=== PATIENT | female | born 1950 | race Caucasian/White ===

== ENCOUNTER → 2018-06-28 12:22 | Outpatient (CLI) | payer MEDICARE, OTHER, SELFPAY ==
--- NOTE | 2018-06-28 12:28 | RAD_ITS ---
STUDY: X-RAY - ABDOMEN/PELVIS REASON FOR EXAM: Female, 68 years old. Check [place] TECHNIQUE: Two AP supine views of the abdomen and pelvis. COMPARISON: 05/02/2017. FINDINGS: There is an abundance of fecal material throughout the colon obscuring the kidneys. There is a faint hyperattenuation in the right upper renal kidney of approximately 0.6 cm. There is no demonstrated free abdominal air. There are stable calcified phleboliths in the pelvis. There are diffuse degenerative changes of the visualized lumbar spine. RAD/Abdomen Single View IMPRESSION: Abundant amount of retained fecal material. Possible left upper renal pole calculus. Electronically Signed: Shania Patel MD at 6:37 EDT , Service support ,
== END ==
PROVIDERS: Referring Provider Urology; Visit Provider Urology
DX: N20.0 Calculus of kidney (principal)
CPT/HCPCS: 74018

== ENCOUNTER → 2018-07-19 14:47 | Outpatient (CLI) | payer MEDICARE, OTHER, SELFPAY ==
--- NOTE | 2018-07-19 14:50 | CT_ITS ---
STUDY: CT ABDOMEN AND PELVIS WITHOUT CONTRAST REASON FOR EXAM: Female, 68 years old. Kidney stone RADIATION DOSAGE (If Supplied By Facility): CTDIvol = ( 9.23 ) mGy, DLP = ( 448.17 ) mGycm TECHNIQUE: Transaxial images were obtained from the dome of the diaphragm to the symphysis pubis without oral contrast, and without intravenous contrast. Sagittal and coronal images were reconstructed. # of Images: 447 Individualized dose optimization techniques were used for this CT. COMPARISON: None. FINDINGS: Within the right lower lobe there is a 6.4 mm subpleural nodule. The visualized portions of the heart are within normal limits. Please note the lack of intravenous contrast limits evaluation of solid visceral organs. There are multiple well-circumscribed low-attenuation rounded foci throughout the liver; a arborist representative focus measures up to 1.6 cm within the right hepatic lobe. The gallbladder is contracted. Normal spleen. Normal pancreas. Normal bilateral adrenal glands. Normal right kidney. There is a nonobstructing 7.5 mm left renal calculus. Normal visualized stomach. Normal small intestine. There are scattered diverticula throughout the sigmoid colon. The appendix is visualized and appears normal. There is diffuse atherosclerotic calcification of the abdominal aorta, without a demonstrated aneurysm. Normal inferior vena cava. Normal retroperitoneum. Normal urinary bladder. Normal abdominal wall. There are diffuse degenerative changes of the visualized lumbar spine. CT/Abdomen/Pelvis without Cont IMPRESSION: 7.5 mm nonobstructing left renal calculus. Multiple low-attenuation foci throughout the liver which may reflect underlying cysts and/or hemangiomas, recommend an MRI with contrast for further characterization. Atherosclerosis. Degenerative changes. Electronically Signed: Huyen Georges MD at 16:04 EDT Tel , Service support ,
== END ==
PROVIDERS: Referring Provider Urology; Visit Provider Urology
DX: N20.0 Calculus of kidney (principal)
CPT/HCPCS: 74176

== ENCOUNTER 2018-08-14 07:47 | Day surgery (SDC) | payer MEDICARE, OTHER, SELFPAY ==
[2018-08-14] VITALS (7 sets, daily range): BP systolic 129–167; BP diastolic 75–81; PULSE 60–72; RESP 14–18; TEMP 36.1–37.3; O2SAT 90–100; BMI 24.0
--- NOTE | 2018-08-14 | CALC_PTH ---
PATIENT: RAMÓN MCGRATH LOC: [facility] U#:[id number] AGE/SX: 68/F ROOM: RE08/14/[address]: Dr. Michelle Crenshaw MD : 1950 BED: DIS: 08/14/2018 SPEC #: [id number] RECD: 08/14/18 13:12 STATUS: SAL MARISSA #: [id number] MINI: 08/14/18 00:[address]: Michelle Crenshaw DEPT: SURGICAL PATHOLOGY RECD BY: Oli Ferguson ENTERED: 08/14/18 13:12 SP TYPE: Calculi OTHR DR: [facility] Tissues: CALCULI Procedures: Surgery Specimen Level I HEADER OPERATION: Ureteroscopy, retro, laser, stent PRE-OP DIAGNOSIS: Calculus of kidney TISSUE SUBMITTED: Calculi GROSS DIAGNOSIS Fragments of stone, clinically left kidney calculus. SJ:joce 08/14/18 COMMENT The calculus is submitted in its entirety for chemical stone analysis. The results from this study will be reported separately. GROSS DESCRIPTION Received without fixative labeled with the patient name and designated left kidney calculus is a specimen that consists of two fragments of gonzalez-brown stone measuring in aggregate 0.4 x 0.3 x 0.1 cm. The specimen is submitted entirely for chemical stone analysis. / MISSAEL:joce 08/14/18 CPT: 58503
--- NOTE | 2018-08-14 08:42 | EKG12_ITS ---
Test Reason : PREOP Blood Pressure : / mmHG Vent. Rate : 066 BPM Atrial Rate : 066 BPM P-R Int : 200 ms QRS Dur : 084 ms QT Int : 404 ms P-R-T Axes : 022 009 -05 degrees QTc Int : 423 ms Normal sinus rhythm Normal ECG Confirmed by JUDE GILL, WILLAM ([id number]), food editor MARY GONZALEZ ([id number]) on 08/20/2018 2:34:24 PM Referred By: Michelle Crenshaw Confirmed By:WILLAM ROQUE MD
--- NOTE | 2018-08-14 09:18 | DCINST_ITS ---
Discharge Diet: No Restrictions Discharge Activity: May not drive while taking narcotic pain medications., May Shower May resume sexual activity in: 1 week Call your doctor if you observe: Fever of 101 or Higher, Inability to urinate, Inability to have a bowel movement, Shortness of breath, Chest pain, Calf discomfort, Uncontrolled pain Allergies/Adverse Reactions: Allergies oxycodone HCl [From Percocet] Adverse Reaction (Verified 08/07/18 14:13) Nausea Medications to take at Discharge Ascorbic Acid [Vitamin C] 500 mg PO DAILY 09/28/15 Calcium Carbonate [Calcium] 500 mg PO DAILY 09/28/15 Cholecalciferol (VIT D3) [Vitamin D] 2,000 unit PO DAILY 09/28/15 [place]-3 Fatty Acids [Fish Oil] 1,200 mg PO BID 09/28/15 Simvastatin [Zocor] 20 mg PO QHS 09/28/15 Aspirin E.C. [Ecotrin] 81 mg PO DAILY@0800 11/13/15 Potassium Citrate 1 tab PO BID 11/13/15 Ubidecarenone [Coq10] 50 - 100 mg PO DAILY 11/13/15 Acai Craig Extract [Acai] 1 oz PO DAILY 08/07/18 Bifidobacterium Infantis [Align] 4 mg PO DAILY 08/07/18 Magnesium 250 mg PO BID 08/07/18 Primary Care Physician: [facility] ,Out of [Primary Care Provider] - Test Results: Test results from this visit will be discussed in further detail at your follow- up appointment, if applicable. Please Follow Up With: Michelle Crenshaw MD When: call for appt Proposed Discharge Date: 08/14/18
[2018-08-14] MEDS: Cefazolin 2 GM in 0.9% Normal Saline 100 ML IV (10:02)
--- NOTE | 2018-08-14 11:22 | OP.PCM_ITS ---
Problem List (1) Renal calculus, left Status: Acute Report of Operation Date of Procedure: 08/14/18 Pre-Operative Diagnosis: left renal calculus Post-Operative Diagnosis: same Surgery/Procedure Performed:: cystoscopy, left ureteroscopy, holmium laser lithotripsy, stone basket extraction and left ureteral stent insertion Description of Surgical Findings:: one large left stone about 1cm in the upper pole, broken into small fragments, the largest of which were removed. stent inserted without difficulty. of note, the ureteral caliber is small, and the re-access sheath was tight. Type of Anesthesia:: General Specimen's removed: stone fragments Description of Procedure: The patient is a 68-year-old female who presented to me with a long- standing history of left renal calculi. She has had several treatments including extracorporal shockwave lithotripsy several times. After discussing all the risks, benefits and alternatives and taking into consideration her previous procedures, we decided to remove the stone with ureteroscopy and laser lithotripsy. The patient was taken to the operating room and placed on the operating room table. Anesthesia monitored the head neck airway IV access and vital signs throughout the case. Once anesthesia was appropriately administered the patient was placed into dorsal lithotomy position was prepped and draped in usual sterile fashion. A cystourethroscopy revealed normal urothelial mucosa throughout the bladder and urethra. The areas of the ureteral orifices were identified in the correct anatomic position. At this time the left ureteral orifice was intubated with a 0.035 Glidewire which was used as a safety wire and a second wire was then passed without difficulty. Under fluoroscopic visualization a ureteral re-access sheath was then inserted to the area of the proximal left ureter. At this time using a flexible ureteroscope, ureteroscopy and pyeloscopy were performed and the stone was identified in the upper pole approximately 1 cm in size. The stone was then lasered and broken into small fragments several of which were stone basket extracted through the ureteral reaccessed sheath. When it was felt that no more stones could be removed and that the remainder were small dust like particles, the ureteral re-access sheath was carefully removed under direct visualization and fluoroscopic visualization. The reaccessed sheath was tight and the ureter and time was taken to slowly insert and slowly removed. There was no injury to the ureter identified. At this time using the safety wire a 6 Russian 24 cm double-J stent was inserted with good positioning in the renal pelvis as well as the urinary bladder. The patient's bladder was then emptied and the case was terminated. She was awakened and taken to the recovery room in good condition. There were no complications during this procedure. Stones were sent for analysis. Grafts/Implants Used: 6 Fr 24cm stent - Complications none - Admit VTE Documentation VTE Present on Admission: Yes VTE Mechan Device Prophylaxis: SCD's VTE Pharm Prophylaxis ordered?: No Reason prophylaxis not ordered:: Treatment Not Indicated
--- NOTE | 2018-08-14 11:23 | PCM.IMDPSTOP ---
Problem List (1) Renal calculus, left Status: Acute Immediate Post-Op Note Date of Procedure: 08/14/18 Primary Surgeon/Physician: Michelle Crenshaw MD pre kindergarten teacher: Michelle Crenshaw Pre-Operative Diagnosis: left renal calculus Post-Operative Diagnosis: same Surgery/Procedure Performed:: cystoscopy, left ureteroscopy, holmium laser lithotripsy, stone basket extraction and left ureteral stent insertion Description of Surgical Findings:: one large left stone about 1cm in the upper pole, broken into small fragments, the largest of which were removed. stent inserted without difficulty. of note, the ureteral caliber is small, and the re-access sheath was tight. Estimated Blood Loss: 2cc Specimen's removed: stone fragments Type of Anesthesia:: General - Admit VTE Documentation VTE Present on Admission: Yes VTE Mechan Device Prophylaxis: SCD's VTE Pharm Prophylaxis ordered?: No Reason prophylaxis not ordered:: Treatment Not Indicated
[2018-08-22 12:08] LABS: Ca Oxalate, Dihydrate 30 % (.); Ca Oxalate, Monohydrate 65 % (.)
== END 2018-08-14 14:13 | disposition home or self-care (01) ==
LOC: SDC 07:48 → AC 07:49
PROVIDERS: Referring Provider Urology; Visit Provider Urology
PROC: 0TJ98ZZ Inspection of Ureter, Via Natural or Artificial Opening Endoscopic (ICD-10-PCS; CPT 52352; principal; 2018-08-14 09:10)
DX: N20.0 Calculus of kidney (principal); K59.04 Chronic idiopathic constipation; E78.00 Pure hypercholesterolemia, unspecified; K21.9 Gastro-esophageal reflux disease without esophagitis; Z78.0 Asymptomatic menopausal state; Z79.899 Other long term (current) drug therapy; Z87.442 Personal history of urinary calculi
CPT/HCPCS: 00918; 52356; 76000; 82360; 88300; 93005; J7120; C1769; C1894; C2617; J2405

== ENCOUNTER → 2019-06-21 13:14 | Outpatient (CLI) | payer MEDICARE, OTHER, SELFPAY ==
[2018-08-14 08:01] VITALS: BMI 24.0
--- NOTE | 2019-06-21 13:19 | RAD_ITS ---
HISTORY: History of kidney calculus. No current pain. Most recent comparison study is a CT scan of the abdomen and pelvis from July 19, 2018. Findings: The left renal calculus in the CT scan is not identified. Left pelvic phleboliths are similar to the previous study. Degenerative disc disease and facet arthropathy within the lumbar spine is similar. There is a slight increased amount of stool throughout the colon. RAD/Abdomen Single View IMPRESSION: No urinary calculi perceived. Mild constipation. at 0556 Reported and signed by: Noel Crane MD Electronically Signed: Noel Crane MD at 5:55 EDT Tel , Service support ,
== END ==
PROVIDERS: Referring Provider Urology; Visit Provider Urology
DX: N20.0 Calculus of kidney (principal)
CPT/HCPCS: 74018

== ENCOUNTER → 2020-07-15 11:11 | Outpatient (CLI) | payer MEDICARE, OTHER, SELFPAY ==
[2018-08-14 08:01] VITALS: BMI 24.0
--- NOTE | 2020-07-15 11:14 | RAD_ITS ---
STUDY: X-RAY - ABDOMEN/PELVIS REASON FOR EXAM: Female, 70 years old. hx of urinary calculi TECHNIQUE: 2 COMPARISON: 19 July 2018, June 21 2019 FINDINGS: Normal visualized lung bases. There is an unremarkable bowel gas pattern. There is no demonstrated free abdominal air. There are no calcifications projecting over the urinary system. There are pelvic phleboliths on the left. Normal soft tissue structures. Osseous structures are intact with degenerative change in the lower lumbar segment. SI joints are normal. RAD/Abdomen Single View IMPRESSION: Normal x-ray examination of the abdomen and pelvis. No urinary calculi on plain films. Electronically Signed: Sivakumar Milian, at 15:57 EDT Tel , Service support ,
== END ==
PROVIDERS: Referring Provider Urology; Visit Provider Urology
CPT/HCPCS: 74018

== ENCOUNTER → 2021-07-23 09:45 | Outpatient (CLI) | payer MEDICARE, OTHER, SELFPAY ==
[2021-07-23 12:46] LABS: Anion Gap 4 (5-15); BUN 11 mg/dL (7-18); BUN/Creat Ratio 14.2 RATIO (10-20); Calcium,Total 9.2 mg/dL (8.5-10.1); Chloride 101 mmol/L (98-107); Creatinine, Serum 0.78 mg/dL (0.55-1.02); EST Glomerular Filtration Rate 78 mL/min (>60); Est Glom Filt Rate - Afr Amer 94 mL/min (>60); Glucose 90 mg/dL (74-106); Potassium 4.2 mmol/L (3.5-5.1); Sodium Level 138 mmol/L (136-145)
== END ==
PROVIDERS: Referring Provider Urology; Visit Provider Urology
DX: N20.0 Calculus of kidney (principal)
CPT/HCPCS: 36415; 80048

== ENCOUNTER → 2023-06-07 | Outpatient (CLI) | payer MEDICARE, OTHER, SELFPAY ==
--- NOTE | 2023-06-07 13:30 | CYSPIN_PTH ---
PATIENT: RAMÓN MCGRATH LOC: [facility] U#:[id number] AGE/SX: 73/F ROOM: RE06/07/[address]: Dr. Mihcelle Crenshaw MD : 1950 BED: DIS: 06/07/2023 SPEC #: [id number] RECD: 06/08/23 10:01 STATUS: SAL REDemetrius #: [id number] MINI: 06/07/23 13:[address]: Michelle Crenshaw DEPT: CYTOLOGY RECD BY: Radha Hicks ENTERED: 06/08/23 10:02 SP TYPE: CYSPIN FL OTHR DR: Dr. Hi Marcano MD Tissues: Urine Procedures: Pap Stain (control) Special Stain Group II Cytospin Fluid HEADER OPERATION: Not noted PRE-OP DIAGNOSIS: Gross hematuria TISSUE SUBMITTED: Urine for cytology DIAGNOSIS CYTOLOGY Urine for cytology (cytospin): Negative for high-grade urothelial carcinoma (NHGUC), Blaire System Category II. Marked acute inflammation. See comment. SJ:adam 06/09/2023 COMMENT Numerous red blood cells are also noted. Clinical correlation and appropriate follow up are necessary. Repeat cytology is suggested if clinically indicated. The Blaire System for urine cytology diagnostic categorization was used in the evaluation of this case. CYTOLOGY STUDY Slides are reviewed. CYTOLOGY GROSS Received is 15 ml of gold cloudy fluid labeled with the patient's name and and designated per the requisition as urine. Submitted for cytology preparation. / adam 06/08/2023 TC:2 CPT: 80633
[2023-06-07 18:00] LABS: Cytology, Body Fluid / CSF SEE PATHOLOGY REPORT
== END | disposition home or self-care (01) ==
PROVIDERS: Visit Provider Urology
DX: R31.0 Gross hematuria (principal)
CPT/HCPCS: 88108; 88313

== ENCOUNTER → 2023-06-20 | Outpatient (CLI) | payer MEDICARE, OTHER, SELFPAY ==
--- NOTE | 2023-06-20 14:47 | CT_ITS ---
STUDY: CT ABDOMEN AND PELVIS WITH AND WITHOUT CONTRAST REASON FOR EXAM: Female, 73 years old. UROGRAM HEMATURIA. HISTORY OF KIDNEY STONES RADIATION DOSAGE (If Supplied By Facility): CTDIvol = ( 14.07 ) mGy, DLP = ( 2309.80 ) mGycm TECHNIQUE: Transaxial images were obtained from the dome of the diaphragm to the symphysis pubis without oral contrast. IV 100mL Isovue-[id number] was administered. Sagittal and coronal images were reconstructed. Individualized dose optimization techniques were used for this CT. COMPARISON: Comparison is made with prior study July 19, 2018. FINDINGS: The visualized lung bases are unremarkable. The visualized portions of the heart are within normal limits. Stable multiple hepatic cysts scattered throughout the right and left lobes of the liver. Normal gallbladder and extrahepatic biliary system. Normal spleen. Normal pancreas. Normal bilateral adrenal glands. Normal right kidney. There is a 4.7 mm calculus in the left midpole calyx just proximal to the renal pelvis.. No significant hydronephrosis is seen at this time. Nonobstructive 3 mm calculi are seen in the lower pole calyx of the left kidney. Stable 1 cm cyst in the peripheral lateral aspect of the left kidney. Normal visualized stomach. Normal small intestine. Normal colon. The appendix is visualized and appears normal. There is scattered atherosclerotic calcification of the abdominal aorta, without a demonstrated aneurysm. Normal inferior vena cava. Normal retroperitoneum. Normal urinary bladder. Normal abdominal wall. There are degenerative changes of the visualized lumbar spine. CT/CT Abd/Pelvis W/WO Contrast IMPRESSION: 4.7 mm calculus is seen in the left midpole calyx just proximal to the left renal pelvis. No obstruction is seen. Tiny nonobstructive calculi in the lower pole calyx of the left kidney. Stable multiple small hepatic cysts. Electronically Signed: Daniel Kim MD at 15:42 EDT ,
[2023-06-20 15:11] LABS: CREATININE FINGERSTICK < 0.9 mg/dL (0.55-1.02); EGFR FINGERSTICK > 60.0000 mL/min (>60)
== END | disposition home or self-care (01) ==
LOC: CT 14:47
PROVIDERS: Referring Provider Urology; Visit Provider Urology
DX: R31.0 Gross hematuria (principal)
CPT/HCPCS: 74178; Q9967

== ENCOUNTER → 2023-07-05 | Outpatient (CLI) | payer MEDICARE, OTHER, SELFPAY ==
--- NOTE | 2023-07-05 12:50 | RAD_ITS ---
INDICATION: KIDNEY STONE EXAMINATION/TECHNIQUE: X-RAY - XR 1 View COMPARISON: Prior study dated: 06/20/2023. FINDINGS: BOWEL GAS PATTERN: Non-obstructive. Moderate fecal retention. FREE AIR: Not assessed on a single supine view. ORGANOMEGALY: Not seen. CALCIFICATIONS: No abnormal calcifications are definitely observed. LOWER CHEST: No acute pathology. BONES AND SOFT TISSUES: No acute pathology. RAD/Abdomen Single View IMPRESSION: 1. Non-obstructive bowel gas pattern. 2. Fecal retention. Electronically Signed: Negro Rodriguez MD at 9:59 EDT ,
== END | disposition home or self-care (01) ==
PROVIDERS: Referring Provider Urology; Visit Provider Urology
DX: N20.0 Calculus of kidney (principal)
CPT/HCPCS: 74018

== ENCOUNTER 2023-10-12 05:59 | Day surgery (SDC) | payer MEDICARE, OTHER, SELFPAY ==
[2023-10-12] VITALS (8 sets, daily range): BP systolic 119–172; BP diastolic 58–93; PULSE 59–81; RESP 16–17; TEMP 36.3–37; O2SAT 92–98; BMI 23.7
--- OUTSIDE RECORDS SUMMARY | 2023-10-12 06:21 | XMS RPT_ITS | CCD ---
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 Name Role Phone Nel Marcano Unavailable Haus, Nel P Unavailable HAUS, NEL Unavailable Unavailable HAUS, NEL Unavailable Unavailable Haus, Nel P Unavailable Haus, Nel Nayak Primary Care Provider Haus, Nel P Unavailable Rayray Lam Admitting Unavailable Rayray aLm Attending Unavailable Nel Marcano Primary Care Provider Haus, Nel P Unavailable Haus, Nel Nayak Primary Care Provider Haus, Nel P Unavailable JEET, NEL NAYAK Primary Care Unavailable SON VARGAS Attending Unavailabl e Nel Marcano DO Primary Care Provider Haus DO, Nel P Unavailable Haus DO, Nel Nayak Primary Care Provider Haus, Nel P Unavailable Haus DO, Nel Nayak Primary Care Provider Haus DO, Nel Nayak Primary Care Provider Haus DO, Nel P Primary Care Provider [phone] BREANNE PHILIPPE Attending Unavailable HAUS, NEL RYAN Primary Care Unavailable ALEJANDRA, NICOLE MCCANN Referring Unavailab le ALEJANDRA, NICOLE MCCANN Admitting Unavailab le PRINZ, VAN Attending Unavailable HAUS, [facility] Primary Care Unavailable ALEJANDRA, NICOLE MCCANN Referring Unavailab le ALEJANDRA, NICOLE MCCANN Admitting Unavailab le PRINZ, VAN Attending Unavailable HAUS, [facility] Primary Care Unavailable ALEJANDRA, NICOLE MCCANN Admitting Unavailab le ALEJANDRA, NICOLE MCCANN Referring Unavailab le PRINZ, VAN Attending Unavailable HAUS, [facility] Primary Care Unavailable ALEJANDRA, NICOLE MCCANN Admitting Unavailab le ALEJANDRA, NICOLE MCCANN Referring Unavailab le HAUS, [facility] Primary Care Unavailable PRINZ, VAN Attending Unavailable ALEJANDRA, NICOLE MCCANN Admitting Unavailab le ALEJANDRA, NICOLE MCCANN Referring Unavailab le HAUS, NEL RYAN Primary Care Unavailable PRINCheo, VAN Attending Unavailable ALEJANDRA, NICOLE MCCANN Admitting Unavailab le ALEJANDRA, NICOLE MCCANN Referring Unavailab le PRINZ, VAN Attending Unavailable ALEJANDRA, NICOLE MCCANN Referring Unavailab le ALEJANDRA, NICOLE MCCANN Admitting Unavailab le HAUS, NEL RYAN Primary Care Unavailable PRINZ, VAN Attending Unavailable ALEJANDRA, NICOLE MCCANN Referring Unavailab le ALEJANDRA, NICOLE MCCANN Admitting Unavailab le HAUS, NEL RYAN Primary Care Unavailable PRINCheo, VAN Attending Unavailable ALEJANDRA, NICOLE MCCANN Referring Unavailab le ALEJANDRA, NICOLE MCCANN Admitting Unavailab le HAUS, [facility] Primary Care Unavailable PRINCheo, VAN Attending Unavailable ALEJANDRA, NICOLE MCCANN Referring Unavailab le ALEJANDRA, NICOLE MCCANN Admitting Unavailab le HAUS, [facility] Primary Care Unavailable DIOMEDES STEVENS Attending Unavailable ALEJANDRA, NICOLE MCCANN Referring Unavailab le ALEJANDRA, NICOLE MCCANN Admitting Unavailab le HAUS, [facility] Primary Care Unavailable Haus DO, Nel Primary Care Provider [phone] CAROLA KAUFMAN Attending Unavailable HAUS, NEL RYAN Primary Care Unavailable HAUS, NEL RYAN Primary Care Unavailable BRIANDA HUNTER Attending Unavailable HAUS, NEL RYAN Primary Care Unavailable CLAIRE ROSARIO Attending Unavailable HAUS, NEL RYAN Primary Care Unavailable RUSTY, LEIDY POOLE Attending Unavailable HAUS, NEL RYAN Primary Care Unavailable STEVAN MCMANUS Attending Unavailable CLAIRE ROSARIO Referring Unavailable CLAIRE ROSARIO Admitting Unavailable HAUS, NEL RYAN Primary Care Unavailable HAUS, NEL RYAN Primary Care Unavailable RUSTY, LEIDY POOLE Attending Unavailable HAUS, NEL RYAN Primary Care Unavailable GRAVERMARJORIE Attending Unavailabl e CELESTE GUERRA Attending Unavailable HAUS, NEL RYAN Primary Care Unavailable HAUS, NEL RYAN Primary Care Unavailable RUSTY, LEIDY POOLE Attending Unavailable GRAVERMARJORIE Attending Unavailabl e HAUS, NEL RYAN Primary Care Unavailable ROSARIOCLAIRE Attending Unavailable HAUS, NEL RYAN Primary Care Unavailable GRAVER, MARJORIE FARRIS Attending Unavailabl e HAUS, NEL RYAN Primary Care Unavailable HAUS, NEL RYAN Primary Care Unavailable RUSTY, LEIDY POOLE Attending Unavailable HAUS, NEL RYAN Primary Care Unavailable RUSTY, LEIDY POOLE Attending Unavailable HAUS, NEL RYAN Primary Care Unavailable CELESTE GUERRA Attending Unavailable HAUS, NEL RYAN Primary Care Unavailable LUIS SMITH Attending Unavailable HAUS, NEL RYAN Primary Care Unavailable FLAVIO MALDONADO Attending Unavailable CAROLA AKUFMAN Attending Unavailable HAUS, NEL RYAN Primary Care Unavailable HAUS, NEL RYAN Primary Care Unavailable LANI HALL Attending Unavailable Unavailable Unavailable DO ADAM PAN Attending Unavailable DO ADAM PAN Referring Unavailable Haus, Dr. Nel Nayak Primary Care Unavailable CHAIMMATT Yu Admitting Unavailable CHAIMMATT Yu Attending Unavailable HAUS, NEL RYAN Primary Care Unavailable HAUS, NEL RYAN Primary Care Unavailable CHAIMMATT uY Admitting Unavailable CHAIMMATT Yu Attending Unavailable HAUS, NEL RYAN Primary Care Unavailable HAUS, NEL RYAN Primary Care Unavailable NICOLE ROBERTS Admitting Unavailab le ALEJANDRANICOLE Attending Unavailab le HAUS, NEL RYAN Primary Care Unavailable CHAIM, MATT TORRE Attending Unavailable ALEJANDRANICOLE Admitting Unavailab le HAUS, NEL P Primary Care Unavailable SELF, SELF Referring Unavailable JOSE DE JESUSCHIRAG Attending Unavailable HAUS, NEL P Primary Care Unavailable HAUS, NEL P Attending Unavailable SELF, SELF Referring Unavailable HAUS, NEL P Primary Care Unavailable HAUS, NEL P Referring Unavailable HAUS, NEL P Primary Care Unavailable HAUS, NEL P Attending Unavailable HAUS, NEL P Attending Unavailable HAUS, NEL P Referring Unavailable HAUS, NEL P Primary Care Unavailable HAUS, NEL P Attending Unavailable HAUS, NEL P Referring Unavailable HAUS, NEL P Primary Care Unavailable HAUS, NEL P Primary Care Unavailable JOSE DE JESUS, CHIRAG Attending Unavailable SELF, SELF Referring Unavailable Allergies Allergy Classification Reported Allergen(s) Allergy Type Date of Onset Reaction(s) Facility Acetaminophen / oxyCODONE (20 sources) Acetaminophen / oxyCODONE Drug Allergy 7 GI Intolerance [facility] (20 sources) acetaminophen / oxyCODONE; Translations: [Unknown] Propensity to adverse reactions to drug 7 GI Intolerance [facility] (20 sources) oxyCODONE; Translations: [OXYCODONE] Drug Allergy 8 GI Intolerance, Nausea and Vomiting [facility] Medications Current Medications Medication Drug Class(es) Dates Sig (Normalized) Sig (Original) ascorbic acid 100 mg oral tablet (20 sources) Vitamin C take 5 tablets by [facility] once daily ascorbic acid, vitamin C, (VITAMIN C) 100 MG tablet Take 5 (five) tablets (500 mg total) by mouth daily . 0 Active Completed/Discontinued Medications Medication Drug Class(es) Dates Sig (Normalized) Sig (Original) aspirin 81 mg oral tablet (3 sources) Platelet Aggregation Inhibitor, Nonsteroidal Anti-inflammatory Drug Aspirin 81 MG TAB S Quantity: 0 Refills: 0 Ordered: 22-Jun-2023 DO Active Problems Active Problems Problem Classification Problem Date Documented Da te Episodic/Chronic Anxiety disorders (20 sources) Anxiety; Translations: [Anxiety disorder, unspecified] Onset: 1 08-10-2021 Chronic Coronary atherosclerosis and other heart disease (2 sources) Coronary arteriosclerosis; Translations: [Atherosclerotic heart disease of [place] coronary artery without angina pectoris] Onset: 8 08-28-2019 Chronic Disorders of lipid metabolism (10 sources) Hypercholesterolemia; Translations: [Pure hypercholesterolemia, unspecified] Onset: 8 Resolved: 2 12-25-2017 Chronic Esophageal disorders (6 sources) Gastroesophageal reflux disease; Translations: [Gastro-esophageal reflux disease without esophagitis] Onset: 9 10-03-2018 Chronic Esophageal disorders (1 source) Gastroesophageal reflux disease with hiatal hernia; Translations: [Hiatal hernia with GERD without esophagitis] Episodic Nausea and vomiting (1 source) Nausea; Translations: [Nausea] Episodic Nutritional deficiencies (20 sources) Vitamin D deficiency; Translations: [Vitamin D deficiency, unspecified] Onset: 0 03-20-2020 Chronic Osteoarthritis (4 sources) Osteoarthritis of left knee joint; Translations: [Unilateral primary osteoarthritis, left knee] Onset: 2 Chronic Osteoporosis (20 sources) Senile osteoporosis; Translations: [Age-related osteoporosis without current pathological fracture] Onset: 0 03-20-2020 Chronic Other aftercare (2 sources) Other detention (current) drug therapy; Translations: [Other watermelon inspector (current) drug therapy] Onset: 3 Episodic Other bone disease and musculoskeletal deformities (20 sources) Idiopathic scoliosis AND/OR kyphoscoliosis; Translations: [Other idiopathic scoliosis, site unspecified] Onset: 1 12-11-2020 Chronic Other bone disease and musculoskeletal deformities (20 sources) Idiopathic kyphoscoliosis; Translations: [Other idiopathic scoliosis, site unspecified] Onset: 1 07-02-2021 Chronic Other ear and sense organ disorders (10 sources) Sensorineural hearing loss, bilateral; Translations: [Sensorineural hearing loss, bilateral] Onset: 3 Chronic Other ear and sense organ disorders (1 source) Sensorineural hearing loss, bilateral; Translations: [Sensorineural hearing loss, bilateral] Onset: 3 Chronic Other ear and sense organ disorders (1 source) Sudden hearing loss; Translations: [Sudden hearing loss, unspecified laterality] Episodic Other gastrointestinal disorders (1 source) Heartburn; Translations: [Heartburn] Episodic Other gastrointestinal disorders (1 source) Eructation; Translations: [Gaseous regurgitation] Episodic Other gastrointestinal disorders (1 source) Burping; Translations: [Belching] Episodic Other gastrointestinal disorders (1 source) Chronic constipation; Translations: [Constipation, unspecified] Episodic Other gastrointestinal disorders (2 sources) Other constipation; Translations: [Other constipation] Onset: 3 Episodic Other hereditary and degenerative nervous system conditions (2 sources) Resting tremor; Translations: [Other specified forms of tremor] Onset: 1 10-28-2020 Chronic Other lower respiratory disease (2 sources) Dyspnea; Translations: [Shortness of breath] Onset: 8 08-31-2018 Episodic Other lower respiratory disease (1 source) Chronic cough; Translations: [Chronic cough] Episodic Other nervous system disorders (3 sources) Tremor; Translations: [Tremor] Episodic Other non-traumatic joint disorders (20 sources) Thoracic arthritis; Translations: [Spondylosis without myelopathy or radiculopathy, thoracic region] Onset: 1 12-11-2020 Chronic Other non-traumatic joint disorders (1 source) Instability of joint of left knee; Translations: [Other instability, left knee] Episodic Other screening for suspected conditions (not mental disorders or infectious disease) (13 sources) Patient encounter status; Translations: [Encounter for screening for osteoporosis] Onset: 3 Episodic Parkinson`s disease (20 sources) Parkinson's disease; Translations: [Parkinson's disease] Onset: 1 Resolved: 3 Chronic Parkinson`s disease (4 sources) Parkinson`s disease; Translations: [Parkinson's disease without dyskinesia, without mention of fluctuations] Onset: 1 Residual codes; unclassified (4 sources) History of drug therapy; Translations: [Personal history of other drug therapy] Episodic Residual codes; unclassified (2 sources) Personal history of other drug therapy; Translations: [Personal history of other drug therapy] Onset: 3 Episodic Spondylosis; intervertebral disc disorders; other back problems (20 sources) Lumbar spondylosis; Translations: [Spondylosis without myelopathy or radiculopathy, lumbar region] Onset: 1 12-11-2020 Chronic Unclassified (1 source) Patient encounter status; Translations: [Screening for osteoporosis] Past or Other Problems Problem Classification Problem Date Documented Date Episodic/Chronic Allergic reactions (2 sources) Contact dermatitis due to [place]; Translations: [Allergic contact dermatitis due to plants, except food] Onset: 03-25-2021 03-25-2021 Episodic Calculus of urinary tract (6 sources) History of calculus of kidney; Translations: [Kidney stone] Onset: 12-25-2017 12-25-2017 Episodic Genitourinary symptoms and ill-defined conditions (6 sources) Urinary symptoms ; Translations: [Unspecified symptoms and signs involving the genitourinary system] Onset: 04-17-2023 04-17-2023 Episodic Heart valve disorders (2 sources) Heart murmur; Translations: [Cardiac murmur, unspecified] Onset: 10-09-2018 08-28-2019 Episodic Nonspecific chest pain (5 sources) Chest pain; Translations: [Non-cardiac chest pain] Onset: 08-31-2018 08-31-2018 Episodic Other circulatory disease (2 sources) Elevated blood pressure; Translations: [Elevated blood-pressure reading, without diagnosis of hypertension] Onset: 09-07-2020 09-07-2020 Episodic Other lower respiratory disease (2 sources) Dyspnea on exertion; Translations: [Other forms of dyspnea] Onset: 08-31-2018 09-05-2019 Episodic Other upper respiratory disease (20 sources) Difficulty speaking; Translations: [Dysphonia] Onset: 04-06-2021 Episodic Other upper respiratory disease (20 sources) Dysphonia; Translations: [Dysphonia] Onset: 04-06-2021 04-06-2021 Episodic Residual codes; unclassified (2 sources) Pain, unspecified; Translations: [Pain, unspecified] Onset: 05-19-2022 Episodic Residual codes; unclassified (2 sources) Pain Onset: 05-19-2022 Episodic Unclassified (2 sources) Onset: 09-19-2022 Resolved: 09-19-2022 09-19-2022 Results Test Name Value Interpretation Reference Range Facil ity Vital Signs Date Time Vital Sign Value Performing Clinician Facility 07-17-2023 12:27-0400 Diastolic blood pressure 84 mm[Hg] Matt Lopez MD Work Phone: [facility] 07-17-2023 12:27-0400 Heart rate 77 /min Matt Lopez MD Work Phone: [facility] 07-17-2023 12:27-0400 Respiratory rate 16 /min Matt Lopez MD Work Phone: [facility] 07-17-2023 12:27-0400 Systolic blood pressure 134 mm[Hg] Matt Lopez MD Work Phone: [facility] 06-22-2023 15:06-0400 Body height 165.1 cm Nel P Haus Work Phone: [facility] Work Phone: 06-22-2023 15:06-0400 Body mass index (BMI) [Ratio] 25.03 kg/m2 Nel P Haus Work Phone: [facility] Work Phone: 06-22-2023 15:06-0400 Body surface area Derived from formula 1.75 m2 Nel P Haus Work Phone: [facility] Work Phone: 06-22-2023 15:06-0400 Body weight 68.22 kg Nel P Haus Work Phone: [facility] Work Phone: 04-28-2023 09:11-0400 Body mass index (BMI) [Ratio] 25.01 kg/m2 Kelleen Graver TRANSFER AGENT Work Phone: [facility] 04-28-2023 09:11-0400 Body weight 68.18 kg Kelleen Graver TRANSFER AGENT Work Phone: [facility] 04-28-2023 09:11-0400 Diastolic blood pressure 80 mm[Hg] Kelleen Graver TRANSFER AGENT Work Phone: [facility] 04-28-2023 09:11-0400 Systolic blood pressure 135 mm[Hg] Kelleen Graver TRANSFER AGENT Work Phone: [facility] 04-17-2023 09:41-0400 Body height 165.1 cm Chirag Jose De Jesus PA Work Phone: [facility] 04-17-2023 09:41-0400 Body mass index (BMI) [Ratio] 22.96 kg/m2 Chirag Jose De Jesus PA Work Phone: [facility] 04-17-2023 09:41-0400 Body temperature 98.01 [degF] Chirag Jose De Jesus PA Work Phone: [facility] 04-17-2023 09:41-0400 Body weight 62.6 kg Chirag Jose De Jesus PA Work Phone: [facility] 04-17-2023 09:41-0400 Diastolic blood pressure 73 mm[Hg] Chirag Jose De Jesus PA Work Phone: [facility] 04-17-2023 09:41-0400 Heart rate 75 /min Chirag Jose De Jesus PA Work Phone: [facility] 04-17-2023 09:41-0400 Respiratory rate 17 /min Chirag Jose De Jesus PA Work Phone: [facility] 04-17-2023 09:41-0400 SaO2% (BldA) [Mass fraction] 99 % Chirag Jose De Jesus PA Work Phone: [facility] 04-17-2023 09:41-0400 Systolic blood pressure 150 mm[Hg] Chirag Jose De Jesus PA Work Phone: [facility] 01-10-2023 11:49-0400 Diastolic blood pressure 92 mm[Hg] Matt Lopez MD Work Phone: [facility] 01-10-2023 11:49-0400 Heart rate 66 /min Matt Lopez MD Work Phone: [facility] 01-10-2023 11:49-0400 Respiratory rate 16 /min Matt Lopez MD Work Phone: [facility] 01-10-2023 11:49-0400 Systolic blood pressure 163 mm[Hg] Matt Lopez MD Work Phone: [facility] 10-05-2022 12:34-0500 Diastolic blood pressure 85 mm[Hg] Nicole Alejandra TRANSFER AGENT Work Phone: [facility] 10-05-2022 12:34-0500 Heart rate 60 /min Nicole Alejandra TRANSFER AGENT Work Phone: [facility] 10-05-2022 12:34-0500 Respiratory rate 16 /min Nicole Alejandra TRANSFER AGENT Work Phone: [facility] 10-05-2022 12:34-0500 Systolic blood pressure 160 mm[Hg] Nicole Alejandra TRANSFER AGENT Work Phone: [facility] 09-28-2022 12:13-0500 Diastolic blood pressure 81 mm[Hg] Leidy Donald MD Work Phone: [facility] 09-28-2022 12:13-0500 Systolic blood pressure 138 mm[Hg] Leidy Donald MD Work Phone: [facility] 09-19-2022 09:43-0500 Body height 165.1 cm Nel Haus DO Work Phone: [facility] 09-19-2022 09:43-0500 Body mass index (BMI) [Ratio] 25.49 kg/m2 Nel Haus DO Work Phone: [facility] 09-19-2022 09:43-0500 Body weight 69.49 kg Nel Haus DO Work Phone: [facility] 09-19-2022 09:43-0500 Diastolic blood pressure 82 mm[Hg] Nel Haus DO Work Phone: [facility] 09-19-2022 09:43-0500 Heart rate 76 /min Nel Haus DO Work Phone: [facility] 09-19-2022 09:43-0500 SaO2% (BldA) [Mass fraction] 96 % Nel Marcano DO Work Phone: [facility] 09-19-2022 09:43-0500 Systolic blood pressure 138 mm[Hg] Nel Marcano DO Work Phone: [facility] 08-26-2022 11:02-0500 Diastolic blood pressure 72 mm[Hg] Marjorie Nava TRANSFER AGENT Work Phone: [facility] 08-26-2022 11:02-0500 Systolic blood pressure 128 mm[Hg] Marjorie Nava TRANSFER AGENT Work Phone: [facility] 08-11-2022 09:13-0500 Body height 167.6 cm Claire Rosario CNP Work Phone: [facility] 08-11-2022 09:13-0500 Body mass index (BMI) [Ratio] 23.57 kg/m2 Claire Rosario CNP Work Phone: [facility] 08-11-2022 09:13-0500 Body weight 66.22 kg Claire Rosario CNP Work Phone: [facility] 08-04-2022 09:59-0400 Diastolic blood pressure 85 mm[Hg] Matt Lopez MD Work Phone: [facility] 08-04-2022 09:59-0400 Heart rate 68 /min Matt Lopez MD Work Phone: [facility] 08-04-2022 09:59-0400 Respiratory rate 16 /min Matt Lopez MD Work Phone: [facility] 08-04-2022 09:59-0400 Systolic blood pressure 147 mm[Hg] Matt Lopez MD Work Phone: [facility] 06-29-2022 11:00-0400 Diastolic blood pressure 80 mm[Hg] Leidy Donald MD Work Phone: [facility] 06-29-2022 11:00-0400 Systolic blood pressure 130 mm[Hg] Leidy Donald MD Work Phone: [facility] 05-25-2022 10:34-0400 Diastolic blood pressure 79 mm[Hg] Leidy Donald MD Work Phone: [facility] 05-25-2022 10:34-0400 Systolic blood pressure 144 mm[Hg] Leidy Donald MD Work Phone: [facility] 05-19-2022 10:03-0400 Body height 167.6 cm Claire Rosario CNP Work Phone: [facility] 05-19-2022 10:03-0400 Body mass index (BMI) [Ratio] 23.57 kg/m2 Claire Rosario CNP Work Phone: [facility] 05-19-2022 10:03-0400 Body weight 66.22 kg Claire Rosario CNP Work Phone: [facility] 04-27-2022 11:36-0400 Diastolic blood pressure 79 mm[Hg] Marjorie Nava TRANSFER AGENT Work Phone: [facility] 04-27-2022 11:36-0400 Systolic blood pressure 139 mm[Hg] Marjorie Nava TRANSFER AGENT Work Phone: [facility] 03-30-2022 11:02-0400 Diastolic blood pressure 81 mm[Hg] Leidy Donald MD Work Phone: [facility] 03-30-2022 11:02-0400 Systolic blood pressure 150 mm[Hg] Leidy Donald MD Work Phone: [facility] 02-23-2022 11:47-0400 Diastolic blood pressure 83 mm[Hg] Leidy Donald MD Work Phone: [facility] 02-23-2022 11:47-0400 Systolic blood pressure 135 mm[Hg] Leidy Donald MD Work Phone: [facility] 02-23-2022 11:33-0400 Body height 164.5 cm Leidy Donald MD Work Phone: [facility] 02-23-2022 11:33-0400 Body mass index (BMI) [Ratio] 24.99 kg/m2 Leidy Donald MD Work Phone: [facility] 02-23-2022 11:33-0400 Body weight 67.59 kg Leidy Donald MD Work Phone: [facility] 02-10-2022 07:58-0400 Diastolic blood pressure 84 mm[Hg] Matt Lopez MD Work Phone: [facility] 02-10-2022 07:58-0400 Heart rate 65 /min Matt Lopez MD Work Phone: [facility] 02-10-2022 07:58-0400 Systolic blood pressure 135 mm[Hg] Matt Lopez MD Work Phone: [facility] 01-26-2022 11:39-0400 Diastolic blood pressure 81 mm[Hg] Leidy Donald MD Work Phone: [facility] 01-26-2022 11:39-0400 Systolic blood pressure 135 mm[Hg] Leidy Donald MD Work Phone: [facility] 12-22-2021 13:42-0400 Diastolic blood pressure 85 mm[Hg] Leidy Donald MD Work Phone: [facility] 12-22-2021 13:42-0400 Systolic blood pressure 137 mm[Hg] Leidy Donald MD Work Phone: [facility] 11-24-2021 13:44-0500 Diastolic blood pressure 82 mm[Hg] Leidy Donald MD Work Phone: [facility] 11-24-2021 13:44-0500 Systolic blood pressure 127 mm[Hg] Leidy Donald MD Work Phone: [facility] 09-30-2021 16:01-0500 Diastolic blood pressure 80 mm[Hg] Leidy Donald MD Work Phone: [facility] 09-30-2021 16:01-0500 Systolic blood pressure 140 mm[Hg] Leidy Donald MD Work Phone: [facility] 09-22-2021 14:47-0500 Body height 164.5 cm Leidy Donald MD Work Phone: [facility] 09-22-2021 14:47-0500 Body mass index (BMI) [Ratio] 24.55 kg/m2 Leidy Donald MD Work Phone: [facility] 09-22-2021 14:47-0500 Body weight 66.41 kg Leidy Donald MD Work Phone: [facility] 09-22-2021 14:47-0500 Diastolic blood pressure 85 mm[Hg] Leidy Donald MD Work Phone: [facility] 09-22-2021 14:47-0500 Systolic blood pressure 148 mm[Hg] Leidy Donald MD Work Phone: [facility] 04-08-2021 15:03-0400 Diastolic blood pressure 81 mm[Hg] Tom Ng MD Work Phone: [facility] 04-08-2021 15:03-0400 Heart rate 87 /min Tom Ng MD Work Phone: [facility] 04-08-2021 15:03-0400 Respiratory rate 16 /min Tom Ng MD Work Phone: [facility] 04-08-2021 15:03-0400 SaO2% (BldA) [Mass fraction] 96 % Tom Ng MD Work Phone: [facility] 04-08-2021 15:03-0400 Systolic blood pressure 128 mm[Hg] Tom Ng MD Work Phone: [facility] 01-05-2021 07:45-0400 BP Diastolic 93 mm[Hg] Gubert Gavin [facility] 01-05-2021 07:45-0400 BP Systolic 164 mm[Hg] Brettbert Gavin [facility] 01-05-2021 07:45-0400 Pulse (Heart Rate) 68 /min Felipe Gavin [facility] 01-05-2021 07:45-0400 Pulse Oximetry 98 % Gubert Gavin [facility] 01-05-2021 07:45-0400 Respiratory Rate 16 /min Felipe Gavin [facility] 12-11-2020 10:15-0500 BP Diastolic 86 mm[Hg] [facility] 12-11-2020 10:15-0500 BP Systolic 143 mm[Hg] [facility] 12-11-2020 09:50-0500 BMI (Body Mass Index) 25.15 kg/m2 [facility] 12-11-2020 09:50-0500 Body weight 68.04 kg [facility] 12-11-2020 09:50-0500 Height 164.5 cm [facility] 03-20-2020 08:34-0400 BP Diastolic 83 mm[Hg] [facility] 03-20-2020 08:34-0400 BP Systolic 146 mm[Hg] [facility] 03-20-2020 08:29-0400 BMI (Body Mass Index) 24.87 kg/m2 [facility] 03-20-2020 08:29-0400 Body weight 67.27 kg [facility] 03-20-2020 08:29-0400 Height 164.5 cm [facility] 11-14-2018 10:53-0500 BMI (Body Mass Index) 25.64 kg/m2 [facility] 11-14-2018 10:53-0500 Body Temperature 97.39 [degF] [facility] 11-14-2018 10:53-0500 BP Diastolic 87 mm[Hg] [facility] 11-14-2018 10:53-0500 BP Systolic 145 mm[Hg] [facility] 11-14-2018 10:53-0500 Height 165.1 cm [facility] 11-14-2018 10:53-0500 Pulse (Heart Rate) 72 /min [facility] 11-14-2018 10:53-0500 Pulse Oximetry 96 % [facility] 11-14-2018 10:53-0500 Weight 69.9 kg [facility] 10-05-2018 15:13-0500 BMI (Body Mass Index) 24.74 kg/m2 [facility] 10-05-2018 15:13-0500 Body Temperature 97.81 [degF] [facility] 10-05-2018 15:13-0500 BP Diastolic 91 mm[Hg] [facility] 10-05-2018 15:13-0500 BP Systolic 154 mm[Hg] [facility] 10-05-2018 15:13-0500 Height 165.1 cm [facility] 10-05-2018 15:13-0500 Pulse (Heart Rate) 76 /min [facility] 10-05-2018 15:13-0500 Pulse Oximetry 97 % [facility] 10-05-2018 15:13-0500 Weight 67.45 kg [facility] 08-31-2018 09:16-0500 BMI (Body Mass Index) 24.86 kg/m2 [facility] Work Phone: 08-31-2018 09:16-0500 Body Temperature 97.81 [degF] [facility] Work Phone: 08-31-2018 09:16-0500 BP Diastolic 83 mm[Hg] [facility] Work Phone: 08-31-2018 09:16-0500 BP Systolic 146 mm[Hg] [facility] Work Phone: 08-31-2018 09:16-0500 Height 165.1 cm [facility] Work Phone: 08-31-2018 09:16-0500 Pulse (Heart Rate) 76 /min [facility] Work Phone: 08-31-2018 09:16-0500 Pulse Oximetry 98 % [facility] Work Phone: 08-31-2018 09:16-0500 Weight 67.77 kg [facility] Work Phone: Encounters Encounter Date Encounter Type Care Provider Facility Start: 09-21-2023 ambulatory [facility] Start: 09-20-2023 [facility] Start: 07-17-2023 End: 07-21-2023 ambulatory MATT LOPEZ [facility] Start: 07-17-2023 End: 07-17-2023 Office outpatient visit 15 minutes Matt Lopez MD Work Phone: [facility] Procedures Date Procedure Procedure Detail Performing Clinician Start: 04-17-2023 Urnls dip stick/tabl et rgnt non-auto w/o micrscp Chirag TRUJILLO Work Phone: Start: 12-02-2022 Lipid 1996 panel - S dickson or Plasma Chirag TRUJILLO Work Phone: Start: 10-20-2022 Dxa bone density jordan dy 1/> sites axial mary alice Donald MD Work Phone: Start: 08-12-2022 Arthrocentesis aspir &/inj major jt/bursa w/o Claire Rosario [facility] Work Phone: Start: 08-04-2021 Dxa bone density jordan dy 1/> sites axial mary alice Donald MD Work Phone: Start: 06-09-2021 Lipid 1996 panel - S dickson or Plasma Nel Haus DO Work Phone: Start: 01-14-2021 CT of head without contrast Felipe Gavin Work Phone: Start: 12-09-2017 Lipid 1996 panel - S dickson or Plasma Nel Haus Lithotripsy Nel P Haus Work Phone: Operative procedure on knee Nel P Haus Work Phone: Plan of Treatment Date Care Activity Detail Author Start: 05-04-2029 Tetanus vaccination [facility] Start: 12-03-2027 Lipid panel LIPID SCREENING [facility] Start: 06-09-2026 Lipid panel LIPID SCREENING [facility] Start: 09-05-2025 Screening for malignant neoplasm of colon [facility] Start: 02-01-2024 Screening for malignant neoplasm of cervix CERVICAL CANCER SCREENING DISCUSSION [facility] Start: 01-17-2024 End: 01-17-2024 Patient encounter procedure 01/17/2024 12:00 PM EDT Office Visit [facility] [address] [place] [address] Matt Lopez MD [address] [place] [address] [facility] Start: 11-01-2023 End: 11-01-2023 Patient encounter procedure 11/01/2023 1:15 PM EST Office Visit [facility] [address] [place] [id number] Leidy Donald MD [address] [place] [address] [facility] Start: 09-05-2023 Screening for malignant neoplasm of colon COLORECTAL CANCER SCREENING DISCUSSION [facility] Start: 07-17-2023 End: 07-17-2023 Patient encounter procedure 07/17/2023 12:30 PM EDT Office Visit [facility] [address] [place] [address] Matt Lopez MD [address] [place] [address] [facility] Start: 06-02-2023 COVID-19 Vaccine ( season) COVID-19 Vaccine () [facility] Start: 06-02-2023 Influenza vaccination [facility] Start: 05-30-2023 End: 05-30-2023 Patient encounter procedure [facility] Start: 04-20-2023 End: 04-20-2023 Patient encounter procedure [facility] Start: 04-17-2023 End: 04-17-2024 Bacteria identified in Urine by Culture [facility] Immunizations Immunization Date Immunization Notes Care Provider Preethi ruffin 07-13-2022 influenza virus vaccine, unspecified formulation Chirag TRUJILLO Work Phone: [facility] 05-04-2019 tetanus toxoid, redu erick diphtheria toxoid, and acellular pertussis vaccine, adsorbed Nel Christ DO Work Phone: [facility] 06-29-2013 influenza virus vaccine, unspecified formulation Nel Marcano [facility] Work Phone: Payers Date Payer Category Payer Private Health Insurance [id number] 2019 Unknown 2016 Unknown [id number] 2013 Medicare MEDICARE MEDICAR E PART A & B xxxxxxxxxxx 2013-Present [place] xxxxxxxxxxx [id number] 2013 Medicare [id number] 2013 Medicare [id number]. [id number] 2013 Medicare [id number]. 1.13.385.2. [id number] 2013 Medicare [id number] 1948 Unknown [id number] 2.16.840.1.844811.3.579.2. 902 1948 Unknown [id number] 2.16.840.1.371622.3.579.2. 903 1948 Unknown [id number] 2.16.840.1.905349.3.579.2. 1948 Unknown [id number] 2.16.840.1.661370.3.579.2. 1948 Unknown [id number] 2.16.840.1.970997.3.579.2 1948 Unknown [id number] 2.16.840.1.369624.3.579.2 1948 Unknown [id number] 2.16.840.1.691843.3.579.2 1948 Unknown [id number] 2.16.840.1.219005.3.579.2 1948 Unknown [id number] 2.16.840.1.681666.3.579.2 1948 Unknown [id number] 2.16840.1.425607.3.579.2 1948 Unknown [id number] 2.16.840.1.968680.3.579.2 1948 Unknown [id number] 2.16840.1.139179.3.579.2 1948 Unknown [id number] 2.16.840.1.697650.3.579.2 1948 Unknown [id number] 2.16840.1.117536.3.579.2 1948 Unknown [id number] 2.16.840.1.055726.3.579.2 1948 Unknown [id number] 2.16.840.1.974566.3.579.2 1948 Unknown [id number] 2.16.840.1.874825.3.579.2 1948 Unknown [id number] 2.16840.1.390485.3.579.2 1948 Unknown [id number] 2.16.840.1.851167.3.579.2. 1948 Unknown [id number] 2.16.840.1.694262.3.579.2. 1948 Unknown [id number] 2.16840.1.749905.3.579.2. 1948 Unknown [id number] 2.16840.1.119560.3.579.2 1948 Unknown [id number] 2.840.1.932838.3.579.2 1948 Unknown [id number] 2.840.1.806238.3.579.2 1948 Unknown [id number] 2.840.1.442876.3.579.2 1948 Unknown [id number] 2.840.1.146665.3.579.2 1948 Unknown [id number] 2.840.1.769082.3.579.2 1948 Unknown [id number] 2.840.1.711149.3.579.2 1948 Unknown [id number] 2.840.1.431408.3.579.2 1948 Unknown [id number] 2.16840.1.656632.3.579.2 1948 Unknown [id number] 2.16840.1.179532.3.579.2 1948 Unknown [id number] 2.16840.1.364535.3.579.2 1948 Unknown [id number] 2.840.1.952079.3.579.2. 356 1948 Unknown [id number] 2.16.840.1.434944.3.579.2. 900 1948 Unknown [id number] 2.16.840.1.063668.3.579.2. 900 1948 Unknown [id number] 2.16.840.1.630474.3.579.2. 900 1948 Unknown [id number] 2.16.840.1.076003.3.579.2. 900 1948 Unknown [id number] 2.16.840.1.855940.3.579.2. 900 1948 Unknown [id number] 2.16.840.1.873613.3.579.2. 983 1948 Unknown [id number] 2.16.840.1.160155.3.579.2. 983 1948 Unknown [id number] 2.16.840.1.196415.3.579.2. 98 1948 Unknown [id number] 2.16.840.1.669326.3.579.2. 983 1948 Unknown [id number] 2.16.840.1.029907.3.579.2. 983 1948 Unknown [id number] 2.16.840.1.910504.3.579.2. 983 1948 Unknown [id number] 2.16.840.1.876807.3.579.2. 983 Private Health Insurance [employer]/CONTINENTAL LIFE xxxxxxxxxx Effective for all dates xxxxxxxxxx 1.2.840.327919.1.13.385.2. 7.3.419459.315 Private Health Insurance [id number] 1.2.840.372333.1.13.385.2. 7.3.893034.315 Private Health Insurance [employer]/CONTINENTAL LIFE [id number] Effective for all dates [phone] [address] [address] [place] [address] 1.2.840.466220.1.13.385.2. 7.3.671994.315 Unknown [id number] Social History Date Type Detail Facility Start: 01-23-2018 End: 02-23-2022 Tobacco smoking status NHIS Never smoker [facility] Start: 1950 [facility] Start: 03-20-2020 End: 07-17-2023 Alcohol intake Current non-drinker of alcohol (finding) [facility] Start: 11-14-2021 End: 01-10-2023 Exposure to SARS-CoV-2 (event) Not sure [facility] Start: 03-20-2020 End: 02-23-2022 Tobacco use and exposure Never used [facility] Start: 02-23-2022 End: 04-28-2023 Cigarette pack-years [facility] Start: 10-20-2022 End: 04-28-2023 Tobacco use panel [facility] Start: 12-11-2017 Gender identity Identifies as female gender (finding) [facility] Start: 10-05-2018 Sexual orientation Heterosexual (fin ding) [facility] Clinical Notes 03-04-2021 to 07-17-2023 Matt Lopez MD - 07/17/2023 12:54 PM Marjorie Romo CNP - 04/28/2023 9:00 AM RONNIE Garay - 04/17/2023 9:35 AM EDTPatient InstructionsAttachmentsPatient Instructions Note Date & Type Note Facility 07-17-2023 History of Present illness Narrative MOVEMENT DISORDERS CLINIC FOLLOW-UP VISIT Assessment: Uma Mcgrath is a 73 y.o. female with right more so than left sided tremor prominent Parkinson disease who has responded generally well to the new use of levodopa. Tremor remained on examination, but she was less bradykinetic than I recall seeing before. She reported no lightheadedness, dyskinesias, hallucinations as levodopa side effects. Although I suspect that a slightly higher dose may be more symptomatically beneficial, she reported that she was doing well on her average day and that she had noticed a tangible benefit on the levodopa. Therefore, we collectively decided to make no changes today. She reported that her anxiety continues to be well controlled on Lexapro. Plan: Carbidopa/levodopa 25/100 will continue at 1 tab 3 times daily taken at 7 AM, noon, and 5 PM to help with tremor, rigidity, and bradykinesia control. We could adjust upwards at any time. Escitalopram will continue at 10 mg daily for anxiety control. I would like to see the patient back in 6 months. I answered all of the questions asked of me; the patient/care-partner had no remaining unaddressed symptomatic issues. I personally spent 20 total minutes today in pre-review of the chart, [id number] interaction with the patient/care-partner (including discussion of the chart review, assessment of today's visit, and clinical plan development, as detailed above), updating/placing orders, and post-visit documentation. HPI: I saw Uma Mcgrath in follow-up at the [facility] Movement Disorders clinic for Parkinson disease, we discussed symptoms as detailed above. ROS: As detailed elsewhere. Physical Exam: GENERAL: Well-developed and well-nourished, no distress. MENTAL STATUS: Awake, alert, followed commands. CRANIAL NERVES: Extra-ocular movements full. Face symmetric. Pupils equal, round. No ptosis. No dysarthria. MOTOR: Mild right arm tremor and bradykinesia, no choreiform dyskinesias. SENSORY, REFLEXES, CEREBELLAR, GAIT: Gait appeared stable. Reviewed: Chart records. Sincerely, Matt Lopez MD, PhD documented in this encounter [facility] 04-28-2023 History of Present illness Narrative 04/28/23 Uma Mckenna Foster [address] Marcano, Nel Nayak, DO [address] [facility] [address] Uma Mcgrath was seen on 04/28/23 for the followin. Age-related osteoporosis without current pathological fracture [M81.0 (ICD-10-CM)] 2. Vitamin D deficiency 3. Osteoarthritis of lumbar spine, unspecified spinal osteoarthritis complication status 4. Osteoarthritis of thoracic spine, unspecified spinal osteoarthritis complication status 5. Personal history of drug therapy 6. Encounter for long-term current use of high risk medication The following are the patient's current problems not treated by me unless noted above. Patient Active Problem List Diagnosis Age-related osteoporosis without current pathological fracture Vitamin D deficiency Scoliosis (and kyphoscoliosis), idiopathic Osteoarthritis of lumbar spine Osteoarthritis of thoracic spine Dysphonia Parkinson's disease (HCC) Anxiety Current Rheumatologic Medications: Prolia number 02 April 2023, Vitamin D 5500 units daily Current Outpatient Medications Medication Sig Dispense Refill ascorbic acid, vitamin C, (vitamin C) 100 MG tablet Take 500 mg by mouth daily . calcium carb-D3-mag ox-zinc ox (Brenda Mag Zinc Plus D3) 333 mg-133 unit -133 mg-5 mg Tab Take by mouth 2 (two) times a day . cholecalciferol, vitamin D3, (D3-2000 ORAL) Take 5,000 mg by mouth daily . coenzyme Q10 100 mg capsule Take 100 mg by mouth 3 (three) times a day . escitalopram oxalate (LEXAPRO) 10 MG tablet Take 10 mg by mouth daily . multivitamin (THERAGRAN) per tablet Take 1 tablet by mouth daily . omega-3 fatty acids/fish oil (fish oil-omega-3 fatty acids) 300-1,000 mg capsule Take 2 g by mouth daily . potassium citrate (UROCIT-K) 10 mEq (1,080 mg) SR tablet Take 1 tablet by mouth daily Reasons: takes 1-2 tablets daily. simvastatin (ZOCOR) 20 MG tablet Take 20 mg by mouth nightly. No current facility-administered medications for this visit. She is 73 y.o.. Since her last visit she has had no falls or no fractures or new back pain that can be attributed to her osteoporosis. She attributes her falls to her Parkinson's although she is on no medication for it at the moment. She has no activity related back pain. She walks 30 to 45 minutes a few times a week and does weights 15 minutes 6 times a week for exercise. She has been diagnosed with Parkinson's disease and says it is in the early stages. She is doing an exercise program tailored towards increasing her balance. She has obvious tremors today. She tolerates Prolia without any GI, or cardiac side effects. She is taking 5500 units of vitamin D regularly. She is taking 1790-7467 mg of calcium supplement She has had no intercurrent illness. The following portions of the patient's history were reviewed and updated as appropriate: allergies, current medications, past medical history, 10 point ROS and problem list. There has been no change in her social history. She has been for the past 10 years. She has 3 children and 2 grandchildren. 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 Her Roe was a excavating supervisor at [employer] and a professional excavating supervisor for [employer]. Her grandson who is adopted is in seventh grade and plays basketball. Osteoporosis Treatment to date has included: Evenity Oct - Sep 2022 Prolia Oct DXA to Date: Date: 03/21 08/22 10/24 Manuf: [employer] L1-L4: -1.2 -2.4 -1.3 L FN: -2.1 -2.1 -1.8 L Tot Hip -1.8 -1.9 -1.7 R FN -1.9 -2.0 -1.7 R Tot Hip -1.9 -2.1 -1.9 TBS 1.262 1.291 1.384 I personally interpreted the last DXA done: Oct 2022 in our office L1-L2 T-score: -1.3 with L3 and L4 omitted due to discordance due to slight scoliosis and osteoarthritis entire spine is likely somewhat overestimated due to scoliosis and osteoarthritis On VFA there was no compression fracture there was osteo-arthritis and deformity in the thoracic mid spine this has improved 15% since the prior study it is now improved 9.4% since 2020 L Fem Neck T-score: -1.8 LTotal Hip: -1.7 This has improved 3.8% since the prior study overall it is improved 2.1% since 2019 R Fem Neck: -1.7 Total Hip: -1.9 This has improved 3.1% since the prior study overall it is now statistically unchanged from 2020 These results are consistent with WHO criteria for osteopenia. Clinical risk factors for fracture: Age low bone mass FRAX: MOF 12.5 % HIP 2.9 % TBS Score : 1.384 (Trabecular Bone Score) this is consistent with normal microarchitecture of the trabecular bone of the spine by TBS analysis TBS Risk of MOF : 5-7 (Per 1000 women per year) This is consistent with low or moderate risk for fracture by TBS analysis TBS adjusted FRAX: MOF: 11.3 % HIP: 2.8 % Fragility Fractures: None I reviewed her last labs: _ Recent Labs Units 11/04/22 10/20/22 02/23/22 1213 09/22/21 1535 12/11/20 1033 03/20/20 0846 VIT D 25 ng/mL 52.4 49 47 51 48 49 SPEP NL -- -- -- Normal IMMUNOFIX -- -- -- Normal PTH INTACT pg/mL 56.1 71.9* 34.7 53.3 42.3 CALCIUM mg/dL 9.1 9.3 9.8 9.5 9.4 CREATININE mg/dL -- -- 0.68 0.71 TTG IGA AB U/mL -- -- -- <1.2 BETA - CROSSLAPS pg/mL 507 833 408 635 422 PE: BP 135/80 Wt 68.2 kg (150 lb 4.8 oz) BMI 25.01 kg/m Diagnoses and all orders for this visit: Age-related osteoporosis without current pathological fracture - PTH, Intact; Future - Beta Crosslaps (Beta CTX); Future Uma is still at significant risk for fracture due to age and low bone mass so we are going to go ahead with Caroline today and again in 6 months. I will check for secondary causes of osteoporosis as noted above including a marker of bone resorption as a baseline that we can follow going forward. As an independent risk assessment for fracture the bone quality as measured by TBS would be considered to be in the moderate risk category. Vitamin D deficiency - Vitamin D, Total, 25-OH; Future We will check a Vitamin D level today and after review call if there needs to be a change in the supplement. Scoliosis (and kyphoscoliosis), idiopathic Osteoarthritis of lumbar spine, unspecified spinal osteoarthritis complication status The patient did not think any specific therapy was necessary at the present time. Osteoarthritis of thoracic spine, unspecified spinal osteoarthritis complication status Plan She will be seen in 6 months for reevaluation. Thank you for the opportunity of assisting in the care of this nice patient. Sincerely Marjorie Nava CNP [facility] CC: A total of 35 minutes was spent by me reviewing the patient's chart pertinent medical notes from other providers as well as testing and labs in preparation for [id number] visit with the patient today. During this encounter, counseling and coordination of care were also conducted. Specifically we addressed the risk, benefits, and alternatives to the therapies discussed above; interviewing examining and counseling the patient and ordering and reviewing lab tests and documenting the patient's note Note: To expedite correspondence this note was generated by [employer] voice recognition software. Some grammatical or spelling errors may occur using the system. Portions of this history have been copied from a previous note, but pertinent information has been amended and updated by me. documented in this encounter [facility] 04-17-2023 History of Present illness Narrative Emergency Department Report [facility] Service Date:.04/17/23 PCP: Nel Marcano Chief Complaint: Chief Complaint Patient presents with Urinary Frequency x2days HPI Uma Mcgrath is a 72 y.o. female presents to the ED today due to Urinary frequency, urgency and dysuria. No fever, chills or flank pain. Symptoms present for 2 days. Review of Systems: Review of Systems Constitutional: Negative for fever. Genitourinary: Positive for dysuria, frequency and urgency. Musculoskeletal: Positive for arthralgias. Neurological: Positive for tremors. All other systems reviewed and are negative. Past Medical History: Past Medical History: Diagnosis Date Hyperlipidemia Kidney stones Parkinsons 12/31/2020 Past Surgical History: Past Surgical History: Procedure Laterality Date ARTHROSCOPY KNEE W/ MENISCUS REPAIR Right LITHOTRIPSY RENAL STENT PLACEMENT TUBAL LIGATION Allergies: Allergies Allergen Reactions Oxycodone Nausea and Vomiting Medications: Patient's Medications New Prescriptions No medications on file Previous Medications ASCORBIC ACID 500 MG TABLET Take 1 tablet by mouth daily. ASPIRIN EC [address] Take 1 tablet by mouth daily. COENZYME Q10 (CO Q-10) 100 MG CAPSULE Take 1 capsule by mouth 2 times daily. CYANOCOBALAMIN 1000 MCG TABLET Take 1 tablet by mouth daily. ESCITALOPRAM 10 MG TABLET Take 1 tablet by mouth daily. FAMOTIDINE (PEPCID) 20 MG TABLET Take 1 tablet by mouth every evening at 6 PM. MULTIPLE MINERALS-VITAMINS (BRENDA MAG ZINC +D3 PO) Take by mouth. One tab twice a day MULTIVITAMIN TAB Take 1 tablet by mouth daily. OMEGA 3 1200 MG CAPSULE Take by mouth. One tab daily POTASSIUM CITRATE 10 MEQ (1080 MG) TAB CR Take 1 tablet by mouth 2 times daily. ROMOSOZUMAB-AQQG (EVENITY) 105 MG/1.17ML SOLUTION PREFILLED SYRINGE Inject under the skin every 30 days. ROSUVASTATIN 10 MG TABLET TAKE ONE TABLET BY MOUTH DAILY TRIAMCINOLONE 0.1 % CREAM CREAM Apply twice daily as needed VITAMIN D3 25 MCG (1000 UT) TABLET Take 3 tablets by mouth daily. Modified Medications No medications on file Discontinued Medications No medications on file Family History: Family History Problem Relation Age of Onset Diabetes Mother No known problems Father Social History: Social History Socioeconomic History Marital status: Spouse name: Not on file Number of children: Not on file Years of education: Not on file Highest education level: Not on file Occupational History Not on file Tobacco Use Smoking status: Never Smokeless tobacco: Never Vaping Use Vaping Use: Never used Substance and Sexual Activity Alcohol use: No Drug use: Never Sexual activity: Not Currently Other Topics Concern Service Not Asked Blood Transfusions Not Asked Caffeine Concern Not Asked Occupational Exposure Not Asked Hobby Hazards Not Asked Sleep Concern Not Asked Stress Concern Not Asked Weight Concern Not Asked Special Diet Not Asked Back Care Not Asked Exercise Not Asked Bike Helmet Not Asked Seat Belt Not Asked Domestic Violence No Social History Narrative Not on file Social Determinants of Health Financial Resource Strain: Not on file Food Insecurity: Not on file Transportation Needs: Not on file Physical Activity: Not on file Stress: Not on file Social Connections: Not on file Intimate Partner Violence: Not on file Housing Stability: Not on file PMH, Surghx,Socialhx,FH and nurses notes and Medications, Allergies and VS reviewed. Vital Signs During ED Visit Reviewed in the nurses triage notes. Physical Exam: Vitals: 04/17/23 0941 BP: 150/73 Pulse: 75 Resp: 17 Temp: 98 F (36.7 C) SpO2: 99% Physical Exam Vitals and nursing note reviewed. Constitutional: General: She is not in acute distress. Appearance: Normal appearance. She is normal weight. HENT: Head: Normocephalic. Right Ear: External ear normal. Left Ear: External ear normal. Nose: Nose normal. Mouth/Throat: Mouth: Mucous membranes are moist. Eyes: Conjunctiva/sclera: Conjunctivae normal. Cardiovascular: Rate and Rhythm: Normal rate. Pulmonary: Effort: Pulmonary effort is normal. No respiratory distress. Abdominal: Palpations: Abdomen is soft. Tenderness: There is no right CVA tenderness or left CVA tenderness. Musculoskeletal: General: No deformity. Normal range of motion. Cervical back: Normal range of motion. Lymphadenopathy: Cervical: No cervical adenopathy. Skin: General: Skin is warm. Findings: No rash. Neurological: General: No focal deficit present. Mental Status: She is alert and oriented to person, place, and time. Comments: Tremor. Psychiatric: Mood and Affect: Mood normal. Behavior: Behavior normal. Orders/Results: Orders Placed This Encounter URINE CULTURE POCT URINE DIPSTICK NON-AUTOMATED Results for orders placed or performed in visit on 04/17/23 POCT URINE DIPSTICK NON-AUTOMATED Result Value Ref Range POCT APPEARANCE, URINE slightly cloudy POCT COLOR, URINE dark yellow POCT GLUCOSE, URINE negative mg/dL POCT BILIRUBIN, URINE small POCT KETONES, URINE negative mg/dL POCT SPECIFIC GRAVITY, URINE 1.030 1.001 - 1.035 POCT BLOOD, URINE large POCT PH, URINE 6.0 5 - 7 POCT PROTEIN, URINE 100 mg/dL POCT UROBILINOGEN, URINE 1.0 0 - 2 E.U./dL POCT NITRITE, URINE positive POCT LEUKOCYTE, URINE large POCT ESTERASE, URINE POCT BACTERIA, URINE POCT WBC, URINE POCT RBC, URINE POCT AMORPHOUS, URINE POCT CASTS, QUANTITATIVE, URINE POCT SQUAMOUS EPIS, URINE POCT RENAL EPIS, URINE POCT CRYSTALS, URINE POCT URINE COMMENTS, URINE POCT MICROSCOPIC Radiographic Imaging No orders to display Procedures: Procedures Diff Dx: MDM: U/A is suggestive for infection. Culture pending. Keflex. Assessment/Clinical Impression: Dysuria Plan: Plenty of fluids. Continue your usual medications at the usual doses. Tylenol/Ibuprofen/Aleve for fever or pain. No more than 4000 mg of Tylenol or 2400 mg of Ibuprofen (Advil, Motrin) in a 24 hour period. Return here or nearest ER for uncontrolled fever, vomiting, difficulty breathing or difficulty swallowing or chest pain. Follow up with Dr. Marcano in 1 week to recheck a urine. 1. UTI symptoms No follow-ups on file. New Prescriptions No medications on file Discontinued Medications No medications on file An After Visit Summary was printed and given to the patient with above information. . documented in this encounter [facility] 04-17-2023 Instructions RONNIE Bolden - 04/17/2023 9:35 AM EDT Continue your usual medications at the usual doses. Tylenol/Ibuprofen/Aleve for fever or pain. No more than 4000 mg of Tylenol or 2400 mg of Ibuprofen (Advil, Motrin) in a 24 hour period. Return here or nearest ER for uncontrolled fever, vomiting, difficulty breathing or difficulty swallowing or chest pain. Follow up with Dr. Marcano in 1 week to recheck a urine. The following attachments cannot be sent through Care Everywhere.Dysuria (Peruvian)documented in this encounter [facility] 01-10-2023 History of Present illness Narrative MOVEMENT DISORDERS CLINIC FOLLOW-UP VISIT Assessment: Uma Mcgrath is a 72 y.o. female with right more so than left sided tremor prominent Parkinson disease. The examination remained stable. We again discussed that levodopa will help with symptoms of tremor, rigidity, and bradykinesia, but that we have no knowledge that it actually slows disease progression. Therefore, it is up to her if/when she starts the medication. For today, she was not interested. We discussed constipation and its management. Anxiety has been generally well controlled on Lexapro. No cognitive problems were reported. Plan: When she is ready for dopamine replacement therapy, levodopa will be started through this office. Lexapro will continue at 10 mg by mouth daily for anxiety control. I gave her updated resource information. I would like to see the patient back in 6 months. I answered all of the questions asked of me; the patient/care-partner had no remaining unaddressed symptomatic issues. I personally spent 20 total minutes today in pre-review of the chart, [id number] interaction with the patient/care-partner (including discussion of the chart review, assessment of today's visit, and clinical plan development, as detailed above), updating/placing orders, and post-visit documentation. HPI: I saw Uma Mcgrath in follow-up at the [facility] clinic for Parkinson disease follow-up. She reported doing well on her average day. ROS: As detailed elsewhere. Physical Exam: GENERAL: Well-developed and well-nourished, no distress. MENTAL STATUS: Awake, alert, followed commands. CRANIAL NERVES: Extra-ocular movements full. Face symmetric. Pupils equal, round. No ptosis. No dysarthria. MOTOR: Mild-moderate right-sided bradykinesia compared to the left with moderate tremor (she reported this to be worse in the office than at home on her average day). SENSORY, REFLEXES, CEREBELLAR, GAIT: Gait appeared stable Reviewed: Chart records. Sincerely, Matt Lopez MD, PhD documented in this encounter [facility] 12-07-2022 History of Present illness Narrative Images from the original note were not included. [facility] [address] [place] [address] Name: Uma Mcgrath : 1950 Date: 12/07/22 Hearing Aid Contact Note: Ms. Mcgrath returned on 12/06/2022 to filler picker her left and right repaired hearing aids. Ms. Mcgrath will return with any future hearing aid needs or concerns. Electronically signed by: Stevan Mcmanus Jockey Room Custodian 12/07/22 9:13 AM documented in this encounter [facility] 12-05-2022 History of Present illness Narrative Images from the original note were not included. [facility] [address] [place] [address] Name: Uma Mcgrath : 1950 Date: 12/05/22 Hearing Aid Contact Note: Ms. Mcgrath dropped off her hearing aids and lithopone charger for in warranty hearing aid repair on Monday12/02/2022. Her note stated that her hearing aids will not charge. I placed the hearing aids in her lithopone charger on Monday and they immediately began to charge. Both hearing aid batteries were low (yellow). I allowed the hearing aids to charge over the weekend. A visual inspection and listening check today were unremarkable. I cleaned the hearing aids and changed the wax traps and domes. Function is excellent. I will notify Ms. Mcgrath that her hearing aids are ready for filler picker. I contacted Ms. Mcgrath and we discussed the above. She will filler picker the hearing aids at her earliest convenience. Ms. Mcgrath expressed understanding of and agreement with the above. Electronically Signed by: Marvin Hopkins, CCC/A, FAAA, JESSICA Cert. 12/05/22 11:07 AM documented in this encounter [facility] 12-02-2022 History of Present illness Narrative OUTPATIENT REHABILITATION DAILY TREATMENT NOTE Today's Date 12/02/2022 Patient Name: Uma Mcgrath Date of : 1950 Current Visit #: 9 Authorized Visits: 199 Case Name: OT2-PD History: Pre-Treatment Pain Scale: 0 Symptoms: stabilized Functional Diagnosis: 1. Parkinson's disease (HCC) Clinical Information: Subjective: Patient actively participated in her discharge assessment to formally determine changes that occurred since her initial evaluation. DISCHARGE SUMMARY: The patient's attendance has been consistent through her course of treatment. Patient has actively participate in education covering integration of movement behavior strategies, such as large amplitude movement, increasing intensity, increasing complexity of task performance, and making sure her task selection was specific to her motivated needs. Patient has been able to return demonstration of adequate retention of this information when performing therapeutic exercises. However, patient has difficulty with consistent implementation when performing ADLs, such as handwriting, due to distractibility and difficulty with divided attention. Patient has also participated in education on recommended carryover activities to help address sustained attention for singular tasks and methods to simplify task performance. Patient has also returned demonstration of adequate retention of this information through her report of increasing focus on performing singular task, but may sequence activities, such as performing laundry and cleaning out her spice drawer. During this session, patient also voiced her concerns about following recommendations to take medication for symptom management. Patient was receptive to this therapist's encouraging her to have further conversation with her neurologist during the follow-up. Patient was also reminded that strategies covered in therapy may help to only potentially manage movement related symptoms, but they were not a cure. Patient acknowledged this information, but continued to voice vacillation with taking medication. Patient was continually reminded that this was a conversation better directed between her and her neurologist. Patient was advised on the degree of change that she has since her previous encounter in May, which was a 17% decline in hand-eye coordination and 36% decline in FMC in her right hand. Patient voiced appreciation of information covered this session as well as agreement to wrap up her course of OP OT at this time due to adequately addressing her POC. Objective Objective General Observations: Box and Blocks Test: R: 47 45 completions (17% decline compared to status at conclusion of previous encounter with 34% IMP currently), L: 59 55 completions (2% decline from previous encounter with 17% IMP currently); Nine Hole Peg Test: R: 32 33 seconds (36% decline from previous encounter with 47% IMP currently), L: 27 24 seconds (4% improvement with 0% IMP currently.) Hand dominance: right Affected side: right Treatments: Occupational Therapy Exercise Log - 12/02/22 1640 OTHER Precautions/Contraindications OT visit 9 Notes Total treatment time: 5977-5508. The pt actively participated in her D/C assessment to formally determine changes that have occurred since her initial evaluation. Functional Activity (43885) Intervention Performance in outcome measures with processing after interpretation for discharge summary. Is refer to progress note for details. OT Treatment Times Functional Activity Total Time 40 Direct Treatment Time 40 Total Treatment Time 40 Goals: Occupational Therapy Neuro goals: 1. Resume dominant hand skills with right UE to resume writing, typing, feeding and grooming skills. GOAL STATUS: Goal partially met. Patient able to display improvements in legibility when implementing strategies, but has difficulty with generalizing when increasing complexity of task. 2. Improve speed and efficiency for right UE object transporting functions as demonstrated by improvement on the box and blocks test With no more than 17% IMP. GOAL STATUS: Goal not met. Patient having difficulty with combining movement behavior strategies of increasing intensity as well as amplitude. 3. Improve fine motor skills of right UE to manipulate small ADL items as demonstrated by an improvement in the 9 hole peg test With no more than 11% IMP. GOAL STATUS: Goal not met. Patient having difficulty with combining movement behavior strategies of increasing intensity as well as amplitude. NEW GOAL IDENTIFIED 11/18/22: 4. Patient will participate in 3 or more step sequential task performance with incidental verbal cues and at least 90% accuracy to improve higher-level attention skills needed for rapid alternating and dual task performance for improved efficiency with ADLs. GOAL STATUS: Goal not met. Patient continuing to benefit from moderate verbal assistance and modeling to help with accuracy of sequential task performance. Patient especially benefiting from the supports when increasing rate of performance while maintaining amplitude. Patient Education: Quality of movement and Diagnosis and recovery specific education with patient verbalized understanding. Post-Treatment Pain Scale: 0 Assessment: Patient had an expected response to treatment. Skilled Intervention demonstrated by modifications of treatment per exercise log including assessment of patient's response and safety interventions per exercise log. Progress towards goals as expected. Discharged this session. Van Dubon OTR/L STATE LICENSE, [id number] documented in this encounter [facility] 11-30-2022 History of Present illness Narrative OUTPATIENT REHABILITATION DAILY TREATMENT NOTE Today's Date 11/30/2022 Patient Name: Uma Mcgrath Date of : 1950 Current Visit #: 8 Authorized Visits: 199 Case Name: OT2-PD History: Pre-Treatment Pain Scale: 0 Symptoms: stabilized Functional Diagnosis: 1. Parkinson's disease (HCC) Clinical Information: Subjective: Patient shared that she was able to work on carryover assignment of developing complex therapeutic exercise routine that would incorporate four movement behavior strategies covered thus far and in OP therapy. Patient also able to perform handwriting activity with visibly increased difficulty maintaining amplitude with sustained writing versus intermittent attempts. Objective Treatments: Occupational Therapy Exercise Log - 11/30/22 0052 OTHER Precautions/Contraindications OT visit 8 Notes Total treatment time: 14:50-15:35. LTG 2 and 4 addressed during this session with both goals ongoing. Neuro Re-Ed (03184) Intervention Review of patient develop therapeutic exercise program to assess patient's application of movement behavior strategies and self-monitoring skills for implementation. Parameters Patient shared the HEP that she had developed utilizing issued HEP from therapy as foundation and increasing complexity by implementing a FMC component of manipulating wood block, alternating between 1/4 exercises per move, and alternating between right and left. Patient was able to demonstrate the program that she had developed and implementing strategies of complexity and specificity. Patient benefited from modeling to improve implementation of large amplitude movement and increasing rate of performance for intensity level. Processed patient's performance highlighting opportunities to increase implementation of large amplitude movement and intensity with mastered understanding of utilizing complexity and specificity. Patient verbalized understanding of recommendations and willingness to carryover to home practice. Functional Activity (54218) Intervention Screening of functional vision to address patient's voiced concern of changes in the perception affecting her ability to fasten her seatbelt. Parameters Patient able to complete screening testing for contrast sensitivity and apperception in central field WFL. Also performs DynaVision activity focused on rotation to targets and lower inner portion of board. Patient able to display 100% accuracy with left hand and average response time of 1 seconds/light. Patient completed reaching cross body with right hand with decreased accuracy of using tip of index finger to depress button squarely with average reaction time of 1.2 seconds per light. Patient's performance processed with her and related to her reported difficulty with fastening seatbelt. Patient advised that her difficulty may be more related to her PD symptoms versus changes in the perception based on today's performance. Patient voicing understanding of information provided Self Care (71496) Intervention Review of handwriting assignment determine accuracy of implemented strategies and provide education I recommended carryover tasks to address sustained effort. Parameters Patient displayed notable difficulty with maintaining large amplitude handwriting with sustained effort versus her ability to maintain amplitude with briefer periods of handwriting. Discussed with patient recommendations to carry over to home to address sustained attention to singular task. Printed information provided on attempting guided meditation to trial at home to work on for brief periods for sustained effort. Patient voicing understanding of information provided and willingness to attempt at home. OT Treatment Times Neuro Re-Ed Total Time 20 Functional Activity Total Time 15 Self Care Total Time 10 Direct Treatment Time 45 Total Treatment Time 45 Goals: Occupational Therapy Neuro goals: 1. Resume dominant hand skills with right UE to resume writing, typing, feeding and grooming skills. 2. Improve speed and efficiency for right UE object transporting functions as demonstrated by improvement on the box and blocks test With no more than 17% IMP. 3. Improve fine motor skills of right UE to manipulate small ADL items as demonstrated by an improvement in the 9 hole peg test With no more than 11% IMP. NEW GOAL IDENTIFIED 11/18/22: 4. Patient will participate in 3 or more step sequential task performance with incidental verbal cues and at least 90% accuracy to improve higher-level attention skills needed for rapid alternating and dual task performance for improved efficiency with ADLs. Patient Education: Quality of movement, Written HEP, and Diagnosis and recovery specific education with patient verbalized understanding and written information provided . Post-Treatment Pain Scale: 0 Assessment: Patient had an expected response to treatment. Skilled Intervention demonstrated by modifications of treatment per exercise log including decreased cueing and safety interventions per exercise log. Progress towards goals as expected. Plan for Next Visit: Discharge Van Dubon OTR/L STATE LICENSE, [id number] documented in this encounter [facility] 11-23-2022 History of Present illness Narrative OUTPATIENT REHABILITATION DAILY TREATMENT NOTE Today's Date 11/23/2022 Patient Name: Uma Mcgrath Date of : 1950 Current Visit #: 7 Authorized Visits: 199 Case Name: OT2-PD History: Pre-Treatment Pain Scale: 0 Symptoms: stabilized Functional Diagnosis: 1. Parkinson's disease (HCC) Clinical Information: Subjective: Patient shared that she was not able to do her HEP the previous day because she was packing and prepping for a trip over the weekend. However, patient stated she was able to implement large amplitude movement strategies while performing these ADLs. Objective Treatments: Occupational Therapy Exercise Log - 11/23/22 5791 OTHER Precautions/Contraindications OT visit 7 Notes Total treatment time: 4268-1503. LTG 1 and 4 addressed during this session with both goals ongoing. Functional Activity (45095) Intervention Functional mobility incorporating functional carry to generalize movement behavior strategies with increased complexity of task. Parameters Patient able to maintain optimal postural alignment and arm swing while carrying items without additional verbal cueing. This was an improvement in self-monitoring skills and implementation of strategies. Self Care (63447) Intervention Handwriting activity with increased complexity of copying over a scenario to add sustained effort for generalization of movement behavior strategies. Parameters Patient had considerable difficulty maintaining amplitude of handwriting despite implementation of strategy for brief pauses with static stretch. In particular, patient displaying difficulty secondary to distractibility during task performance and having difficulty concentrating on implementation of strategy to maintain amplitude. Processed patient's performance and provided recommendations to carryover to home to further address these skills. In particular, patient advised to work on a primary focus and secondary to address divided attention. Patient also provided assignment to create a sequential task we can perform during her next session to address the movement behavior strategy of complexity and specificity. Patient agreeable to recommendation. OT Treatment Times Neuro Re-Ed Total Time 30 Functional Activity Total Time 10 Direct Treatment Time 40 Total Treatment Time 40 Goals: Occupational Therapy Neuro goals: 1. Resume dominant hand skills with right UE to resume writing, typing, feeding and grooming skills. 2. Improve speed and efficiency for right UE object transporting functions as demonstrated by improvement on the box and blocks test With no more than 17% IMP. 3. Improve fine motor skills of right UE to manipulate small ADL items as demonstrated by an improvement in the 9 hole peg test With no more than 11% IMP. NEW GOAL IDENTIFIED 11/18/22: 4. Patient will participate in 3 or more step sequential task performance with incidental verbal cues and at least 90% accuracy to improve higher-level attention skills needed for rapid alternating and dual task performance for improved efficiency with ADLs. Patient Education: Quality of movement, Written HEP, and Diagnosis and recovery specific education with patient verbalized understanding. Post-Treatment Pain Scale: 0 Assessment: Patient had an expected response to treatment. Skilled Intervention demonstrated by modifications of treatment per exercise log including increased cueing, increased intensity, and increased assistance and safety interventions per exercise log. Progress towards goals as expected. Plan for Next Visit: Treatment Visit with focus on Increasing complexity of tasks offered for generalization of skills. Van Dubon OTR/L STATE LICENSE, [id number] documented in this encounter [facility] 11-16-2022 History of Present illness Narrative OUTPATIENT REHABILITATION DAILY TREATMENT NOTE Today's Date 11/16/2022 Patient Name: Uma Mcgrath Date of : 1950 Current Visit #: 4 Authorized Visits: 199 Case Name: OT2-PD History: Pre-Treatment Pain Scale: 0 Symptoms: stabilized Functional Diagnosis: 1. Parkinson's disease (HCC) Clinical Information: Subjective: Patient shared that she had several questions about the HEP issued previous session to determine if she was performing accurately. Objective Treatments: Occupational Therapy Exercise Log - 11/16/22 1452 OTHER Precautions/Contraindications OT visit 4 Notes Total tx time: 14:50-15:30. Neuro Re-Ed (23787) Intervention Review of HEP to determine accuracy of retained information. Intervention Performing Theraputty activity at tabletop to implement strategies of large amplitude movement, increasing intensity, and complexity for symptom management and education on additional activities patient can carryover to home to promote generalization of skills. OT Treatment Times Neuro Re-Ed Total Time 40 Direct Treatment Time 40 Total Treatment Time 40 Goals: Occupational Therapy Neuro goals: 1. Resume dominant hand skills with right UE to resume writing, typing, feeding and grooming skills. 2. Improve speed and efficiency for right UE object transporting functions as demonstrated by improvement on the box and blocks test from initial score of QQQQQ to improved score of QQQQQ. 3. Improve fine motor skills of right UE to manipulate small ADL items as demonstrated by an improvement in the 9 hole peg test of QQQQQ to QQQQQQ. Patient Education: Quality of movement and Written HEP with patient verbalized understanding and written information provided . Post-Treatment Pain Scale: 0 Assessment: Patient had an expected response to treatment. Skilled Intervention demonstrated by modifications of treatment per exercise log including increased rate and increased cueing and safety interventions per exercise log. Progress towards goals as expected. Plan for Next Visit: Treatment Visit with focus on Structured review of today's activities to support new motor learning. Van Dubon OTR/L STATE LICENSE, [id number] documented in this encounter [facility] 11-16-2022 History of Present illness Narrative OUTPATIENT REHABILITATION DAILY TREATMENT NOTE Today's Date 11/16/2022 Patient Name: Uma Mcgrath Date of : 1950 Current Visit #: 4 Authorized Visits: 199 Case Name: OT2-PD History: Pre-Treatment Pain Scale: 0 Symptoms: stabilized Functional Diagnosis: 1. Parkinson's disease (HCC) Clinical Information: Subjective: Patient shared that she had several questions about the HEP issued previous session to determine if she was performing accurately. Objective Treatments: Occupational Therapy Exercise Log - 11/16/22 1452 OTHER Precautions/Contraindications OT visit 4 Notes Total tx time: 14:50-15:30. LTG 1 and 2 addressed during this session with both goals ongoing. Neuro Re-Ed (03968) Intervention Review of HEP to determine accuracy of retained information. Parameters Patient benefited from structured review to clarify technique of therapeutic exercises, which helped with improved implementation of large amplitude and increasing intensity movement strategies. Patient continued to benefit from modeling and mod verbal cues for accurate/consistent implementation. Patient also provided education on modifications to increase complexity of task, which is used to increase generalization/habituation of skills. Patient voiced understanding and was able to return demonstration with modeling. Intervention Performing Theraputty activity at tabletop to implement strategies of large amplitude movement, increasing intensity, and complexity for symptom management and education on additional activities patient can carryover to home to promote generalization of skills. Parameters Patient displaying improved implementation of large amplitude movement strategies compared to previous trial. Patient tolerated increased complexity with use of metronome to increase rate of performance. Patient able to display improved accuracy of implementation by matching metronome with greater ease during course of task performance. OT Treatment Times Neuro Re-Ed Total Time 40 Direct Treatment Time 40 Total Treatment Time 40 Goals: Occupational Therapy Neuro goals: 1. Resume dominant hand skills with right UE to resume writing, typing, feeding and grooming skills. 2. Improve speed and efficiency for right UE object transporting functions as demonstrated by improvement on the box and blocks test With no more than 17% IMP. 3. Improve fine motor skills of right UE to manipulate small ADL items as demonstrated by an improvement in the 9 hole peg test With no more than 11% IMP. Patient Education: Quality of movement and Written HEP with patient verbalized understanding and written information provided . Post-Treatment Pain Scale: 0 Assessment: Patient had an expected response to treatment. Skilled Intervention demonstrated by modifications of treatment per exercise log including increased rate and increased cueing and safety interventions per exercise log. Progress towards goals as expected. Plan for Next Visit: Treatment Visit with focus on Structured review of today's activities to support new motor learning. Van [place]on OTR/L STATE LICENSE, [id number] documented in this encounter [facility] 11-11-2022 History of Present illness Narrative OUTPATIENT REHABILITATION DAILY TREATMENT NOTE Today's Date 11/11/2022 Patient Name: Uma Mcgrath Date of : 1950 Current Visit #: 3 Authorized Visits: 199 Case Name: OT2-PD History: Pre-Treatment Pain Scale: 0 Symptoms: stabilized Functional Diagnosis: 1. Parkinson's disease (HCC) Clinical Information: Subjective: Patient stated that she read over information provided previous session over the foundations of movement behavior strategies for PD symptom management, which she said helped explain why certain strategies and movements were emphasized during her exercise group. Objective Treatments: Occupational Therapy Exercise Log - 11/11/22 4468 OTHER Precautions/Contraindications OT visit 3 Notes Total treatment time: 14:50-15:34. LTG 1 and 2 addressed during this session with both goals ongoing. Neuro Re-Ed (68135) Intervention HEP education with therapeutic exercises focused on increasing intensity performance with increased complexity and to incorporate other movement behavior strategies. Parameters Printed program provided to help with accuracy of carryover. Patient benefited from modeling, moderate verbal cues for implementation of strategy, and therapist responsible for keeping count of repetitions to help with accuracy of performance of HEP. Patient would benefit from structured review to support new learning. Intervention Theraputty activity to incorporate large amplitude movement, speed of performance, and complexity. Parameters Patient having difficulty with consistent limitation of large amplitude movement strategy with increased complexity of task (incorporating new activity) despite modeling and mod verbal cues. Would benefit from structured review to support new learning. OT Treatment Times Neuro Re-Ed Total Time 44 Direct Treatment Time 44 Total Treatment Time 44 Goals: Occupational Therapy Neuro goals: 1. Resume dominant hand skills with right UE to resume writing, typing, feeding and grooming skills. 2. Improve speed and efficiency for right UE object transporting functions as demonstrated by improvement on the box and blocks test With no more than 17% IMP. 3. Improve fine motor skills of right UE to manipulate small ADL items as demonstrated by an improvement in the 9 hole peg test With no more than 11% IMP. Patient Education: Quality of movement and Written HEP with patient verbalized understanding and written information provided . Post-Treatment Pain Scale: 0 Assessment: Patient had an expected response to treatment. Skilled Intervention demonstrated by modifications of treatment per exercise log including increased cueing and increased intensity and safety interventions per exercise log. Progress towards goals as expected. Plan for Next Visit: Treatment Visit with focus on Structure review of today's tasks to support new learning. [place] OTR/L STATE LICENSE, [id number] documented in this encounter [facility] 11-09-2022 History of Present illness Narrative OUTPATIENT REHABILITATION DAILY TREATMENT NOTE Today's Date 11/09/2022 Patient Name: Uma Mcgrath Date of : 1950 Current Visit #: 2 Authorized Visits: 199 Case Name: OT2-PD History: Pre-Treatment Pain Scale: 0 Symptoms: stabilized Functional Diagnosis: 1. Parkinson's disease (HCC) Clinical Information: Subjective: Patient participated in Delayed the Disease classes earlier this afternoon. Objective Objective General Observations: Box and Blocks Test: R: 40 43, L: ; Nine Hole Peg Test: R: , L: ; MALGORZATA Isometric Screw Driver Operator Strength Test: R: , L: . Treatments: Occupational Therapy Exercise Log - 11/09/22 1651 OTHER Precautions/Contraindications OT visit 2 Notes Total treatment time: 5950-5266. Neuro Re-Ed (38274) Intervention Tabletop activities focused on generalization of large amplitude movement and increasing intensity level for efficiency with bimanual FMC. Intervention Education on for foundational movement behavior strategies to implement into daily routine. OT Treatment Times Neuro Re-Ed Total Time 44 Direct Treatment Time 44 Total Treatment Time 44 Goals: Occupational Therapy Neuro goals: 1. Resume dominant hand skills with right UE to resume writing, typing, feeding and grooming skills. 2. Improve speed and efficiency for right UE object transporting functions as demonstrated by improvement on the box and blocks test from initial score of QQQQQ to improved score of QQQQQ. 3. Improve fine motor skills of right UE to manipulate small ADL items as demonstrated by an improvement in the 9 hole peg test of QQQQQ to QQQQQQ. Patient Education: Quality of movement and Diagnosis and recovery specific education with patient verbalized understanding and written information provided . Post-Treatment Pain Scale: 0 Assessment: Patient had an expected response to treatment. Skilled Intervention demonstrated by modifications of treatment per exercise log including increased rate and safety interventions per exercise log. Progress towards goals as expected. Plan for Next Visit: Treatment Visit with focus on Structured review of today's tasks to support new learning. [place]on OTR/L STATE LICENSE, [id number] documented in this encounter [facility] 11-09-2022 History of Present illness Narrative OUTPATIENT REHABILITATION DAILY TREATMENT NOTE Today's Date 11/09/2022 Patient Name: Uma Mcgrath Date of : 1950 Current Visit #: 2 Authorized Visits: 199 Case Name: OT2-PD History: Pre-Treatment Pain Scale: 0 Symptoms: stabilized Functional Diagnosis: 1. Parkinson's disease (HCC) Clinical Information: Subjective: Patient participated in Delayed the Disease classes earlier this afternoon. Objective Treatments: Occupational Therapy Exercise Log - 11/09/22 1651 OTHER Precautions/Contraindications OT visit 2 Notes Total treatment time: 7971-2197. LTG 3, 1 addressed during this session with both goals ongoing. Neuro Re-Ed (49717) Intervention Tabletop activities focused on generalization of large amplitude movement and increasing intensity level for efficiency with bimanual FMC. Parameters Patient benefited from structured repetition with min verbal cues on postural alignment during task performance as well as self-monitoring of implementing large amplitude movement with increased complexity of task that incorporated intensity level. Patient able to display progressive improvements in accuracy and bimanual coordination during course of activity. Processed patient's performance and related to recommended carryover to to address divided attention allowing for generalization of skill during IADL performance. Patient voiced understanding of information provided. Intervention Education on for foundational movement behavior strategies to implement into daily routine. Parameters Printed information provided to help with accuracy of carryover. Education focused on broadening understanding of additional movement behavior strategies to help with symptom management. The strategies incorporated increased intensity level, specificity, and complexity. Examples of each of these attendance was provided as well as specific exercises or ADLs the strategies could be incorporated in. Patient was also provided education on the importance of frequent application to help with generalization. Patient voiced understanding of information provided and willingness to implement at home. OT Treatment Times Neuro Re-Ed Total Time 44 Direct Treatment Time 44 Total Treatment Time 44 Goals: Occupational Therapy Neuro goals: 1. Resume dominant hand skills with right UE to resume writing, typing, feeding and grooming skills. 2. Improve speed and efficiency for right UE object transporting functions as demonstrated by improvement on the box and blocks test With no more than 17% IMP. 3. Improve fine motor skills of right UE to manipulate small ADL items as demonstrated by an improvement in the 9 hole peg test With no more than 11% IMP. Patient Education: Quality of movement and Diagnosis and recovery specific education with patient verbalized understanding and written information provided . Post-Treatment Pain Scale: 0 Assessment: Patient had an expected response to treatment. Skilled Intervention demonstrated by modifications of treatment per exercise log including increased rate and safety interventions per exercise log. Progress towards goals as expected. Plan for Next Visit: Treatment Visit with focus on Structured review of today's tasks to support new learning. [place]on OTR/L STATE LICENSE, [id number] documented in this encounter [facility] 11-01-2022 History of Present illness Narrative OUTPATIENT REHABILITATION Speech Therapy Evaluation Today's Date 11/01/2022 Patient Name: Uma Mcgrath Date of : 1950 Case Name: [facility] Functional Diagnosis: 1. Parkinson's disease (HCC) Clinical Information: Subjective Referring Diagnosis: Parkinson's disease Follow-up with physician: 01/10/2023 Patient accompanied by: unaccompanied History of Present Illness Date of Onset: 2019. Contemporary Medical History: Per chart review, Uma Mcgrath is a 72 y.o. female with right greater than left-sided tremor prominent Parkinson's disease. Her exam today showed moderate right arm tremor, bilateral rigidity, right greater than left bradykinesia at the feet and masked appearance to face. Discussed that she would benefit from levodopa which was previously prescribed but she hesitates to start. She finds exercise to be helpful and would be interested in returning to physical therapy before starting medication. No recent falls. Continues to drive during daylight hours, does not feel comfortable driving at night. Lives alone. Some difficulties with ADLs. 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 Again discussed this may be alleviated with dopamine replacement therapy. After much discussion with patient and daughter who was present for today's visit she declined to start medication at this time. Denies difficulty with sleep or mood. Lexapro continues to be helpful. Subjective History: Patient is a 72 y/o female referred by Nurse Practitioner, Nicole Roberts d/t Parkinson's disease. Reported changes do not impact the patient's ability to complete daily IADL's. Changes began in 2019, however, no voice changes since last speech therapy in 2020. Patient's relevant medical history includes: Parkinson Disease. 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 Patient reports mild memory difficulties however, not impacting completion of daily tasks. Patient reports use of calendar and writing notes. Patient has system to assist with recalling medications and has no difficulty managing. Patient manages all IADL's and ADL's ind., including finances and driving. Patient reports completion of brain games in addition to attending delay the disease and exercise classes. Patient reports increase in hoarse and soft vocal quality since diagnosis of parkinson's disease however, no recent change. Patient stating, I have always had hoarse vocal quality . Previous Treatment for this condition: Yes Therapy type: outpatient rehab Patient reports status as: unchanged Pain Scale Average Pain: 0/10 Personal Goals: If I need to talk to talk louder, my goal would be to talk louder Social Support: Patient lives alone. 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 Vocation: retired teacher Prior Avocational Participation (community involvement, hobbies, volunteer): working outdoors, cleaning Red Flags: None Comments: Barriers to Care: None Cognitive Evaluation Memory Immediate Verbal memory: WFL (3/3 (100%)) Short-term verbal memory: WFL (3/3 for delayed word recall, y/n questions after short story - 02/03; open ended quesitons after short story: 02/03) Alf Memory: WFL (5/5 (100%)) Working Memory: WFL Memory for new learning: WFL Executive Function Verbal Problem Solving: WFL (Patient able to provide solutions to home and community related problems) Verbal reasoning: WFL (Provided 3/3 correct reasons for presented problems) Organizational planning: WFL [place] Categorization: WFL Abstract Categorization: Mild (75-95%) (4/5 (mild difficulty, however, suspect baseline)) Sequencing: WFL Insight/awareness: WFL Calculations: WFL (5/5 (100%)) Initiation: WFL Inhibition: WFL Executive Functions Inhibition: WFL Initiation: WFL Voice Vocal quality: WNL Pitch range: WFL Breathing pattern: mixed Breath support: WFL Maximum Phonation Time (average 15-20 sec): 17.92 seconds Vocal Intensity: WNL S/Z Ratio (1-1.2): .48 Baseline conversation (70-80 dB): 78-85 up to 90 dB Stimulability: Loud /ah/: 89 dB with an average duration of 17.92 seconds [place] Passage: 85 dB Conversation: 75-80 dB Treatment Plan: No further ST warranted at this time. Patient Education provided: Discussed treatment plan and diagnosis/pathophysiology/prognosi s. Pt is in agreement with plan, and all questions at this time were answered. Clinical Impression: Uma Mcgrath presents to [facility] outpatient neurological rehab services on 11/01/2022 for a clinical voice evaluation and an informal speech language cognitive evaluation d/t Parkinson's disease. Pt's chief complaints include: slight memory changes, however, not impacting completion of daily tasks. Upon assessment, pt exhibited cognitive-linguistic skills within normal limits. Patient reporting slight memory changes, such as walking in a room and forgetting what to get , however, not frequent. Patient independent with use of memory strategies. Memory changes are not impacting completion of IALD's and hobbies. Patient able to recall 100% of information during testing from an immediate and delayed standpoint. Pt presented with intact voice. Patient reporting minimal changes since last duration of speech therapy. Patient states, my kids ask me talk up on the phone sometimes , however, not often and patient has no difficulty in any other situation or environment. Patient's volume ranging between 76 up to 90 dB in all structured and unstructured tasks without cuing. Patient is 100% intelligible with intact pitch and volume range. No further ST warranted at this time. Recommend new consult if any changes arise. Plan of care to be revised as needed based on response to therapeutic intervention. Thank you for allowing me to participate in this patient's care. Please contact me with any questions at the above number. TRACY [place] State License, [id number] documented in this encounter [facility] 11-01-2022 History of Present illness Narrative OUTPATIENT REHABILITATION Physical Therapy Evaluation Today's Date 11/01/2022 Patient Name: Uma Mcgrath Date of : 1950 Case Name: PT- 2 Functional Diagnosis: 1. Parkinson disease (HCC) Clinical Information: Subjective Referring Diagnosis: PD Patient accompanied by: unaccompanied History of Present Illness Subjective History: Uma arrives to OP PT following referral from TELECINE OPERATOR. She is familiar to this department as was seen in summer for the [facility] program for PD. Since then, Uma states she performs delay the disease multiple times per week, goes to a stretching and strengthening class, and when she doesn't go to class, does her delay the disease book, goes on her treadmill, jump ropes, and core strengthening. She has considering starting into the balance class at the fitness center due to reported deficits intermittently with maintaining single leg stance for 30 sec. She reports 2 falls within the last year, both of them were on bleachers at a basketball game, one following difficulty with side stepping and one with difficulty in placement of feet on the steps going up. She reports no other balance deficits, no consistent losses of balance. She reports that she feels her fine motor skills are mostly changed at this time, difficulty with handwriting. States she knows she needs to perform movements bigger but sometimes has a hard time with this. She continues to not utilize medication for PD at this time; prefers to utilize exercises as able. Previous Treatment for this condition: Yes Therapy type: outpatient rehab Patient reports status as: worsening Previous Imaging: Dexa Hand dominance: right Overall rating of health: Good Pain Scale Pain location: No pain reported Personal Goals: Improve ability to utilize techniques Functional Mobility Status patient reported Recent change in functional mobility status: No Current Mobility Status: Home: no device and independent Community: no device and independent Bed Transfer: independent Toilet Transfer: independent Shower/Tub: independent Car Transfer: independent Comments: Pt reports she gets on and off ground daily Current Activity Level: active Premorbid Activity Level: active Home medical equipment owned: No Social Support: Patient lives alone. Additional Social Support: kids help with leaves, snow Hindu, social, or cultural considerations to be made aware of before starting treatment: No Home Environment Current Home Environment: unchanged Setup: single story house Current Entry: walks up gravel to door. Second floor: bedroom and full bath Anticipated Home Environment at Discharge: unchanged Do you feel safe at home? Yes Red Flags: None Comments: Barriers to Care: Chronicity or severity of impairments Fall risk screening Fallen 2 or more times in the last 12 months: Yes Injured as a result of a fall in the last 12 months: No Hindu, social, or cultural considerations to be made aware of before starting treatment: No Objective General Observations: Moderate to marked R hand tremor Patient presents: ambulating without device Hand dominance: right Affected side: right Posture Forward head ROM Right LE grossly: WFL Left LE grossly: WFL Trunk grossly: WFL Hip Right Hip Muscle Strength: WFL Left Hip Muscle Strength: WFL Knee Right Knee Muscle Strength: WFL Ankle/Foot Right Ankle/Foot Muscle Strength: WFL Left Ankle/Foot Muscle Strength: WFL Functional Weakness Noted: hip extensors/glutes Neuromotor: Neuromotor Coordination: WFL Neuromotor Tests Neuromotor Sensation: intact Functional Mobility Transfers: Sit to stand: Modified independent and Insufficient forward flexion Stand to sit: Modified independent and Insufficient forward flexion Stand/squat pivot: Modified indpendent and Insufficient forward flexion Locomotion/Gait Locomotion/Gait: Decreased amplitude of movement (decreased R arm swing) Step length: Decreased R Device: None Other gait: Functional Objective Testin sec-Time [id number]: 14 reps with decreased forward trunk lean Timed Up and Go: 5 sec FGA: Treatments: Physical Therapy Exercise Log - 11/01/22 1413 OTHER Precautions/Contraindications PD Notes Evaluation only: [id number] Therapeutic Exercise (73239) Intervention Education in proper sit<>stand technique, proper turning practice for increasing gait amplitude Evaluation only Patient Education provided: Discussed diagnosis/pathophysiology/prognosi s. Pt is in agreement with plan, and all questions at this time were answered. CPT Code 90518 Low 36729 Moderate 34234 High History 0 1-2 3+ Comorbidities: hx of neurological disease, prior surgical history, and kidney stone, hyperlipidemia, Personal factors: chronicity or severity of the current condition Examination of body systems (elements of body structures & functions, activity limitations, and/or participation restrictions) 1-2 elements 3+ elements 4+ elements See below clinical impression Clinical Presentation Stable Evolving Unstable As evidenced by degenerative neurological condition Clinical Impression: . Uma Mcgrath presents to [facility] outpatient neurological rehab services with c/o fine motor deficits, mild balance difficulty due to history of PD. Upon assessment, Uma does demonstrate changes in sit<>stand mechanics and mild balance deficits, however her FGA is 30 and TUG is 5 sec suggesting well within norm limits for community level distances and balance. Recommending at this time that pt trial community balance class and follow with OT for increasing self monitoring for movement. Recommended pt return in the future if having changes in gait, balance, large motor tasks. Pt agreeable to this recommendation at this time. Thank you for allowing me to participate in this patient's care. Please contact me with any questions at the above number. BREANNE PHILIPPE PT STATE LICENSE, [id number] documented in this encounter [facility] 11-01-2022 History of Present illness Narrative OUTPATIENT REHABILITATION Occupational Therapy Evaluation Today's Date 11/01/2022 Patient Name: Uma Mcgrath Date of : 1950 Case Name: OT2-PD Functional Diagnosis: 1. Parkinson's disease (HCC) Clinical Information: Subjective Referring Diagnosis: G20 (ICD-10-CM) - Parkinson disease (HCC) Patient accompanied by: unaccompanied History of Present Illness Date of Onset: Fromally diagnosed in spring but noticed symptoms (tremor in hand) during the summer. Subjective History: Pt is familiar to this therapist from previous encounter in the summer when she participated in the [facility] program. Currently, pt noticing a decline in FMC affecting HW, tying shoes, using scissors,and adult coloring. Pt remains independent in her daily routine, but is requiring more time d/t slowing in movement. Previous Treatment for this condition: Yes Therapy type: outpatient rehab Patient reports status as: worsening Hand dominance: right Overall rating of health: Good Pain Scale Pain location: No pain reported Personal Goals: Pt would like to participate in a tune-up of movement behavior strategies to improve her FMC. Functional Mobility Status Functional Limitations: recent decline in level of ADL (Taking longer for ADL performance, in particular getting dressed.) patient reported Recent change in functional mobility status: No Current Mobility Status: Home: no device Community: no device Bed Transfer: independent Toilet Transfer: independent Shower/Tub: independent Car Transfer: independent Comments: Pt shared that she felt that her walking was better because she is more aware of maintaining arm swing. Pt had 2 falls about a couple months ago that occurred during a basketball game (1 going up the steps of the bleachers and 1 going down.) Pt did not sustain any injuries. Objective General Observations: Box and Blocks Test: R: 49 45 57 completions, L: 56 55 57 completions; Nine Hole Peg Test: R: 33 25 seconds , L: 24 25 seconds; Hand dominance: right Treatment Plan: Frequency of Visits: twice per week Duration: 4 weeks Interventions: Therapeutic Exercise (61254), Neuromuscular Re-Education (64867), Therapeutic/ Functional Activities (21479), and Self Care (27215) Rehab Potential: good Occupational Therapy Neuro goals: No data was found Patient Education provided: Discussed Plan of care frequency and duration, treatment plan, importance of attendance for recovery, team concept, and diagnosis/pathophysiology/prognosi s. Pt is in agreement with plan, and all questions at this time were answered Occupational Profile/Client History Moderate Complexity - Occupational Profile and medical history includes expanded review history of medical and/or therapy records and additional review of physical, cognitive, or psychosocial history. Patient Assessment: Number of performance deficits causing inability to complete activities due to the lack of skills relating to physical, cognitive, or psychosocial skills) Performance deficits include: Fine motor coordination impairments 3-5 (Moderate) performance deficits identified which result in limitations and/or participation restriction. Clinical Decision Making: Moderate Complexity - moderate complexity of clinical decision making including occupational profile/data from detailed assessments; consideration of several treatment options; may present with comorbidities that affect occupation performance; minimal or moderate modification of tasks or assistance is required.. Patients comorbidities affecting occupational performance include: anxiety Clinical Impression: Uma Mcgrath presents to [facility] on 11/01/2022 for an occupational therapy assessment with c/o QQQQQQQ. Upon assessment QQQQQ . These performance deficits impact Uma Mcgrath's ability to participate in the following performance in areas of ADLs/IADLs. Potential barriers to rehabilitation include chronicity or severity of the current condition. The patient would benefit from skilled Occupational Therapy services focused on the above listed performance deficits in order to achieve the goals as noted. Plan of care to be revised as needed based on response to therapeutic intervention. Thank you for allowing me to participate in this patient's care. Please contact me with any questions at the above number. Van Dubon OTR/L STATE LICENSE, [id number] documented in this encounter [facility] 11-01-2022 History of Present illness Narrative OUTPATIENT REHABILITATION Occupational Therapy Evaluation Today's Date 11/01/2022 Patient Name: Uma Mcgrath Date of : 1950 Case Name: OT2-PD Functional Diagnosis: 1. Parkinson's disease (HCC) Clinical Information: Subjective Referring Diagnosis: G20 (ICD-10-CM) - Parkinson disease (HCC) Patient accompanied by: unaccompanied History of Present Illness Date of Onset: Formally diagnosed in spring but noticed symptoms (tremor in hand) during the summer. Contemporary Medical History: Past Medical History: Diagnosis Date Hiatal hernia Hill grade 1 Hyperlipidemia Kidney stone 10/27/2015 Parkinson disease (HCC) Past Surgical History: Procedure Laterality Date COLONOSCOPY 2011 Dr. Edwards EGD [address] Gonzalez; patient can not recall date EGD 12/01/2016 with biopsy and cruz capsule placement........Dr. Lam ESOPHAGEAL MANOMETRY 12/01/2016 ESOPHAGOGASTRODUODENOSCOPY 10/30/2018 gastritis, duodenitis...with Cruz pH capsule placement...Dr. Lam KIDNEY STONE SURGERY multiple times ORTHOPEDIC SURGERY Subjective History: Pt is familiar to this therapist from previous encounter in the summer of 2020 when she participated in the [employer] program. Currently, pt noticing a decline in FMC affecting HW, tying shoes, using scissors,and adult coloring. Pt remains independent in her daily routine, but is requiring more time d/t slowing in movement. Previous Treatment for this condition: Yes Therapy type: outpatient rehab Patient reports status as: worsening Hand dominance: right Overall rating of health: Good Pain Scale Pain location: No pain reported Personal Goals: Pt would like to participate in a tune-up of movement behavior strategies to improve her FMC. Functional Mobility Status Functional Limitations: recent decline in level of ADL (Taking longer for ADL performance, in particular getting dressed.) patient reported Recent change in functional mobility status: No Current Mobility Status: Home: no device Community: no device Bed Transfer: independent Toilet Transfer: independent Shower/Tub: independent Car Transfer: independent Comments: Pt shared that she felt that her walking was better because she is more aware of maintaining arm swing. Pt had 2 falls about a couple months ago that occurred during a basketball game (1 going up the steps of the bleachers and 1 going down.) Pt did not sustain any injuries. Current Activity Level: very active Premorbid Activity Level: very active Objective General Observations: Box and Blocks Test: R: 49 45 57 completions, L: 56 55 57 completions; Nine Hole Peg Test: R: 33 25 seconds , L: 24 25 seconds; Hand dominance: right Treatment Plan: Frequency of Visits: twice per week Duration: 4 weeks Interventions: Therapeutic Exercise (05624), Neuromuscular Re-Education (85898), Therapeutic/ Functional Activities (30106), and Self Care (55326) Rehab Potential: good Occupational Therapy Neuro goals: 1. Resume dominant hand skills with right UE to resume writing, typing, feeding and grooming skills. 2. Improve speed and efficiency for right UE object transporting functions as demonstrated by improvement on the box and blocks test from initial score of QQQQQ to improved score of QQQQQ. 3. Improve fine motor skills of right UE to manipulate small ADL items as demonstrated by an improvement in the 9 hole peg test of QQQQQ to QQQQQQ. Patient Education provided: Discussed Plan of care frequency and duration, treatment plan, importance of attendance for recovery, team concept, and diagnosis/pathophysiology/prognosi s. Pt is in agreement with plan, and all questions at this time were answered Occupational Profile/Client History Moderate Complexity - Occupational Profile and medical history includes expanded review history of medical and/or therapy records and additional review of physical, cognitive, or psychosocial history. Patient Assessment: Number of performance deficits causing inability to complete activities due to the lack of skills relating to physical, cognitive, or psychosocial skills) Performance deficits include: Fine motor coordination impairments 3-5 (Moderate) performance deficits identified which result in limitations and/or participation restriction. Clinical Decision Making: Moderate Complexity - moderate complexity of clinical decision making including occupational profile/data from detailed assessments; consideration of several treatment options; may present with comorbidities that affect occupation performance; minimal or moderate modification of tasks or assistance is required.. Patients comorbidities affecting occupational performance include: anxiety Clinical Impression: Uma Mcgrath presents to [facility] on 11/01/2022 for an occupational therapy assessment with c/o decline in FMC affecting HW, tying shoes, using scissors,and adult coloring. These performance deficits impact Uma Mcgrath's ability to participate in the following performance in areas of ADLs/IADLs. Potential barriers to rehabilitation include chronicity or severity of the current condition. The patient would benefit from skilled Occupational Therapy services focused on the above listed performance deficits in order to achieve the goals as noted. Plan of care to be revised as needed based on response to therapeutic intervention. Thank you for allowing me to participate in this patient's care. Please contact me with any questions at the above number. Van Dubon OTR/L STATE LICENSE, [id number] documented in this encounter [facility] 11-01-2022 History of Present illness Narrative OUTPATIENT REHABILITATION Occupational Therapy Evaluation Today's Date 11/01/2022 Patient Name: Uma Mcgrath Date of : 1950 Case Name: OT2-PD Functional Diagnosis: 1. Parkinson's disease (HCC) Clinical Information: Subjective Referring Diagnosis: G20 (ICD-10-CM) - Parkinson disease (HCC) Patient accompanied by: unaccompanied History of Present Illness Date of Onset: Formally diagnosed in spring but noticed symptoms (tremor in hand) during the summer. Contemporary Medical History: Past Medical History: Diagnosis Date Hiatal hernia Hill grade 1 Hyperlipidemia Kidney stone 10/27/2015 Parkinson disease (HCC) Past Surgical History: Procedure Laterality Date COLONOSCOPY 2011 Dr. Edwards EGD [address] Gonzalez; patient can not recall date EGD 12/01/2016 with biopsy and cruz capsule placement........Dr. Lam ESOPHAGEAL MANOMETRY 12/01/2016 ESOPHAGOGASTRODUODENOSCOPY 10/30/2018 gastritis, duodenitis...with Cruz pH capsule placement...Dr. Lam KIDNEY STONE SURGERY multiple times ORTHOPEDIC SURGERY Subjective History: Pt is familiar to this therapist from previous encounter in the summer when she participated in the [employer] program. Currently, pt noticing a decline in FMC affecting HW, tying shoes, using scissors,and adult coloring. Pt remains independent in her daily routine, but is requiring more time d/t slowing in movement. Previous Treatment for this condition: Yes Therapy type: outpatient rehab Patient reports status as: worsening Hand dominance: right Overall rating of health: Good Pain Scale Pain location: No pain reported Average Pain: 0/10 Personal Goals: Pt would like to participate in a tune-up of movement behavior strategies to improve her FMC. Functional Mobility Status Functional Limitations: recent decline in level of ADL (Taking longer for ADL performance, in particular getting dressed.) patient reported Recent change in functional mobility status: No Current Mobility Status: Home: no device Community: no device Bed Transfer: independent Toilet Transfer: independent Shower/Tub: independent Car Transfer: independent Comments: Pt shared that she felt that her walking was better because she is more aware of maintaining arm swing. Pt had 2 falls about a couple months ago that occurred during a basketball game (1 going up the steps of the bleachers and 1 going down.) Pt did not sustain any injuries. Current Activity Level: very active Premorbid Activity Level: very active Home medical equipment owned: No Social Support: Patient lives alone. Additional Social Support: Pt lives alone in a raised ranch floor plan w/ main living quaters on the 2nd floor. House is built on the side of a hill facing a cash. Hindu, social, or cultural considerations to be made aware of before starting treatment: No Home Environment Current Home Environment: unchanged Setup: multi-level house First floor: laundry, bedroom and half bath Second floor: bedroom and full bath Animals in the home: no Anticipated Home Environment at Discharge: unchanged Do you feel safe at home? Yes Activities of Daily Living: patient reported and independent with all (Patient has noticed decreased efficiency with self-care tasks, such as dressing, due to progressive deficits in FMC and right hand.) Upper Body Dressing: increased time and effort with all Instrumental Activities of Daily Livingpatient reported and independent with all (Patient shared that while she remains independent in all IADLs, she is noticing progressive difficulty with FMC and portions of task performance, such as handwriting, using scissors, and leisure activity of adult coloring books.) Sleep Assessment Sleep disturbance: no Sleep Disturbance Red Flags: None Comments: Barriers to Care: None Fall risk screening Fallen 2 or more times in the last 12 months: Yes (Patient with ported 2 falls occurring a couple months ago at the same event. Patient did not sustain any injuries from these falls.) Injured as a result of a fall in the last 12 months: No Hindu, social, or cultural considerations to be made aware of before starting treatment: No Objective General Observations: Box and Blocks Test: R: 45 completions (17% decline compared to status at conclusion of previous encounter with 34% IMP currently), L: 55 completions (2% decline from previous encounter with 17% IMP currently); Nine Hole Peg Test: R: 33 seconds (36% decline from previous encounter with 47% IMP currently), L: 24 seconds (4% improvement with 0% IMP currently.) Box and Blocks Test Implementing combined movement behavior strategies of large amplitude and intensity: R: 49 completions (3% improvement from first attempt with use of strategies with 31% IMP), L: 56 completions (1% improvement with use of strategies with 80% IMP.) Based on this information, patient has displayed notable decline in hand-eye and FMC right hand in her since status at conclusion of previous encounter. Patient also displayed when implementing movement behavior strategies she is better able to manage her symptoms improve efficiency. Patient would benefit from brief course of OP OT for tune up of movement behavior strategies with introduction of additional strategies of intensity, specificity, and complexity to help with transitional and rapid alternating tasks, which is needed for IADL performance. Hand dominance: right Affected side: right Cognition/ Mental Status Oriented x4: Yes Follows commands: 2-step (Patient noting difficulty with dual and rapid alternating tasks, which has progressed since previous encounter.) Attention: Therapist observation :Intact: WFL for sustained activity in quiet environment. Sequencing: Therapist observation :Intact: Inconsistency with rapid alternating task performance and complex sequencing activities. Problem solving simple: Therapist observation : intact Problem solving complex: Patient reported :Intact: Patient sharing that she is able to complete her IADL routine. However, patient is noticing progressive difficulty with learning new complex activities that require divided or alternating attention. Safety & Judgement/Insight: Therapist observation : intact Memory and Orientation: Patient reported :Intact: Patient shared that she has noticed mild difficulty with short-term recall, but does not feel these changes are interfering with her daily routine. Vision/ Perceptual Skills No visual impairments identified Visual Booth: Pass Shoulder Right Shoulder Range of Motion: WFL Left Shoulder Range of Motion: WFL Elbow Right Elbow WFL Left Elbow Range of Motion: WFL Grasping and Prehension Skill Gross Grasp Right: intact Left: intact Gross Extension Right: intact Left: intact Skilled prehensions Right: intact Left: intact Neuromotor Neuromotor Coordination: Resting Tremor Right UE Gait/ Balance Weight Bearing Status Assistive device used: none Treatment Plan: Frequency of Visits: twice per week Duration: 4 weeks Interventions: Therapeutic Exercise (23256), Neuromuscular Re-Education (83642), Therapeutic/ Functional Activities (58351), and Self Care (33792) Rehab Potential: good Occupational Therapy Neuro goals: 1. Resume dominant hand skills with right UE to resume writing, typing, feeding and grooming skills. 2. Improve speed and efficiency for right UE object transporting functions as demonstrated by improvement on the box and blocks test With no more than 17% IMP. 3. Improve fine motor skills of right UE to manipulate small ADL items as demonstrated by an improvement in the 9 hole peg test With no more than 11% IMP. Patient Education provided: Discussed Plan of care frequency and duration, treatment plan, importance of attendance for recovery, team concept, and diagnosis/pathophysiology/prognosi s. Pt is in agreement with plan, and all questions at this time were answered Occupational Profile/Client History Moderate Complexity - Occupational Profile and medical history includes expanded review history of medical and/or therapy records and additional review of physical, cognitive, or psychosocial history. Patient Assessment: Number of performance deficits causing inability to complete activities due to the lack of skills relating to physical, cognitive, or psychosocial skills) Performance deficits include: Fine motor coordination impairments 3-5 (Moderate) performance deficits identified which result in limitations and/or participation restriction. Clinical Decision Making: Moderate Complexity - moderate complexity of clinical decision making including occupational profile/data from detailed assessments; consideration of several treatment options; may present with comorbidities that affect occupation performance; minimal or moderate modification of tasks or assistance is required.. Patients comorbidities affecting occupational performance include: anxiety Clinical Impression: Uma Mcgrath presents to [facility] on 11/01/2022 for an occupational therapy assessment with c/o decline in FMC affecting HW, tying shoes, using scissors,and adult coloring. These performance deficits impact Uma Mcgrath's ability to participate in the following performance in areas of ADLs/IADLs. Potential barriers to rehabilitation include chronicity or severity of the current condition. The patient would benefit from skilled Occupational Therapy services focused on the above listed performance deficits in order to achieve the goals as noted. Plan of care to be revised as needed based on response to therapeutic intervention. Thank you for allowing me to participate in this patient's care. Please contact me with any questions at the above number. Van Dubon OTR/L STATE LICENSE, [id number] documented in this encounter [facility] 10-20-2022 History of Present illness Narrative DEXA performed documented in this encounter [facility] 10-05-2022 History of Present illness Narrative Pt seen today in Movement disorders clinic for Occupational Therapy screen. Most recent therapy services: OP, PT, OT, and [facility] 05/2021 Swallowing Questions: 1. Do you cough/choke and/or have persistent throat clearing with liquids/solids?: no 2. Do you ever have the sensation of food sticking in your throat?: no Cognitive Questions: Have you noticed a change in memory, attention (keeping your attention, completing 2 tasks at once, alternating your attention between task)? : yes Have you noticed a change in organization skills, ability to plan/sequence/follow through with a task?: yes Vision screen: no deficits Upper extremity screen: Right dominant, Right tremor, Left bradykinesia, and Right bradykinesia Self-care screen: Difficulty with handwriting Adaptive equipment/strategies: {None Tremor remediation trial: Patient completed trial of tremor remediation strategies. Mild to Moderate tremor impacts Writing Changes in gross functional mobility: impaired balance, decline in ADLs/IADLs (endorses being slower) Device/Equipment: none Falls in past 6 months: 2 falls recently at a basketball game. Fell going both up and down the [employer] Current routine exercise program: weekly DTD classes Therapy needs identified: Desired location: [facility] Education provided: HEP Adherence, Importance of attendance to therapy, and Role of exercise and exercise guidelines Geo Cognitive Assessment completed with the following results: Visuospatial/executive: 3/5 Namin/3 Attention: 6/6 Language: 3/3 Abstraction: 2/2 Delayed recall: 2/5 Orientation: 6/6 Total score: 24/30 with normal being score equal to or greater than 26/30. No charge for OT screen this date. Will continue to follow at Movement disorders clinic and assess for therapy related needs. MOVEMENT DISORDERS CLINIC FOLLOW-UP VISIT Assessment: Uma Mcgrath is a 72 y.o. female with right greater than left-sided tremor prominent Parkinson's disease. Her exam today showed moderate right arm tremor, bilateral rigidity, right greater than left bradykinesia at the feet and masked appearance to face. Discussed that she would benefit from levodopa which was previously prescribed but she hesitates to start. She finds exercise to be helpful and would be interested in returning to physical therapy before starting medication. No recent falls. Continues to drive during daylight hours, does not feel comfortable driving at night. Lives alone. Some difficulties with ADLs. 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 Again discussed this may be alleviated with dopamine replacement therapy. After much discussion with patient and daughter who was present for today's visit she declined to start medication at this time. Denies difficulty with sleep or mood. Lexapro continues to be helpful. Plan: Sinemet 25/100 IR can be started when she is ready. She has the instructions in the prescription from previous visit. She can start her medication at 6 AM and dose 5 hours apart for the second and third doses. She may increase by 0.5 tablet every 7 days per her comfort level. Lexapro can continue at 10 mg by mouth daily for anxiety control. Asked to meet with our clinic PT today and therapy orders were placed. Please be sure that osteoporosis screening is up-to-date, as PD carries a statistically increased risk for this condition. Please be sure that skin screening is up-to-date, as PD carries a statistically increased risk for melanoma. Please do not prescribe any anti-dopaminergic drugs for nausea or mood. I would like to see the patient back in 3 months I answered all of the questions asked of me; the patient/care-partner had no remaining unaddressed symptomatic issues. I personally spent 45 total minutes today in pre-review of the chart, [id number] interaction with the patient/care-partner (including discussion of the chart review, assessment of today's visit, and clinical plan development, as detailed above), updating/placing orders, and post-visit documentation. HPI: I saw Uma Mcgrath in follow-up at the [facility] for Parkinson disease. Tremor, slowness, and stiffness have become troublesome enough that she was interested in talking about medication again today. ROS: As detailed elsewhere. Physical Exam: GENERAL: Well-nourished, no distress. MENTAL STATUS: Awake, alert, followed commands. CRANIAL NERVES: Extra-ocular movements full. Face symmetric. Pupils equal, round. No ptosis. No dysarthria. MOTOR: 5/5 in the arms and legs bilaterally. Moderate bradykinesia seen at the right slightly more so than the left arms. Moderate resting tremor seen at the right hand/forearm. Moderate cogwheeling rigidity seen at the right slightly more so than the left arms SENSORY, REFLEXES, CEREBELLAR: Deferred GAIT: Stable in appearance with slightly reduced arm swing bilaterally Reviewed: Chart review. Sincerely, Nicole Roberts CNP documented in this encounter [facility] 09-19-2022 History of Present illness Narrative History of Present Illness Chief Complaint Patient presents with Anxiety Patient is here today for a follow up on anxiety. Patient is currently taking lexapro 10 MG once a day with no concerns. States that the medication works well for her anxiety. Here in office today to get a refill on medication. No other concerns. Review of Systems Constitutional: Negative for activity change, chills and fever. HENT: Negative for dental problem, ear pain, mouth sores, sinus pain and trouble swallowing. Eyes: Negative for discharge and visual disturbance. Respiratory: Negative for chest tightness, shortness of breath and wheezing. Cardiovascular: Negative for chest pain, palpitations and leg swelling. Gastrointestinal: Negative for abdominal pain and nausea. Endocrine: Negative for polydipsia, polyphagia and polyuria. Genitourinary: Negative for difficulty urinating, flank pain, frequency and urgency. Musculoskeletal: Negative for arthralgias, back pain, myalgias and neck pain. Skin: Negative for color change and rash. Neurological: Negative for dizziness, syncope and light-headedness. Psychiatric/Behavioral: Negative for decreased concentration and sleep disturbance. All other systems reviewed and are negative. Vitals: Blood pressure 138/82, pulse 76, height 1.651 m (5' 5 ), weight 69.5 kg (153 lb 3.2 oz), SpO2 96 %, not currently . Physical Exam Vitals and nursing note reviewed. HENT: Head: Normocephalic. Cardiovascular: Rate and Rhythm: Normal rate and regular rhythm. Heart sounds: No murmur heard. Pulmonary: Effort: Pulmonary effort is normal. Breath sounds: Normal breath sounds. Abdominal: General: Bowel sounds are normal. Palpations: Abdomen is soft. Tenderness: There is no abdominal tenderness. Musculoskeletal: General: No swelling. Assessment and Plan ICD-10-CM 1. Generalized anxiety disorder F41.1 2. Parkinson's disease G20 3. Hypercholesteremia E78.00 4. Vitamin D deficiency E55.[address] Matt Lopez at [facility] for Parkinson's - she states she has not started the medications as prescribed. Discussion regarding use of Sinemet (carbidopa/levidopa) and Mirapex (pramipexole) to control symptoms associated with Parkinson's. Obtain blood work - will need to fast for this blood draw. If lab work or other testing was ordered at your visit, please call our office ([phone]) one week after the lab draw or test to receive your results. ALEXEI Paige, was the medical superintendent for today's note. I have performed all essential components of the history and physical exam, confirmed the diagnosis and developed a plan of care at this visit. I have reviewed the note at the visit and have added edits as appropriate to my evaluation and plan of care. documented in this encounter [facility] 09-19-2022 Instructions Shirley Beckett - 09/19/2022 9:45 AM EST Assessment and Plan ICD-10-CM 1. Generalized anxiety disorder F41.1 2. Parkinson's disease G20 3. Hypercholesteremia E78.00 4. Vitamin D deficiency E55.[address] Matt Lopez at [facility] for Parkinson's - she states she has not started the medications as prescribed. Discussion regarding use of Sinemet (carbidopa/levidopa) and Mirapex (pramipexole) to control symptoms associated with Parkinson's. Obtain blood work - will need to fast for this blood draw. If lab work or other testing was ordered at your visit, please call our office ([phone]) one week after the lab draw or test to receive your results. ALEXEI Paige, was the medical superintendent for today's note. I have performed all essential components of the history and physical exam, confirmed the diagnosis and developed a plan of care at this visit. I have reviewed the note at the visit and have added edits as appropriate to my evaluation and plan of care. documented in this encounter [facility] 08-26-2022 History of Present illness Narrative Evenity in both arms, pt tolerated well, next appt 09/28 documented in this encounter [facility] 08-12-2022 History of Present illness Narrative Associated Order(s): LG Jt Injection/Arthrocentesis: L knee Post-Procedure Diagnose(s): Instability of left knee joint [facility] [address] [facility] [address] [facility] [id number] Chief Complaint Patient presents with Left Knee - Follow-up Uma Bala StewartFoster returns to the office today for follow up on her left knee. I last saw this mary lady in May of this year. She has some arthritis in the left knee but has been managing it with otc pain relievers as well as exercise. She has parkinsons so exercising is very important to her. She can't recall one instance but she now is having locking up in her knee as well as the feeling of instability. She wants to keep exercising but the knee continues to become more painful and she is nervous that she won't be able to continue with her exercising because of it. The patient's past medical history, surgical history, social history, family history, medications and allergies were reviewed with the patient today and are available in the chart for further review. Allergies Allergen Reactions Oxycodone GI Intolerance Percocet [Oxycodone-Acetaminophen] GI Intolerance Current Outpatient Medications: ascorbic acid, vitamin C, (VITAMIN C) 100 MG tablet, Take 500 mg by mouth daily ., Disp: , Rfl: calcium carb-D3-mag ox-zinc ox (Brenda Mag Zinc Plus D3) 333 mg-133 unit -133 mg-5 mg Tab, Take by mouth 2 (two) times a day ., Disp: , Rfl: carbidopa-levodopa (SINEMET) 25-100 mg per tablet, Take 1 (one) tablet by mouth 3 (three) times a day ., Disp: 270 tablet, Rfl: 3 cholecalciferol, vitamin D3, (D3-2000 ORAL), Take 4,000 mg by mouth daily ., Disp: , Rfl: coenzyme Q10 100 mg capsule, Take 100 mg by mouth 3 (three) times a day ., Disp: , Rfl: escitalopram oxalate (LEXAPRO) 10 MG tablet, Take 10 mg by mouth daily ., Disp: , Rfl: multivitamin (THERAGRAN) per tablet, Take 1 tablet by mouth daily ., Disp: , Rfl: omega-3 fatty acids/fish oil (fish oil-omega-3 fatty acids) 300-1,000 mg capsule, Take 2 g by mouth daily ., Disp: , Rfl: potassium citrate (UROCIT-K) 10 mEq (1,080 mg) SR tablet, Take 1 tablet by mouth daily Reasons: takes 1-2 tablets daily., Disp: , Rfl: romosozumab-aqqg (EVENITY SUBQ), Inject under the skin every 30 (thirty) days ., Disp: , Rfl: rosuvastatin (CRESTOR) 10 MG tablet, Take 10 mg by mouth daily ., Disp: , Rfl: Past Medical History: Diagnosis Date Hiatal hernia Hill grade 1 Hyperlipidemia Kidney stone 10/27/2015 Parkinson disease (HCC) Past Surgical History: Procedure Laterality Date COLONOSCOPY 2011 Dr. Edwards EGD [address] Gonzalez; patient can not recall date EGD 12/01/2016 with biopsy and cruz capsule placement........Dr. Lam ESOPHAGEAL MANOMETRY 12/01/2016 ESOPHAGOGASTRODUODENOSCOPY 10/30/2018 gastritis, duodenitis...with Cruz pH capsule placement...Dr. Lam KIDNEY STONE SURGERY multiple times ORTHOPEDIC SURGERY Social History Socioeconomic History Marital status: Tobacco Use Smoking status: Never Smokeless tobacco: Never Vaping Use Vaping Use: Never used Substance and Sexual Activity Alcohol use: No Drug use: No Social History Narrative Merged History Encounter ROS: Review of Systems Musculoskeletal: Positive for arthralgias, gait problem and joint swelling. PE: Physical Exam Musculoskeletal: Left knee: Effusion present. Instability Tests: Medial Breanna test positive. Lateral Breanna test negative. ORTHO: Left Knee Exam Tenderness The patient is experiencing tenderness in the medial joint line, medial retinaculum and MCL. Range of Motion Extension: -5 Flexion: 120 (with sharp pain) Tests Breanna: Medial - positive Lateral - negative Varus: negative Valgus: negative Drawer: Anterior - negative Posterior - negative Pivot shift: negative Other Erythema: absent Scars: absent Sensation: normal Pulse: present Swelling: mild Effusion: effusion present Imaging: No new imaging, reviewed from prior visit. Assessment/Plan: After examination and reviewing of the patient x-ray images, we discussed continued treatment options for the left knee. I would like to get a MRI of the left knee for further diagnostic evaluation given the new onset instability and locking up of the knee. I did offer her an injection which she gladly accepted. I did this without complications and she tolerated this well. I will see her back in the office to review her MRI results. LG Jt Injection/Arthrocentesis: L knee Performed by: Claire Rosario CNP Authorized by: Claire Rosario CNP CPT 59480 - Large Joint Arthrocentesis: Consent given by: Patient Time out: Immediately prior to the procedure a time out was called Physician or proceduralist has discussed critical or nonroutine steps, procedure duration and anticipated blood loss: Yes Supporting Documentation: Indications: Pain and diagnostic evaluation Procedure Details: Location: Knee Site: L knee Prep: patient was prepped and draped in usual sterile fashion Needle size: 22 G Approach: Anterolateral Medications: 40 mg triamcinolone acetonide 40 mg/mL Anesthetic used: Lidocaine 1% Anesthetic amount (mL): 2 Patient tolerance: Patient tolerated the procedure well with no immediate complications documented in this encounter [facility] 08-04-2022 History of Present illness Narrative MOVEMENT DISORDERS CLINIC FOLLOW-UP VISIT Assessment: Uma Mcgrath is a 72 y.o. female with right more so than left sided tremor prominent Parkinson disease. Examination today showed relatively significant bradykinesia and cogwheeling rigidity for which I do believe that dopamine replacement therapy will be helpful. She has been thinking this as well. After discussion, we decided to try levodopa. Regarding falls: None reported. Regarding depression, anxiety, or impulse control symptoms: We discussed that anxiety is common in PD and often responsive to levodopa. Regarding cognition: We discussed that slow cognitive processing/memory problems are common in PD and, again, often responsive to levodopa. Regarding sleep: No intrusive problems reported. Plan: Carbidopa/levodopa 25/100 will be started at 0.5 tab by mouth daily and escalated by the same amount every 4 days until she is potentially taking 1 tab 3 times daily at approximately 7 AM, noon, and 5 PM in an effort to improve motor function through the day. We discussed that the medication should be taken 30 minutes before or 60 minutes after meals to improve absorption. We can use more medication if needed, but the lowest helpful/tolerated dose is the goal. We discussed the potential for nausea, lightheadedness, dizziness, fatigue, poor concentration, and/or hallucinations. Lexapro can continue at 10 mg by mouth daily for anxiety control. Please be sure that osteoporosis screening is up-to-date, as PD carries a statistically increased risk for this condition. Please be sure that skin screening is up-to-date, as PD carries a statistically increased risk for melanoma. Please do not prescribe any anti-dopaminergic drugs for nausea or mood. I would like to see the patient back in 2 months. I answered all of the questions asked of me; the patient/care-partner had no remaining unaddressed symptomatic issues. I personally spent 30 total minutes today in pre-review of the chart, [id number] interaction with the patient/care-partner (including discussion of the chart review, assessment of today's visit, and clinical plan development, as detailed above), updating/placing orders, and post-visit documentation. HPI: I saw Uma Mcgrath in follow-up at the [facility] clinic for Parkinson disease. Tremor, slowness, and stiffness have become intrusive enough that she was interested in talking about medication. ROS: As detailed elsewhere. Physical Exam: GENERAL: Well-nourished, no distress. MENTAL STATUS: Awake, alert, followed commands. CRANIAL NERVES: Extra-ocular movements full. Face symmetric. Pupils equal, round. No ptosis. No dysarthria. MOTOR: 5/5 in the arms and legs bilaterally. Moderate bradykinesia seen at the right slightly more so than the left arms. Moderate resting tremor seen at the right hand/forearm. Moderate cogwheeling rigidity seen at the right slightly more so than the left arms SENSORY, REFLEXES, CEREBELLAR: Deferred GAIT: Stable in appearance with minimal arm swing bilaterally Reviewed: Chart review. Sincerely, Matt Lopez MD, PhD documented in this encounter [facility] 06-29-2022 History of Present illness Narrative Patient got evenity injection in both arms tolerated it well next appt 07/27 documented in this encounter [facility] 06-29-2022 History of Present illness Narrative Patient got evenity injection in both arms tolerated it well next appt 07/27 documented in this encounter [facility] 05-27-2022 History of Present illness Narrative Images from the original note were not included. [facility] [address] [place] [address] Name: Uma Mcgrath : 1950 Date: 05/27/22 Hearing Aid Contact Note: Ms. Mcgrath returned today for a replacement right hearing aid fitting. She was fit with a match to her left Phonak Audeo P70-R MAT hearing aid. Ms. Mcgrath is a very experienced user so all aspects of care and usage were briefly reviewed. Ms. Mcgrath stated that her COSI goals have not changed since she was last fit and she had not further goals to add. The proper use and care of lithium ion batteries was discussed. Ms. Mcgrath has chosen to keep her hearing aids in the fully automatic mode. She is aware that she can download the Aasonn dong at any time and connect her hearing aids to her phone for streaming phone calls and media at any time. Ms. Mcgrath will return as scheduled for her conformity evaluation, sooner if there are any issues. Mrs. Mcgrath expressed understanding of and agreement with the above. Electronically Signed by: Marvin Hopkins, CCC/A, FAAA, JESSICA Cert. 05/27/22 9:42 AM documented in this encounter [facility] 05-25-2022 History of Present illness Narrative Patient got evenity inj in both arms tolerated it well next appt is 06/29 documented in this encounter [facility] 05-22-2022 History of Present illness Narrative Uma Castanoied 1950 CC: 72 y.o. is a she with left knee pain. Chief Complaint Patient presents with Left Knee - Pain . HPI: Knee Pain: Patient presents to the office today with left knee pain. She has been having pain off and on for a year. She denies any injury. She enjoys working out, usually 4-5 times a week because it helps her with her parkinson symptoms. She has been having some pain in the knee and wanted to have it checked. She doesn't want to be doing more damage or making the knee worse with working out. She hasn't had to take anything for pain. She denies any instability of the knee. PMH: Allergies Allergen Reactions Oxycodone GI Intolerance Percocet [Oxycodone-Acetaminophen] GI Intolerance Current Outpatient Medications: ascorbic acid, vitamin C, (VITAMIN C) 100 MG tablet, Take 500 mg by mouth daily ., Disp: , Rfl: calcium carb-D3-mag ox-zinc ox (Brenda Mag Zinc Plus D3) 333 mg-133 unit -133 mg-5 mg Tab, Take by mouth 2 (two) times a day ., Disp: , Rfl: cholecalciferol, vitamin D3, (D3-2000 ORAL), Take 4,000 mg by mouth daily ., Disp: , Rfl: coenzyme Q10 100 mg capsule, Take 100 mg by mouth 3 (three) times a day ., Disp: , Rfl: escitalopram oxalate (LEXAPRO) 10 MG tablet, Take 10 mg by mouth daily ., Disp: , Rfl: multivitamin (THERAGRAN) per tablet, Take 1 tablet by mouth daily ., Disp: , Rfl: omega-3 fatty acids/fish oil (fish oil-omega-3 fatty acids) 300-1,000 mg capsule, Take 2 g by mouth daily ., Disp: , Rfl: potassium citrate (UROCIT-K) 10 mEq (1,080 mg) SR tablet, Take 1 tablet by mouth daily Reasons: takes 1-2 tablets daily., Disp: , Rfl: romosozumab-aqqg (EVENITY SUBQ), Inject under the skin every 30 (thirty) days ., Disp: , Rfl: rosuvastatin (CRESTOR) 10 MG tablet, Take 10 mg by mouth daily ., Disp: , Rfl: Past Medical History: Diagnosis Date Hiatal hernia Hill grade 1 Hyperlipidemia Kidney stone 10/27/2015 Parkinson disease (HCC) Past Surgical History: Procedure Laterality Date COLONOSCOPY 2011 Dr. Edwards EGD [address] Gonzalez; patient can not recall date EGD 12/01/2016 with biopsy and cruz capsule placement........Dr. Lam ESOPHAGEAL MANOMETRY 12/01/2016 ESOPHAGOGASTRODUODENOSCOPY 10/30/2018 gastritis, duodenitis...with Cruz pH capsule placement...Dr. Lam KIDNEY STONE SURGERY multiple times ORTHOPEDIC SURGERY Social History Socioeconomic History Marital status: Tobacco Use Smoking status: Never Smokeless tobacco: Never Vaping Use Vaping Use: Never used Substance and Sexual Activity Alcohol use: No Drug use: No Social History Narrative Merged History Encounter The patient's past medical history, surgical history, social history, family history, medications and allergies were reviewed with the patient today and are available in the chart for further review. ROS: Review of Systems Constitutional: Negative for activity change and fatigue. HENT: Negative for congestion, hearing loss and trouble swallowing. Eyes: Negative for visual disturbance. Respiratory: Negative for chest tightness and shortness of breath. Cardiovascular: Negative for chest pain and palpitations. Gastrointestinal: Negative for abdominal pain, diarrhea, nausea and vomiting. Endocrine: Negative for polydipsia, polyphagia and polyuria. Genitourinary: Negative for decreased urine volume, difficulty urinating and hematuria. Musculoskeletal: Positive for arthralgias. Negative for gait problem, joint swelling and myalgias. Skin: Negative for color change, rash and wound. Allergic/Immunologic: Negative for immunocompromised state. Neurological: Negative for dizziness, weakness, light-headedness and numbness. Hematological: Does not bruise/bleed easily. Psychiatric/Behavioral: Negative for confusion and sleep disturbance. The patient is not nervous/anxious. PE: Physical Exam Constitutional: Appearance: She is well-developed. HENT: Head: Normocephalic. Eyes: Pupils: Pupils are equal, round, and reactive to light. Cardiovascular: Rate and Rhythm: Normal rate and regular rhythm. Pulmonary: Effort: Pulmonary effort is normal. Breath sounds: Normal breath sounds. Abdominal: General: Bowel sounds are normal. Palpations: Abdomen is soft. Musculoskeletal: General: Tenderness present. No swelling or signs of injury. Normal range of motion. Cervical back: Normal range of motion and neck supple. Left knee: No effusion. Instability Tests: Medial Breanna test negative and lateral Breanna test negative. Skin: General: Skin is warm and dry. Neurological: Mental Status: She is alert and oriented to person, place, and time. ORTHO: Left Knee Exam Tenderness The patient is experiencing tenderness in the MCL and patella. Range of Motion The patient has normal left knee ROM. Tests Breanna: Medial - negative Lateral - negative Varus: negative Valgus: negative Drawer: Anterior - negative Other Erythema: absent Scars: absent Sensation: normal Pulse: present Swelling: none Effusion: no effusion present Imaging: L Knee: No acute fracture or dislocation. Mild tricompartmental degenerative changes. Assessment/Plan: After examination and reviewing of the patient x-ray images, we discussed treatment options for the knee. I encouraged she try to utilize quad strengthening exercises in her workout regime. She is going to go back and discuss different activities and modifications with her head athletic trainer. She is to continue with otc pain medications if she needs them. I am more than happy to see her back as needed. Diagnosis: Problem List Items Addressed This Visit None Follow Up: No follow-ups on file. Claire Rosario CNP documented in this encounter [facility] 04-27-2022 History of Present illness Narrative Patient tolerated Evenity injections well. Injections given in both arms subcutaneous Next appointment 05-25-22 documented in this encounter [facility] 03-30-2022 History of Present illness Narrative Patient got injection in both arms tolerated it well Patient got injection in both arms Patients next appt is 04/27 documented in this encounter [facility] 02-23-2022 History of Present illness Narrative Images from the original note were not included. 02/23/22 Uma Mcgrath [address] Nel Marcano, [facility] [place] [address] Uma Bala Mcgrath was seen on 02/23/22 for the followin. Age-related osteoporosis without current pathological fracture 2. Vitamin D deficiency 3. Osteoarthritis of lumbar spine, unspecified spinal osteoarthritis complication status 4. Osteoarthritis of thoracic spine, unspecified spinal osteoarthritis complication status 5. Personal history of drug therapy 6. Encounter for long-term current use of high risk medication The following are the patient's current problems not treated by me unless noted above. Patient Active Problem List Diagnosis Age-related osteoporosis without current pathological fracture Vitamin D deficiency Scoliosis (and kyphoscoliosis), idiopathic Osteoarthritis of lumbar spine Osteoarthritis of thoracic spine Dysphonia Parkinson's disease (HCC) Anxiety Current Rheumatologic Medications: Evenity No. 03 Feb 2022 Vitamin D 4000 units daily Current Outpatient Medications Medication Sig Dispense Refill ascorbic acid, vitamin C, (vitamin C) 100 MG tablet Take 500 mg by mouth daily . calcium carb-D3-mag ox-zinc ox (Brenda Mag Zinc Plus D3) 333 mg-133 unit -133 mg-5 mg Tab Take by mouth 2 (two) times a day . cholecalciferol, vitamin D3, (D3-2000 ORAL) Take 5,000 mg by mouth daily . coenzyme Q10 100 mg capsule Take 100 mg by mouth 3 (three) times a day . escitalopram oxalate (LEXAPRO) 10 MG tablet Take 10 mg by mouth daily . multivitamin (THERAGRAN) per tablet Take 1 tablet by mouth daily . omega-3 fatty acids/fish oil (fish oil-omega-3 fatty acids) 300-1,000 mg capsule Take 2 g by mouth daily . potassium citrate (UROCIT-K) 10 mEq (1,080 mg) SR tablet Take 1 tablet by mouth daily Reasons: takes 1-2 tablets daily. simvastatin (ZOCOR) 20 MG tablet Take 20 mg by mouth nightly. No current facility-administered medications for this visit. She is 71 y.o.. Since her last visit she has had no falls or fractures or new back pain that can be attributed to her osteoporosis. She has no activity related back pain. She walks 30 to 45 minutes a few times a week and does weights 15 minutes 6 times a week for exercise. She has been diagnosed with Parkinson's disease and says it is in the early stages. She is doing an exercise program tailored towards increasing her balance. She has obvious tremors today. She tolerates Evenity without any GI, or cardiac side effects. She does experience a headache 2 days after receiving the injection. She is taking 4000 units of vitamin D regularly. She is taking 3951-1860 mg of calcium supplement She has had no intercurrent illness. The following portions of the patient's history were reviewed and updated as appropriate: allergies, current medications, past medical history, 10 point ROS and problem list. There has been no change in her social history. She has been for the past 10 years. She has 3 children and 2 grandchildren. 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 Her Roe was a excavating supervisor at [employer] and a professional excavating supervisor for [employer]. Osteoporosis Treatment to date has included: Evenity OctJanuary 2022 DXA to Date: Date: 03/21 08/22 Manuf: samantha samantha L1-L4: -1.2 -2.4 L FN: -2.1 -2.1 L Tot Hip -1.8 -1.9 R FN -1.9 -2.0 R Tot Hip -1.9 -2.1 TBS 1.262 1.291 I personally interpreted the last DXA done: Aug 2021 in our office L1-L4 T-score: -2.4 likely somewhat overestimated due to scoliosis and osteoarthritis On VFA there was no compression fracture there was osteo-arthritis and deformity in the thoracic mid spine This is decreased to 8.6% since the prior study L Fem Neck T-score: -2.1 LTotal Hip: -1.9 There has been no statistically significant change since the prior study R Fem Neck: -2.0 Total Hip: -2.1 This is decreased 2.2% since the prior study These results are consistent with WHO criteria for osteopenia. Clinical risk factors for fracture: Age low bone mass FRAX: MOF 13.4 % HIP 3.3 % TBS Score : 1.291 (Trabecular Bone Score) this is consistent with partially degraded microarchitecture of the trabecular bone of the spine by TBS analysis TBS Risk of MOF : 7-10 (Per 1000 women per year) This is consistent with moderate risk for fracture by TBS analysis TBS adjusted FRAX: MOF: 13.3 % HIP: 3.4 % Fragility Fractures: None I reviewed her last labs: _ Recent Labs Units 09/22/21 12/11/20 03/20/20 0846 VIT D 25 ng/mL 51 48 49 SPEP Normal IMMUNOFIXA Normal PTH INTACT pg/mL 34.7 53.3 42.3 CALCIUM mg/dL 9.8 9.5 9.4 CREATININE mg/dL 0.68 0.71 IGA mg/dL 95 BETA CTX 408 635 422 PE: BP (!) 146/81 Ht 5' 4.75 Wt 67.6 kg (149 lb) BMI 24.99 kg/m Diagnoses and all orders for this visit: Age-related osteoporosis without current pathological fracture - PTH, Intact; Future - Beta Crosslaps (Beta CTX); Future Lilibeth is lost significant spine. I think she is at high risk for fracture in part due to her Parkinson's which of course increases her chances of falling. We will continue with Evenity monthly as it is well tolerated and affordable. She understands the black box warning about cardiovascular events I will check for secondary causes of osteoporosis as noted above including a marker of bone resorption as a baseline that we can follow going forward. Vitamin D deficiency - Vitamin D, Total, 25-OH; Future We will check a Vitamin D level today and after review call if there needs to be a change in the supplement. Scoliosis (and kyphoscoliosis), idiopathic Osteoarthritis of lumbar spine, unspecified spinal osteoarthritis complication status The patient did not think any specific therapy was necessary at the present time. Osteoarthritis of thoracic spine, unspecified spinal osteoarthritis complication status Plan : I will see her back in 4 months for reevaluation. Thank you for the opportunity of assisting in the care of this nice patient. Sincerely Leidy Donald M.D. [facility] CC: A total of 35 minutes was spent by me reviewing the patient's chart pertinent medical notes from other providers as well as testing and labs in preparation for [id number] visit with the patient today. During this encounter, counseling and coordination of care were also conducted. Specifically we addressed the risk, benefits, and alternatives to the therapies discussed above; interviewing examining and counseling the patient and ordering and reviewing lab tests and documenting the patient's note Note: To expedite correspondence this note was generated by [employer] voice recognition software. Some grammatical or spelling errors may occur using the system. Portions of this history have been copied from a previous note, but pertinent information has been amended and updated by me. documented in this encounter [facility] 02-10-2022 History of Present illness Narrative MOVEMENT DISORDERS CLINIC FOLLOW-UP VISIT Assessment: Uma Mcgrath is a 71 y.o. female with right more so than left sided tremor prominent Parkinson disease in its early stages that continues to not be bothersome with regard to function or comfort. Therefore, after discussion, there continued to be no symptomatic need to start levodopa. Anxiety was reported to be responsive to Lexapro. We again discussed that slow cognitive processing is typical of Parkinson disease, not suggestive of impending dementia, and sometimes responsive, as with the motor symptoms, to levodopa. Plan: There is no symptomatic need to start levodopa today. It will be my choice, however, when she is ready. Lexapro can continue at 10 mg by mouth daily for anxiety control. She should continue to exercise. I would like to see the patient back in 6 months. I answered all of the questions asked of me; the patient/care-partner had no remaining unaddressed symptomatic issues. I personally spent 25 total minutes today in pre-review of the chart, [id number] interaction with the patient/care-partner (including discussion of the chart review, assessment of today's visit, and clinical plan development, as detailed above), and post-visit documentation. HPI: I saw Uma Mcgrath in follow-up at the [facility] Disorders clinic for Parkinson disease follow-up. She reported doing well on her average day. Slow cognitive processing was the main content of our discussion. ROS: As detailed elsewhere. Physical Exam: GENERAL: Well-developed and well-nourished, no distress. MENTAL STATUS: Awake, alert, followed commands. CRANIAL NERVES: Extra-ocular movements full. Face symmetric. Pupils equal, round. No ptosis. No dysarthria. MOTOR: 5/5 in the arms and legs bilaterally. Mild right arm tremor and bradykinesia. SENSORY, REFLEXES, CEREBELLAR, GAIT: Gait appeared stable. Reviewed: Chart records. Sincerely, Matt Lopez MD, PhD documented in this encounter [facility] 01-20-2022 History of Present illness Narrative Images from the original note were not included. [facility] [address] [place] [address] Name: Uma Mcgrath : 1950 Date: 01/20/22 History & Purpose of Evaluation: Ms. Mcgrath was seen today for audiologic evaluation at the kind request of Dr. Marcano. Ms. Mcgrath was last evaluated on 02/25/2020. Results at that time revealed a mild sloping to moderately severe sensorineural hearing loss, bilaterally. Ms. Mcgrath has been wearing binaural hearing aids for the past 13 years. She would not like to replace her older, unrepairable right hearing aid and match it to her newer left hearing aid. Please see below for other pertinent case history information as reported by Ms. Mcgrath. Otologic Symptoms R L Noise Exposure Y N Medical Y N Hearing Loss [x] [x] Occupational [x] [] Hypertension [] [x] Tinnitus [] [] Recreational [x] [] Diabetes [] [x] Otalgia [] [] [] [x] Hypercholesterolemia [x] [] Otorrhea [] [] Heart Disease [] [x] Aural Fullness [] [] Family History [] [x] Stroke [] [x] Meniere s Disease [] [] Cancer [] [x] Y N Sp./Lang. Skills Ear Surgery R L Vertigo [] [x] Appropriate [x] [] PE Tubes [] [] Dizziness [] [x] In Therapy [] [x] Mastoidectomy [] [] Imbalance [] [x] Social Acoustic Neuroma [] [] Vestibular Rehab [] [x] Depression [] [x] Tympanoplasty [] [] Other: Results: Otoscopy: Clear canals, bilaterally. Both tympanic membranes were visualized. [employer] Air [employer] Bone Conduction Audiometry: Mild sloping to just moderately severe sensorineural hearing loss, bilaterally. Speech Audiometry: Word recognition ability is excellent at both ears when assessed above a normal conversational loudness level. Immittance Audiometry: Immittance audiometry revealed normal middle ear pressure and tympanic membrane mobility, bilaterally-Jerger type A. Distortion Product Otoacoustic Emissions (DPOAE; 1500-6k Hz): Did not assess. Impression: Today's test results continue to demonstrate a significant, symmetrical sensorineural hearing loss that is expected to interfere with communication in all listening situations. These test results demonstrate a slight decrease in hearing since last evaluated. Ms. Mcgrath remains an excellent binaural hearing aid candidate. Middle ear testing is consistent with normal middle ear function, bilaterally. Recommendations: Patient to return as scheduled for right hearing aid fitting. Reevaluation in one year is recommended to rule out further progression. The above was explained to the patient and or their guardian and they expressed understanding. Electronically Signed by: Marvin Marvin, CCC/A, FAAA JESSICA Certified Director Of Channel Marketing 01/20/22 1:17 PM documented in this encounter [facility] 12-01-2021 History of Present illness Narrative Images from the original note were not included. [facility] [address] [place] [address] Name: Uma Mcgrath : 1950 Date: 12/01/21 Hearing Aid Contact Note: Ms. Mcgrath was seen today for right hearing aid repair. Ms. Mcgrath presented her older, right hearing aid as . A listening check confirmed that the aid is not functioning. I changed the battery, wax trap, dome and astrophysics teacher to no avail. The aid is no longer repairable due to age. Ms. Mcgrath stated that she would like to order a new right hearing aid to match her newer Phonak Audeo P70-R hearing aid at the left ear. The right hearing aid was returned to Mrs. Mcgrath. Ms. Mcgrath was scheduled for a follow up hearing test on 01/20/2022. We will then order her new hearing aid once she is evaluated (per FDA guidelines). Ms. Mcgrath expressed understanding of and agreement with the above. Electronically Signed by: Marvin Marvin, CCC/A, FAAA JESSICA Certified Director Of Channel Marketing 12/01/21 11:45 AM documented in this encounter [facility] 09-22-2021 History of Present illness Narrative Images from the original note were not included. 09/22/21 Uma Mckenna Foster [address] Nel Marcano, DO [address] [facility] [address] Uma Mcgrath was seen on 09/22/21 for the followin. Age-related osteoporosis without current pathological fracture 2. Vitamin D deficiency 3. Osteoarthritis of lumbar spine, unspecified spinal osteoarthritis complication status 4. Osteoarthritis of thoracic spine, unspecified spinal osteoarthritis complication status 5. Personal history of drug therapy 6. Encounter for long-term current use of high risk medication The following are the patient's current problems not treated by me unless noted above. Patient Active Problem List Diagnosis Age-related osteoporosis without current pathological fracture Vitamin D deficiency Scoliosis (and kyphoscoliosis), idiopathic Osteoarthritis of lumbar spine Osteoarthritis of thoracic spine Dysphonia Parkinson's disease (HCC) Anxiety Current Rheumatologic Medications: Vitamin D 1000 units daily Current Outpatient Medications Medication Sig Dispense Refill ascorbic acid, vitamin C, (vitamin C) 100 MG tablet Take 500 mg by mouth daily . calcium carb-D3-mag ox-zinc ox (Brenda Mag Zinc Plus D3) 333 mg-133 unit -133 mg-5 mg Tab Take by mouth 2 (two) times a day . cholecalciferol, vitamin D3, (D3-2000 ORAL) Take 5,000 mg by mouth daily . coenzyme Q10 100 mg capsule Take 100 mg by mouth 3 (three) times a day . escitalopram oxalate (LEXAPRO) 10 MG tablet Take 10 mg by mouth daily . multivitamin (THERAGRAN) per tablet Take 1 tablet by mouth daily . omega-3 fatty acids/fish oil (fish oil-omega-3 fatty acids) 300-1,000 mg capsule Take 2 g by mouth daily . potassium citrate (UROCIT-K) 10 mEq (1,080 mg) SR tablet Take 1 tablet by mouth daily Reasons: takes 1-2 tablets daily. simvastatin (ZOCOR) 20 MG tablet Take 20 mg by mouth nightly. No current facility-administered medications for this visit. She is 71 y.o.. SInce her last visit she has had no falls or fractures or new back pain that can be attributed to her osteoporosis. She has no activity related back pain. She walks 30 to 45 minutes a few times a week and does weights 15 minutes 6 times a week for exercise. She has been diagnosed with Parkinson's disease and says it is in the early stages. She is doing an exercise program tailored towards increasing her balance She is taking 1000 units of vitamin D regularly. She is taking 1500 mg of calcium supplement She has had no intercurrent illness. The following portions of the patient's history were reviewed and updated as appropriate: allergies, current medications, past medical history, 10 point ROS and problem list. There has been no change in her social history. She has been for the past 10 years. She has 3 children and 2 grandchildren. 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 Her Roe was a excavating supervisor at [employer] and a professional excavating supervisor for [employer]. Osteoporosis Treatment to date has included: None DXA to Date: Date: 03/21 08/22 Manuf: Diplopia L1-L4: -1.2 -2.4 L FN: -2.1 -2.1 L Tot Hip -1.8 -1.9 R FN -1.9 -2.0 R Tot Hip -1.9 -2.1 TBS 1.262 1.291 I personally interpreted the last DXA done: Aug 2021 in our office L1-L4 T-score: -2.4 likely somewhat overestimated due to scoliosis and osteoarthritis On VFA there was no compression fracture there was osteo-arthritis and deformity in the thoracic mid spine This is decreased to 8.6% since the prior study L Fem Neck T-score: -2.1 LTotal Hip: -1.9 There has been no statistically significant change since the prior study R Fem Neck: -2.0 Total Hip: -2.1 This is decreased 2.2% since the prior study These results are consistent with WHO criteria for osteopenia. Clinical risk factors for fracture: Age low bone mass FRAX: MOF 13.4 % HIP 3.3 % TBS Score : 1.291 (Trabecular Bone Score) this is consistent with partially degraded microarchitecture of the trabecular bone of the spine by TBS analysis TBS Risk of MOF : 7-10 (Per 1000 women per year) This is consistent with moderate risk for fracture by TBS analysis TBS adjusted FRAX: MOF: 13.3 % HIP: 3.4 % Fragility Fractures: None I reviewed her last labs: _ Recent Labs Units 12/11/20 03/20/20 0846 VIT D 25 ng/mL 48 49 SPEP Normal IMMUNOFIXA Normal PTH INTACT pg/mL 53.3 42.3 CALCIUM mg/dL 9.5 9.4 CREATININE mg/dL 0.68 0.71 IGA mg/dL 95 BETA CTX 635 422 PE: There were no vitals taken for this visit. Diagnoses and all orders for this visit: Age-related osteoporosis without current pathological fracture - PTH, Intact; Future - Beta Crosslaps (Beta CTX); Future - Creatinine, serum; Future Lilibeth is lost significant spine. I think she is at high risk for fracture in part due to her Parkinson's which of course increases her chances of falling. She is in agreement she would rather be treated sooner than later so we will run her insurance for Evenity which would be my first choice and also Prolia. Because of her Parkinson's and would be difficult for her to take an oral agent. I will check for secondary causes of osteoporosis as noted above including a marker of bone resorption as a baseline that we can follow going forward. Vitamin D deficiency - Vitamin D, Total, 25-OH; Future We will check a Vitamin D level today and after review call if there needs to be a change in the supplement. Scoliosis (and kyphoscoliosis), idiopathic Osteoarthritis of lumbar spine, unspecified spinal osteoarthritis complication status The patient did not think any specific therapy was necessary at the present time. Osteoarthritis of thoracic spine, unspecified spinal osteoarthritis complication status Plan : I will see her back in 6 weeks for reevaluation and we will initiate therapy as appropriate Thank you for the opportunity of assisting in the care of this nice patient. Sincerely Leidy Stevens M.D. [facility] CC: A total of 35 minutes was spent by me reviewing the patient's chart pertinent medical notes from other providers as well as testing and labs in preparation for [id number] visit with the patient today. During this encounter, counseling and coordination of care were also conducted. Specifically we addressed the risk, benefits, and alternatives to the therapies discussed above; interviewing examining and counseling the patient and ordering and reviewing lab tests and documenting the patient's note Note: To expedite correspondence this note was generated by [employer] recognition software. Some grammatical or spelling errors may occur using the system. Portions of this history have been copied from a previous note, but pertinent information has been amended and updated by me. documented in this encounter [facility] 08-04-2021 History of Present illness Narrative DEXA performed documented in this encounter [facility] 06-23-2021 History of Present illness Narrative Seen and seen today acutely. Diagnosed with Parkinson disease approximately 2 years ago currently on no medications. Is involved in active physical therapy, delayed the disease at [facility]. She exercises daily. She lives independently still drives and is able to perform all of her acts of daily living. She has noticed that her tremor has increased and is wondering if she should start her Sinemet, she has follow-up appoint with her neurologist in July. She has been having some constipation as advised over the phone to begin MiraLAX 17 g Monday and Colace 100 mg daily. She feels that they are effective she is having a normal bowel movement daily without straining but she is concerned that these medicines will be addictive. I advised her there is no addiction to these medications that she can continue the long-term. I did advise her that her Parkinson's disease will advance and we may lose effect of these medications and might need to begin prescription drug such as Trulance or Linzess. She actually has read that in her literature on Parkinson's as well.Recent Cologuard testing was negative. She denies any rectal bleeding [facility] Work Phone: 06-11-2021 History of Present illness Narrative OUTPATIENT REHABILITATION DAILY TREATMENT NOTE Today's Date 06/11/2021 Patient Name: Uma Mcgrath Date of : 1950 Current Visit #: 13 Authorized Visits: [id number] Case Name: Speech therapy Time: 8:47-9:08 History: Pre-Treatment Pain Scale: 0 Symptoms: completely resolved Functional Diagnosis: 1. Dysphonia 2. Parkinson's disease (HCC) Clinical Information: Subjective: Patient was alert and willing to participate. Objective: To facilitate voice skills. Treatments: Patient completed Lesson #25 from the [employer] Workbook with the SHANK TAPER as part of this treatment session. Task Target dB Patient met target dB in X/10 trials Cues needed Spontaneous conversational speech 75 6/10 No cues Warm up 85 8/10 No cues Sustained ah 85 10/10 No cues Vocal glides 85 10/10 No cues Reciting numerical sequences 80 10/10 No cues Reading phrases 75 10/10 No cues Cognitive-linguistic task 75 10/10 No cues Paper Wrapping Machine Operator informed patient of discharge due to completion of Speakout program. Paper Wrapping Machine Operator discussed maintenance recommendations. Patient verbalized understanding and all questions were answered. Goals: Speech Therapy: Voice: LT. The patient will produce spontaneous conversation while using intent independently in order to be heard and understood by familiar and unfamiliar listeners by 4-6 weeks from start of the program. ST. The patient will coordinate vocal and articulatory subsystems in hierarchial speech tasks by producing sounds with intention with no cues. 2. The patient will read phrases, sentences, and paragraphs with intention, yielding improved vocal quality, loudness, articulatory precision, and endurance while maintaining a minimum of 80 dB with no cues. 3. The patient will generalize intentional speech to cognitive-linguistic exercises and conversational speech with improve vocal quality, loudness, articulatory precision, and endurance while maintaining a minimum of 80 dB with no cues. 4. The patient will be educated to and complete a home exercise program independently. Patient Education: Importance of attendance for recovery with patient verbalized understanding. Post-Treatment Pain Scale: 0 Assessment: Patient had an expected response to treatment. Skilled Intervention demonstrated by modifications of treatment per exercise log including decreased cueing and safety interventions per exercise log. Progress towards goals as expected. Plan for this Visit: Discharge TRACY Argueta STATE LICENSE, [id number] documented in this encounter [facility] 06-09-2021 History of Present illness Narrative OUTPATIENT REHABILITATION DAILY TREATMENT NOTE Today's Date 06/09/2021 Patient Name: Uma Mcgrath Date of : 1950 Current Visit #: 12 Authorized Visits: [id number] Case Name: Speech therapy Time: 8:53-9:19 History: Pre-Treatment Pain Scale: 0 Symptoms: completely resolved Functional Diagnosis: 1. Dysphonia 2. Parkinson's disease (HCC) Clinical Information: Subjective: Patient was alert and willing to participate. Objective: To facilitate voice skills. Treatments: Patient completed Lesson #24 from the [employer] Workbook with the SHANK TAPER as part of this treatment session. Task Target dB Patient met target dB in X/10 trials Cues needed Spontaneous conversational speech 75 6/10 No cues Warm up 85 8/10 MIN Sustained ah 85 10/10 No cues Vocal glides 85 10/10 No cues Reciting numerical sequences 80 10/10 MIN Reading phrases 75 10/10 No cues Cognitive-linguistic task 75 10/10 No cues Paper Wrapping Machine Operator provided further instructions regarding warm ups and numerical sequences to facilitate effective performance of each. Patient verbalized understanding. Paper Wrapping Machine Operator informed patient of discharge next session. Patient was agreeable. Goals: Speech Therapy: Voice: LT. The patient will produce spontaneous conversation while using intent independently in order to be heard and understood by familiar and unfamiliar listeners by 4-6 weeks from start of the program. ST. The patient will coordinate vocal and articulatory subsystems in hierarchial speech tasks by producing sounds with intention with no cues. 2. The patient will read phrases, sentences, and paragraphs with intention, yielding improved vocal quality, loudness, articulatory precision, and endurance while maintaining a minimum of 80 dB with no cues. 3. The patient will generalize intentional speech to cognitive-linguistic exercises and conversational speech with improve vocal quality, loudness, articulatory precision, and endurance while maintaining a minimum of 80 dB with no cues. 4. The patient will be educated to and complete a home exercise program independently. Patient Education: Importance of attendance for recovery with patient verbalized understanding. Post-Treatment Pain Scale: 0 Assessment: Patient had an expected response to treatment. Skilled Intervention demonstrated by modifications of treatment per exercise log including decreased cueing and safety interventions per exercise log. Progress towards goals as expected. Plan for Next Visit: Treatment Visit with focus on Speakout lesson 25 TRACY Argueta STATE LICENSE, [id number] documented in this encounter [facility] 06-08-2021 History of Present illness Narrative OUTPATIENT REHABILITATION DAILY TREATMENT NOTE Today's Date 06/08/2021 Patient Name: Uma Mcgrath Date of : 1950 Current Visit #: 11 Authorized Visits: [id number] Case Name: Speech therapy Time: 8:49-8:17 History: Pre-Treatment Pain Scale: 0 Symptoms: completely resolved Functional Diagnosis: 1. Dysphonia 2. Parkinson's disease (HCC) Clinical Information: Subjective: Patient maintained attention and alertness to therapy tasks. Objective: To facilitate voice skills. Treatments: Patient completed Lesson #24 from the [email or web address] Workbook with the SHANK TAPER as part of this treatment session. Task Target dB Patient met target dB in X/10 trials Cues needed Spontaneous conversational speech 75 8/10 No cues Warm up 85 9/10 min Sustained ah 85 10/10 No cues Vocal glides 85 10/10 min Reciting numerical sequences 80 9/10 min Reading phrases 75 10/10 No cues Cognitive-linguistic task 75 10/10 No cues Paper Wrapping Machine Operator explained carryover exercises in workbooks and reviewed a few exercises she needed minimal cues to perform. Paper Wrapping Machine Operator explained Home exercise program post completion of sessions since she only has 2 more sessions left. All questions were answered regarding this information. Goals: Speech Therapy: Voice: LT. The patient will produce spontaneous conversation while using intent independently in order to be heard and understood by familiar and unfamiliar listeners by 4-6 weeks from start of the program. ST. The patient will coordinate vocal and articulatory subsystems in hierarchial speech tasks by producing sounds with intention with no cues. 2. The patient will read phrases, sentences, and paragraphs with intention, yielding improved vocal quality, loudness, articulatory precision, and endurance while maintaining a minimum of 80 dB with no cues. 3. The patient will generalize intentional speech to cognitive-linguistic exercises and conversational speech with improve vocal quality, loudness, articulatory precision, and endurance while maintaining a minimum of 80 dB with no cues. 4. The patient will be educated to and complete a home exercise program independently. Patient Education: Importance of attendance for recovery with patient verbalized understanding. Post-Treatment Pain Scale: 0 Assessment: Patient had an expected response to treatment. Skilled Intervention demonstrated by modifications of treatment per exercise log including decreased cueing and safety interventions per exercise log. Progress towards goals as expected. Plan for Next Visit: Treatment Visit with focus on lesson 24 TRACY Bustamante STATE LICENSE, [id number] documented in this encounter [facility] 06-08-2021 History of Present illness Narrative OUTPATIENT REHABILITATION DAILY TREATMENT NOTE Today's Date 06/08/2021 Patient Name: Uma Mcgrath Date of : 1950 Current Visit #: 11 Authorized Visits: 199 Case Name: Speech therapy Time: 8:49-9:17 History: Pre-Treatment Pain Scale: 0 Symptoms: completely resolved Functional Diagnosis: 1. Dysphonia 2. Parkinson's disease (HCC) Clinical Information: Subjective: Patient maintained attention and alertness to therapy tasks. Objective: To facilitate voice skills. Treatments: Patient completed Lesson #24 from the SpeakOut! Workbook with the SHANK TAPER as part of this treatment session. Task Target dB Patient met target dB in X/10 trials Cues needed Spontaneous conversational speech 75 8/10 No cues Warm up 85 9/10 min Sustained ah 85 10/10 No cues Vocal glides 85 10/10 min Reciting numerical sequences 80 9/10 min Reading phrases 75 10/10 No cues Cognitive-linguistic task 75 10/10 No cues Paper Wrapping Machine Operator explained carryover exercises in workbooks and reviewed a few exercises she needed minimal cues to perform. Paper Wrapping Machine Operator explained Home exercise program post completion of sessions since she only has 2 more sessions left. All questions were answered regarding this information. Goals: Speech Therapy: Voice: LT. The patient will produce spontaneous conversation while using intent independently in order to be heard and understood by familiar and unfamiliar listeners by 4-6 weeks from start of the program. ST. The patient will coordinate vocal and articulatory subsystems in hierarchial speech tasks by producing sounds with intention with no cues. 2. The patient will read phrases, sentences, and paragraphs with intention, yielding improved vocal quality, loudness, articulatory precision, and endurance while maintaining a minimum of 80 dB with no cues. 3. The patient will generalize intentional speech to cognitive-linguistic exercises and conversational speech with improve vocal quality, loudness, articulatory precision, and endurance while maintaining a minimum of 80 dB with no cues. 4. The patient will be educated to and complete a home exercise program independently. Patient Education: Importance of attendance for recovery with patient verbalized understanding. Post-Treatment Pain Scale: 0 Assessment: Patient had an expected response to treatment. Skilled Intervention demonstrated by modifications of treatment per exercise log including decreased cueing and safety interventions per exercise log. Progress towards goals as expected. Plan for Next Visit: Treatment Visit with focus on lesson 24 speakout TRACY Argueta STATE LICENSE, [id number] documented in this encounter [facility] 06-08-2021 History of Present illness Narrative OUTPATIENT REHABILITATION DAILY TREATMENT NOTE Today's Date 06/08/2021 Patient Name: Uma Mcgrath Date of : 1950 Current Visit #: 11 Authorized Visits: 199 Case Name: Speech therapy Time: 8:49-9:17 History: Pre-Treatment Pain Scale: 0 Symptoms: completely resolved Functional Diagnosis: 1. Dysphonia 2. Parkinson's disease (HCC) Clinical Information: Subjective: Patient maintained attention and alertness to therapy tasks. Objective: To facilitate voice skills. Treatments: Patient completed Lesson #23 from the SpeakOut! Workbook with the SHANK TAPER as part of this treatment session. Task Target dB Patient met target dB in X/10 trials Cues needed Spontaneous conversational speech 75 8/10 No cues Warm up 85 9/10 min Sustained ah 85 10/10 No cues Vocal glides 85 10/10 min Reciting numerical sequences 80 9/10 min Reading phrases 75 10/10 No cues Cognitive-linguistic task 75 10/10 No cues Paper Wrapping Machine Operator explained carryover exercises in workbooks and reviewed a few exercises she needed minimal cues to perform. Paper Wrapping Machine Operator explained Home exercise program post completion of sessions since she only has 2 more sessions left. All questions were answered regarding this information. Goals: Speech Therapy: Voice: LT. The patient will produce spontaneous conversation while using intent independently in order to be heard and understood by familiar and unfamiliar listeners by 4-6 weeks from start of the program. ST. The patient will coordinate vocal and articulatory subsystems in hierarchial speech tasks by producing sounds with intention with no cues. 2. The patient will read phrases, sentences, and paragraphs with intention, yielding improved vocal quality, loudness, articulatory precision, and endurance while maintaining a minimum of 80 dB with no cues. 3. The patient will generalize intentional speech to cognitive-linguistic exercises and conversational speech with improve vocal quality, loudness, articulatory precision, and endurance while maintaining a minimum of 80 dB with no cues. 4. The patient will be educated to and complete a home exercise program independently. Patient Education: Importance of attendance for recovery with patient verbalized understanding. Post-Treatment Pain Scale: 0 Assessment: Patient had an expected response to treatment. Skilled Intervention demonstrated by modifications of treatment per exercise log including decreased cueing and safety interventions per exercise log. Progress towards goals as expected. Plan for Next Visit: Treatment Visit with focus on lesson 24 speakTRACY Bright STATE LICENSE, [id number] documented in this encounter [facility] 06-03-2021 History of Present illness Narrative OUTPATIENT REHABILITATION DAILY TREATMENT NOTE Today's Date 06/03/2021 Patient Name: Uma Mcgrath Date of : 1950 Current Visit #: 10 Authorized Visits: 199 Case Name: Speech therapy Time: 8:48-9:17 History: Pre-Treatment Pain Scale: 0 Symptoms: completely resolved Functional Diagnosis: 1. Dysphonia 2. Parkinson's disease (HCC) Clinical Information: Subjective: Patient maintained attention and alertness to therapy tasks. Objective: To facilitate voice skills. Treatments: Patient completed Lesson #18 from the SpeakOut! Workbook with the SHANK TAPER as part of this treatment session. Task Target dB Patient met target dB in X/10 trials Cues needed Spontaneous conversational speech 75 5/10 No cues Warm up 85 8/10 No cues Sustained ah 85 10/10 No cues Vocal glides 85 10/10 No cues Reciting numerical sequences 80 10/10 No cues Reading phrases 75 10/10 No cues Cognitive-linguistic task 75 10/10 No cues Patient did not need cues this session and performed all tasks with independence. Patient presented without questions regarding HEP. Patient continues to improve. Goals: Speech Therapy: Voice: LT. The patient will produce spontaneous conversation while using intent independently in order to be heard and understood by familiar and unfamiliar listeners by 4-6 weeks from start of the program. ST. The patient will coordinate vocal and articulatory subsystems in hierarchial speech tasks by producing sounds with intention with no cues. 2. The patient will read phrases, sentences, and paragraphs with intention, yielding improved vocal quality, loudness, articulatory precision, and endurance while maintaining a minimum of 80 dB with no cues. 3. The patient will generalize intentional speech to cognitive-linguistic exercises and conversational speech with improve vocal quality, loudness, articulatory precision, and endurance while maintaining a minimum of 80 dB with no cues. 4. The patient will be educated to and complete a home exercise program independently. Patient Education: Importance of attendance for recovery with patient verbalized understanding. Post-Treatment Pain Scale: 0 Assessment: Patient had an expected response to treatment. Skilled Intervention demonstrated by modifications of treatment per exercise log including decreased cueing and safety interventions per exercise log. Progress towards goals as expected. Plan for Next Visit: Treatment Visit with focus on speakout lesson 23 TRACY Argueta STATE LICENSE, [id number] documented in this encounter [facility] 06-01-2021 History of Present illness Narrative OUTPATIENT REHABILITATION DAILY TREATMENT NOTE Today's Date 06/01/2021 Patient Name: Uma Mcgrath Date of : 1950 Current Visit #: 9 Authorized Visits: 199 Case Name: Speech therapy Time: 8:48-9:14 History: Pre-Treatment Pain Scale: 0 Symptoms: completely resolved Functional Diagnosis: 1. Dysphonia 2. Parkinson's disease (HCC) Clinical Information: Subjective: Patient maintained attention and alertness to therapy tasks. Objective: To facilitate voice skills. Treatments: Patient completed Lesson #16 from the SpeakOut! Workbook with the SHANK TAPER as part of this treatment session. Task Target dB Patient met target dB in X/10 trials Cues needed Spontaneous conversational speech 75 6/10 Warm up 85 10/10 MIN Sustained ah 85 10/10 No cues Vocal glides 85 10/10 MIN Reciting numerical sequences 80 8/10 MIN Reading phrases 75 9/10 No cues Cognitive-linguistic task 75 10/10 No cues Patient only needed minimal cues for certain tasks. Patient had no questions regarding continuing HEP. Patient continues to improve use of intent . Goals: Speech Therapy: Voice: LT. The patient will produce spontaneous conversation while using intent independently in order to be heard and understood by familiar and unfamiliar listeners by 4-6 weeks from start of the program. ST. The patient will coordinate vocal and articulatory subsystems in hierarchial speech tasks by producing sounds with intention with no cues. 2. The patient will read phrases, sentences, and paragraphs with intention, yielding improved vocal quality, loudness, articulatory precision, and endurance while maintaining a minimum of 80 dB with no cues. 3. The patient will generalize intentional speech to cognitive-linguistic exercises and conversational speech with improve vocal quality, loudness, articulatory precision, and endurance while maintaining a minimum of 80 dB with no cues. 4. The patient will be educated to and complete a home exercise program independently. Patient Education: Importance of attendance for recovery with patient verbalized understanding. Post-Treatment Pain Scale: 0 Assessment: Patient had an expected response to treatment. Skilled Intervention demonstrated by modifications of treatment per exercise log including decreased cueing and safety interventions per exercise log. Progress towards goals as expected. Plan for Next Visit: Treatment Visit with focus on Speakout lesson 18 TRACY Argueta STATE LICENSE, [id number] documented in this encounter [facility] 05-27-2021 History of Present illness Narrative OUTPATIENT REHABILITATION DAILY TREATMENT NOTE Today's Date 05/27/2021 Patient Name: Uma Mcgrath Date of : 1950 Current Visit #: 7 Time: 08:51-09:30 (39 minutes) Authorized Visits: 199 Case Name: Speech therapy History: Pre-Treatment Pain Scale: 0 Symptoms: N/A Functional Diagnosis: 1. Dysphonia 2. Parkinson's disease (HCC) Clinical Information: Subjective: The patient arrived on time. Patient was pleasant and cooperative throughout the session. No medical changes reported. Objective Patient completed Lesson #11 from the SpeakOut! Workbook with the SHANK TAPER as part of this treatment session. Task Target dB Patient met target dB in X/10 trials Cues needed Spontaneous conversational speech 75 5 N/A Warm up 85 10 min Sustained ah 85 10 min Vocal glides 85 10 min Reciting numerical sequences 80 10 min Reading phrases 75 10 min Cognitive-linguistic task 75 10 min Cues needed for voice quality - no cues needed for loudness. Goals: Speech Therapy: Voice: LT. The patient will produce spontaneous conversation while using intent independently in order to be heard and understood by familiar and unfamiliar listeners by 4-6 weeks from start of the program. ST. The patient will coordinate vocal and articulatory subsystems in hierarchial speech tasks by producing sounds with intention with no cues. 2. The patient will read phrases, sentences, and paragraphs with intention, yielding improved vocal quality, loudness, articulatory precision, and endurance while maintaining a minimum of 80 dB with no cues. 3. The patient will generalize intentional speech to cognitive-linguistic exercises and conversational speech with improve vocal quality, loudness, articulatory precision, and endurance while maintaining a minimum of 80 dB with no cues. 4. The patient will be educated to and complete a home exercise program independently. Patient Education: Verbal HEP with patient verbalized understanding. Post-Treatment Pain Scale: 0 Assessment: Patient had an expected response to treatment. Skilled Intervention demonstrated by modifications of treatment per exercise log including assessment of patient's response and modalities as indicated. Progress towards goals as expected. Plan for Next Visit: Treatment Visit with focus on Lesson #15 from Speak Out! TRACY Colón STATE LICENSE, [id number] documented in this encounter [facility] 05-25-2021 History of Present illness Narrative OUTPATIENT REHABILITATION DAILY TREATMENT NOTE Today's Date 05/25/2021 Patient Name: Uma Mcgrath Date of : 1950 Current Visit #: 6 Time: 08:52-09:30 (38 minutes) Authorized Visits: 199 Case Name: Speech therapy History: Pre-Treatment Pain Scale: 0 Symptoms: N/A Functional Diagnosis: 1. Dysphonia 2. Parkinson's disease (HCC) Clinical Information: Subjective: The patient arrived on time. Patient was pleasant and cooperative throughout the session. No medical changes reported. Objective Patient completed Lesson #9 from the SpeakOut! Workbook with the SHANK TAPER as part of this treatment session. Task Target dB Patient met target dB in X/10 trials Cues needed Spontaneous conversational speech 75 5 N/A Warm up 85 10 Min - cues needed for patient to soften voice as patient's volume was between 95-100 dB at times; cues also needed for rate of speech as patient went through tasks quickly Sustained ah 85 10 Min - cues needed for patient to soften voice Vocal glides 85 10 Min - cues needed for functional vocal quality Reciting numerical sequences 80 10 Min Reading phrases 75 10 Min - cues needed for patient to soften voice Cognitive-linguistic task (math cards) 75 10 Independent Goals: Speech Therapy: Voice: LT. The patient will produce spontaneous conversation while using intent independently in order to be heard and understood by familiar and unfamiliar listeners by 4-6 weeks from start of the program. ST. The patient will coordinate vocal and articulatory subsystems in hierarchial speech tasks by producing sounds with intention with no cues. 2. The patient will read phrases, sentences, and paragraphs with intention, yielding improved vocal quality, loudness, articulatory precision, and endurance while maintaining a minimum of 80 dB with no cues. 3. The patient will generalize intentional speech to cognitive-linguistic exercises and conversational speech with improve vocal quality, loudness, articulatory precision, and endurance while maintaining a minimum of 80 dB with no cues. 4. The patient will be educated to and complete a home exercise program independently. Patient Education: Verbal HEP with patient verbalized understanding. Post-Treatment Pain Scale: 0 Assessment: Patient had an expected response to treatment. Skilled Intervention demonstrated by modifications of treatment per exercise log including assessment of patient's response and modalities as indicated. Progress towards goals as expected. Plan for Next Visit: Treatment Visit with focus on Lesson #11 TRACY Colón STATE LICENSE, [id number] documented in this encounter [facility] 05-21-2021 History of Present illness Narrative OUTPATIENT REHABILITATION DAILY TREATMENT NOTE Today's Date 05/21/2021 Patient Name: Uma Mcgrath Date of : 1950 Current Visit #: 4 Authorized Visits: 199 Case Name: Speech therapy Time: 8:47-9:20 History: Pre-Treatment Pain Scale: 0 Symptoms: completely resolved Functional Diagnosis: 1. Dysphonia 2. Parkinson's disease (HCC) Clinical Information: Subjective: Patient maintained attention and alertness to therapy tasks. Objective: To facilitate voice skills. Treatments: Patient completed Lesson #8 from the [employer] Workbook with the SHANK TAPER as part of this treatment session. Task Target dB Patient met target dB in X/10 trials Cues needed Spontaneous conversational speech 75 4/10 No cues Warm up 85 2/10 MIN Sustained ah 85 10/10 Vocal glides 85 9/10 MIN Reciting numerical sequences 80 10/10 MIN Reading phrases 75 10/10 No cues Cognitive-linguistic task 75 10/10 MIN Patient needed minimal verbal cues to utilize more intent during cognitive tasks. Paper Wrapping Machine Operator reviewed home exercises to perform until the next speech therapy session. Patient was agreeable and verbalized understanding. Goals: Speech Therapy: Voice: LT. The patient will produce spontaneous conversation while using intent independently in order to be heard and understood by familiar and unfamiliar listeners by 4-6 weeks from start of the program. ST. The patient will coordinate vocal and articulatory subsystems in hierarchial speech tasks by producing sounds with intention with no cues. 2. The patient will read phrases, sentences, and paragraphs with intention, yielding improved vocal quality, loudness, articulatory precision, and endurance while maintaining a minimum of 80 dB with no cues. 3. The patient will generalize intentional speech to cognitive-linguistic exercises and conversational speech with improve vocal quality, loudness, articulatory precision, and endurance while maintaining a minimum of 80 dB with no cues. 4. The patient will be educated to and complete a home exercise program independently. Patient Education: Importance of attendance for recovery with patient verbalized understanding. Post-Treatment Pain Scale: 0 Assessment: Patient had an expected response to treatment. Skilled Intervention demonstrated by modifications of treatment per exercise log including decreased cueing and safety interventions per exercise log. Progress towards goals as expected. Plan for Next Visit: Treatment Visit with focus on Lesson 8 TRACY Argueta STATE LICENSE, [id number] documented in this encounter [facility] 05-18-2021 History of Present illness Narrative OUTPATIENT REHABILITATION DAILY TREATMENT NOTE Today's Date 05/18/2021 Patient Name: Uma Mcgrath Date of : 1950 Current Visit #: 3 Authorized Visits: 199 Case Name: Speech therapy Time: 8:49-9:19 History: Pre-Treatment Pain Scale: 0 Symptoms: completely resolved Functional Diagnosis: 1. Dysphonia 2. Parkinson's disease (HCC) Clinical Information: Subjective: Patient maintained attention and alertness to therapy tasks. Objective: To facilitate voice skills. Treatments: Patient completed Lesson #2 from the Spe[employer]Out! Workbook with the SHANK TAPER as part of this treatment session. Task Target dB Patient met target dB in X/10 trials Cues needed Spontaneous conversational speech 75 3/10 No cues Warm up 85 10/10 No cues Sustained ah 85 10/10 No cues Vocal glides 85 9/10 MIN Reciting numerical sequences 80 10/10 MIN Reading phrases 75 10/10 MIN Cognitive-linguistic task 75 10/10 No cues Patient presented with improvement in performing these tasks especially the vocal glides she presented with improvement. Patient verbalized understanding regarding home exercise program. All questions were answered regarding tasks. Increased vocal intensity and use of intent were noted this session. Goals: Speech Therapy: Voice: LT. The patient will produce spontaneous conversation while using intent independently in order to be heard and understood by familiar and unfamiliar listeners by 4-6 weeks from start of the program. ST. The patient will coordinate vocal and articulatory subsystems in hierarchial speech tasks by producing sounds with intention with no cues. 2. The patient will read phrases, sentences, and paragraphs with intention, yielding improved vocal quality, loudness, articulatory precision, and endurance while maintaining a minimum of 80 dB with no cues. 3. The patient will generalize intentional speech to cognitive-linguistic exercises and conversational speech with improve vocal quality, loudness, articulatory precision, and endurance while maintaining a minimum of 80 dB with no cues. 4. The patient will be educated to and complete a home exercise program independently. Patient Education: Importance of attendance for recovery with patient verbalized understanding. Post-Treatment Pain Scale: 0 Assessment: Patient had an expected response to treatment. Skilled Intervention demonstrated by modifications of treatment per exercise log including decreased cueing and safety interventions per exercise log. Progress towards goals as expected. Plan for Next Visit: Treatment Visit with focus on SPEAKOUT lesson 5 TRACY Argueta STATE LICENSE, [id number] documented in this encounter [facility] 05-17-2021 History of Present illness Narrative OUTPATIENT REHABILITATION DAILY TREATMENT NOTE Today's Date 05/17/2021 Patient Name: Uma Mcgrath Date of : 1950 Current Visit #: 2 Authorized Visits: 199 Case Name: Speech therapy Time: 8:50-9:33 History: Pre-Treatment Pain Scale: 0 Symptoms: completely resolved Functional Diagnosis: 1. Dysphonia 2. Parkinson's disease (HCC) Clinical Information: Subjective: Patient was alert and willing to participate. Objective: To facilitate voice skills. Treatments: Patient completed Lesson #1 from the SpeakOut! Workbook with the SHANK TAPER as part of this treatment session. Task Target dB Patient met target dB in X/10 trials Cues needed Spontaneous conversational speech 75 2/10 No cues Warm up 85 4/10 MIN Sustained ah 85 8/10 MIN Vocal glides 85 4/10 MOD Reciting numerical sequences 80 9/10 MIN Reading phrases 75 10/10 No cues Cognitive-linguistic task 75 8/10 No cues Paper Wrapping Machine Operator provided initial models for tasks since it was the introduction to the program. Patient needed minimal-moderate verbal cues to perform tasks effectively. Paper Wrapping Machine Operator discussed carryover tasks and home tasks to perform daily. All questions were answered. Patient was agreeable and verbalized understanding. Goals: Speech Therapy: Voice: LT. The patient will produce spontaneous conversation while using intent independently in order to be heard and understood by familiar and unfamiliar listeners by 4-6 weeks from start of the program. ST. The patient will coordinate vocal and articulatory subsystems in hierarchial speech tasks by producing sounds with intention with no cues. 2. The patient will read phrases, sentences, and paragraphs with intention, yielding improved vocal quality, loudness, articulatory precision, and endurance while maintaining a minimum of 80 dB with no cues. 3. The patient will generalize intentional speech to cognitive-linguistic exercises and conversational speech with improve vocal quality, loudness, articulatory precision, and endurance while maintaining a minimum of 80 dB with no cues. 4. The patient will be educated to and complete a home exercise program independently. Patient Education: Importance of attendance for recovery with patient verbalized understanding. Post-Treatment Pain Scale: 0 Assessment: Patient had an expected response to treatment. Skilled Intervention demonstrated by modifications of treatment per exercise log including increased cueing and safety interventions per exercise log. Progress towards goals as expected. Plan for Next Visit: Treatment Visit with focus on SPEAKOUT lesson 2 TRACY Argueta STATE LICENSE, [id number] documented in this encounter [facility] 05-13-2021 History of Present illness Narrative OUTPATIENT REHABILITATION DAILY TREATMENT NOTE Today's Date 05/13/2021 Patient Name: Uma Mcgrath Date of : 1950 Current Visit #: 9 Authorized Visits: 199 Case Name: OT-PD History: Pre-Treatment Pain Scale: 0 Symptoms: stabilized Functional Diagnosis: 1. Parkinson's disease (HCC) Clinical Information: Subjective: Patient actively participated in her discharge assessment to formally determine changes that have occurred since her initial evaluation. Pt has been more mindful of posture as well as how she is moving while performing everyday tasks. However, she has not been able to consistently do this every day. Patient was receptive to recommendation of participating in Delay the Disease exercise classes to help with habituation of strategies during transition after completing OP OT. Patient agreeable to discontinuing OP OT at this time due to completing LSVT BIG program. Objective Objective General Observations: Box and Blocks Test: R: 57 completions, L: 57 completions; Nine Hole Peg Test: R: 25 seconds , L: 25 seconds; MALGORZATA Isometric Screw Driver Operator Strength Test: R: , L: . Hand dominance: right Affected side: bilateral (Right side more pronounced.) Gait/ Balance Weight Bearing Status Assistive device used: none Additional observational gait details: TU 6 seconds w/ limited right arm swing . TUG(Manual): 6 7 seconds while carrying a cup of water in her right hand, and 6 7 when using left hand. TUG(Cognitive): 6 7 seconds while carrying a cup of water in her right hand and counting backwards by 3's. Treatments: Occupational Therapy Exercise Log - 05/13/21 1110 OTHER Precautions/Contraindications OT visit 9 Notes Total tx time: 11:03-11:57. LTG 1 3 addressed during the session. Functional Activity (47974) Intervention Performance of LSVT BIG HEP with patient leading exercise program, keeping count of repetitions, and not having access to therapist modeling therapeutic exercises to increase complexity of task for generalization of movement behavior strategies. Functional Activity (09939) Intervention Performance of outcome measures for this purpose past month. Please refer to progress note for details. OT Treatment Times Functional Activity Total Time 54 Direct Treatment Time 54 Total Treatment Time 54 Goals: Occupational Therapy Neuro goals: 1. Actively participate in training focused on implementing movement strategies to help increase amplitude and coordinated UB/LB movement to address body awareness, self-monitoring skills, and divided attention and will and demonstrate understanding by implementing these strategies to one daily task and one ther. ex. w/out vc's to generalize information. 2. Actively utilize her right hand in a dominant role during FM ther. act. and components of ADL, such as managing grooming containers and food packages, to help improve coordination needed to complete ADL's w/ improve efficiency, and will display improvement by at least completing the Box and Blocks Test w/ no more than a 19% deficit. 3. Participate in functional mobility related reaching/carrying tasks w/ Mod I for at least 10 min. and large amplitude movement and proper postural alignment w/out vc's to help improve dynamic balance for ADL's performance. Patient Education: Quality of movement, Written HEP and Diagnosis and recovery specific education with patient demonstrated understanding and verbalized understanding. Post-Treatment Pain Scale: 0 Assessment: Patient had an expected response to treatment. Skilled Intervention demonstrated by modifications of treatment per exercise log including decreased cueing and decreased assistance and safety interventions per exercise log. Progress towards goals as expected. Discharge Van Dubon OTR/L STATE LICENSE, [id number] documented in this encounter [facility] 05-12-2021 History of Present illness Narrative OUTPATIENT REHABILITATION DAILY TREATMENT NOTE Today's Date 05/12/2021 Patient Name: Uma Mcgrath Date of : 1950 Current Visit #: 9 Authorized Visits: 199 Case Name: Parkinson's Disease- PT History: Pre-Treatment Pain Scale: 0 Symptoms: stabilized Functional Diagnosis: 1. Age-related osteoporosis without current pathological fracture 2. Vitamin D deficiency Clinical Information: Subjective: Patient states compliance with HEP. She states that she will be attending the [address] [place] [address] [employer] [facility] for the free 30-day membership and DTD programs. Objective 30-Second Ixj-sr-Uxrdl: 20 repetitions without UE assistance Timed Up and Go: 4.5 sec Harrison Balance Test: 56/56 6 MWT: 2305 feet without AD Treatments: Physical Therapy Exercise Log - 05/12/21 1130 OTHER Precautions/Contraindications Parkinson's Disease-LSVT Notes Visit 9; 11:30 AM-12:300 PM Therapeutic Exercise ([id number]) Intervention sci fit x 6 min on L 5 Parameters LSVT BIG seated floor to ceiling x 8 with hand flicks/ elbow flexion/extension ( Intervention Alternating Side to side x 8 reps with hand/ elbow flicks Parameters Fwd, lateral and bwds stepping x 8 each Intervention rock n reach x 10 ea Parameters sideways rock n reach x 10 each direction Intervention 10 STS x2 sets from outside bench Neuro Re-Ed ([id number]) Intervention Community fitness education and continual performance of PD based workout post DC x 20 min Additional Exercises Add more exercises? Yes PT Treatment Times Therex Total Time 25 Neuro Re-Ed Total Time 20 Direct Treatment Time 45 Total Treatment Time 60 15 min Goals: Physical Therapy Neuro Goals: The patient will safely, correctly, and independently demonstrate the ability to perform a progressive HEP to assist with the rehabilitation program in 2 weeks. The patient will increase LE strength by one-third manual muscle grade in deficit areas to improve elevating from multiple surfaces and ambulation without compensations in 4 weeks. Patient will be able to perform 30-second aug-td-argka test with >20 repetitions to demonstrate improved functional LE strength in 4 weeks. Patient will achieve unlimited community ambulator status: with ability to independently navigate firm terrain, uneven terrain, thresholds and curbs using LRAD with independence and LRAD in 4 weeks. Patient will ascend/descend 15 steps with normal reciprocal pattern and outdoor curb with no AD in 4 weeks. Patient will demonstrate appropriate & adequate strategies to maintain & regain balance while performing functional activities in standing as demonstrated by clinically significant change in Harrison Balance score or Harrison score of 54/56 in 4 weeks. Pt will ambulate demonstrating ability to scan environment during gait over even and uneven terrain with maintenance of adequate speed, and no path deviations or LOB in 4 weeks. Patient will demonstrate appropriate amplitude and timing of stepping reactions to recover from internal or external perturbations to prevent fall in 4 weeks. Patient will be able to perform and achieve distance on 6 minute walk test to >1500 feet to show improved functional endurance and promote return to community ambulation in 4 weeks. Patient Education: Quality of movement, Written HEP, HEP Adherence, Caregiver Education, Community Resources, Community Fitness and Diagnosis and recovery specific education with patient demonstrated understanding, verbalized understanding and written information provided . Post-Treatment Pain Scale: 0 Assessment: Patient had an expected response to treatment. Skilled Intervention demonstrated by modifications of treatment per exercise log including increased load, increased rate, plane progressions, increased intensity, increased mobility, increased volume and assessment of patient's response and safety interventions per exercise log. Progress towards goals as expected. Plan for Next Visit: Discharge this session Leandro James PT STATE LICENSE, [id number] documented in this encounter [facility] 05-11-2021 History of Present illness Narrative OUTPATIENT REHABILITATION DAILY TREATMENT NOTE Today's Date 05/11/2021 Patient Name: Uma Mcgrath Date of : 1950 Current Visit #: 8 Authorized Visits: 199 Case Name: OT-PD History: Pre-Treatment Pain Scale: 0 Symptoms: stabilized Functional Diagnosis: 1. 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 Objective Treatments: Occupational Therapy Exercise Log - 05/11/21 1211 Neuro Re-Ed ([id number]) Intervention LSVT Standard Maximal Daily Exercises Parameters Dary lead the entire LSVT exercise program at 8 reps each except for 20 reps each on the rock and reach. Demonstrated good form, full amplitude of motion with upper and lower extremities, added 10 arm and hand motions as appropriate. Only 1 mild LOB during back stepping and easily self-corrected. Good endurance for the entire routine. Did laudry basket lift and reach from floor to table 10 reps. Used large amplitude UE motions for using broom to beat large ball. Used large amplitude BUE and BLE motions for forward, backward, and sideways sweeping. Retrieved 10 items from floor w/o LOB. In sitting at table did writing for grocery list and check writing. 95% Legible and adequate size of letters. Only crowding of letters in last word on check. Did Big walking with bilateral armswing on the way to front door. Reports tremoring of RUE during walking, and that she has to remind herself to do bilateral armswing. OT Treatment Times Neuro Re-Ed Total Time 45 Direct Treatment Time 45 Total Treatment Time 45 Goals: Occupational Therapy Neuro goals: 1. Actively participate in training focused on implementing movement strategies to help increase amplitude and coordinated UB/LB movement to address body awareness, self-monitoring skills, and divided attention and will and demonstrate understanding by implementing these strategies to one daily task and one ther. ex. w/out vc's to generalize information. 2. Actively utilize her right hand in a dominant role during FM ther. act. and components of ADL, such as managing grooming containers and food packages, to help improve coordination needed to complete ADL's w/ improve efficiency, and will display improvement by at least completing the Box and Blocks Test w/ no more than a 19% deficit. 3. Participate in functional mobility related reaching/carrying tasks w/ Mod I for at least 10 min. and large amplitude movement and proper postural alignment w/out vc's to help improve dynamic balance for ADL's performance. Patient Education: Quality of movement with patient demonstrated understanding. Post-Treatment Pain Scale: 0 Assessment: Patient had an expected response to treatment. Skilled Intervention demonstrated by modifications of treatment per exercise log including increased load and safety interventions per exercise log. Progress towards goals as expected. Plan for Next Visit: Treatment Visit with focus on LSVT program and discharge measurements. NILES Balderas/[place] State License, [id number] documented in this encounter [facility] 05-10-2021 History of Present illness Narrative OUTPATIENT REHABILITATION DAILY TREATMENT NOTE Today's Date 05/10/2021 Patient Name: Uma Mcgrath Date of : 1950 Current Visit #: 8 Authorized Visits: 199 Case Name: Parkinson's Disease- PT History: Pre-Treatment Pain Scale: 0 Symptoms: gradually improved Functional Diagnosis: 1. Age-related osteoporosis without current pathological fracture 2. Vitamin D deficiency Clinical Information: Subjective: Patient denies any new c/o this date. Patient states that she has purchased and started to go through the Delay the Disease booklet. Objective Treatments: Physical Therapy Exercise Log - 05/10/21 1100 OTHER Precautions/Contraindications Parkinson's Disease-LSVT Notes Visit 8; 11:00 AM-12:00 PM Therapeutic Exercise (25452) Intervention sci fit x 6 min on L 5 Parameters LSVT BIG seated floor to ceiling x 8 with hand flicks/ elbow flexion/extension ( pt sits on trinidadian ball for floor to ceiling ex) Intervention Alternating Side to side x 8 reps with hand/ elbow flicks Parameters Fwd, lateral and bwds stepping x 8 each Intervention rock n reach x 10 ea Parameters sideways rock n reach x 10 each direction Intervention 10 STS x2 sets from outside bench Parameters squats on BOSU with 1 LE on BOSU, other on even floor, overhead reach upon standing up x 10 each side Intervention single leg stance with spider on a mirror drill 5 x bilaterally Parameters alternating stepping with contralateral wall slide x 5 each side Intervention wall push ups x 10 Parameters wall angels x 10 Neuro Re-Ed ([id number]) Intervention Cube Sweeps with fine motor grasp x 15 bilaterally 5 sec hold each Parameters Spider on a mirror ball drill- x10 reps Intervention lateral weight shifts on BOSU (round part down) x 10 Parameters Swissball tosses (FWD, LAT (each direction))- x20 tosses with focus on amplutide Bilaterally Intervention Community fitness education and continual performance of PD based workout post DC x 10 min Additional Exercises Add more exercises? Yes Gait Training ([id number]) Intervention -- PT Treatment Times Therex Total Time 40 Neuro Re-Ed Total Time 20 Direct Treatment Time 60 Goals: Physical Therapy Neuro Goals: The patient will safely, correctly, and independently demonstrate the ability to perform a progressive HEP to assist with the rehabilitation program in 2 weeks. The patient will increase LE strength by one-third manual muscle grade in deficit areas to improve elevating from multiple surfaces and ambulation without compensations in 4 weeks. Patient will be able to perform 30-second jsi-kz-zcbdq test with >20 repetitions to demonstrate improved functional LE strength in 4 weeks. Patient will achieve unlimited community ambulator status: with ability to independently navigate firm terrain, uneven terrain, thresholds and curbs using LRAD with independence and LRAD in 4 weeks. Patient will ascend/descend 15 steps with normal reciprocal pattern and outdoor curb with no AD in 4 weeks. Patient will demonstrate appropriate & adequate strategies to maintain & regain balance while performing functional activities in standing as demonstrated by clinically significant change in Harrison Balance score or Harrison score of 54/56 in 4 weeks. Pt will ambulate demonstrating ability to scan environment during gait over even and uneven terrain with maintenance of adequate speed, and no path deviations or LOB in 4 weeks. Patient will demonstrate appropriate amplitude and timing of stepping reactions to recover from internal or external perturbations to prevent fall in 4 weeks. Patient will be able to perform and achieve distance on 6 minute walk test to >1500 feet to show improved functional endurance and promote return to community ambulation in 4 weeks. Patient Education: Quality of movement, HEP Adherence, Community Resources, Community Fitness and Diagnosis and recovery specific education with patient demonstrated understanding and verbalized understanding. Post-Treatment Pain Scale: 0 Assessment: Patient had an expected response to treatment. Skilled Intervention demonstrated by modifications of treatment per exercise log including increased load, increased rate, plane progressions, increased intensity, increased mobility, increased volume and assessment of patient's response and safety interventions per exercise log. Progress towards goals as expected. Plan for Next Visit: Discharge Leandro James PT STATE LICENSE, [id number] documented in this encounter [facility] 05-07-2021 History of Present illness Narrative OUTPATIENT REHABILITATION DAILY TREATMENT NOTE Today's Date 05/07/2021 Patient Name: Uma Mgcrath Date of : 1950 Current Visit #: 7 Authorized Visits: 199 Case Name: Parkinson's Disease- PT History: Pre-Treatment Pain Scale: 0 Symptoms: stabilized Functional Diagnosis: 1. Age-related osteoporosis without current pathological fracture 2. Vitamin D deficiency Clinical Information: Subjective: Pt doing well with compliance of BIG exercises. No falls reported Objective Treatments: Physical Therapy Exercise Log - 05/07/21 0803 OTHER Precautions/Contraindications Parkinson's Disease-LSVT Notes Visit 7; 8:05-9:05 Therapeutic Exercise ([id number]) Intervention sci fit x 5 min on L 5 (held 8-6) Parameters LSVT BIG seated floor to ceiling x 8 with hand flicks/ elbow flexion/extension ( pt sits on trinidadian ball for floor to ceiling ex) Intervention Alternating Side to side x 8 reps with hand/ elbow flicks Parameters Fwd, lateral and bwds stepping x 8 each Intervention rock n reach x 10 ea Parameters sideways rock n reach x 10 each direction Intervention 5 STS x2 sets from outside bench Parameters squats on BOSU with 1 LE on BOSU, other on even floor, overhead reach upon standing up x 10 each side Intervention single leg stance on 1/2 foam roll (even side up) with contralateral march x10 Parameters alternating stepping with contralateral wall slide x 5 each side Intervention wall push ups x 10 Parameters wall angels x 10 Neuro Re-Ed (84644) Intervention Cube Sweeps with fine motor grasp x 10 bilaterally 5 sec hold each Parameters Spider on a mirror ball drill- x10 reps Intervention lateral weight shifts on BOSU (round part down) x 10 Additional Exercises Add more exercises? Yes Gait Training (54728) Intervention ambulation outside over various surfaces including grass, hills, ramps, curb and up/down stairs. Several turns made in either direction as well Parameters -- PT Treatment Times Therex Total Time 35 Neuro Re-Ed Total Time 10 Gait Training Total Time 15 Direct Treatment Time 60 Total Treatment Time 60 Goals: Physical Therapy Neuro Goals: The patient will safely, correctly, and independently demonstrate the ability to perform a progressive HEP to assist with the rehabilitation program in 2 weeks. The patient will increase LE strength by one-third manual muscle grade in deficit areas to improve elevating from multiple surfaces and ambulation without compensations in 4 weeks. Patient will be able to perform 30-second uoq-gd-taxar test with >20 repetitions to demonstrate improved functional LE strength in 4 weeks. Patient will achieve unlimited community ambulator status: with ability to independently navigate firm terrain, uneven terrain, thresholds and curbs using LRAD with independence and LRAD in 4 weeks. Patient will ascend/descend 15 steps with normal reciprocal pattern and outdoor curb with no AD in 4 weeks. Patient will demonstrate appropriate & adequate strategies to maintain & regain balance while performing functional activities in standing as demonstrated by clinically significant change in Harrison Balance score or Harrison score of 54/56 in 4 weeks. Pt will ambulate demonstrating ability to scan environment during gait over even and uneven terrain with maintenance of adequate speed, and no path deviations or LOB in 4 weeks. Patient will demonstrate appropriate amplitude and timing of stepping reactions to recover from internal or external perturbations to prevent fall in 4 weeks. Patient will be able to perform and achieve distance on 6 minute walk test to >1500 feet to show improved functional endurance and promote return to community ambulation in 4 weeks. Patient Education: Quality of movement with patient demonstrated understanding and verbalized understanding. Post-Treatment Pain Scale: 0 Assessment: Patient had an expected response to treatment. Pt performed all core BIG exercises outside on grass today. Mild lob intermittently that she was able to self correct. VC to maintain BIG posture at all times. Stepping exercises were performed all on one side, in sequence (fwd, side and bwd ) and rock n reach performed in conjuction with sideways rock n reach. Pt benefits from tactile cues to maintain R UE extension when walking. Pt's trunk remains fairly rigid with ambulation but step length is adequate as well as speed Skilled Intervention demonstrated by modifications of treatment per exercise log including increased mobility and assessment of patient's response and safety interventions per exercise log. Progress towards goals as expected. Plan for Next Visit: Treatment Visit with focus on alternate exercises next visit Roro Galvez PTA STATE LICENSE, [id number] documented in this encounter [facility] 05-06-2021 History of Present illness Narrative OUTPATIENT REHABILITATION DAILY TREATMENT NOTE Today's Date 05/06/2021 Patient Name: Uma Mcgrath Date of : 1950 Current Visit #: 7 Authorized Visits: 199 Case Name: OT-PD History: Pre-Treatment Pain Scale: 0 Symptoms: stabilized Functional Diagnosis: 1. Parkinson's disease (HCC) Clinical Information: Subjective: Pt shared that she has become more aware of her posture through her participation in OP therapy. Objective Treatments: Occupational Therapy Exercise Log - 05/06/21 1105 OTHER Precautions/Contraindications OT visit 7 Notes Total treatment time: 11:04-12:00. LTG 1-3 addressed during this sessionl with all goals ongoing. Functional Activity (20400) Intervention Seated/standing therapeutic exercises performing them in a circuit, keeping count, and increasing reps for last 2 tasks to increase complexity of task to challenge higher-level attention skills and generalize movement behavior strategies. Parameters Patient displaying moderate difficulty with consistent implementation of movement behavior strategies with increased complexity of task as evidenced by decreased amplitude of hand movement, inconsistent implementation of strategies with stepping activities, difficulty keeping accurate count of repetitions, periods of instability with repetitive stepping/reaching activities, and difficulty following modeling from therapist. Benefiting from max verbal cues and modeling to correct for inconsistencies. Add more exercises? Yes Self Care (20042) Intervention Basic ADL task (sit<>stand, reaching for beachball under table, brief sweeping task, handwriting, and removing lid form juice contaniner and pouring small amounts of water performed in circuit fashion) to generalize large amplitude movement strategies and proper postural alignment. Parameters Displaying improved ability for implementation of large amplitude movement strategies as well as monitoring proper postural alignment with increased complexity of task performance. Would benefit from structured repetition to support new learning. OT Treatment Times Functional Activity Total Time 40 Self Care Total Time 16 Direct Treatment Time 56 Total Treatment Time 56 Goals: Occupational Therapy Neuro goals: 1. Actively participate in training focused on implementing movement strategies to help increase amplitude and coordinated UB/LB movement to address body awareness, self-monitoring skills, and divided attention and will and demonstrate understanding by implementing these strategies to one daily task and one ther. ex. w/out vc's to generalize information. 2. Actively utilize her right hand in a dominant role during FM ther. act. and components of ADL, such as managing grooming containers and food packages, to help improve coordination needed to complete ADL's w/ improve efficiency, and will display improvement by at least completing the Box and Blocks Test w/ no more than a 19% deficit. 3. Participate in functional mobility related reaching/carrying tasks w/ Mod I for at least 10 min. and large amplitude movement and proper postural alignment w/out vc's to help improve dynamic balance for ADL's performance. Patient Education: Quality of movement and Written HEP with patient demonstrated understanding, verbalized understanding and written information provided . Post-Treatment Pain Scale: 0 Assessment: Patient had an expected response to treatment. Skilled Intervention demonstrated by modifications of treatment per exercise log including increased rate, decreased cueing and decreased assistance and safety interventions per exercise log. Progress towards goals as expected. Plan for Next Visit: Treatment Visit with focus on increasing complexity of seqeuntial tasks. Van Dubon OTR/L STATE LICENSE, [id number] documented in this encounter [facility] 05-04-2021 History of Present illness Narrative OUTPATIENT REHABILITATION DAILY TREATMENT NOTE Today's Date 05/04/2021 Patient Name: Uma Mcgrath Date of : 1950 Current Visit #: 6 Authorized Visits: 199 Case Name: OT-PD History: Pre-Treatment Pain Scale: 0 Symptoms: stabilized Functional Diagnosis: 1. Parkinson's disease (HCC) Clinical Information: Subjective: When the patient was asked how she felt she was doing with the [facility] BIG program she said, I am really enjoying this program. Patient shared that she talk to her children about the benefits that she is getting from this program, such as increased awareness of posture and large amplitude movement. Objective Treatments: Occupational Therapy Exercise Log - 05/04/21 1727 OTHER Precautions/Contraindications OT visit 6 Notes Total treatment time: 11:03 12:00. LTG 1-3 addressed during this sessionl with all goals ongoing. Functional Activity (42258) Intervention Seated/standing therapeutic exercises performing them in a circuit, keeping count, and increasing reps for last 2 tasks to increase complexity of task to challenge higher-level attention skills and generalize movement behavior strategies. Parameters Patient displaying moderate difficulty with consistent implementation of movement behavior strategies with increased complexity of task as evidenced by decreased amplitude of hand movement, inconsistent implementation of strategies with stepping activities, difficulty keeping accurate count of repetitions, periods of instability with repetitive stepping/reaching activities, and difficulty following modeling from therapist. Benefiting from max verbal cues and modeling to correct for inconsistencies. Add more exercises? Yes Functional Activity (95945) Intervention -- Self Care (22328) Intervention Basic ADL task (sit<>stand, reaching for beachball under table, brief sweeping task, handwriting, and removing lid form juice contaniner and pouring small amounts of water performed in circuit fashion) to generalize large amplitude movement strategies and proper postural alignment. Parameters Displaying improved ability for implementation of large amplitude movement strategies as well as monitoring proper postural alignment with increased complexity of task performance. Would benefit from structured repetition to support new learning. OT Treatment Times Functional Activity Total Time 30 Self Care Total Time 27 Direct Treatment Time 57 Total Treatment Time 57 Goals: Occupational Therapy Neuro goals: 1. Actively participate in training focused on implementing movement strategies to help increase amplitude and coordinated UB/LB movement to address body awareness, self-monitoring skills, and divided attention and will and demonstrate understanding by implementing these strategies to one daily task and one ther. ex. w/out vc's to generalize information. 2. Actively utilize her right hand in a dominant role during FM ther. act. and components of ADL, such as managing grooming containers and food packages, to help improve coordination needed to complete ADL's w/ improve efficiency, and will display improvement by at least completing the Box and Blocks Test w/ no more than a 19% deficit. 3. Participate in functional mobility related reaching/carrying tasks w/ Mod I for at least 10 min. and large amplitude movement and proper postural alignment w/out vc's to help improve dynamic balance for ADL's performance. Patient Education: Quality of movement and Written HEP with patient demonstrated understanding, verbalized understanding and written information provided . Post-Treatment Pain Scale: 0 Assessment: Patient had an expected response to treatment. Skilled Intervention demonstrated by modifications of treatment per exercise log including increased rate, increased cueing and increased assistance and safety interventions per exercise log. Progress towards goals as expected. Plan for Next Visit: Treatment Visit with focus on Structured repetition of today's sequence of tasks to support new learning and generalization. Van Dubon OTR/L STATE LICENSE, [id number] documented in this encounter [facility] 04-30-2021 Note HNO ID: [id number] Author: Monique Carrion, PhD Service: ? Author Type: Psychologist Type: Progress Notes Filed: 05/23/2021 11:03 PM Note Text: [facility] Clinical [facility] Psychology Evaluation Time of Service: 3:00 pm to 4:00 pm CPT Code: 8902863- Virtual Psychological Diagnostic Interview Billing Code: 0M9/Murali Due to the federal emergency declaration and the need for ongoing mental health services, the following visit was completed virtually and informed consent obtained orally to reduce the risk of COVID-19 exposure. Oral consent to services related to virtual visits was obtained after information was sent via [employer] or read to patient if MyChart not available. Identification and Presenting Problem: Ms. Mcgrath is a 71 year old female who was referred by Dr. Groves from [facility] Movement Disorders. She presents with a 3-month history of Parkinson's disease. She was referred for evaluation and treatment recommendations for anxiety symptoms. She reports she was diagnosed in December 2020. She notes she has done extensive research on PD since her diagnosis and feels this has been somewhat anxiety-provoking. My kids said I went down an rabbit hole. Social History: Ms. Mcgrath was raised in [place], [place] as the eldest of 3 children in her family. Her parents remained until her father 17 years ago. Her mother this past October at age 92. There is no reported history of PD in her family. Family history is significant for unspecified psychological problems on the part of the patient's sister. Ms. Mcgrath denies any history of past mental health treatment. The patient denies any history of alcohol or drug abuse in her family. Likewise, she denies any history of alcohol or drug abuse on her own part. The patient graduated from college with a bachelor's degree in Education. She has been retired since 2012. 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 Ms. Mcgrath was when her in 2010. This marriage produced 3 children, now ages 47, 44 and 43. ACTIVE PROBLEM LIST Ashd (Arteriosclerotic Heart Disease) Calculus of Kidney Cardiac Murmur, Unspecified Chronic Gerd Dyslipidemia Hypercholesteremia Osteoarthritis of Lumbar Spine Parkinson's Disease (Hcc) Vitamin D Deficiency Current Functioning: Ms. Mcgrath reports that she lives alone. She arises at 4:00 am to use the bathroom but cannot fall back asleep until 5:30 am. She may sleep until 7 am. She notes that she was a good sleeper until her PD symptoms began. During the day, she will go to PT and LSVT several days a week. She will be starting ST soon. She [place] [address] [place] and enjoys doing yard work. She has some superficial friendships, but none that she would consider part of a substantive social support network. She notes her was her main source of support, but he unexpectedly 10 years ago. She has three daughters and notes they are very supportive. She notes not having many recreational activities. 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 Medications: Current Outpatient Medications Medication Sig - mirtazapine (REMERON) 15 mg tablet Take 1 tablet by mouth daily at bedtime. - potassium citrate ER (UROCIT-K) 10 mEq (1,080 mg) Take 1 mEq by mouth once daily. Can take up to 2 tabs daily - simvastatin (ZOCOR) 20 mg tablet Take 20 mg by mouth daily at bedtime. - ascorbic acid, vitamin C, (VITAMIN C) 500 mg tablet Take 500 mg by mouth once daily. - cholecalciferol (VITAMIN D3) 5,000 unit tab Take 5,000 Units by mouth once daily. - [id number]-JTIN ORAL Take 1 tablet by mouth once daily. - multivitamins (-TRACY) liqd Take 5 mL by mouth once daily. No current facility-administered medications for this visit. Lexapro 10 mg- once daily. Rx'd by PCP ~ 6 weeks ago. She feels anxiety has improved immensely. Ms. Mcgrath reports significant depressive symptoms in the past month, including intermittent anhedonia, occasional dysphoria and sleep disturbance. She denies suicidal ideation, plan, intent, or history. Ms. Mcgrath reports significant anxiety symptoms in the past month, including some ruminative thoughts, high reactivity, obsessive researching of PD, and fixation on the future (symptom progression, being a burden on her children). She states her children feel like she has had some persistent mild depression since the of her . She saw a therapist 3 years ago related to family discord. She went for two sessions but did not find it helpful. Drug and alcohol screening and triage Caffeine use: The patient denies current caffeine use. Tobacco use: She is a nonsmoker. Current illicit drug use: None Current marijuana use: Ms. Mcgrath denied marijuana use within the past month. Current use of prescribed opioids, sedatives AND benzodiazepines: Ms. Mcgrath does not (more content not included)... [facility] 04-27-2021 History of Present illness Narrative OUTPATIENT REHABILITATION DAILY TREATMENT NOTE Today's Date 04/27/2021 Patient Name: Uma Mcgrath Date of : 1950 Current Visit #: 4 Authorized Visits: 199 Case Name: OT-PD History: Pre-Treatment Pain Scale: 0 Symptoms: stabilized Functional Diagnosis: 1. Parkinson's disease (HCC) Clinical Information: Subjective: No new changes reported this session. Objective Treatments: Occupational Therapy Exercise Log - 04/27/21 1115 OTHER Precautions/Contraindications OT visit 4 Notes Total treatment time: 11:08 12:01. LTG 1 and 2 addressed during this sessionl with both goals ongoing. Neuro Re-Ed (81725) Intervention -- Parameters -- Functional Activity (41501) Intervention Seated/standing therapeutic exercises with increased complexity of focusing on large amplitude movement strategies and proper postural alignment during performance, increasing amplitude of arm movement for both seated and standing exercises with flicks in both hands and patient to keep count of repetitions for generalization of movement behavior strategies and addressing higher-level attention skills to address divided attention task performance. Parameters Continue to benefit from max modeling and verbal cues for accuracy of implementation of strategies as well as attending to right side for symmetrical amplitude of movement. Patient also benefited from reassurance with increased animation during processing of performance. Patient displaying increased difficulty with maintaining symmetrical movement during stepping and seated therapeutic exercises. Patient did display improved rotation to right side during task performance. Would continue to benefit from structured repetition to support new motor learning. Add more exercises? Yes Functional Activity (68271) Intervention Handwriting activity performed in seated position while also trying to attend/maintain proper sitting postural aligment for generalization of movement strategies with increased complexity. Parameters Patient displayed increase difficulty with maintaining large amplitude movement strategies with handwriting and also attending to sitting posture. Benefited from processing of patient's performance during task. Would continue to benefit from structured repetition to support new motor learning. OT Treatment Times Functional Activity Total Time 53 Direct Treatment Time 53 Total Treatment Time 53 Goals: Occupational Therapy Neuro goals: 1. Actively participate in training focused on implementing movement strategies to help increase amplitude and coordinated UB/LB movement to address body awareness, self-monitoring skills, and divided attention and will and demonstrate understanding by implementing these strategies to one daily task and one ther. ex. w/out vc's to generalize information. 2. Actively utilize his hand in a Max active assistive role during FM ther. act. and components of ADL, such as managing grooming containers and food packages, to help improve coordination needed to complete ADL's w/ improve efficiency, and will display improvement by at least completing the Box and Blocks Test w/ no more than a 19% deficit. 3. Participate in functional mobility related reaching/carrying tasks w/ Mod I for at least 10 min. and large amplitude movement and proper postural alignment w/out vc's to help improve dynamic balance for ADL's performance. Patient Education: Quality of movement and Written HEP with patient demonstrated understanding and verbalized understanding. Post-Treatment Pain Scale: 0 Assessment: Patient had an expected response to treatment. Skilled Intervention demonstrated by modifications of treatment per exercise log including increased cueing and increased assistance and safety interventions per exercise log. Progress towards goals as expected. Plan for Next Visit: Treatment Visit with focus on Structured repetition of today's tasks for consistent mastery of skill. NILES Garcia/Sulema STATE LICENSE, [id number] documented in this encounter [facility] 04-26-2021 History of Present illness Narrative OUTPATIENT REHABILITATION DAILY TREATMENT NOTE Today's Date 04/26/2021 Patient Name: Uma Mcgrath Date of : 1950 Current Visit #: 4 Authorized Visits: 199 Case Name: Parkinson's Disease- PT History: Pre-Treatment Pain Scale: 0 Symptoms: stabilized Functional Diagnosis: 1. Age-related osteoporosis without current pathological fracture 2. Vitamin D deficiency Clinical Information: Subjective: Pt reports a fall when outside weed eating. She was on a hill and there was slippery chang she didn't see. She was not hurt and able to get up Ind. Pt has been compliant with HEP Objective Treatments: Physical Therapy Exercise Log - 04/26/21 1104 OTHER Precautions/Contraindications Parkinson's Disease-LSVT Notes Visit 4; 11:05-12:05 Therapeutic Exercise (86415) Intervention sci fit x 5 min on L 4.4 (held 04-26) Parameters LSVT BIG seated floor to ceiling x 8 with hand flicks/ elbow flexion/extension ( pt sits on trinidadian ball for floor to ceiling ex) Intervention Side to side x 8 reps with hand/ elbow flicks Parameters Fwd, lateral and bwds stepping x 8 each on even surface/trial on floor mat as well Intervention rock n reach x 10 each direction on floor mat Parameters sideways rock n reach x 10 each direction Intervention 10 STS from blue trinidadian ball Parameters 5 squats, transitioning to SLS and Eliceo UE abductions Intervention SLS x 3 each side, 10 sec holds with hand flicks Parameters alternating stepping with contralateral wall slide x 10 each side Intervention -- Additional Exercises Add more exercises? Yes Gait Training (66458) Intervention transitioning on /off floor mat while focusing on increased R UE swing and reciting alphabet Parameters ambulation with cues for larger R UE swing (especially in extension) PT Treatment Times Therex Total Time 50 Gait Training Total Time 10 Direct Treatment Time 60 Total Treatment Time 60 Goals: Physical Therapy Neuro Goals: The patient will safely, correctly, and independently demonstrate the ability to perform a progressive HEP to assist with the rehabilitation program in 2 weeks. The patient will increase LE strength by one-third manual muscle grade in deficit areas to improve elevating from multiple surfaces and ambulation without compensations in 4 weeks. Patient will be able to perform 30-second [id number] test with >20 repetitions to demonstrate improved functional LE strength in 4 weeks. Patient will achieve unlimited community ambulator status: with ability to independently navigate firm terrain, uneven terrain, thresholds and curbs using LRAD with independence and LRAD in 4 weeks. Patient will ascend/descend 15 steps with normal reciprocal pattern and outdoor curb with no AD in 4 weeks. Patient will demonstrate appropriate & adequate strategies to maintain & regain balance while performing functional activities in standing as demonstrated by clinically significant change in Harrison Balance score or Harrison score of 54/56 in 4 weeks. Pt will ambulate demonstrating ability to scan environment during gait over even and uneven terrain with maintenance of adequate speed, and no path deviations or LOB in 4 weeks. Patient will demonstrate appropriate amplitude and timing of stepping reactions to recover from internal or external perturbations to prevent fall in 4 weeks. Patient will be able to perform and achieve distance on 6 minute walk test to >1500 feet to show improved functional endurance and promote return to community ambulation in 4 weeks. Patient Education: Quality of movement, Written HEP and Verbal HEP with patient demonstrated understanding, verbalized understanding and written information provided . Post-Treatment Pain Scale: 0 Assessment: Patient had an expected response to treatment. Pt with mild lob during exercise that is able to self correct. Pt has most difficulty with R UE swing. Skilled Intervention demonstrated by modifications of treatment per exercise log including assessment of patient's response and safety interventions per exercise log. Progress towards goals as expected. Plan for Next Visit: Treatment Visit with focus on continue with LSVT exercise Roro Galvez PTA STATE LICENSE, [id number] documented in this encounter [facility] 04-23-2021 History of Present illness Narrative OUTPATIENT REHABILITATION DAILY TREATMENT NOTE Today's Date 04/23/2021 Patient Name: Uma Mcgrath Date of : 1950 Current Visit #: 3 Authorized Visits: 199 Case Name: Parkinson's Disease- PT History: Pre-Treatment Pain Scale: 0 Symptoms: stabilized Functional Diagnosis: 1. Age-related osteoporosis without current pathological fracture 2. Vitamin D deficiency Clinical Information: Subjective: No falls reported, Pt is compliant with HEP. She states she forgets how to do them correctly but has been completing. She went to a Delay the Disease class to observe but it was the seated session and she is going to return to a standing class soon. Objective Treatments: Physical Therapy Exercise Log - 04/23/21 1105 OTHER Precautions/Contraindications Parkinson's Disease-LSVT Notes Visit 3; 11:05-12:05 Therapeutic Exercise (53596) Intervention sci fit x 5 min on L 4.4 Parameters LSVT BIG seated floor to ceiling x 8 with hand flicks/ elbow flexion/extension Intervention Side to side x 8 reps with hand flicks Parameters Fwd, lateral and bwds stepping x 8 each on even surface/trial on floor mat as well Intervention rock n reach x 10 each direction Parameters sideways rock n reach x 10 each direction Intervention STS x 5 with no UE support from chair/ 10 STS from blue trinidadian ball Parameters 5 squats, transitioning to SLS and Eliceo UE abductions Intervention SLS x 3 each side, 10 sec holds with hand flicks Parameters alternating marches x 10 each with hand to contralateral knee Intervention finger squeeze while holding playground ball x 5 reps, standing on rockerboard Additional Exercises Add more exercises? Yes Gait Training (02322) Intervention Amb with use of hockey sticks each UE and HEALTH SAFETY INSTRUCTOR walking behind to facilitate increased UE swing R side. Parameters Ambulation with no assist and verbal/tactile cues for increased R UE swing, more focus on R UE extension PT Treatment Times Therex Total Time 45 Gait Training Total Time 15 Direct Treatment Time 60 Total Treatment Time 60 Goals: Physical Therapy Neuro Goals: The patient will safely, correctly, and independently demonstrate the ability to perform a progressive HEP to assist with the rehabilitation program in 2 weeks. The patient will increase LE strength by one-third manual muscle grade in deficit areas to improve elevating from multiple surfaces and ambulation without compensations in 4 weeks. Patient will be able to perform 30-second [id number] test with >20 repetitions to demonstrate improved functional LE strength in 4 weeks. Patient will achieve unlimited community ambulator status: with ability to independently navigate firm terrain, uneven terrain, thresholds and curbs using LRAD with independence and LRAD in 4 weeks. Patient will ascend/descend 15 steps with normal reciprocal pattern and outdoor curb with no AD in 4 weeks. Patient will demonstrate appropriate & adequate strategies to maintain & regain balance while performing functional activities in standing as demonstrated by clinically significant change in Harrison Balance score or Harrison score of 54/56 in 4 weeks. Pt will ambulate demonstrating ability to scan environment during gait over even and uneven terrain with maintenance of adequate speed, and no path deviations or LOB in 4 weeks. Patient will demonstrate appropriate amplitude and timing of stepping reactions to recover from internal or external perturbations to prevent fall in 4 weeks. Patient will be able to perform and achieve distance on 6 minute walk test to >1500 feet to show improved functional endurance and promote return to community ambulation in 4 weeks. Patient Education: Quality of movement, Written HEP and Verbal HEP with patient demonstrated understanding, verbalized understanding and written information provided . Post-Treatment Pain Scale: 0 Assessment: Patient had an expected response to treatment. Pt with narrower jarrett when stepping back with R LE and loses balance. Pt given vc for correction and wider jarrett in which she was able to adapt. Being on the floor mat was somewhat more challenging for pt. VC for higher steps when returning to neutral. Pt with decreased R UE swing and this was focus during ambulation. Increased tremors when not holding onto hockey sticks. Pt reports it felt more natural when HEALTH SAFETY INSTRUCTOR assisting with hockey sticks . Skilled Intervention demonstrated by modifications of treatment per exercise log including increased intensity, increased mobility and assessment of patient's response and safety interventions per exercise log. Progress towards goals as expected. Plan for Next Visit: Treatment Visit with focus on continue with LSVT protocol, incorporate uneven surfaces Roro Galvez PTA STATE LICENSE, [id number] documented in this encounter [facility] 04-22-2021 History of Present illness Narrative OUTPATIENT REHABILITATION DAILY TREATMENT NOTE Today's Date 04/22/2021 Patient Name: Uma Mcgrath Date of : 1950 Current Visit #: 3 Authorized Visits: 199 Case Name: OT-PD History: Pre-Treatment Pain Scale: 0 Symptoms: stabilized Functional Diagnosis: 1. Parkinson's disease (HCC) Clinical Information: Subjective: Patient shared that she observed a Delay the Disease Exercise group the previous day. Patient stated that she had received a pamphlet of information on that program. However, she was not sure that that program would be a good fit for her because most of the exercises were performed setting. Patient was provided additional information that there were different focuses for each session. Patient was encouraged to explore this particular exercise group as a transition after completing the LSVT BIG program. Patient voiced understanding of information and willingness to further explore this resource. Objective Treatments: Occupational Therapy Exercise Log - 04/22/211812 OTHER Precautions/Contraindications OT visit 3 Notes Total treatment time: 11:13 12:00. LTG 1 3 addressed during the session. All goals ongoing. Neuro Re-Ed (52743) Intervention Education on large amplitude movement strategies with use of LSVT BIG HEP for generalization of strategies and to support new motor learning for symptom management of PD. Parameters Benefited from modeling and mod verbal cues for consistent implementation of large amplitude movement strategies especially with hand movement. Greater difficulty with consistent limitation on right side. Patient displayed minor LOB with repetative stepping/reaching activity with LLE due to narrowing of stance when stepping in multiple planes. Patient also displaying difficulty with achieving symmetrical rotation during twist and reach therapeutic exercise with greater difficulty training to right side. Patient benefited from processing of performance with therapist to highlight opportunities to focus on in future sessions. Patient would benefit from structured repetition to support new learning. Functional Activity (62330) Intervention Handwriting activity performed in seated position for implementation of large amplitude movement strategy. Parameters Patient displaying improvement and FM coordination with implementation of strategy, but having difficulty with consistency in implementation. Would benefit from structured repetition. Add more exercises? Yes Functional Activity (58092) Intervention Functional mobility task performance for implementation of movement behavior strategies covered in the session. Parameters Patient displaying improvements in amplitude of steps in right arm swing with tasks performance. However, displaying limited rotation during functional mobility. OT Treatment Times Neuro Re-Ed Total Time 35 Functional Activity Total Time 13 Direct Treatment Time 48 Total Treatment Time 48 Goals: Occupational Therapy Neuro goals: 1. Actively participate in training focused on implementing movement strategies to help increase amplitude and coordinated UB/LB movement to address body awareness, self-monitoring skills, and divided attention and will and demonstrate understanding by implementing these strategies to one daily task and one ther. ex. w/out vc's to generalize information. 2. Actively utilize his hand in a Max active assistive role during FM ther. act. and components of ADL, such as managing grooming containers and food packages, to help improve coordination needed to complete ADL's w/ improve efficiency, and will display improvement by at least completing the Box and Blocks Test w/ no more than a 19% deficit. 3. Participate in functional mobility related reaching/carrying tasks w/ Mod I for at least 10 min. and large amplitude movement and proper postural alignment w/out vc's to help improve dynamic balance for ADL's performance. Patient Education: Quality of movement, Written HEP and Community Resources with patient demonstrated understanding and verbalized understanding. Post-Treatment Pain Scale: 0 Assessment: Patient had an expected response to treatment. Skilled Intervention demonstrated by modifications of treatment per exercise log including increased rate and safety interventions per exercise log. Progress towards goals as expected. Plan for Next Visit: Treatment Visit with focus on Implementing proper postural alignment along with large amplitude movement strategies Van Dubon OTR/L STATE LICENSE, [id number] documented in this encounter [facility] 04-22-2021 History of Present illness Narrative OUTPATIENT REHABILITATION DAILY TREATMENT NOTE Today's Date 04/22/2021 Patient Name: Uma Mcgrath Date of : 1950 Current Visit #: 3 Authorized Visits: 199 Case Name: OT-PD History: Pre-Treatment Pain Scale: 0 Symptoms: stabilized Functional Diagnosis: 1. Parkinson's disease (HCC) Clinical Information: Subjective: Patient shared that she observed a Delay the Disease Exercise group the previous day. Patient stated that she had received a pamphlet of information on that program. However, she was not sure that that program would be a good fit for her because most of the exercises were performed setting. Patient was provided additional information that there were different focuses for each session. Patient was encouraged to explore this particular exercise group as a transition after completing the LSVT BIG program. Patient voiced understanding of information and willingness to further explore this resource. Objective Treatments: Occupational Therapy Exercise Log - 04/22/211812 OTHER Precautions/Contraindications OT visit 3 Notes Total treatment time: 11:13 12:00. LTG 1 3 addressed during the session. All goals ongoing. Neuro Re-Ed (91199) Intervention Education on large amplitude movement strategies with use of LSVT BIG HEP for generalization of strategies and to support new motor learning for symptom management of PD. Parameters Improve amplitude of rotation to the right. Benefited from modeling and mod verbal cues to maintain step height amplitude instead of length. Also continue to benefit from mod verbal cues and modeling to increase amplitude of hand movement on right side during task performance. Functional Activity (36726) Intervention Handwriting activity performed in seated position for implementation of large amplitude movement strategy. Parameters Displayed improved self-monitoring skills by implementing large amplitude movement strategies with handwriting. Had moderate difficulty with consistency of performance but improved from previous trial. Add more exercises? Yes Functional Activity (57827) Intervention Functional mobility task performance for implementation of movement behavior strategies covered in the session. Parameters Improved arm swing and step height with increased rate of performance. OT Treatment Times Neuro Re-Ed Total Time 35 Functional Activity Total Time 13 Direct Treatment Time 48 Total Treatment Time 48 Goals: Occupational Therapy Neuro goals: 1. Actively participate in training focused on implementing movement strategies to help increase amplitude and coordinated UB/LB movement to address body awareness, self-monitoring skills, and divided attention and will and demonstrate understanding by implementing these strategies to one daily task and one ther. ex. w/out vc's to generalize information. 2. Actively utilize his hand in a Max active assistive role during FM ther. act. and components of ADL, such as managing grooming containers and food packages, to help improve coordination needed to complete ADL's w/ improve efficiency, and will display improvement by at least completing the Box and Blocks Test w/ no more than a 19% deficit. 3. Participate in functional mobility related reaching/carrying tasks w/ Mod I for at least 10 min. and large amplitude movement and proper postural alignment w/out vc's to help improve dynamic balance for ADL's performance. Patient Education: Quality of movement, Written HEP and Community Resources with patient demonstrated understanding and verbalized understanding. Post-Treatment Pain Scale: 0 Assessment: Patient had an expected response to treatment. Skilled Intervention demonstrated by modifications of treatment per exercise log including increased rate and safety interventions per exercise log. Progress towards goals as expected. Plan for Next Visit: Treatment Visit with focus on Implementing proper postural alignment along with large amplitude movement strategies Van Dubon OTR/L STATE LICENSE, [id number] documented in this encounter [facility] 04-20-2021 History of Present illness Narrative OUTPATIENT REHABILITATION DAILY TREATMENT NOTE Today's Date 04/20/2021 Patient Name: Uma Mcgrath Date of : 1950 Current Visit #: 2 Authorized Visits: 199 Case Name: OT-PD History: Pre-Treatment Pain Scale: 0 Symptoms: stabilized Functional Diagnosis: 1. Parkinson's disease (HCC) Clinical Information: Subjective: Patient reported feeling fatigued at beginning of the session due to having perform some exercises earlier today. Patient agreeable to participate in today's session. Objective Treatments: Occupational Therapy Exercise Log - 04/20/21 4369 OTHER Precautions/Contraindications OT visit 2 Notes Total treatment time: 1101 1158. LTG 1 3 addressed during the session. All goals ongoing. Neuro Re-Ed (19841) Intervention Education on large amplitude movement strategies with use of LSVT BIG HEP for generalization of strategies and to support new motor learning for symptom management of PD. Parameters Benefited from modeling and mod verbal cues for consistent implementation of large amplitude movement strategies especially with hand movement. Greater difficulty with consistent limitation on right side. Patient displayed minor LOB with repetative stepping/reaching activity with LLE due to narrowing of stance when stepping in multiple planes. Patient also displaying difficulty with achieving symmetrical rotation during twist and reach therapeutic exercise with greater difficulty training to right side. Patient benefited from processing of performance with therapist to highlight opportunities to focus on in future sessions. Patient would benefit from structured repetition to support new learning. Functional Activity (94521) Intervention Handwriting activity performed in seated position for implementation of large amplitude movement strategy. Parameters Patient displaying improvement and FM coordination with implementation of strategy, but having difficulty with consistency in implementation. Would benefit from structured repetition. Add more exercises? Yes Functional Activity (21278) Intervention Functional mobility task performance for implementation of movement behavior strategies covered in the session. Parameters Patient displaying improvements in amplitude of steps in right arm swing with tasks performance. However, displaying limited rotation during functional mobility. OT Treatment Times Neuro Re-Ed Total Time 35 Functional Activity Total Time 22 Direct Treatment Time 57 Total Treatment Time 57 Goals: Occupational Therapy Neuro goals: 1. Actively participate in training focused on implementing movement strategies to help increase amplitude and coordinated UB/LB movement to address body awareness, self-monitoring skills, and divided attention and will and demonstrate understanding by implementing these strategies to one daily task and one ther. ex. w/out vc's to generalize information. 2. Actively utilize his hand in a Max active assistive role during FM ther. act. and components of ADL, such as managing grooming containers and food packages, to help improve coordination needed to complete ADL's w/ improve efficiency, and will display improvement by at least completing the Box and Blocks Test w/ no more than a 19% deficit. 3. Participate in functional mobility related reaching/carrying tasks w/ Mod I for at least 10 min. and large amplitude movement and proper postural alignment w/out vc's to help improve dynamic balance for ADL's performance. Patient Education: Quality of movement, Written HEP and HEP Modification with patient demonstrated understanding, verbalized understanding and written information provided . Post-Treatment Pain Scale: 0 Assessment: Patient had an expected response to treatment. Skilled Intervention demonstrated by modifications of treatment per exercise log including increased cueing and increased assistance and safety interventions per exercise log. Progress towards goals as expected. Plan for Next Visit: Treatment Visit with focus on Symmetric rotation with reaching activities. Van Dubon OTR/L STATE LICENSE, [id number] documented in this encounter [facility] 04-08-2021 Instructions Tom Ng MD - 04/08/2021 3:50 PM EDT 1. Parkinson disease: educational brochure to review. 2. Levodopa - Carbidopa: (SINEMET): 100 mg / 25 mg - take this with a cookie or cracker - 0.5 tab 3x/day x 7 days; then 1 tab 3x/day after that (6 AM - 12 Noon - 6 PM). 3. If nausea becomes a major hemanth we may need to slow down the treatment with this medicine. 4. Zofran (nausea) 4 mg tablet: Take it in empty stomach first thing in the morning and then the second tablet 1 hour before lunch. 5. Therapy rehab: PT/OT ordered. 6. Follow up: July. Call with questions. documented in this encounter [facility] 04-08-2021 History of Present illness Narrative NEUROLOGY NOTE [facility], [place] [id number] [address], [facility] [phone] Fax: [phone] Service date: 04/08/2021 Admit date: (Not on file) Uma Mcgrath is a 70 y.o. female who is being seen in the movement disorder clinic for establishing care. She was seen in December [address] Gavin for initial evaluation and was referred to me for Parkinson disease. She was initially referred because of tremors which began in the summer 2019 intermittently in her right upper extremity. This was more noticeable to her (even today) when she walks. She has not noticed any significant stiffness or slowness of movements. She has noticed that she struggles with writing, and her handwriting is smaller. But specifically pointed out that she has hypomimia, she acknowledges that she has not been gesticulating or spontaneously smiling lately. She does not notice particular slowing of movements in terms of activities of daily life (bathing, showering, cleaning brushing teeth, combing hair etc.). She does not notice any difficulty with getting out of the car, getting out of a couch, changes in posture balance, falling freezing episodes, urinary problems, constipation, REM sleep behavior disorder, memory or thinking, speech, swallowing, or difficulties with direction sense and driving. With regard to sense of smell she reports that it is really bad . With regard to sleep issues she reports difficulty staying asleep through the night but during the day she may nap 30 minutes or so. She is very anxious and nervous. No reported history of hallucinations delusions paranoia, seizures, head trauma, or exposure to psychiatric medications in the past. 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 From an activity perspective, she is active, and exercises regularly. She also has history of osteoarthritis, hyperlipidemia. Denies alcohol or any recreational drug use. Neurological examination: Pleasant extremely anxious well-groomed 70 y.o. female. Higher mental functions: Good fund of knowledge. Appropriate mood. History and timeline of the history are internally consistent and well-organized. Speech and language are normal. No aphasia, apraxia, agnosia, sensory extinction or spatial neglect. Cranial nerves: Visual: Full to confrontation; Ophthalmoscopic: Retina is normal Oculomotor: Pupils are equal and reactive to light, EOM: Full range of movements, gaze is conjugate, convergence is normal saccades pursuits and VOR are normal. No nystagmus noted no ocular flutter noted. Facial motor: Normal Hearing: Normal to room conversation Lower cranial nerves: Normal. Motor exam/ Neuromuscular: No focal weaknesses noted anywhere. Deep tendon reflexes: 2+ in upper and lower extremities. Sensory: Normal. Movement disorder: Striking facial hypomimia, and paucity of gesticulations is noted right away. She has grade 3 bradykinesia of the right upper extremity, grade 2 bradykinesia of the left upper extremity, grade 2 bradykinesia of both lower extremities (heel stomping foot taps). Fine high-frequency small amplitude tremors of the right upper extremity is noted with distraction maneuvers intermittently when held in extended posture. They are not present at rest. Left upper extremity does not show any tremors. She is able to stand up without pushing off on the handrails, and once she starts walking a reemerging tremor of the right upper extremity is noted. No myoclonus dyskinesias chorea or athetosis noted. Coordination: Limb movements shows small amplitude intention tremor, but no decomposition of movements. Midline balance and posture: Wide-based, slightly stooped posture, with no sway or ataxia. Reemerging tremor of the right upper extremity is noted when she stands up and walks. Armswing is reduced more on the right side. Turns are grateful. Pull test shows good correction. No hesitation or motor freezing is noted. Assessment and plan: With rigidity bradykinesia, and tremors, with mild postural changes without amounting to significant postural instability, she fulfills the 2015 movement disorder criteria for Parkinson disease. We discussed at length regarding the various aspects of the disease, and an educational brochure with answers to frequently asked questions was provided. I educated her regarding the need for levodopa therapy as she was very hesitant about medications. She is 70, has bilateral disease, and notable bradykinesia and rigidity. Even though she does not appreciate it, there is clear disability afforded by the disease that she would benefit from levodopa replacement therapy. I educated her about the need for combining therapy with medications. Since she is worried about nausea, I have asked her to start Zofran 4 mg twice daily empirically to help with the nausea that comes almost invariably with levodopa therapy. I will see her in 3 to 4 months for follow-up. She is advised to call and report regarding the levodopa medication as well as if any side effects are intolerable. Patient Instructions 1. Parkinson disease: educational brochure to review. 2. Levodopa - Carbidopa: (SINEMET): 100 mg / 25 mg - take this with a cookie or cracker - 0.5 tab 3x/day x 7 days; then 1 tab 3x/day after that (6 AM - 12 Noon - 6 PM). 3. If nausea becomes a major hemanth we may need to slow down the treatment with this medicine. 4. Zofran (nausea) 4 mg tablet: Take it in empty stomach first thing in the morning and then the second tablet 1 hour before lunch. 5. Therapy rehab: PT/OT ordered. 6. Follow up: July. Call with questions. Assessment & plan notes cannot be loaded without a specified hospital service. TOM NG MSc, MD. Staff Neurologist & Movement Disorder Specialist [facility] (Adj Asst: Professor, [employer] Dept of Neurology) [id number], [facility] [id number] [facility] Fax: [phone] Attestation: Time Statement (OP Visits): A total of 60 minutes were spent at this encounter, and this includes the time for preparing for the visit, review notes, obtaining history, performing exam, review of previous tests and results, independently interpreting results of tests, ordering medications/tests/procedures, counseling the patient and/family on plan of care, as well as documenting the clinical information in the EHR (which includes this note) This note was created in part using a speech-recognition software. documented in this encounter [facility] 04-06-2021 History of Present illness Narrative OUTPATIENT REHABILITATION Occupational Therapy Evaluation Today's Date 04/06/2021 Patient Name: Uma Mcgrath Date of : 1950 Case Name: OT-PD Functional Diagnosis: 1. Parkinson's disease (HCC) Clinical Information: Subjective Referring Diagnosis: G20 (ICD-10-CM) - Parkinson's disease Patient accompanied by: daughter History of Present Illness Date of Onset: 04/20/2020 (Specific date in 2019 unknown, but pt noticed sx in summer of that year.) Contemporary Medical History: PMH: Hiatal Hernia, HLD, Kidney stones; PSH: EGD, Colonscopy. Subjective History: Pt share that she has been noticing a tremor in her right for about a year. She remembered the incident occurred when she was leaving the water after swimming and attributed it to being cold. However, when it starting occurring more frequently this past fall. Due to this reoccurrence, she decided to seek medical advise. Pt has noticed that it is taking longer to completed her outdoor chores, like mowing and weeding, as well as bathing, showering, in-door cleaning, brushing teeth, and combing hair. Hand dominance: right Overall rating of health: Good Pain Scale: Average Pain: 0/10 Pain at highest: 0/10 Personal Goals: I want to find a way to prolong the progression of this disease. Functional Mobility Status Functional Limitations: limited mobility and recent decline in level of ADL (Pt noticed a decline in rate of performance for IADL's and functional mobility.) patient reported Recent change in functional mobility status: Yes Premorbid Mobility Status: Home: independent Community: independent Bed Transfer: independent Toilet Transfer: independent Shower/Tub: independent Car Transfer: independent Current Mobility Status: Home: no device Community: no device Bed Transfer: modified independent Toilet Transfer: modified independent Shower/Tub: modified independent Car Transfer: modified independent Comments: Pt said that she has noticed moving slower. Current Activity Level: very active Premorbid Activity Level: very active Home medical equipment owned: No Social Support: Patient lives alone. Additional Social Support: Pt lives alone in a raised ranch floor plan w/ main living quaters on the 2nd floor. House is built on the side of a hill facing a cash. Hindu, social, or cultural considerations to be made aware of before starting treatment: No Home Environment: Current Home Environment: unchanged Setup: multi-level house Current Entry: 1STE from back door. First floor: half bath and bedroom Second floor: full bath and bedroom Animals in the home: no Anticipated Home Environment at Discharge: unchanged Do you feel safe at home? Yes Activities of Daily Living: patient reported Upper Body Dressing: independent with all and increased time and effort with all Instrumental Activities of Daily Living: patient reported Meal Preparation - Low Complexity: increased time and effort Meal Preparation - Moderate Complexity: increased time and effort Meal Preparation - High Complexity: increased time and effort Laundry: increased time and effort Housekeeping: Light Cleaning: increased time and effort Heavy Cleaning: increased time and effort Basic Home Maintenance: increased time and effort Yardwork: Gardening: increased time and effort Mowing: increased time and effort Basic Rn Embedded: increased time and effort Complex Rn Embedded: increased time and effort Writing: increased time and effort Driving: independent Community skills: increased time and effort Prior Vocation: Retired. 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 Sleep Assessment Sleep disturbance: Sleep Disturbance (Pt shared that she has had an increase in anxiety since her dx of PD.) Red Flags: None Comments: Barriers to Care: None Fall risk screening Fallen 2 or more times in the last 12 months: No (Pt's last fall was about a month ago into a ground hog hole.) Injured as a result of a fall in the last 12 months: No Hindu, social, or cultural considerations to be made aware of before starting treatment: No Gait/ Balance Weight Bearing Status Assistive device used: none Additional observational gait details: TU seconds w/ limited right arm swing. TUG(Manual): 7 seconds while carrying a cup of water in her right hand, and 7 when using left hand. TUG(Cognitive): 7 seconds while carrying a cup of water in her right hand and counting backwards by 3's. Treatments: Occupational Therapy Exercise Log No documentation. Treatment Plan: Frequency of Visits: 2 4 times per week to meet standardized frequency of LSVT BIG program. Duration: 6 weeks Interventions: Therapeutic Exercise, Neuromuscular Re-Education, Therapeutic/ Functional Activities and Self Care Rehab Potential: good Occupational Therapy Neuro goals: 1. Actively participate in training focused on implementing movement strategies to help increase amplitude and coordinated UB/LB movement to address body awareness, self-monitoring skills, and divided attention and will and demonstrate understanding by implementing these strategies to one daily task and one ther. ex. w/out vc's to generalize information. 2. Actively utilize his hand in a Max active assistive role during FM ther. act. and components of ADL, such as managing grooming containers and food packages, to help improve coordination needed to complete ADL's w/ improve efficiency, and will display improvement by at least completing the Box and Blocks Test w/ no more than a 19% deficit. 3. Participate in functional mobility related reaching/carrying tasks w/ Mod I for at least 10 min. and large amplitude movement and proper postural alignment w/out vc's to help improve dynamic balance for ADL's performance. Patient Education provided: Discussed Plan of care frequency and duration, treatment plan, importance of attendance for recovery, team concept, and diagnosis/pathophysiology/prognosi s. Pt is in agreement with plan, and all questions at this time were answered Occupational Profile/Client History Low Complexity - Occupational Profile and medical history includes a brief history of medical and/or therapy records Patient Assessment: Number of performance deficits causing inability to complete activities due to the lack of skills relating to physical, cognitive, or psychosocial skills) Performance deficits include: Balance impairments, Mobility impairments, Fine motor coordination impairments and Gross motor coordination impairments 3-5 (Moderate) performance deficits identified which result in limitations and/or participation restriction. Clinical Decision Making: Moderate Complexity - moderate complexity of clinical decision making including occupational profile/data from detailed assessments; consideration of several treatment options; may present with comorbidities that affect occupation performance; minimal or moderate modification of tasks or assistance is required.. Patients comorbidities affecting occupational performance include: anxiety Clinical Impression: Uma Mcgrath presents to [facility] on 04/06/2021 for an occupational therapy assessment with c/o QQQQQ. Upon assessment QQQQQ . These performance deficits impact Uma Mcgrath's ability to participate in the following performance in areas of ADLs/IADLs, functional mobility, carrying and reaching. Potential barriers to rehabilitation include chronicity or severity of the current condition. The patient would benefit from skilled Occupational Therapy services focused on the above listed performance deficits in order to achieve the goals as noted. Plan of care to be revised as needed based on response to therapeutic intervention. Thank you for allowing me to participate in this patient's care. Please contact me with any questions at the above number. Van Dubon OTR/L STATE LICENSE, [id number] documented in this encounter [facility] 04-06-2021 History of Present illness Narrative OUTPATIENT REHABILITATION Occupational Therapy Evaluation Today's Date 04/06/2021 Patient Name: Uma Mcgrath Date of : 1950 Case Name: OT-PD Functional Diagnosis: 1. Parkinson's disease (HCC) Clinical Information: Subjective Referring Diagnosis: G20 (ICD-10-CM) - Parkinson's disease Patient accompanied by: daughter History of Present Illness Date of Onset: 04/20/2020 (Specific date in 2019 unknown, but pt noticed sx in summer of that year.) Contemporary Medical History: PMH: Hiatal Hernia, HLD, Kidney stones; PSH: EGD, Colonscopy. Subjective History: Pt share that she has been noticing a tremor in her right for about a year. She remembered the incident occurred when she was leaving the water after swimming and attributed it to being cold. However, when it starting occurring more frequently this past fall she decided to seek medical advise. Pt has noticed that it is [id number] Hand dominance: right Overall rating of health: Good Pain Scale: Average Pain: 0/10 Pain at highest: 0/10 Personal Goals: I want to find a way to prolong the progression of this disease. Functional Mobility Status Functional Limitations: limited mobility and recent decline in level of ADL (Pt noticed a decline in rate of performance for IADL's and functional mobility.) patient reported Recent change in functional mobility status: Yes Premorbid Mobility Status: Home: independent Community: independent Bed Transfer: independent Toilet Transfer: independent Shower/Tub: independent Car Transfer: independent Current Mobility Status: Home: no device Community: no device Bed Transfer: modified independent Toilet Transfer: modified independent Shower/Tub: modified independent Car Transfer: modified independent Comments: Pt said that she has noticed moving slower. Current Activity Level: very active Premorbid Activity Level: very active Home medical equipment owned: No Social Support: Patient lives alone. Additional Social Support: Pt lives alone in a raised ranch floor plan w/ main living quaters on the 2nd floor. House is built on the side of a hill facing a cash. Hindu, social, or cultural considerations to be made aware of before starting treatment: No Home Environment: Current Home Environment: unchanged Setup: multi-level house Current Entry: 1STE from back door. First floor: half bath and bedroom Second floor: full bath and bedroom Animals in the home: no Anticipated Home Environment at Discharge: unchanged Do you feel safe at home? Yes Activities of Daily Living: patient reported Upper Body Dressing: independent with all and increased time and effort with all Instrumental Activities of Daily Living: patient reported Meal Preparation - Low Complexity: increased time and effort Meal Preparation - Moderate Complexity: increased time and effort Meal Preparation - High Complexity: increased time and effort Laundry: increased time and effort Housekeeping: Light Cleaning: increased time and effort Heavy Cleaning: increased time and effort Basic Home Maintenance: increased time and effort Yardwork: Gardening: increased time and effort Mowing: increased time and effort Basic Rn Embedded: increased time and effort Complex Rn Embedded: increased time and effort Writing: increased time and effort Driving: independent Community skills: increased time and effort Prior Vocation: Retired. 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 Sleep Assessment Sleep disturbance: Sleep Disturbance (Pt shared that she has had an increase in anxiety since her dx of PD.) Red Flags: None Comments: Barriers to Care: None Fall risk screening Fallen 2 or more times in the last 12 months: No (Pt's last fall was about a month ago into a ground hog hole.) Injured as a result of a fall in the last 12 months: No Hindu, social, or cultural considerations to be made aware of before starting treatment: No Objective Hand dominance: right Affected side: right Cognition/ Mental Status Oriented x4: Yes Follows commands: 2-step Attention: Therapist observation : intact (Sustained attention WFL. However, patient displaying potential deficits in self-monitoring skills, in particular RUE movement during functional mobility.) Sequencing: Therapist observation : intact Problem solving simple: Therapist observation : intact Problem solving complex: Therapist observation : intact Safety & Judgement/Insight: Therapist observation : intact Memory and Orientation: Therapist observation : intact Vision/ Perceptual Skills No visual impairments identified Subjective symptoms: Patient wears glasses for reading. Shoulder Right Shoulder Right Shoulder WFL Left Shoulder Left Shoulder WFL Elbow Right Elbow Right Elbow WFL Left Elbow Left Elbow WFL Grasping and Prehension Skill Gross Grasp Right: intact Left: intact Gross Extension Right: intact Left: intact Skilled prehensions Right: intact Left: intact Neuromotor Neuromotor Coordination: Gross Motor Coordination: Right impaired and Left impaired Fine Motor Coordination: Right impaired and Left impaired Gait/ Balance Weight Bearing Status Assistive device used: none Additional observational gait details: TU seconds w/ limited right arm swing . TUG(Manual): 7 seconds while carrying a cup of water in her right hand, and 7 when using left hand. TUG(Cognitive): 7 seconds while carrying a cup of water in her right hand and counting backwards by 3's. 9 Hole Peg Test - 04/06/21 1147 9 Hole Peg Test Right hand peg test (sec) 33 47% IMP Left hand peg test (sec) 31 29% IMP Box and Blocks - 04/06/21 1143 OTHER Dominant hand Right Right hand box and blocks description 47 completions 31% IMP Left hand box and blocks description 52 completions 24% IMP Treatments: Occupational Therapy Exercise Log - 04/06/212036 OTHER Precautions/Contraindications OT visit 1 Notes Total tx time: 11:06-12:05. Initial evaluation completed with POC established. Additional Exercises Add more exercises? Yes Self Care (72244) Intervention Initial education on framework of movement behavior strategies for PT symptom management, available community resources, potential sessions set up for LSVT BIG, and additional online resources to support new learning. Parameters Printed information provided to help with accuracy of carryover. Patient voiced understanding/retention of information provided during the session. OT Treatment Times Self Care Total Time 15 Direct Treatment Time 15 Total Treatment Time 59 Treatment Plan: Frequency of Visits: 2 4 times per week to meet standardized frequency of LSVT BIG program. Duration: 6 weeks Interventions: Therapeutic Exercise, Neuromuscular Re-Education, Therapeutic/ Functional Activities and Self Care Rehab Potential: good Occupational Therapy Neuro goals: 1. Actively participate in training focused on implementing movement strategies to help increase amplitude and coordinated UB/LB movement to address body awareness, self-monitoring skills, and divided attention and will and demonstrate understanding by implementing these strategies to one daily task and one ther. ex. w/out vc's to generalize information. 2. Actively utilize his hand in a Max active assistive role during FM ther. act. and components of ADL, such as managing grooming containers and food packages, to help improve coordination needed to complete ADL's w/ improve efficiency, and will display improvement by at least completing the Box and Blocks Test w/ no more than a 19% deficit. 3. Participate in functional mobility related reaching/carrying tasks w/ Mod I for at least 10 min. and large amplitude movement and proper postural alignment w/out vc's to help improve dynamic balance for ADL's performance. Patient Education provided: Discussed Plan of care frequency and duration, treatment plan, importance of attendance for recovery, team concept, and diagnosis/pathophysiology/prognosi s. Pt is in agreement with plan, and all questions at this time were answered Occupational Profile/Client History Low Complexity - Occupational Profile and medical history includes a brief history of medical and/or therapy records Patient Assessment: Number of performance deficits causing inability to complete activities due to the lack of skills relating to physical, cognitive, or psychosocial skills) Performance deficits include: Balance impairments, Mobility impairments, Fine motor coordination impairments and Gross motor coordination impairments 3-5 (Moderate) performance deficits identified which result in limitations and/or participation restriction. Clinical Decision Making: Moderate Complexity - moderate complexity of clinical decision making including occupational profile/data from detailed assessments; consideration of several treatment options; may present with comorbidities that affect occupation performance; minimal or moderate modification of tasks or assistance is required.. Patients comorbidities affecting occupational performance include: anxiety Clinical Impression: Uma Mcgrath presents to [facility] on 04/06/2021 for an occupational therapy assessment with c/o right sided tremor. Upon assessment Patient also displayed deficits in right arm swing during functional mobility, step amplitude, deficits in fine/gross motor coordination, and self-monitoring skills.. These performance deficits impact Uma Mcgrath's ability to participate in the following performance in areas of ADLs/IADLs, functional mobility, carrying and reaching. Potential barriers to rehabilitation include chronicity or severity of the current condition. The patient would benefit from skilled Occupational Therapy services focused on the above listed performance deficits in order to achieve the goals as noted. Plan of care to be revised as needed based on response to therapeutic intervention. Thank you for allowing me to participate in this patient's care. Please contact me with any questions at the above number. Van Dubon OTR/L STATE LICENSE, [id number] documented in this encounter [facility] 04-06-2021 History of Present illness Narrative OUTPATIENT REHABILITATION Physical Therapy Evaluation Today's Date 04/06/2021 Patient Name: Uma Mcgrath Date of : 1950 Case Name: Parkinson's Disease- PT Functional Diagnosis: 1. Parkinson's disease (HCC) Clinical Information: Subjective Referring Diagnosis: Parkinson's Disease Follow-up with physician: 04/08/2021 Patient accompanied by: unaccompanied History of Present Illness Per medical records dated: 01/05/2021 Contemporary Medical History: Assessment/Plan: Patient started developing intermittent right upper extremity tremors noticeable when she ambulates. Her exam also reviewed right upper extremity rigidity bradykinesia suggestive of early idiopathic Parkinson's disease. There is no functional limitation at this time. Her TSH done October 2020 was normal. She is not keen on doing an MRI or starting any medication at this time. She is active and exercise regularly. She denies any changes in her gait. Suggestion: We will check at least a noncontrast CT of the head looking for any tremor, mass lesion, or hydrocephalus causing secondary parkinsonism. We discussed about continuing regular exercises and balance exercises. We may consider later sending her for big and loud program or delayed the disease program. We discussed different available medication and procedures for treatment of Parkinson's disease. Continue to monitor any worsening symptoms, lightheadedness, cognitive changes, balance changes, constipation, or functional limitations. We will schedule her for follow-up visit with our movement disorder clinic. Diagnostic impression, plans, and suggestions were explained and discussed. Records from the referring physician were reviewed. Clinical imaging study/ labs/medical tests were ordered/reviewed. Indications, risk, complications, side effects and alternatives of medications/therapeutics were explained and discussed. Please monitor closely for any untoward side effects or complications of medications. Questions and concerns were addressed. Please call or contact us for any problems. Subjective History: Patient arrives to physical therapy after recent diagnosis of Parkinson's Disease. Patient is very active and noticed a tremor in the right hand with increased activity, including walking. Patient denies any other issues or falls at this time. Patient wishes to learn appropriate strategies and treatments for preventing worsening of symptoms and improve QOL. Previous Treatment for this condition: No Hand dominance: right Overall rating of health: Good Pain Scale: Pain location: knee, lumbar spine and shoulder Average Pain: 0/10 Pain at highest: 2/10 Aggravating factors: Activity Easing factors: Resting 24 Hour Symptom Behavior Morning Pain: gradual Afternoon Pain: unchanged End of day pain: unchanged Nighttime pain: unchanged Personal Goals: To help to keep PD from progressing to limit function Functional Mobility Status Functional Limitations: limited mobility Recent change in functional mobility status: No Current Mobility Status: Home: independent Community: independent Bed Transfer: independent Toilet Transfer: independent Shower/Tub: independent Car Transfer: independent Current Activity Level: very active Premorbid Activity Level: very active Home medical equipment owned: No Social Support: Patient lives alone. Hindu, social, or cultural considerations to be made aware of before starting treatment: No Home Environment: Current Home Environment: unchanged Setup: multi-level house (Separate garage and walks uphill in gravel to the garage) Entry: steps with no railing (1 JARED) First floor: laundry and half bath Second floor: bedroom and full bath Animals in the home: no Anticipated Home Environment at Discharge: unchanged Do you feel safe at home? 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 no Prior Avocational Participation (community involvement, hobbies, volunteer): Outdoors, walking, exercising, Stationary bike Sleep Assessment Average sleep duration (hrs): 6 Preferred sleep position: on side and supine Sleep disturbance: Sleep Disturbance Red Flags: None Comments: Barriers to Care: None Fall risk screening Fallen 2 or more times in the last 12 months: No Injured as a result of a fall in the last 12 months: No Hindu, social, or cultural considerations to be made aware of before starting treatment: No Objective General Observations: Functional Objective Testin-Second [id number]: 16 repetitions with Mild UE assistance Timed Up and Go: 6 sec Harrison Balance Test: 50/56 6 MWT: NT secondary to limited time, to be re-assessed in future Patient presents: ambulating without device Hand dominance: right Affected side: right Posture Forward head, Thoracic kyphosis and Decreased lumbar lordosis ROM Right LE grossly: WFL Left LE grossly: WFL Trunk grossly: WFL Hip Right Hip Muscle Strength: Flexion: 4+ Abduction: 5 Adduction: 5 Left Hip Muscle Strength: Flexion: 5 Abduction: 5 Adduction: 5 Knee Right Knee Muscle Strength: Flexion: 4+ Extension: 4+ Left Knee Muscle Strength Flexion: 5 Extension: 5 Ankle/Foot Right Ankle/Foot Muscle Strength: DorsiFlexion: 5 Plantar Flexion: 5 Left Ankle/Foot Muscle Strength: DorsiFlexion: 5 Plantar Flexion: 5 Neuromotor: Selective movement: Right UE: Grossly WFL Left UE: Grossly WFL Tone: WNL PF Clonus: no Number of beats: Neuromotor Coordination: WFL Neuromotor Tests Neuromotor Sensation: intact Locomotion/Gait Locomotion/Gait: Independent with no device or impairment, Decreased gait speed, Postural dysfunction as noted above, Narrow base of support and Decreased amplitude of movement Treatments: Physical Therapy Exercise Log - 04/06/21 1003 OTHER Precautions/Contraindications Parkinson's Disease-LSVT Notes Visit 1; 10:15-11:00 Therapeutic Exercise (85196) Intervention Patient education on LSVT program and protocol, education on PD specific Dx and prognosis. Educated on importance of physical activity and a HEP routine that is specific for PD. Also educated on formulation of the POC based on condition specific prognosis. HEP and attendance compliance and importance for improvement of symptoms x10 min PT Treatment Times Therex Total Time 10 Direct Treatment Time 10 Total Treatment Time 45 35 minute evaluation Treatment Plan: Frequency of Visits: twice per week Duration: 8 weeks Interventions: Therapeutic Exercise, Neuromuscular Re-Education, Manual Therapy, Therapeutic/ Functional Activities, Gait Training, Work Conditioning, Self Care, Hot/Cold Pack and Electrical Stimulation Rehab Potential: good Physical Therapy Neuro Goals: The patient will safely, correctly, and independently demonstrate the ability to perform a progressive HEP to assist with the rehabilitation program in 2 weeks. The patient will increase LE strength by one-third manual muscle grade in deficit areas to improve elevating from multiple surfaces and ambulation without compensations in 4 weeks. Patient will be able to perform 30-second [id number] test with >20 repetitions to demonstrate improved functional LE strength in 4 weeks. Patient will achieve unlimited community ambulator status: with ability to independently navigate firm terrain, uneven terrain, thresholds and curbs using LRAD with independence and LRAD in 4 weeks. Patient will ascend/descend 15 steps with normal reciprocal pattern and outdoor curb with no AD in 4 weeks. Patient will demonstrate appropriate & adequate strategies to maintain & regain balance while performing functional activities in standing as demonstrated by clinically significant change in Harrison Balance score or Harrison score of 54/56 in 4 weeks. Pt will ambulate demonstrating ability to scan environment during gait over even and uneven terrain with maintenance of adequate speed, and no path deviations or LOB in 4 weeks. Patient will demonstrate appropriate amplitude and timing of stepping reactions to recover from internal or external perturbations to prevent fall in 4 weeks. Patient will be able to perform and achieve distance on 6 minute walk test to >1500 feet to show improved functional endurance and promote return to community ambulation in 4 weeks. Patient Education provided: Discussed Plan of care frequency and duration, treatment plan, importance of attendance for recovery, team concept, and diagnosis/pathophysiology/prognosi s. Pt is in agreement with plan, and all questions at this time were answered. CPT Code 37891 Low 91134 Moderate 55429 High History 0 1-2 3+ Comorbidities: chronic pain, OA and prior surgical history, Personal factors: age, chronicity or severity of the current condition, sleep dysfunction, stress, time limitations and transportation barriers Examination of body systems (elements of body structures & functions, activity limitations, and/or participation restrictions) 1-2 elements 3+ elements 4+ elements See below clinical impression Clinical Presentation Stable Evolving Unstable As evidenced by degenerative neurological condition Clinical Impression: . Uma Mcgrath presents to [facility] outpatient neurological rehab services s/p recent diagnosis of Parkinson's Disease. Patient is very active and noticed a tremor in the right hand with increased activity, including walking. Patient denies any other issues or falls at this time. Patient wishes to learn appropriate strategies and treatments for preventing worsening of symptoms and improve QOL. Upon assessment, patient demonstrates the following impairments: Right UE tremor which worsens with activity, balance deficits. 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 Potential barriers to rehab include: Compliance with HEP, rigorous LSVT protocol, Attendance. The patient would benefit from skilled PT services focused on the above listed impairments and limitations in order to safely progress patient to desired level of function. Plan of care to be revised as needed based on response to therapeutic intervention. Thank you for allowing me to participate in this patient's care. Please contact me with any questions at the above number. Leandro James PT STATE LICENSE, [id number] documented in this encounter [facility] 04-06-2021 History of Present illness Narrative OUTPATIENT REHABILITATION Speech Therapy Evaluation Today's Date 04/06/2021 Patient Name: Uma Mcgrath Date of : 1950 Case Name: Speech therapy Functional Diagnosis: 1. Parkinson's disease (HCC) 2. Dysphonia Time: 9:39-10:15 Clinical Information: Subjective All subjective data collected as part of a multidisciplinary team: Yes Referring Diagnosis: Dysphonia, Parkinson's Disease Patient accompanied by: daughter History of Present Illness Date of Onset: recent dx: 1 month ago according to chart. Contemporary Medical History: 70 y/o Uma was referred to outpatient Speech therapy s/p new dx of Parkinson's Disease. Pt presents with minimal voice deficits. Relevant medical hx includes: GERD. Current diet is regular and thin liquids. No reports of s/s of aspiration or changes in swallow function at this time. Previous Treatment for this condition: No Pain Scale: Pain location: No pain reported Personal Goals: To maintain voice function. Social Support: Hindu, social, or cultural considerations to be made aware of before starting treatment: No Home Environment: Current Home Environment: unchanged Red Flags: None Comments: Barriers to Care: None Fall risk screening Fallen 2 or more times in the last 12 months: No Injured as a result of a fall in the last 12 months: No Hindu, social, or cultural considerations to be made aware of before starting treatment: No Evaluation Acoustic Measures: Sound pressure level (SPL, acoustic correlate of vocal loudness) measured with the sound level meter at a distance of 50cm from the patient's mouth during three voice and speech tasks revealed the following average vocal SPL numbers: Baseline: Stimulability Testing VOWELS: 85-95 dB 92-96 dB READIN-85 DB (paragraph) 82-85 dB (phrases) CONVERSATION: 71-80 dB N/A Patient presents with functional voice during conversational tasks. Family reports minimal reduction in volume in voice, but not effecting patient's ability to communicate at this time. Patient expressing desires to initiate program due to changes in voice associated with Parkinson's Disease. Paper Wrapping Machine Operator provided education regarding program. Signs and Symptoms of Abuse/Neglect: No Actions Taken: No Suicide Risk: Does the patient feel like ending their life today?No Actions Taken: No Treatment Plan: Frequency of Visits: 3 times per week Duration: 4-6 weeks weeks Interventions: complex speech treatment and Behavioral and Qualitative analysis of voice and resonance Rehab Potential: good Goals: Speech Therapy: Voice: LT. The patient will produce spontaneous conversation while using intent independently in order to be heard and understood by familiar and unfamiliar listeners by 4-6 weeks from start of the program. ST. The patient will coordinate vocal and articulatory subsystems in hierarchial speech tasks by producing sounds with intention with no cues. 2. The patient will read phrases, sentences, and paragraphs with intention, yielding improved vocal quality, loudness, articulatory precision, and endurance while maintaining a minimum of 75 dB with no cues. 3. The patient will generalize intentional speech to cognitive-linguistic exercises and conversational speech with improve vocal quality, loudness, articulatory precision, and endurance while maintaining a minimum of 75 dB with no cues. 4. The patient will be educated to and complete a home exercise program independently. Stimulability Testing: Stimulability testing was completed to determine pt's stimulability for the SPEAK OUT! program. With stimulation to use intent , pt increased his vocal loudness during all tasks. Pt presented with minimal hypokinetic dysarthria characterized by minimal reduced loudness and intermittent vocal hoarseness quality which contributes to a change in voice projection per family report. Based on stimulability testing, pt appears to be an excellent candidate for the voice therapy. Patient reported no changes in swallowing function at this time. It is recommended that pt receive the SPEAK OUT! program which is comprised of 12 intensive sessions (3 days a week for 4 weeks; 45 minute sessions) of voice treatment. Prognosis for improvement is excellent based on his motivation, stimulability, and family support. Education provided to pt re: recommendations for SPEAK OUT!. Pt expressed understanding/agreement. Written information provided. The documented impairments result in the following functional limitations: communication skills. Potential barriers to rehab include: none. The patient would benefit from skilled ST services focused on the above listed impairments and limitations in order to achieve the goals as noted above. Plan of care to be revised as needed based on response to therapeutic intervention. Thank you for allowing me to participate in this patient's care. Please contact me with any questions at the above number. TRACY Argueta STATE LICENSE, [id number] documented in this encounter [facility] 04-06-2021 History of Present illness Narrative OUTPATIENT REHABILITATION Speech Therapy Evaluation Today's Date 04/06/2021 Patient Name: Uma Mcgrath Date of : 1950 Case Name: Speech therapy Functional Diagnosis: 1. Parkinson's disease (HCC) 2. Dysphonia Time: 9:39-10:15 Clinical Information: Subjective All subjective data collected as part of a multidisciplinary team: Yes Referring Diagnosis: Dysphonia, Parkinson's Disease Patient accompanied by: daughter History of Present Illness Date of Onset: recent dx: 1 month ago according to chart. Contemporary Medical History: 70 y/o Uma was referred to outpatient Speech therapy s/p new dx of Parkinson's Disease. Pt presents with minimal voice deficits. Relevant medical hx includes: GERD. Current diet is regular and thin liquids. No reports of s/s of aspiration or changes in swallow function at this time. Previous Treatment for this condition: No Pain Scale: Pain location: No pain reported Personal Goals: To maintain voice function. Social Support: Hindu, social, or cultural considerations to be made aware of before starting treatment: No Home Environment: Current Home Environment: unchanged Red Flags: None Comments: Barriers to Care: None Fall risk screening Fallen 2 or more times in the last 12 months: No Injured as a result of a fall in the last 12 months: No Hindu, social, or cultural considerations to be made aware of before starting treatment: No Evaluation Acoustic Measures: Sound pressure level (SPL, acoustic correlate of vocal loudness) measured with the sound level meter at a distance of 50cm from the patient's mouth during three voice and speech tasks revealed the following average vocal SPL numbers: Baseline: Stimulability Testing VOWELS: 85-95 dB 92-96 dB READIN-85 DB (paragraph) 82-85 dB (phrases) CONVERSATION: 71-80 dB N/A Patient presents with functional voice during conversational tasks. Family reports minimal reduction in volume in voice, but not effecting patient's ability to communicate at this time. Patient expressing desires to initiate program due to changes in voice associated with Parkinson's Disease. Paper Wrapping Machine Operator provided education regarding program. Signs and Symptoms of Abuse/Neglect: No Actions Taken: No Suicide Risk: Does the patient feel like ending their life today?No Actions Taken: No Treatment Plan: Frequency of Visits: 3 times per week Duration: 4-6 weeks weeks Interventions: complex speech treatment and Behavioral and Qualitative analysis of voice and resonance Rehab Potential: good Goals: Speech Therapy: Voice: LT. The patient will produce spontaneous conversation while using intent independently in order to be heard and understood by familiar and unfamiliar listeners by 4-6 weeks from start of the program. ST. The patient will coordinate vocal and articulatory subsystems in hierarchial speech tasks by producing sounds with intention with no cues. 2. The patient will read phrases, sentences, and paragraphs with intention, yielding improved vocal quality, loudness, articulatory precision, and endurance while maintaining a minimum of 80 dB with no cues. 3. The patient will generalize intentional speech to cognitive-linguistic exercises and conversational speech with improve vocal quality, loudness, articulatory precision, and endurance while maintaining a minimum of 80 dB with no cues. 4. The patient will be educated to and complete a home exercise program independently. Stimulability Testing: Stimulability testing was completed to determine pt's stimulability for the SPEAK OUT! program. With stimulation to use intent , pt increased his vocal loudness during all tasks. Pt presented with minimal dysphonia characterized by minimal reduced loudness and intermittent vocal hoarseness quality which contributes to a change in voice projection per family report. Based on stimulability testing, pt appears to be an excellent candidate for the voice therapy. Patient reported no changes in swallowing function at this time. It is recommended that pt receive the SPEAK OUT! program which is comprised of 12 intensive sessions (3 days a week for 4 weeks; 45 minute sessions) of voice treatment. Prognosis for improvement is excellent based on his motivation, stimulability, and family support. Education provided to pt re: recommendations for SPEAK OUT!. Pt expressed understanding/agreement. Written information provided. The documented impairments result in the following functional limitations: communication skills. Potential barriers to rehab include: none. The patient would benefit from skilled ST services focused on the above listed impairments and limitations in order to achieve the goals as noted above. Plan of care to be revised as needed based on response to therapeutic intervention. Thank you for allowing me to participate in this patient's care. Please contact me with any questions at the above number. TRACY Argueta STATE LICENSE, [id number] documented in this encounter [facility] 03-08-2021 History of Present illness Narrative Images from the original note were not included. [facility] [address] [place] [address] Name: Uma Mcgrath : 1950 Date: 03/08/21 Hearing Aid Contact Note: Uma Mcgrath returned today for her hearing aid fitting. Ms. Mcgrath was fit with one Phonak Audeo P70-R at the left ear. Fit was excellent. Her prescription target gain was set at 90% at her request. All aspects of care and usage were reviewed. All demonstrations were returned correctly. The proper use and care of lithium ion batteries were discussed. She declined connecting her phone to her hearing aids. Ms. Mcgrath is an experienced hearing aid user and would like to follow-up as needed. The above was explained to the patient and they expressed understanding and agreement. Electronically signed by: Porfirio Pavon, [facility] 03/08/21 9:33 AM documented in this encounter [facility] 03-04-2021 Note HNO ID: [id number] Author: Jules Groves MD Service: ? Author Type: Physician Type: Progress Notes Filed: 03/08/2021 10:09 PM Note Text: [facility] - NEW PATIENT EVALUATION I had the pleasure of evaluating Ms. cMgrath to our clinic today. As you know she is a 70 year old right-handed female who is self referred for evaluation of right sided tremor and diagnosis of Parkinson's disease since 2019. She is seen with a daughter. Subjective HISTORY OF PRESENT ILLNESS: Initial HPI She has had tremor starting in her right hand gut some days she doesn't have any tremor. She is able to do what she wants to do. Sometimes she has trouble doing things that has many steps and she is slower. She doesn't feel limited. She walks every day and does extensive yard work. She is most concerned by the tremor. She can usually stop it when it starts. Its most noticeable with walking. She wants to do as much as possible to keep it at bay. She has read a lot. She has questions about acupuncture. She has one daughter who is a colloid mill operator and has her on a detox smoothie. She has not been tried on Parkinson's disease medications. Parkinson's Medications Schedule - as of the start of the visit: None In addition, the following Parkinson-associated features were evaluated: Daily activities Difficulties with eatin (none) Difficulties in dressin (none) Difficulties with hygiene activities: 0 (none) Difficulties with handwritin (none) Difficulties with doing hobbies and other activities: 0 (none) Difficulties turning in bed: 0 (none) Difficulties getting out of bed, car or chair: 0 (none) Tremors/Gait/Balance Shaking or tremors: Yes (slight) Walking and balance problems: 0 (none) Number of falls in the Last Month: 0 Gait freezin (none) Autonomic/Pain Lightheadeness on standin (none) Urinary problems: 0 (none) Constipation problems: 0 (none) Pain and other sensations: Yes (mild) Speech/Swallowing Speech problems: Yes (slight) Droolin (none) Chewing and swallowing problems: 0 (none) Sleep/Fatigue Problems sleeping at night: 0 (none) Daytime sleepiness: 0 (none) Fatigue: 0 (none) REM sleep behavior disorder: no Restless Legs Syndrome: no Mood/Behavior/Cognition Cognitive impairment: yes Has had some issues for a while. No Data Recorded Hallucinations and delusions: no Apathy: no Depression: PQH-9 = 3 usually representing no significant (0-4) depression. Anxiety: STEVEN-7 = 2 usually representing no significant (0-4) anxiety. She has some every once in a while. She lives alone and her 10 years ago. Finally, the following table shows the patient's overall global physical and mental health using the PROMIS scale relative to the previous visit: PROMIS-10 Office Visit from 03/04/2021 in Neurology Global Physical Health T Score 57.7 Global Mental Health T Score 48.3 0-10 Standard Pain Scale 5 *PROMIS-10 scoring scale: mean = 50, over 50 is above average, under 50 is below average ALLERGIES Allergen Reactions - Percocet [Oxycodone* GI Upset Current Outpatient Medications Medication Sig - potassium citrate ER (UROCIT-K) 10 mEq (1,080 mg) Take 1 mEq by mouth once daily. Can take up to 2 tabs daily - simvastatin (ZOCOR) 20 mg tablet Take 20 mg by mouth daily at bedtime. - ascorbic acid, vitamin C, (VITAMIN C) 500 mg tablet Take 500 mg by mouth once daily. - cholecalciferol (VITAMIN D3) 5,000 unit tab Take 5,000 Units by mouth once daily. - OINRQLR-ZAUZRETPX-LIEJ ORAL Take 1 tablet by mouth once daily. - multivitamins (-TRACY) liqd Take 5 mL by mouth once daily. No current facility-administered medications for this visit. Past Medical and Surgical History: has a past medical history of ASHD (arteriosclerotic heart disease) (12/25/2017), Calculus of kidney (05/08/2018), Chronic GERD (10/03/2018), Hypercholesteremia (12/25/2017), Osteoarthritis of lumbar spine (12/11/2020), and Parkinson's disease (HCC) (02/24/2021). has a past surgical history that includes lithotripsy / 1 side. Social History Tobacco Use - Smoking status: Never Smoker - Smokeless tobacco: Never Used Substance Use Topics - Alcohol use: Yes Comment: rarely - Drug use: Never Family History: family history includes Diabetes in her mother; Heart in her father; Stroke in her mother. In addition, the patient denies any family history of PD/parkinsonism, tremor, other involuntary movement disorders. Objective Vital Signs: Ht 165.1 cm (5' 5 ) Wt 67.7 kg (149 lb 3.2 oz) SpO2 98% BMI 24.83 kg/m? General Physical Examination: General: Awake, alert, interactive, no acute distress, good nutritional status, normal development, well-kept General Neurological Examination: Neurological Exam Mental Status Awake, alert and oriented to person, place and time. Recent and remote memory are intact. Speech is sintia (more content not included)... [facility] Diagnosis Parkinson's disease (HCC)- Primary Paralysis agitans [facility]* Diagnosis Parkinson's disease (HCC) Paralysis agitans Dysphonia [facility]* Diagnosis Parkinson's disease (HCC) Paralysis agitans [facility]* Diagnosis Parkinson's disease (HCC) Paralysis agitans Dysphonia [facility]* Diagnosis Parkinson's disease (HCC)- Primary Paralysis agitans Nausea Nausea alone [facility]* Diagnosis Parkinson's disease (HCC) Paralysis agitans [facility]* Diagnosis Parkinson's disease (HCC) Paralysis agitans [facility]* Diagnosis Parkinson's disease (HCC) Paralysis agitans [facility]* Diagnosis Age-related osteoporosis without current pathological fracture Vitamin D deficiency [facility]* Diagnosis Parkinson's disease (HCC) Paralysis agitans [facility]* Diagnosis Parkinson's disease (HCC) Paralysis agitans [facility]* Diagnosis Age-related osteoporosis without current pathological fracture Vitamin D deficiency [facility]* Diagnosis Parkinson's disease (HCC) Paralysis agitans [facility]* Diagnosis Parkinson's disease (HCC) Paralysis agitans [facility]* Diagnosis Age-related osteoporosis without current pathological fracture Vitamin D deficiency [facility]* Diagnosis Parkinson's disease (HCC) Paralysis agitans [facility]* Diagnosis Age-related osteoporosis without current pathological fracture Vitamin D deficiency [facility]* Diagnosis Parkinson's disease (HCC) Paralysis agitans [facility]* Diagnosis Age-related osteoporosis without current pathological fracture Vitamin D deficiency [facility]* Diagnosis Parkinson's disease (HCC) Paralysis agitans [facility]* Diagnosis Dysphonia Parkinson's disease (HCC) Paralysis agitans [facility]* Diagnosis Dysphonia Parkinson's disease (HCC) Paralysis agitans [facility]* Diagnosis Dysphonia Parkinson's disease (HCC) Paralysis agitans [facility]* Diagnosis Dysphonia Parkinson's disease (HCC) Paralysis agitans [facility]* Diagnosis Dysphonia Parkinson's disease (HCC) Paralysis agitans [facility]* Diagnosis Dysphonia Parkinson's disease (HCC) Paralysis agitans [facility]* Diagnosis Dysphonia Parkinson's disease (HCC) Paralysis agitans [facility]* Diagnosis Dysphonia Parkinson's disease (HCC) Paralysis agitans [facility]* Diagnosis Dysphonia Parkinson's disease (HCC) Paralysis agitans [facility]* Diagnosis Dysphonia Parkinson's disease (HCC) Paralysis agitans [facility]* Diagnosis Screening for osteoporosis Special screening for osteoporosis Age-related osteoporosis without current pathological fracture [facility]* Diagnosis Screening for osteoporosis Special screening for osteoporosis Age-related osteoporosis without current pathological fracture Age-related osteoporosis without current pathological fracture- Primary Vitamin D deficiency Osteoarthritis of lumbar spine, unspecified spinal osteoarthritis complication status Osteoarthritis of thoracic spine, unspecified spinal osteoarthritis complication status [facility]* Diagnosis Age-related osteoporosis without current pathological fracture- Primary Vitamin D deficiency Osteoarthritis of lumbar spine, unspecified spinal osteoarthritis complication status Osteoarthritis of thoracic spine, unspecified spinal osteoarthritis complication status Personal history of drug therapy Encounter for long-term current use of high risk medication [facility]* Diagnosis Age-related osteoporosis without current pathological fracture- Primary Vitamin D deficiency Osteoarthritis of lumbar spine, unspecified spinal osteoarthritis complication status Osteoarthritis of thoracic spine, unspecified spinal osteoarthritis complication status Personal history of drug therapy Encounter for long-term current use of high risk medication [facility]* Diagnosis Age-related osteoporosis without current pathological fracture- Primary [facility]* Diagnosis Sensorineural hearing loss, bilateral- Primary [facility]* Diagnosis Age-related osteoporosis without current pathological fracture- Primary [facility]* Diagnosis Encounter for hearing examination, unspecified whether abnormal findings- Primary [facility]* Diagnosis Sensorineural hearing loss, bilateral- Primary Encounter for hearing examination, unspecified whether abnormal findings [facility]* Diagnosis Senile osteoporosis- Primary [facility]* Diagnosis Parkinson's disease (HCC)- Primary Paralysis agitans Anxiety Anxiety state, unspecified [facility]* Diagnosis Age-related osteoporosis without current pathological fracture- Primary Vitamin D deficiency Osteoarthritis of lumbar spine, unspecified spinal osteoarthritis complication status Osteoarthritis of thoracic spine, unspecified spinal osteoarthritis complication status Personal history of drug therapy Encounter for long-term current use of high risk medication [facility]* Diagnosis Age-related osteoporosis without current pathological fracture- Primary [facility]* Diagnosis Age-related osteoporosis without current pathological fracture- Primary [facility]* Diagnosis Primary osteoarthritis of left knee- Primary [facility]* Diagnosis Sensorineural hearing loss, bilateral- Primary [facility]* Diagnosis Age-related osteoporosis without current pathological fracture- Primary [facility]* Diagnosis Age-related osteoporosis without current pathological fracture- Primary [facility]* Diagnosis Anxiety- Primary Anxiety state, unspecified Parkinson's disease (HCC) Paralysis agitans [facility]* Diagnosis Instability of left knee joint- Primary Primary osteoarthritis of left knee [facility]* Diagnosis Senile osteoporosis- Primary [facility]* Diagnosis Senile osteoporosis- Primary [facility]* Diagnosis Parkinson disease (HCC)- Primary Paralysis agitans Age-related osteoporosis without current pathological fracture- Primary Vitamin D deficiency Osteoarthritis of lumbar spine, unspecified spinal osteoarthritis complication status Osteoarthritis of thoracic spine, unspecified spinal osteoarthritis complication status Personal history of drug therapy Encounter for long-term current use of high risk medication [facility] Diagnosis Generalized anxiety disorder- Primary Parkinson's disease Paralysis agitans Hypercholesteremia Pure hypercholesterolemia Vitamin D deficiency Unspecified vitamin D deficiency [facility] Diagnosis Screening for osteoporosis [Z13.820 (ICD-10-CM)]- Primary Special screening for osteoporosis Age-related osteoporosis without current pathological fracture [M81.0 (ICD-10-CM)] [facility] Diagnosis Parkinson disease (HCC) Paralysis agitans [facility] Diagnosis Parkinson's disease (HCC) Paralysis agitans [facility] Diagnosis Parkinson's disease (HCC)- Primary Paralysis agitans [facility] Diagnosis Parkinson's disease (HCC)- Primary Paralysis agitans [facility] Diagnosis Parkinson's disease (HCC)- Primary Paralysis agitans [facility] Diagnosis Parkinson's disease (HCC)- Primary Paralysis agitans [facility] Diagnosis Parkinson's disease (HCC)- Primary Paralysis agitans [facility] Diagnosis Parkinson's disease (HCC)- Primary Paralysis agitans [facility] Diagnosis Sensorineural hearing loss, bilateral- Primary [facility] Diagnosis Parkinson's disease (HCC)- Primary Paralysis agitans Anxiety Anxiety state, unspecified [facility] Diagnosis UTI symptoms- Primary Dysuria [facility] Diagnosis Age-related osteoporosis without current pathological fracture [M81.0 (ICD-10-CM)]- Primary Vitamin D deficiency Osteoarthritis of lumbar spine, unspecified spinal osteoarthritis complication status Osteoarthritis of thoracic spine, unspecified spinal osteoarthritis complication status Personal history of drug therapy Encounter for long-term current use of high risk medication [facility] Diagnosis Parkinson's disease without dyskinesia or fluctuating manifestations- Primary Anxiety Anxiety state, unspecified documented [facility] Diagnosis Olecranon bursitis of left e lbow - Primary Diagnosis Chest pain due to GERD - Elizabeth lani Shortness of breath Diagnosis Heartburn- Primary Chest pain, non-cardiac Other chest pain Gaseous regurgitation Flatulence, eructation, and gas pain Belching Chronic cough Cough Diagnosis Hiatal hernia with GERD without esophagitis- Primary Diagnosis Age-related osteoporosis without current pathological fracture Vitamin D deficiency Diagnosis Screening for osteoporosis Special screening for osteoporosis Age-related osteoporosis without current pathological fracture Diagnosis Sensorineural hearing loss, bilateral Sudden hearing loss, unspecified laterality Diagnosis Sensorineural hearing loss, bilateral Diagnosis Tremor- Primary Abnormal involuntary movements Diagnosis Age-related osteoporosis without current pathological fracture- Primary Vitamin D deficiency Scoliosis (and kyphoscoliosis), idiopathic Osteoarthritis of lumbar spine, unspecified spinal osteoarthritis complication status Osteoarthritis of thoracic spine, unspecified spinal osteoarthritis complication status Diagnosis Parkinson's disease (HCC)- Primary Paralysis agitans Tremor Abnormal involuntary movements Diagnosis Tremor Abnormal involuntary movements Summary Purpose Family History No Family History Records FoundUnknown Family Member Name Dates Details No pertinent family history: Mother(V49.89, Z78.9) Status:Active Advance Directives No Advanced Directives Records FoundDocuments on File Type Date Recorded Patient Patient Relations Coordinator Expl anation Advance Directives and Living Will Documents on File Type Date Recorded Patient Patient Relations Coordinator Expl anation Advance Directives and Living Will Documents on File Type Date Recorded Patient Patient Relations Coordinator Expl anation Advance Directives and Livin g Will 01/14/2021 11:02 AM Documents on File Type Date Recorded Patient Patient Relations Coordinator Expl anation Advance Directives and Livin g Will 01/14/2021 11:02 AM Documents on File Type Date Recorded Patient Patient Relations Coordinator Expl anation Advance Directives and Livin g Will 04/06/2021 9:25 AM not in hx Documents on File Type Date Recorded Patient Patient Relations Coordinator Expl anation Advance Directives and Livin g Will 04/06/2021 9:25 AM not in hx Instructions * Patient Instructions - SHIRLEY BECKETT - 08/31/2018 9:35 AM EST Formatting of this note may be different from the original. Assessment and Plan ICD-10-CM 1. Chest pain due to GERD R07.9 pantoprazole (PROTONIX) [address] tablet K21.9 ranitidine (ZANTAC) 150 MG Tab tablet 2. Shortness of breath R06.02 Per her description, I believe her symptoms are all related to reflux/GERD. I will have her begin new medications and see how she feels. If she does not feel better in one week she will call the office and I will consider running her john treadmill. I have recommended elevating the head of the bed at least 4 inches. Avoid eating 2 hours prior to bedtime. Avoid triggers such as spicy or acidic foods. Begin Protonix 40 mg every morning and Zantac 150 mg every evening. Shirley Sosa [facility], was the scribe for today's note. I have performed all essential components of the history and physical exam. I have confirmed the diagnosis and developed a plan of care at this visit. I have reviewed the note following the visit and have added edits as appropriate to my evaluation and plan of care. Nel Marcano, DO in this encounter* Patient Instructions* Felipe Gavin MD - 01/05/2021 8:21 AM EDT We will schedule you for CT of the head. Continue balance exercises. Monitor for any trigger factors or precipitating factors. We will set up a follow-up visit with our movement disorder clinic. documented in this encounter History of Present Illness * Nel Marcano, DO - 08/31/2018 9:15 AM EST Formatting of this note may be different from the original. History of Present Illness Patient presents with Esophageal Reflux PT has a history of Gerd. Pt says she has been having a hard time breathing, chest feels heavy and has coughing due to reflux. Pt says she has been taking nexium since last week, which has helped some. Pt was tested for this 3 yrs ago by . Pt says that she usually gets these attacks in August and September of every yr. PT says she is watching what she is eating to help control this. Shecan exercise on the treadmill without problem. Review of Systems Constitutional: Negative for activity change, chills and fever. HENT: Negative for dental problem, ear pain, mouth sores, sinus pain and trouble swallowing. Eyes: Negative for discharge and visual disturbance. Respiratory: Positive for cough, chest tightness and shortness of breath. Negative for wheezing. Cardiovascular: Negative for chest pain, palpitations and leg swelling. Gastrointestinal: Negative for abdominal pain and nausea. Endocrine: Negative for polydipsia, polyphagia and polyuria. Genitourinary: Negative for difficulty urinating, flank pain, frequency and urgency. Musculoskeletal: Negative for arthralgias, back pain, myalgias and neck pain. Skin: Negative for color change and rash. Neurological: Negative for dizziness, syncope and light-headedness. Psychiatric/Behavioral: Negative for decreased concentration and sleep disturbance. All other systems reviewed and are negative. Vitals: Blood pressure 146/83, pulse 76, temperature 97.8 F (36.6 C), temperature source Oral, height 1.651 m (5' 5 ), weight 67.8 kg (149 lb 6.4 oz), SpO2 98 %. Physical Exam Constitutional: She is oriented to person, place, and time. She appears well- developed and well-nourished. HENT: Right Ear: External ear normal. Left Ear: External ear normal. Mouth/Throat: Oropharynx is clear and moist. Eyes: Pupils are equal, round, and reactive to light. Conjunctivae and EOM are normal. Neck: Normal range of motion. Cardiovascular: Normal rate, regular rhythm and normal heart sounds. Exam reveals no gallop and no friction rub. No murmur heard. Pulmonary/Chest: Effort normal and breath sounds normal. No respiratory distress. Abdominal: Soft. Bowel sounds are normal. She exhibits no distension. There is no tenderness. Musculoskeletal: Normal range of motion. Neurological: She is alert and oriented to person, place, and time. She has normal reflexes. Skin: Skin is warm and dry. Psychiatric: She has a normal mood and affect. Her behavior is normal. Judgment normal. Nursing note and vitals reviewed. Neurologic Exam Mental Status Oriented to person, place, and time. Cranial Nerves CN III, IV, Pupils are equal, round, and reactive to light. Extraocular motions are normal. Assessment and Plan ICD-10-CM 1. Chest pain due to GERD R07.9 pantoprazole (PROTONIX) [address] tablet K21.9 ranitidine (ZANTAC) 150 MG Tab tablet 2. Shortness of breath R06.02 Per her description, I believe her symptoms are all related to reflux/GERD. I will have her begin new medications and see how she feels. If she does not feel better in one week she will call the office and I will consider running her john treadmill. I have recommended elevating the head of the bed at least 4 inches. Avoid eating 2 hours prior to bedtime. Avoid triggers such as spicy or acidic foods. Begin Protonix 40 mg every morning and Zantac 150 mg every evening. ALEXEI Moran, was the scribe for today's note. I have performed all essential components of the history and physical exam. I have confirmed the diagnosis and developed a plan of care at this visit. I have reviewed the note following the visit and have added edits as appropriate to my evaluation and plan of care. Nel Marcano DO in this encounter* Rayray Lam MD - 10/05/2018 3:28 PM EST Formatting of this note may be different from the original. [facility] [address] ([address]) [facility] [address] [facility] [id number] Uma Mcgrath is a 68 y.o. female being seen on 10/05/18 for Chief Complaint Patient presents with Follow-up Hiatal hernia with GERD HPI: Possible reflux disease. She was initially evaluated in November 2016. At that time she underwent an EGD that revealed a Hill grade 1 hiatal hernia. Biopsies of the esophagus were negative for Lopez'sesophagus. Cruz pH testing was inconclusive because the patient was away from the recorder for toolong a period of time to collect adequate data. The pattern that was collected does appear to be consistent with reflux disease, however, insufficient data was collected to make that diagnosis definitively. High resolution esophageal manometry revealed a slightly shortened LES, normal LES resting pressure and relaxation, 0.7 cm of intra-abdominal LES length, and normal esophageal body function. Incomplete bolus clearance was seen on 10% of the supine what swallows on impedance evaluation. The patient is reporting significant increase in chest pressure, regurgitation, chronic cough, belching, and shortness of breath. The symptoms have been occurring for about the last 2-3 months. She denies heartburn. She was started on Protonix 40 mg p.o. daily and Zantac 150 mg twice daily. She has notedimprovement of her symptoms, however, the symptoms have not completely resolved. Past Medical History: Diagnosis Date Hiatal hernia Hill grade 1 Hyperlipidemia Kidney stone 10/27/2015 Past Surgical History: Procedure Laterality Date COLONOSCOPY 2011 Dr. Edwards EGD [address] Gonzalez; patient can not recall date EGD 12/01/2016 with biopsy and cruz capsule placement........Dr. Lam ESOPHAGEAL MANOMETRY 12/01/2016 KIDNEY STONE SURGERY multiple times ORTHOPEDIC SURGERY Allergies Allergen Reactions Percocet [Oxycodone-Acetaminophen] GI Intolerance Current Outpatient Prescriptions Medication Sig Dispense Refill pantoprazole (PROTONIX) 40 MG tablet Take 40 mg by mouth daily . potassium citrate (UROCIT-K) 10 mEq (1,080 mg) SR tablet Take 1 tablet by mouth daily Reasons: takes 1-2 tablets daily. ranitidine (ZANTAC) 150 MG tablet Take 150 mg by mouth as needed . simvastatin (ZOCOR) 20 MG tablet Take 20 mg by mouth nightly. No current facility-administered medications for this visit. Social History Substance Use Topics Smoking status: Never Smoker Smokeless tobacco: Never Used Alcohol use No History reviewed. No pertinent family history. REVIEW OF SYSTEMS Pertinent positives are listed in HPI, PMSH, SH, ALL, otherwise all systems reviewed below are negative. The following systems were reviewed: [x] Const (fevers, chills, wt. loss, fatigue) [x] CV (HTN, CP, LOCK, edema, DVT) [x] Resp (SOB, pleurisy, asthma, apnea) [x] GI (N, V, D, C, M, abd pain, appetite) [x] Musc (back pain, joint stiffness, gout) [x] Neuro (seizures, syncope, paralysis) [x] Psych (depression, anxiety) [x] Endo (hot/cold intol, polyuria[DM]) [x] Hem/Lymph (Anemia, LA, bleeding) [x] Allerg/Immun (seasonal, immuniz) [x] Eyes (diplopia, cataracts) [x] ENT/mouth (dysphagia, epistaxis) [x] (dysuria, hematuria) [x] Skin/Breast (moles, rash, lumps, nipple changes) Pertinent Positives: See HPI Pertinent Negatives: See HPI Physical Exam: BP (!) 154/91 Pulse 76 Temp 97.8 F (36.6 C) (Oral) Ht 5' 5 Wt 67.4 kg (148 lb 11.2 oz) SpO2 97% BMI 24.74 kg/m Body mass index is 24.74 kg/m . Constitutional: Well nourished, well developed person in no acute distress. Ambulates without difficulty. Head: Atraumatic and normocephalic. Face: Within normal limits. Eyes: Pupils equal, round, reactive to light. Sclera white. Mouth: Moist mucous membranes, normal dentation. Neck: supple, trachea midline,no masses, no incisions. Lymphatic: No cervical or inguinal lymphadenopathy. Heart: Regular rate and rhythm. Lungs: Clear to auscultation. Abdomen: Soft, non-distended, non-tender, no heptasplenomegaly, no umbilica, incisional, femoral, or inguinal hernias. Pelvis: Stable, non-tender. Skin: Warm, moist, normal skin turgor. Peripheral Vascular: Palapable carotid, radial, and femoral pulses, no peripheral edema. Neuropsych: Alert and oriented, judgement and insight intact. Normal Gait. Assessment: SNOMED CT(R) 1. Heartburn HEARTBURN 2. Chest pain, non-cardiac NON-CARDIAC CHEST PAIN 3. Gaseous regurgitation EXCESSIVE BELCHING 4. Belching BURPING 5. Chronic cough CHRONIC COUGH No orders of the defined types were placed in this encounter. Plan: EGD with Biopsy, Cruz pH study with Interpretation Rayray Lam MD in this encounter* Rayray Lam MD - 11/14/2018 11:07 AM [facility] PATIENT: Uma Mcgrath DATE / TIME: 11/14/18 11:07 AM POS: Office AGE: 68 y.o. : 1950 RACE: [1] SEX: female PCP: Nel Marcano DO REFERRAL: No ref. provider found TOS: SUBJECTIVE: The patient returns for follow-up after undergoing an EGD and repeat Cruz pH study. She has previously undergone a full heartburn treatment clinic evaluation. She was initially evaluated in November 2016. At that time she underwent an EGD that revealed a Hill grade 1 hiatal hernia. Biopsies of the eso phagus were negative for Lopez's esophagus. Cruz pH testing was inconclusive because the patientwas away from the recorder for too long a period of time to collect adequate data. The pattern thatwas collected does appear to be consistent with reflux disease, however, insufficient data was collected to make that diagnosis definitively. High resolution esophageal manometry revealed a slightly shortened LES, normal LES resting pressure and relaxation, 0.7 cm of intra-abdominal LES length, andnormal esophageal body function. Incomplete bolus clearance was seen on 10% of the supine what swallows on impedance evaluation. The patient was reporting significant increase in chest pressure, regurgitation, chronic cough, belching, and shortness of breath. The symptoms had been occurring for about the last 2-3 months. She denies heartburn. She was started on Protonix 40 mg p.o. daily and Zantac 150 mg twice daily. She has noted improvement of her symptoms. The EGD this time revealed a Hill grade 1 hiatal hernia and mild gastroduodenitis. Biopsies in the stomach were negative for H. pylori gastritis. Cruz pH testing was positive for abnormal distal esophageal acid exposure. OBJECTIVE: BP 145/87 Pulse 72 Temp 97.4 F (36.3 C) (Oral) Ht 5' 5 Wt 69.9 kg (154 lb 1.6 oz) SpO2 96% BMI 25.64 kg/m ASSESSMENT: Hiatal hernia, gastroesophageal reflux disease PLAN: I had a detailed discussion with the patient regarding her most recent testing. She does have a small Hill grade 1 hiatal hernia and reflux disease. She is currently on Protonix 40 mg p.o. daily and Zantac 150 mg twice daily. Her symptoms have significantly improved. She is going to stop the medications because she does not want to be on them long-term. She was given literature on the medical management of reflux disease. She will follow-up on an as-needed basis. in this encounter* Leidy Donald MD - 03/20/2020 8:00 AM EDT 03/20/20 Patient: Uma Stewartgfried : 1950 Dear Nel Marcano, DO, [address] [place], [place] [id number] Uma Castanoied was seen on 03/20/20. The following is my impression: 1. Age-related osteoporosis without current pathological fracture 2. Vitamin D deficiency The following are the patient's current problems not treated by me unless noted above. Patient Active Problem List Diagnosis Age-related osteoporosis without current pathological fracture Vitamin D deficiency Current Outpatient Medications Medication Sig Dispense Refill pantoprazole (PROTONIX) 40 MG tablet Take 40 mg by mouth daily . potassium citrate (UROCIT-K) 10 mEq (1,080 mg) SR tablet Take 1 tablet by mouth daily Reasons: takes 1-2 tablets daily. ranitidine (ZANTAC) 150 MG tablet Take 150 mg by mouth as needed . simvastatin (ZOCOR) 20 MG tablet Take 20 mg by mouth nightly. No current facility-administered medications for this visit. She is 69 y.o. and referred for management of Osteoporosis. HPI: She reached menopause naturally at age 40. She was not treated with HRT . She does eat dairy daily. She takes 600 mg of calcium supplement and 2000 units vitamin D daily. She has no history of a fragility fracture She has lost about an inch of height. There is no history of parental hip fracture. She does not smoke or drink alcohol to excess. She has never been on prolonged steroids. There is no history of an eating disorder. There is no history of falling or gait disturbance There is a history of recurrent kidney stones. Her last was a year and a half ago. There is no history of diabetes There is no history of breast cancer. There is no history of chronic PPI use. There is no history of chronic SSRI use. She has had major dental procedures specifically root canals and extractions She does not have any significant activity related back pain. She walks does yard work and uses some weights for exercise PMH: Hyperlipidemia nephrolithiasis FH: Negative for osteoporosis her mother is still alive at age 94 Social History: She has been for the past 10 years. She has 3 children and 2 grandchildren. 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 Physical Exam: Performed by direct observation due to social distancing BP 146/83 Ht 5' 4.75 Wt 67.3 kg (148 lb 4.8 oz) BMI 24.87 kg/m Skin: No bruising, purpura or rash. Mouth/Throat: Mucous membranes are not dry. She does not have dentures. No oral ulcers or tongue lesions. Eyes: Right conjunctiva is not injected. Left conjunctiva is not injected. Right pupil is round. Left pupil is round. Neck: No nodule mass or thyromegaly. Neurological: normal strength. No cranial nerve deficit or sensory deficit. Coordination normal. Musculoskeletal: There was no acute or chronic synovitis. There was good range of motion in the wrists elbows and shoulders. There was a normal posture in the T spine and excess lordosis in the lumbar spine. There was good internal/external rotation of the hips. The knees extended fully without crepitation or swelling. The ankles were not swollen. Studies Reviewed: Epic notes Osteoporosis Treatment to date has included: None DXA to Date: Date: 03/21 Manuf: samantha L1-L4: -1.2 L FN: -2.1 L Tot Hip -1.8 R FN -1.9 R Tot Hip -1.9 TBS 1.262 I personally interpreted the last DXA done: March 2020 in our office L1-L4 T-score: -1.2 likely somewhat overestimated due to scoliosis and osteoarthritis On VFA there was no compression fracture there was osteo-arthritis and deformity in the thoracic mid spine L Fem Neck T-score: -2.1 LTotal Hip: -1.8 R Fem Neck: -1.9 Total Hip: -1.9 These results are consistent with WHO criteria for osteopenia. Clinical risk factors for fracture: Age low bone mass FRAX: MOF 13.0 % HIP 2.9 % TBS Score : 1.262 (Trabecular Bone Score) this is consistent with partially degraded microarchitecture of the trabecular bone of the spine by TBS analysis TBS Risk of MOF : 7-10 (Per 1000 women per year) This is consistent with moderate risk for fracture by TBS analysis TBS adjusted FRAX: MOF: 13.4 % HIP: 3.1 % Fragility Fractures: None I reviewed her last labs: None Diagnoses and all orders for this visit: Age-related osteoporosis without current pathological fracture - Basic Metabolic Panel; Future - Beta Crosslaps (Beta CTX) - Celiac Serology [place] Panel - PTH, Intact - Protein Electrophoresis, Blood - Immunofixation, Serum - Basic Metabolic Panel Lilibeth and I had a long discussion about fracture risk T-scores options benefits and risks of therapy. She is willing to be treated and would like to do so sooner than later. I did say she could wait a year but she would like to proceed. We are going to wait however until October. I have advisedher to change her insurance from [employer] and she will do so in the fall. That should open up options specifically for an anabolic agent. I will check for secondary causes of osteoporosis as noted aboveincluding a marker of bone resorption as a baseline that we can follow going forward. Vitamin D deficiency - Vitamin D, Total, 25-OH We will check a Vitamin D level today and after review call if there needs to be a change in the supplement. Plan : I will see her back in 7 months and we will initiate appropriate therapy Thank you for the opportunity to assist in the care of this nice patient. Sincerely Leidy Stevens M.D. CC: Note: To expedite correspondence this note was generated by [employer] voice recognition software. Somegrammatical or spelling errors may occur using the system. documented in this encounter* Joanne Lazo - 03/20/2020 11:41 AM EDT DEXA performed documented in this encounter* [place] AuD - 03/27/2020 10:52 AM EDT [facility] [address] [place] [address] Name: Uma Mcgrath : 1950 Date: 03/27/20 History & Purpose of Evaluation: Uma Mcgrath was seen today for audiologic evaluation at the kind request of Dr. Nel Marcano DO. Ms. Mcgrath was previously tested at our facility on 01/30/[address] Celeste Guerra. Results atthis time revealed a mild sloping to a moderate mid to high frequency sensorineural hearing loss, bi laterally. She was subsequently fit with a pair of Code Blue Q70-312 MAT hearing aids. Ms. Mcgrath states she has never worn her hearing aids and brought them in today to be looked at. She reports a decrease in her hearing since she was last tested. Please see below for other pertinent case history. Otologic Symptoms R L Noise Exposure Y N Medical Y N Hearing Loss [x] [x] Occupational [x] [] Hypertension [] [x] Tinnitus [] [] Recreational [x] [] Diabetes [] [x] Otalgia [] [] [] [x] Hypercholesterolemia [x] [] Otorrhea [] [] Heart Disease [] [x] Aural Fullness [] [] Family History [x] [] Stroke [] [x] Meniere s Disease [] [] Father; Cancer [] [x] Y N Sp./Lang. Skills Ear Surgery R L Vertigo [] [x] Appropriate [x] [] PE Tubes [] [] Dizziness [] [x] In Therapy [] [x] Mastoidectomy [] [] Imbalance [] [x] Social Acoustic Neuroma [] [] Vestibular Rehab [] [x] Depression [] [x] Tympanoplasty [] [] Other: GERD per the patient Results: Puretone Air & Bone Conduction Audiometry: Mild sloping to a moderate to moderately-severe mid to high frequency sensorineural hearing loss, bilaterally. Speech Audiometry: Word recognition is good (80% right & 84% left) at both ears when assessed at above a normal conversational loudness level (75 dB HL). Immittance Audiometry: CNT secondary to poor hermetic seal. Distortion Product Otoacoustic Emissions (DPOAE; 1500-6k Hz): Did not assess. Impression: Today's results reveal a significant symmetrical sensorineural hearing loss, bilaterally, that is expected to interfere with communication in all listening situations, especially in the presence of background noise. A slight decrease in Ms. Mcgrath's hearing was noted since her last audiologic exam. Ms. Mcgrath is unable to be fit with her hearing aids today due to limited time. Ms. Mcgrathwas advised to schedule a hearing aid fitting on a future date to have her hearing aids fit to her new audiogram and to review all aspects of care and usage. Recommendations: Follow up with Dr. Jeet DO. Patient to return for her hearing aid fitting as discussed above. Re-evaluate upon referral. The above was explained to the patient and or their guardian and they expressed understanding. Electronically signed by: Porfirio Pavon, LEANN 03/27/20 10:52 AM documented in this encounter* Roro Mills AuD - 05/11/2020 3:04 PM EDT [facility] [address] [place] [address] Name: Uma Mcgrath : 1950 Date: 05/11/20 Hearing Aid Contact Note: Uma Mcgrath was seen today for her hearing aid follow-up. A visual inspection and listening check was unremarkable. I cleaned the hearing aids and changed the wax traps as a courtesy. Otoscopy revealed clear ear canals and intact tympanic membranes, bilaterally. Ms. Mcgrath reports thatshe wears her hearing aids for only a few hours a day because they are too loud. She states she keeps hearing a scratching sound. Data logging revealed Ms. Mcgrath wears her hearing aids for approximately 2 hours a day. I decreased MPO x3 and overall gain x3. I also increased noise block. I counseled her on using volume control if the hearing aids are too loud and gave her printed instructions on how to do so. I also re-instructed her on insertion and removal of the hearing aids at her request. Ms. Mcgrath was happy with the adjustments. She will follow up in 3 weeks or call sooner if anyissues arise. The above was explained to the patient and they expressed understanding and agreement. Electronically signed by: Porfirio Pavon, LEANN 05/11/20 3:04 PM documented in this encounter* Leidy Donald MD - 12/11/2020 9:54 AM EST 12/11/20 mUa Mcgrath [address] Nel Marcano, DO [address] [facility] [address] Uma Mcgrath was seen on 12/11/20 for the followin. Age-related osteoporosis without current pathological fracture 2. Vitamin D deficiency 3. Scoliosis (and kyphoscoliosis), idiopathic 4. Osteoarthritis of lumbar spine, unspecified spinal osteoarthritis complication status 5. Osteoarthritis of thoracic spine, unspecified spinal osteoarthritis complication status The following are the patient's current problems not treated by me unless noted above. Patient Active Problem List Diagnosis Age-related osteoporosis without current pathological fracture Vitamin D deficiency Scoliosis (and kyphoscoliosis), idiopathic Osteoarthritis of lumbar spine Osteoarthritis of thoracic spine Current Rheumatologic Medications: Vitamin D 3000 units daily Current Outpatient Medications Medication Sig Dispense Refill simvastatin (ZOCOR) 20 MG tablet Take 20 mg by mouth nightly. pantoprazole (PROTONIX) 40 MG tablet Take 40 mg by mouth daily . potassium citrate (UROCIT-K) 10 mEq (1,080 mg) SR tablet Take 1 tablet by mouth daily Reasons: takes 1-2 tablets daily. No current facility-administered medications for this visit. She is 70 y.o.. SInce her last visit she has had no falls or fractures or new back pain that can beattributed to her osteoporosis. She has no activity related back pain. She walks 30 to 45 minutes afew times a week and does weights 15 minutes 6 times a week for exercise She is taking 3000 units of vitamin D regularly. She is taking 1500 mg of calcium supplement She has had no intercurrent illness. The following portions of the patient's history were reviewed and updated as appropriate: allergies, current medications, past medical history, 10 point ROS and problem list. There has been no change in her social history. She has been for the past 10 years. She has3 children and 2 grandchildren. 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 Her Roe was a excavating supervisor at [employer] and a professional excavating supervisor for [employer]. Osteoporosis Treatment to date has included: None DXA to Date: Date: 03/21 Manuf: samantha L1-L4: -1.2 L FN: -2.1 L Tot Hip -1.8 R FN -1.9 R Tot Hip -1.9 TBS 1.262 I personally interpreted the last DXA done: March 2020 in our office L1-L4 T-score: -1.2 likely somewhat overestimated due to scoliosis and osteoarthritis On VFA there was no compression fracture there was osteo-arthritis and deformity in the thoracic mid spine L Fem Neck T-score: -2.1 LTotal Hip: -1.8 R Fem Neck: -1.9 Total Hip: -1.9 These results are consistent with WHO criteria for osteopenia. Clinical risk factors for fracture: Age low bone mass FRAX: MOF 13.0 % HIP 2.9 % TBS Score : 1.262 (Trabecular Bone Score) this is consistent with partially degraded microarchitecture of the trabecular bone of the spine by TBS analysis TBS Risk of MOF : 7-10 (Per 1000 women per year) This is consistent with moderate risk for fracture by TBS analysis TBS adjusted FRAX: MOF: 13.4 % HIP: 3.1 % Fragility Fractures: None I reviewed her last labs: _ Recent Labs Units 03/20/20 0846 VIT D 25 ng/mL 49 SPEP Normal IMMUNOFIXA Normal PTH INTACT pg/mL 42.3 CALCIUM mg/dL 9.4 CREATININE mg/dL 0.71 IGA mg/dL 95 BETA CTX 422 PE: BP (!) 150/86 Ht 5' 4.75 Wt 68 kg (150 lb) BMI 25.15 kg/m Diagnoses and all orders for this visit: Age-related osteoporosis without current pathological fracture - PTH, Intact; Future - Beta Crosslaps (Beta CTX); Future - Creatinine, serum; Future Uma did not change insurance companies. We discussed the rationale for treatment and her likely options. We decided we would not initiate any therapy today. We will update her bone density and see if things have been stable or if she has lost more bone mass. I will check for secondary causes of osteoporosis as noted above including a marker of bone resorption as a baseline that we can follow going forward. Vitamin D deficiency - Vitamin D, Total, 25-OH; Future We will check a Vitamin D level today and after review call if there needs to be a change in the supplement. Scoliosis (and kyphoscoliosis), idiopathic Osteoarthritis of lumbar spine, unspecified spinal osteoarthritis complication status The patient did not think any specific therapy was necessary at the present time. Osteoarthritis of thoracic spine, unspecified spinal osteoarthritis complication status Plan : I will see her back in 3 months for reevaluation we will update the bone density at that time andthen decide on the most appropriate therapy going forward. Thank you for the opportunity of assisting in the care of this nice patient. Sincerely Leidy Stevens M.D. [facility] CC: Note: To expedite correspondence this note was generated by [employer] voice recognition software. Somegrammatical or spelling errors may occur using the system. documented in this encounter* Roro Mills, Marvin - 04/08/2020 10:57 AM EDT [facility] [address] [place] [address] Name: Uma Mcgrath : 1950 Date: 04/08/20 Hearing Aid Contact Note: Uma Mcgrath returned today for her hearing aid re-fitting. She was orginally fit with herpair of Phonak Audeo [id number] MAT hearing aids on 02/22/[address] Guerra. She stated she never made and effort to wear them and is now wanting to make an effort. I fit her hearing aids to her new hearing loss. We reveiwed how to changed the battery, cleaning and maintenance, and insertion and removal of the hearing aids. She will return in 3 weeks for a hearing aid follow-up. Ms. Mcgrath will contact me in the interim if there are any issues. The above was explained to the patient and they expressed understanding and agreement. Electronically signed by: Porfirio Pavon, CCC-Felipe 04/08/20 10:57 AM documented in this encounter* Felipe Gavin MD - 01/05/2021 8:45 AM EDT Subjective Patient ID: Uma Mcgrath is a 70 y.o. female. HPI Patient is a 71-year-old lady who came for neurological evaluation. She was referred because of tremors. She first noticed tremors affecting the right upper extremity around summer 2019. Hecomes intermittently and more noticeable when she is walking. She denies any rigidity or stiffness.No change in her handwriting and her tremors are not functionally limiting. She denies any head tremors, vocal tremors, left extremity tremors, or lower extremity tremors. She has no orthostatic symptoms or changes in her penmanship. She denies any trigger factors or precipitating factors. She occasionally drinks Pepsi that does not affect her tremors. She denies any new changes in her medications. She described chronic anosmia which she attributes that to chronic nasal calcitonin spray. She has no constipation, restless leg syndrome, periodic leg movement, or REM behavioral sleep disorder. She denies any history of TIA, stroke, head injury, seizures, falls or injury. She denies any changesin her gait. She remains active and regularly exercise. Past medical history include gastroesophageal reflux disorder, osteoarthritis, and hyperlipidemia. Family history is negative for tremors or Parkinson's disease. No tobacco, alcohol, or recreational drug use. 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 The following portions of the patient's history were reviewed and updated as appropriate: allergies, current medications, past family history, past medical history, past social history, past surgicalhistory and problem list. Review of Systems All systems reviewed and negative except pertinent positives and negatives documented in the HPI and below. Objective Physical Exam Vitals signs and nursing note reviewed. Constitutional: Appearance: She is well-developed. HENT: Head: Normocephalic and atraumatic. Eyes: General: Lids are normal. Conjunctiva/sclera: Conjunctivae normal. Pupils: Pupils are equal, round, and reactive to light. Neck: Musculoskeletal: Neck supple. Trachea: Phonation normal. Musculoskeletal: Normal range of motion. Skin: General: Skin is warm and dry. Neurological: Mental Status: She is not disoriented. Comments: Patient is awake and alert. Normal development and fairly groomed. Not in distress or pain. Vital signs were reviewed. Patient is oriented. Attention and comprehension were intact. Language is intact. Speech is fluent and is spontaneous. General fund of knowledge is intact. Pupils are 4 mm equally reactive to light. No ptosis, nystagmus, or gaze deviation.. Extraocular muscles are intact. Face is symmetrical and facial sensation is intact. Hearing is grossly intact. Gross strength is 5/5. Normal muscle tone and bulk. No muscle fasciculations. Sensory is intact to primary modalities. Patient with coarse resting right upper extremity tremors noticeable when she ambulates. She has decreased arm swing more on the right arm than the left. No en bloc turning. No postural instability or retropulsion. She has rigidity more noticeable on the right arm and mild bradykinesia. No myoclonus or other abnormal involuntary movement. Deep tendon reflexes are 2+ symmetrically. She has normal stride without any kyphotic posture. Psychiatric: Behavior: Behavior normal. Assessment/Plan: Patient started developing intermittent right upper extremity tremors noticeable when she ambulates. Her exam also reviewed right upper extremity rigidity bradykinesia suggestive of early idiopathic Parkinson's disease. There is no functional limitation at this time. Her TSH done October 2020 was normal. She is not keen on doing an MRI or starting any medication at this time. She is active and exercise regularly. She denies any changes in her gait. Suggestion: We will check at least a noncontrast CT of the head looking for any tremor, mass lesion, or hydrocephalus causing secondary parkinsonism. We discussed about continuing regular exercises and balance exercises. We may consider later sending her for big and loud program or delayed the disease program. We discussed different available medication and procedures for treatment of Parkinson's disease. Continue to monitor any worsening symptoms, lightheadedness, cognitive changes, balance changes, constipation, or functional limitations. We will schedule her for follow-up visit with our movement disorder clinic. Diagnostic impression, plans, and suggestions were explained and discussed. Records from the referring physician were reviewed. Clinical imaging study/ labs/medical tests were ordered/reviewed. Indications, risk, complications, side effects and alternatives of medications/therapeutics were explained and discussed. Please monitor closely for any untoward side effects or complications of medications. Questions and concerns were addressed. Please call or contact us for any problems. Time Code: 45 minutes 1. Preparation for patient's visit (reviewing previous chart, current medical records, previous history, exam, test, procedure, and medications) 2. Face to face encounter obtaining history from the patient/family/caregivers; performing evaluation and examination; ordering medications, tests, or procedures; referring and communicating with other healthcare professionals; counseling and education of the patient/family/caregiver; independently interpreting results (tests, labs, procedures, imaging) and communicating and explaining results tothe patient/family/caregiver 3. Coordination of care; preparing and printing discharge instruction and any educational material for the patient and caregivers. Documenting clinical information in the electronic and other health records. Reviewing OARRS as needed. Problem List Items Addressed This Visit None Visit Diagnoses Tremor Relevant Orders CT Head Or Brain Without Contrast documented in this encounter Reason for Referral Status Reason Specialty Diagnoses / Procedures Referred By Contact Referred To Contact Authorized Neurology Diagnoses Tremor [facility], [address] [place] [address] [facility] [address] Office [facility], 2nd [place] [address] Status Reason Specialty Diagnoses / Procedures Referred By Contact Referred To Contact New Request Radiology Diagnoses Tremor Procedures CT Head Or Brain Without Contrast Felipe Gavin MD [address] [place] [address] Status Reason Specialty Diagnoses / Procedures Referre d By Contact Referred To Contact Closed Radiology Diagnoses Tremor Procedures CT Head Or Brain Without Contrast Felipe Gavin MD [address] [place] [address] [place] [phone] Status Reason Specialty Diagnoses / Procedures Referred By Contact Referred To Contact Authorized Rehabilitation Diagnoses Parkinson's disease ([facility]) Jules Groves MD [address] [place] [address] Rehab Pt Neuro [address] [place] [address] Status Reason Specialty Diagnoses / Procedures Referred By Contact Referred To Contact Pending Review Rehabilitation Diagnoses Parkinson's disease ([facility]) Jules Groves MD [address] [place], [place] [phone] Op Speech Therapy [address] [place] [address] Status Reason Specialty Diagnoses / Procedures Referred By Contact Referred To Contact Authorized Rehabilitation Diagnoses Parkinson's disease ([facility]) Tom Ng MD [address] [place] [address] Rehab Pt Neuro [address] [place] [address] Specialty Diagnoses / Procedures Referred By Contac t Referred To Contact Audiology Diagnoses Encounter for hearing examination, unspecified whether abnormal findings Nel Marcano DO [address] [place] [address] [facility] [address] [place] [address] Medical Office Building, 5th [place] [address] Referral ID Status Reason Start Date Expiration Date Visits Re quested Visits Authorized [id number] Closed 01/20/2022 01/20/2023 1 1 Specialty Diagnoses / Procedures Referred By Contac t Referred To Contact Radiology Diagnoses Primary osteoarthritis of left knee Procedures MR Knee Left Without Contrast Claire Rosario, TRANSFER AGENT [address] [place] [address] Referral ID Status Reason Start Date Expiration Date V isits Requested Visits Authorized [id number] Authorized 08/11/2022 08/11/2023 1 1 Specialty Diagnoses / Procedures Referred By Contac t Referred To Contact Rehabilitation Diagnoses Parkinson disease (HCC) Nicole Roberts, TRANSFER AGENT [address] [facility] [address] [place] [address] Rehab Pt Neuro [address] [place] [address] Referral ID Status Reason Start Date Expiration Date V isits Requested Visits Authorized [id number] Authorized 10/05/2022 10/05/2023 1 1 Chief Complaint NPV in office today for constipation. Pt reports since April approx 1 BM daily with help of Xenia Adame F and Gus. Additional Source Comments INFORMATION SOURCE (unrecogn ized section and content) DATE CREATED AUTHOR AUTHOR'S ORGANIZ ATION 11/15/2018 [facility] DATE CREATED AUTHOR AUTHOR'S ORGANIZ ATION 11/12/2020 [facility] DATE CREATED AUTHOR AUTHOR'S ORGANIZ ATION 11/02/2021 [facility] DATE CREATED AUTHOR AUTHOR'S ORGANIZ ATION 12/06/2022 [facility] DATE CREATED AUTHOR AUTHOR'S ORGANIZ ATION 04/28/2023 [facility] DATE CREATED AUTHOR AUTHOR'S ORGANIZ ATION 06/24/2023 [facility] DATE CREATED AUTHOR AUTHOR'S ORGANIZ ATION 06/24/2023 [employer] DATE CREATED AUTHOR AUTHOR'S ORGANIZ ATION 07/22/2023 [facility] DATE CREATED AUTHOR AUTHOR'S ORGANIZ ATION 09/21/2023 [facility] DATE CREATED AUTHOR AUTHOR'S ORGANIZ ATION 09/22/2023 [facility] Reason for Visit (unrecogniz ed section and content) Specialty Diagnoses / Procedures Referred By Contac t Referred To Contact Rehabilitation Diagnoses Parkinson disease (HCC) Nicole Roberts, TRANSFER AGENT [address] [facility] [address] [place] [address] Op Occ Therapy [address] [place] [address] Referral ID Status Reason Start Date Expiration Date V isits Requested Visits Authorized [id number] Authorized 10/05/2022 10/05/2023 1 199 Reason Comments Neuro Occupational Therapy Reason Comments Physical Therapy Neuro Specialty Diagnoses / Procedures Referred By Contac t Referred To Contact Rehabilitation Diagnoses Parkinson disease ([facility]) Nicole Roberts, [facility] [address] [facility] [address] [place] [address] Rehab Pt Neuro [address] [place] [address] Referral ID Status Reason Start Date Expiration Date V isits Requested Visits Authorized [id number] Authorized 10/05/2022 10/05/2023 1 199 Reason Comments Speech Therapy Specialty Diagnoses / Procedures Referred By Contac t Referred To Contact Rehabilitation Diagnoses Parkinson's disease ([facility]) Jules Groves MD [address] [place] [address] Op Speech Therapy [address] [place] [address] Referral ID Status Reason Start Date Expiration Date V isits Requested Visits Authorized [id number] Authorized 03/24/2021 03/24/2022 1 199 Reason Comments Physical Therapy Status Reason Specialty Diagnoses / Procedures Referred By Contact Referred To Contact Authorized Rehabilitation Diagnoses Parkinson's disease ([facility]) Jules Groves MD [address] [place] [address] Rehab Pt Neuro [address] [place] [address] Reason Comments Esophageal Reflux PT has a history of Gerd. Pt says she has been having a hard time breathing, chest feels heavy and has coughing due to reflux. Pt says she has been taking nexium since last week, which has helped some. Pt was tested for this 3 yrs ago by . Pt says that she usually gets these attacks in August and September of every yr. PT says she is watching what she is eating to help control this. Reason Comments Follow-up Hiatal hernia with G ERD Reason Comments Follow-up EGD and cruz Status Reason Specialty Diagnoses / Procedures Referre d By Contact Referred To Contact Closed Audiology Diagnoses Sudden hearing loss, unspecified laterality Nel Marcano, DO [address] [place] [address] [facility] [address] [facility] Office [facility], [address] [place] [address] Reason Comments Tremors SHe states she has t remors in her right hand. She thinks she has had them since September oh 2019. Status Reason Specialty Diagnoses / Procedures Referre d By Contact Referred To Contact Closed Neurology Diagnoses Tremor Nel Marcano, DO [address] [place] [address] [facility] [address] [facility] Office [facility], [address] [place] [address] Status Reason Specialty Diagnoses / Procedures Referre d By Contact Referred To Contact Closed Radiology Diagnoses Tremor Procedures CT Head Or Brain Without Contrast Felipe Gavin MD [address] [address] [address] [place] [address] Status Reason Specialty Diagnoses / Procedures Referred By Contact Referred To Contact Authorized Rehabilitation Diagnoses Parkinson's disease (HCC) Jules Groves MD [address] [place] [address] Op Speech Therapy [address] [place] [address] Status Reason Specialty Diagnoses / Procedures Referred By Contact Referred To Contact Pending Review Rehabilitation Diagnoses Parkinson's disease (HCC) Jules Groves MD [address] [place], [place] [phone] Rehab Pt Neuro [address] [place] [phone] Reason Comments movement disorder Patient states she w as diagnosed parkinson in December 2020. She states she has had issues with her right hand tremors she noticed it in August 2020. Status Reason Specialty Diagnoses / Procedures Referred By Contact Referred To Contact Authorized Rehabilitation Diagnoses Parkinson's disease (HCC) Jules Groves MD [address] [place], [place] [phone] Op Occ Therapy [address] [place] [phone] Status Reason Specialty Diagnoses / Procedures Referred By Contact Referred To Contact Pending Review Rehabilitation Diagnoses Parkinson's disease (HCC) Jules Groves MD [address] [place], [place] [phone] Op Occ Therapy [address] [place] [phone] Referral ID Status Reason Start Date Expiration Date V isits Requested Visits Authorized [id number] Pending Review 03/24/2021 03/24/2022 1 199 Specialty Diagnoses / Procedures Referred By Dion ware Referred To Contact Audiology Diagnoses Encounter for hearing examination, unspecified whether abnormal findings Nel Marcano DO [address] [place] [address] [facility] [address] [facility] Medical Office Building, 5th [place] [address] Referral ID Status Reason Start Date Expiration Date Visits Re quested Visits Authorized [id number] Closed 01/20/2022 01/20/2023 1 1 Reason Comments Parkinson's Disease Reason Comments Pain Reason Comments Follow-up Reason Comments Anxiety Patient is here toda y for a follow up on anxiety. Patient is currently taking lexapro 10 MG once a day with no concerns. States that the medication works well for her anxiety. Here in office today to get a refill on medication. No other concerns. Specialty Diagnoses / Procedures Referred By Dion ware Referred To Contact Rehabilitation Diagnoses Parkinson disease (HCC) Nicole Roberts, TRANSFER AGENT [address] [facility] [address] [place] [address] Op Speech Therapy [address] [place] [address] Referral ID Status Reason Start Date Expiration Date V isits Requested Visits Authorized [id number] Authorized 10/05/2022 10/05/2023 1 199 Referral ID Status Reason Start Date Expiration Date V isits Requested Visits Authorized [id number] Pending Review 10/05/2022 10/05/2023 1 199 Reason Comments Urinary Frequency x2days Care Teams (unrecognized sec tion and content) Environmental Restoration Planner Relationship Specialty Start Date End Date Nel Marcano DO [address] [place] [id number] PCP - General Internal Medicine 01/16/18 Environmental Restoration Planner Relationship Specialty Start Date End Date Nel Marcano DO [address] [place] [id number] PCP - General Internal Medicine 01/16/18 Environmental Restoration Planner Relationship Specialty Start Date End Date Nel Marcano DO [address] [place] [id number] PCP - General Internal Medicine 01/16/18 Environmental Restoration Planner Relationship Specialty Start Date End Date Nel Marcano, DO [address] [facility] [place] [address] PCP - General Internal Medicine 01/16/18 Environmental Restoration Planner Relationship Specialty Start Date End Date Nel Marcano DO [facility] [place] [address] PCP - General Internal Medicine 01/16/18 Environmental Restoration Planner Relationship Specialty Start Date End Date Nel Marcano DO [address] [place] [address], [place] [address] PCP - General Internal Medicine 01/16/18 Environmental Restoration Planner Relationship Specialty Start Date End Date Nel Marcano DO [address] [place] [address], [place] [address] PCP - General Internal Medicine 01/16/18 Environmental Restoration Planner Relationship Specialty Start Date End Date Nel Marcano DO [address] [place] [address], [place] [address] PCP - General Internal Medicine 01/16/18 Environmental Restoration Planner Relationship Specialty Start Date End Date Nel Marcano DO [address] [place] [address], [place] [address] PCP - General Internal Medicine 01/16/18 Environmental Restoration Planner Relationship Specialty Start Date End Date Nel Marcano DO [address] [place] [address], [place] [address] PCP - General Internal Medicine 01/16/18 Environmental Restoration Planner Relationship Specialty Start Date End Date Nel Marcano DO [address] [place] [address], [place] [address] PCP - General Internal Medicine 01/16/18 Environmental Restoration Planner Relationship Specialty Start Date End Date Nel Marcano DO [address] [place] [address], [place] [address] PCP - General Internal Medicine 01/16/18 Environmental Restoration Planner Relationship Specialty Start Date End Date Nel Marcano DO [address] [place] [address], [place] [address] PCP - General Internal Medicine 01/16/18 Environmental Restoration Planner Relationship Specialty Start Date End Date Nel Marcano DO [address] [place] [address], [place] [address] PCP - General Internal Medicine 01/16/18 Environmental Restoration Planner Relationship Specialty Start Date End Date Nel Marcano DO [address] [place] [address], [place] [address] PCP - General Internal Medicine 01/16/18 Environmental Restoration Planner Relationship Specialty Start Date End Date Nel Marcano DO [address] [place] [address], [place] [address] PCP - General Internal Medicine 01/16/18 Environmental Restoration Planner Relationship Specialty Start Date End Date Nel Marcano DO [address] [place] [address], [place] [address] PCP - General Internal Medicine 01/16/18 Environmental Restoration Planner Relationship Specialty Start Date End Date Nel Marcano DO [address] [place] [address], [place] [address] PCP - General Internal Medicine 01/16/18 Environmental Restoration Planner Relationship Specialty Start Date End Date Nel Marcano DO [address] [place] [address], [place] [address] PCP - General Internal Medicine 01/16/18 Environmental Restoration Planner Relationship Specialty Start Date End Date Nel Marcano DO [address] [place] [address], [place] [address] PCP - General Internal Medicine 01/16/18 Environmental Restoration Planner Relationship Specialty Start Date End Date Nel Marcano DO PCP - General Internal Medicine 12/09/17 Environmental Restoration Planner Relationship Specialty Start Date End Date Nel Marcano DO [address] [place] [address] PCP - General Internal Medicine 01/16/18 Environmental Restoration Planner Relationship Specialty Start Date End Date Nel Marcano DO [address] [place] [address] PCP - General Internal Medicine 01/16/18 Environmental Restoration Planner Relationship Specialty Start Date End Date Nel Marcano DO PCP - General Internal Medicine 12/09/17 Environmental Restoration Planner Relationship Specialty Start Date End Date Nel Marcano DO [address] [place] [id number] PCP - General Internal Medicine 01/16/18 Environmental Restoration Planner Relationship Specialty Start Date End Date Nel Marcano DO [address] [place] [address] PCP - General Internal Medicine 01/16/18 Environmental Restoration Planner Relationship Specialty Start Date End Date Nel Marcano DO [address] [place] [address] PCP - General Internal Medicine 01/16/18 FOR RECORDS PERTAINING TO PATIENTS WHO ARE OR HAVE BEEN ENROLLED IN A CHEMICAL DEPENDENCY/SUBSTANCEABUSE PROGRAM, SOME INFORMATION MAY BE OMITTED. This clinical summary was aggregated from multiple sources. Caution should be exercised in using it in the provision of clinical care. This summary normalizes information from multiple sources, and as a consequence, information in this document may materially change the coding, format and clinical context of patient data. In addition, data may be omitted in some cases. CLINICAL DECISIONS SHOULD BE BASED ON THE PRIMARY CLINICAL RECORDS. [facility]. provides no warranty or guarantee of the accuracy or completeness of information in this document.
[2023-10-12] MEDS: Lactated Ringers 1,000 ML 15 ML IV (06:41)
[2023-10-12] MEDS: Cefazolin 2 GM in 0.9% Normal Saline (100mL Bag) 100 ML IV (07:34)
--- NOTE | 2023-10-12 07:35 | HP.PCM_ITS ---
HPI - General HPI Narrative RAMÓN MCGRATH, is a 73 F who presents for surgical intervention for a left renal calculus found on CT scan as a result of an evaluation for gross hematuria. She has had stones previously and had surgery approximately 3 years ago. Informed consent was obtained. [facility] Medical History Cardiology follow-up encounter Gastric reflux History of echocardiogram History of kidney stones History of stress test Leg cramps Non-smoker Parkinson's disease Wears glasses Wears hearing aid Home Medications ascorbic acid (vitamin C) 500 mg chewable tablet (Vitamin C) 500 mg PO DAILY 09/28/15 [History Last Taken 09/28/15] calcium carbonate 500 mg calcium (1,250 mg) chewable tablet 500 mg PO DAILY 09/28/15 [History Last Taken 09/28/15] cholecalciferol (vitamin D3) 25 mcg (1,000 unit) tablet (Vitamin D3) 2,000 unit PO DAILY 09/28/15 [History Last Taken 09/28/15] omega-3 fatty acids 300 mg capsule (Fish Oil) 1,200 mg PO BID 09/28/15 [History Last Taken 09/27/15] simvastatin 20 mg tablet 20 mg PO QHS 09/28/15 [History Last Taken 10/11/23] aspirin 81 mg tablet,delayed release 81 mg PO DAILY@0800 11/13/15 [History Last Taken 10/01/23] coenzyme Q10 50 mg chewable tablet 50 - 100 mg PO DAILY 11/13/15 [History Last Taken Unknown] potassium citrate 10 mEq (1,080 mg) tablet,extended release 1 tab PO BID PRN LOW POTASSIUM 11/13/15 [History Last Taken Unknown] carbidopa 25 mg-levodopa 100 mg tablet 1 tab PO TID 09/07/23 [History Last Taken 10/11/23] escitalopram oxalate 10 mg tablet (Lexapro) 10 mg PO DAILY 09/07/23 [History Last Taken 10/11/23] vitamin B complex (Complex B-100 tablet,extended release) 1 tab PO DAILY 09/07/23 [History Last Taken Unknown] famotidine 20 mg tablet (Acid Controller) 20 mg PO DAILY PRN GERD 10/11/23 [History Last Taken 10/11/23] omeprazole 10 mg capsule,delayed release 10 mg PO DAILY 10/12/23 [History Last Taken 10/11/23] Allergy/AdvReac Type Severity Reaction Status Date / Time oxycodone HCl [From Percocet] AdvReac Nausea Verified 10/12/23 06:34 Surgical History History of lateral meniscus repair of left knee History of tubal ligation Social History Smoking Status: Never smoker ROS Constitutional Constitutional: Reports systems reviewed and no addt'l complaints, except as d ocumented Eyes Eyes: Reports systems reviewed and no addt'l complaints, except as documented ENT HEENT: Reports systems reviewed and no addt'l complaints, except as documented Cardiovascular Cardiovascular: Denies abdominal pain, chest pain, diaphoresis or dyspnea Respiratory/Chest Respiratory/Chest: Denies chest congestion, chest tightness, cough or dyspnea Gastrointestinal Gastrointestinal: Denies nausea or vomiting Genitourinary Genitourinary: Reports hematuria; Denies abdominal discomfort or flank pain Musculoskeletal Musculoskeletal: Reports systems reviewed and no addt'l complaints, except as documented Integumentary Integumentary: Reports systems reviewed and no addt'l complaints, except as documented Neurologic Neurologic: Reports systems reviewed and no addt'l complaints, except as documented Psychiatric Psychiatric: Reports systems reviewed and no addt'l complaints, except as documented Endocrine Endocrinology: Reports systems reviewed and no addt'l complaints, except as documented Hematologic/Lymphatic Hematologic/Lymphatic: Reports systems reviewed and no addt'l complaints, except as documented Allergic/Immunologic Allergic/Immunologic: Reports systems reviewed and no addt'l complaints, except as documented Vital Signs Vital Signs Vital Signs: 10/12/23 06:37 10/12/23 06:37 Temperature 97.5 F L Temperature Source Temporal Pulse Rate 59 L Respiratory Rate 17 Respiratory Pattern Normal Blood Pressure 140/92 H Blood Pressure Mean 108 Blood Pressure Source Monitor Blood Pressure Position Semi-Fowlers Blood Pressure Location Right Arm Pulse Ox 98 Oxygen Delivery Method Room Air Weight Weight: 66.678 kg Body Mass Index (BMI) 23.7 Physical Exam Const alert, oriented x3 and no apparent distress HEENT normocephalic, head/scalp atraumatic, hearing grossly normal bilaterally, external ears normal, external nose normal and moist oral mucous membranes Eyes General Eye: normal appearance of both eyes Neck supple Lymph Lymphatic: no lymphedema noted Chest inspection of chest normal Resp normal respiratory effort, normal air movement and no retractions Cardio regular rate GI soft to palpation, non-tender and non-distended no CVA tenderness Back/Spine no CVA tenderness Extremity normal to inspection Extremity Narrative: Tremors Skin no rashes or lesions noted, no wounds, skin turgor normal, no jaundice, no petechiae and no mottling Neuro oriented x3 and CN's II-XII intact bilaterally Psych mental status grossly normal, thought process normal, cooperative and affect normal Assessment & Plan Assessment/Plan (1) Renal calculus, left: PLAN: Plan Cystoscopy, left ureteroscopy, holmium laser lithotripsy, stone basket extraction, left ureteral stent insertion
--- NOTE | 2023-10-12 09:17 | DCINST_ITS ---
Discharge Instructions Diet Discharge Diet: No restrictions Activity Discharge Activity: Return to Normal Activity Dressing / Incision Call your doctor if you observe: Fever of 101 or Higher, Inability to urinate and Inability to have a bowel movement Follow Up Care Please Follow Up With: Michelle Crenshaw MD When: the office will call her to make arrangements for follow up. Test Results: Test results from this visit will be discussed in further detail at your follow- up appointment, if applicable. Discharge Plan Admission Attending Provider: Michelle Crenshaw Primary Care Provider: Hi Marcano Discharge Orders/Prescriptions Prescriptions: New hydrocodone-acetaminophen [hydrocodone-acetaminophen] 5-325 mg tablet 1 tab PO Q8H PRN (Reason: Pain) 3 Days Qty: 9 0RF cephalexin [cephalexin] 500 mg capsule 500 mg PO Q12 3 Days Qty: 6 0RF phenazopyridine [Pyridium] 200 mg tablet 200 mg PO TID PRN PRN (Reason: Bladder Spasms) 7 Days Qty: 30 0RF Continued simvastatin 20 MG tablet 20 mg PO QHS Patient Comments: cholesterol lowering ascorbic acid (vitamin C) [Vitamin C] 500 MG tablet,chewable 500 mg PO DAILY Patient Comments: suppliment calcium carbonate 500 MG tablet,chewable 500 mg PO DAILY Patient Comments: suppliment cholecalciferol (vitamin D3) [Vitamin D3] 1,000 UNIT tablet 2,000 unit PO DAILY Patient Comments: suppliment Fish Oil 300 MG capsule 1,200 mg PO BID Patient Comments: suppliment aspirin 81 MG tablet 81 mg PO DAILY@0800 Patient Comments: STOPPED PRIOR TO PROCEDURE potassium citrate 10 MEQ tablet extended release 1 tab PO BID PRN (Reason: LOW POTASSIUM) Patient Comments: coenzyme Q10 50 MG tablet,chewable 50 - 100 mg PO DAILY Complex B-100 Tablet Extended Release 1 tab PO DAILY escitalopram oxalate [Lexapro] 10 mg tablet 10 mg PO DAILY carbidopa-levodopa 25-100 mg tablet 1 tab PO TID famotidine [Acid Controller] 20 mg tablet 20 mg PO DAILY PRN (Reason: GERD) omeprazole 10 mg capsule,delayed release(DR/EC) 10 mg PO DAILY Referrals / Follow Up: Hi Marcano MD [Primary Care Provider] - Disposition Disposition (needs filled in before D/C Order can be placed): Home, Self Care
--- NOTE | 2023-10-12 09:20 | OP.PCM_ITS ---
Report of Operation Date of Procedure: 10/12/23 Pre-Operative Diagnosis: Left renal calculus Post-Operative Diagnosis: Same Surgery/Procedure Performed:: Cystoscopy, left ureteroscopy, holmium laser lithotripsy, stone basket extraction, left ureteral stent insertion Surgeon: Michelle Crenshaw Type of Anesthesia: General Description of Procedure: The patient is a 73-year-old female with a left renal calculus who presents for surgical intervention having failed multiple previous extracorporal shockwave lithotripsy's in the past. Informed consent was obtained. The patient was taken to the operating room and placed on the operating room table. Anesthesia monitored the head, neck, airway, IV access and vital signs throughout the case. Once anesthesia was administered, the patient was placed into dorsolithotomy position was prepped and draped in usual sterile fashion. The cystoscope was inserted through the urethra under direct visualization. The urinary bladder revealed no evidence of mass, erythema or foreign body. The left ureteral orifice was intubated with a 0.035 Glidewire followed by a second 1. The decision was made not to use a ureteral access sheath as the last time I used 1 it was very difficult to remove. The flexible ureteroscope was placed over one of the Glidewire's and advanced easily into the renal pelvis. The stone was found in the lower pole location. A 200 ?m laser fiber was used to break the stone into small pieces as possible. A few of these pieces were stone basket retrieved into the urinary bladder. Once the stone was broken into a small of debris as possible, the ureteroscope was used to flush out the calyces as much as possible. The ureteroscope was removed under direct visualization revealing no ureteral injury. A 6 Filipino 24 cm JJ stent was placed over the guidewire and inserted using the cystoscope. Good curling was achieved in the renal pelvis as well as the urinary bladder. The patient's bladder was then emptied and the ca se was terminated. The patient was awakened and taken to the recovery room in good condition. Grafts/Implants Used: 6 x 24 JJ stent Complications None Admit VTE Documentation VTE Present on Admission: Yes VTE Mechan Device Prophylaxis: SCD's VTE Pharm Prophylaxis ordered?: No Reason prophylaxis not ordered:: Treatment Not Indicated
[2023-10-12] MEDS: HYDROcodone Bitartrate/Apap 5/325 Tablet PO (10:32)
== END 2023-10-12 10:53 | disposition home or self-care (01) ==
LOC: SDC 06:00 → AC 06:03
PROVIDERS: Referring Provider Urology; Visit Provider Urology
PROC: (CPT 52356; principal; 2023-10-12 07:20)
DX: N20.0 Calculus of kidney (principal); Z79.82 Long term (current) use of aspirin; Z87.442 Personal history of urinary calculi
CPT/HCPCS: 52356; 00918; 76000; J7120; C2617; J2405

== ENCOUNTER → 2023-10-25 | Outpatient (CLI) | payer MEDICARE, OTHER, SELFPAY ==
--- NOTE | 2023-10-25 10:47 | CT_ITS ---
STUDY: CT ABDOMEN AND PELVIS WITHOUT CONTRAST REASON FOR EXAM: Female, 73 years old. FLANK PAIN KIDNEY STONE. Recent left lithotripsy with stent placement. Pain and hematuria. RADIATION DOSAGE (If Supplied By Facility): CTDIvol = ( 7.30 ) mGy, DLP = ( 368.49 ) mGycm TECHNIQUE: Transaxial images were obtained from the dome of the diaphragm to the symphysis pubis without oral contrast, and without intravenous contrast. Sagittal and coronal images were reconstructed. Individualized dose optimization techniques were used for this CT. COMPARISON: Comparison is made with prior study dated June 20, 2023. FINDINGS: The visualized lung bases are unremarkable. The visualized portions of the heart are within normal limits. Stable cysts are seen in the liver. Normal gallbladder and extrahepatic biliary system. Normal spleen. Normal pancreas. Normal bilateral adrenal glands. Normal right kidney. Nonobstructive left intrarenal calculi. Left-sided double-J stent catheter with the proximal pigtail in the left renal pelvis and distal pigtail in the urinary bladder. Normal visualized stomach. Normal small intestine. Normal colon. The appendix is visualized and appears normal. There is scattered atherosclerotic calcification of the abdominal aorta, without a demonstrated aneurysm. Normal inferior vena cava. Normal retroperitoneum. Normal urinary bladder. Normal abdominal wall. Normal osseous structures. CT/Abdomen/Pelvis without Cont IMPRESSION: Nonobstructive left intrarenal calculi. Left-sided double-J stent catheter. Stable appearance of the hepatic cysts involving both lobes. Electronically Signed: Daniel Kim MD at 11:54 EST ,
== END | disposition home or self-care (01) ==
PROVIDERS: Referring Provider Urology; Visit Provider Urology
DX: R10.9 Unspecified abdominal pain (principal); N20.0 Calculus of kidney
CPT/HCPCS: 74176

== ENCOUNTER → 2025-04-07 | Outpatient (CLI) | payer MEDICARE, OTHER, SELFPAY | END | disposition home or self-care (01) | LOC: CT 18:39 | PROVIDERS: Referring Provider Urology; Visit Provider Urology | DX: R10.9 Unspecified abdominal pain (principal); R31.0 Gross hematuria | CPT/HCPCS: 74176 ==

== ENCOUNTER → 2025-06-07 | Outpatient (CLI) | payer MEDICARE, OTHER, SELFPAY ==
--- NOTE | 2025-06-07 11:28 | US_ITS ---
PROCEDURE: KIDNEY AND BLADDER 06/07/2025 REASON FOR EXAM: URETERAL STONE TECHNIQUE: Procedure Code: USKI Modality: US Procedure: KIDNEY AND BLADDER COMPARISON: 04/08/2025 CT. FINDINGS: Right kidney measures 9.5 cm. No hydronephrosis. 6 mm calculus. Left kidney measures 9.7 cm. Mild hydronephrosis. 6 mm and 4 mm calculi. The urinary bladder is unremarkable. US/Kidney and Bladder IMPRESSION: Left kidney hydronephrosis. Bilateral nephrolithiasis. Reading Location: [id number]
--- OUTSIDE RECORDS SUMMARY | 2025-06-07 11:35 | XMS RPT_ITS | CCD ---
Author Organization [facility] Care Team Providers Care Color Drum Worker Name Role Phone Jeet, Nel Nael Unavailable Haus, Nel P Unavailable HAUS, NEL Unavailable Unavailable HAUS, NEL Unavailable Unavailable Haus, Nel P Unavailable Haus, Nel Nayak Primary Care Provider [phone] Haus, Nel P Unavailable Rayray Lam Admitting Unavailable Rayray Lam Attending Unavailable HausNel Primary Care Provider [phone] Haus, Nel P Unavailable Haus, eNl Nayak Primary Care Provider Haus, Nel P Unavailable HAUS, NEL NAYAK Primary Care Unavailable SON VARGAS Attending Unavailabl e Christus DONel Primary Care Provider Haus DO, Nel P Unavailable Haus DO, Nel Nayak Primary Care Provider Haus, Nel P Unavailable Haus DO, Nel Nayak Primary Care Provider Haus DO, Nel Nayak Primary Care Provider Haus DO, Nel Jessica Primary Care Provider [phone] Haus DO, Nel P Primary Care Provider Unavailable Unavailable THOMAE, DO ADAM R Attending Unavailable THOMDO ADAM BLACK Referring Unavailable Haus, Dr. Nel Nayak Primary Care Unavailable HAUS, NEL P Attending [...] Unavailable HAUS, NEL P Primary Care Unavailable Haus DO, Nel P Primary Care Provider [phone] HAUS, NEL P Primary Care Unavailable MARIA FERNANDA BUCKLEY Attending Unavailable SELF, SELF Referring Unavailable HAUS, NEL P Primary Care Unavailable SELF, SELF Referring Unavailable JAYNA MORENO Attending Unavailable HAUS, NEL P Primary Care Unavailable CHIRAG MARTINEZ Attending Unavailable CHIRAG MARTINEZ Referring Unavailable HAUS, NEL P Primary Care Unavailable CHIRAG MARTINEZ Attending Unavailable POLINSGOKUL, CHIRAG Stein Referring Unavailable VAN DUBON Attending Unavailable HAUS, NEL NAEL Primary Care Unavailable CHAIM, MATT TRORE Referring Unavailable CHAIM, MATT TORRE Admitting Unavailable HAUS, NEL NAEL Primary Care Unavailable CHAIM, MATT TORRE Referring Unavailable CHAIM, MATT TORRE Admitting Unavailable PRINVAN Grider Attending Unavailable SELF, SELF Referring Unavailable HAUS, NEL P Primary Care Unavailable HAUS, NEL P Attending Unavailable HAUS, NEL P Primary Care Unavailable HAUS, NEL P Attending Unavailable HAUS, NEL P Referring Unavailable HAUS, NEL P Attending Unavailable HAUS, NEL P Referring Unavailable HAUS, NEL P Primary Care Unavailable Haus , Dr. Do Primary Care Provider [phone] Den GILL, Dr. Martinez Attending Provider [phone] Den GILL, Dr. Martinez Referring Provider [phone] HAUS, NEL NAEL Primary Care Unavailable HAUS, NEL NAEL Primary Care Unavailable MATT LOPEZ Attending Unavailable MATT LOPEZ Admitting Unavailable HAUS, NEL NAEL Primary Care Unavailable CHAIMMATT BROWN Attending Unavailable CHAIMMATT THEODORE Admitting Unavailable HAUS, NEL NAEL Primary Care Unavailable FLORENTINO VILLASENOR Attending Unavailable FLORENTINO VILLASENOR Admitting Unavailable HAUS, NEL NAEL Primary Care Unavailable NO, PHYSICIAN Attending Unavailable CELESTE GUERRA Attending Unavailable HAUS, NEL NAEL Primary Care Unavailable HAUS, NEL NAEL Primary Care Unavailable CELESTE GUERRA Attending Unavailable HAUS, NEL NAEL Primary Care Unavailable CELESTE GUERRA Attending Unavailable HAUS, NEL NAEL Primary Care Unavailable RUSTYLEIDY Attending Unavailable HAUS, NEL NAEL Primary Care Unavailable MARJORIE NAVA Attending Unavailabl e RUSTY, LEIDY POOLE Attending Unavailable HAUS, NEL NAEL Primary Care Unavailable NO, PHYSICIAN Attending Unavailable HAUS, NEL NAEL Primary Care Unavailable Michelle Crenshaw Referring Unavailable Michelle Crenshaw Attending Unavailable Haus, Nel Primary Care Unavailable Haus, Nel Primary Care Unavailable Michelle Crenshaw Referring Unavailable Michelle Crenshaw Attending Unavailable Allergies Allergy Classification Reported Allergen(s) Allergy Type Date of Onset Reaction(s) Facility Acetaminophen / oxyCODONE (20 sources) Acetaminophen / oxyCODONE Drug Allergy 7 GI Intolerance [facility] (20 sources) acetaminophen / oxyCODONE; Translations: [Unknown] Propensity to adverse reactions to drug 7 GI Intolerance [facility] (20 sources) oxyCODONE; Translations: [OXYCODONE] Drug Allergy 8 GI Intolerance, Nausea and Vomiting [facility] (2 sources) oxyCODONE; Translations: [oxycodone HCl] Drug Allergy 8 Nausea [facility] Repository Medications Current Medications Medication Drug Class(es) Dates Sig (Normalized) Sig (Original) Acai Craig Extract (3 sources) Start: 08-07-2018 Acai Craig Extract Active 1 OZ PO DAILY August 07, 2018 1:00am Start: 08-07-2018 Acai Craig Ext ract Active 1 OZ PO DAILY August 07, 2018 12:00am acetaminophen 325 mg / HYDROcodone bitartrate 5 mg oral tablet (9 sources) Opioid Agonist Start: 10-12-2023 take 1 tablet by mouth every eight hours as needed for pain Hydrocodone-Acetaminophen 5-325 mg tablet Active 1 {tbl} PO Q8H as needed for Pain 9 3 0 October 12, 2023 Calculus of left kidney Calculus of kidney Start: 10-12-2023 take 1 tablet by felisa th every eight hours Hydrocodone-Acetaminophen Active 1 TABLE T PO Q8H 9 3 October 12, 2023 Start: 08-14-2018 End: 08-21-2018 Hydrocodone-Acetaminophen 1 EACH tablet Discontinued 1 - 2 NMA PO EVERY 6 HOURS NEEDED as needed for renal calculus 30 7 0 August 14, 2018 10:19am August 20, 2018 1:00am August 21, 2018 1:09am Calculus of left kidney Calculus of kidney Start: 08-14-2018 End: 08-21-2018 Hydrocodone-Acetaminophen Di scontinued 1 - 2 EACH PO EVERY 6 HOURS NEEDED 30 7 August 14, 2018 9:19am August 21, 2018 12:09am ascorbic acid 500 mg chewable tablet (20 sources) Vitamin C Start: 09-28-2015 take 1 tablet by mouth once daily Ascorbic Acid (Vitamin C) (Vitamin C) 500 MG tablet,chewable Active 500 mg PO DAILY September 28, 2015 1:00am take 5 tablets by mouth once doug ly ascorbic acid, vitamin C, (VITAMIN C) 100 MG tablet Take 5 (five) tablets (500 mg total) by mouth daily . Active aspirin 81 mg delayed release oral tablet (14 sources) Platelet Aggregation Inhibitor, Nonsteroidal Anti-inflammatory Drug Start: 11-13-2015 take 1 tablet by mouth once daily Aspirin 81 MG tablet Active 81 mg PO DAILY@0800 November 13, 2015 1:00am Aspirin 81 MG TA BS Quantity: 0 Refills: 0 Ordered: 22-Jun-2023 DO Active bifidobacterium infantis 4 mg oral capsule (3 sources) Start: 08-07-2018 take 1 capsule by mouth once daily Bifidobacterium Infantis (Align) 4 MG capsule Active 4 MG PO DAILY August 07, 2018 1:00am calcium carb-D3-mag ox-zinc ox (Brenda Mag Zinc Plus D3) 333 mg-133 unit -133 mg-5 mg Tab (20 sources) calcium carb-D3- mag ox-zinc ox (Brenda Mag Zinc Plus D3) 333 mg-133 unit -133 mg-5 mg Tab Take by mouth 2 (two) times a day . Active calcium carb-D3- mag ox-zinc ox (Brenda Mag Zinc Plus D3) 333 mg-133 unit -133 mg- 5 mg Tab Take by mouth 2 (two) times a day . 0 Active calcium carbonate 1250 mg chewable tablet (6 sources) Start: 09-28-2015 take 1 tablet by mouth once daily Calcium Carbonate 500 MG tablet,chewable Active 500 mg PO DAILY September 28, 2015 1:00am Calcium-Magnesi um-Zinc-Vit D3 (Calcium-Magnes ium-Zinc-D3) 333-133-5-3.33 MG-MCG tablet (2 sources) Calcium-Magnesiu m-Zi nc-Vit D3 (Pcwmkxd-Ygaxrulzo-A inc-D3) 333-133-5-3.33 MG-MCG tablet Take by mouth Twice daily. Active carbidopa 25 mg / levodopa 100 mg oral tablet (20 sources) Aromatic Amino Acid Decarboxylation Inhibitor, Aromatic Amino Acid Start: 04-17-2025 End: 04-17-2026 take 1.5 tablets by mouth once, then take 0.5 tablet by mouth three times daily carbidopa-levodopa (SINEMET) 25-100 mg per tablet Indications: Parkinson's disease without dyskinesia or fluctuating manifestations (HCC) Take 1.5 (one and a half) tablets by mouth 3 (three) times a day . 405 tablet 3 04/17/2025 04/17/2026 Active Start: 09-07-2023 take 1 tablet by felisa th three times daily Carbidopa-Levodopa Active 1 TABLET PO THREE TIMES A DAY September 07, 2023 12:00am Start: 08-04-2022 End: 02-13-2026 take 2 tablets by mouth three times daily carbidopa-levodopa (SINEMET) 25-100 mg per tablet Indications: Parkinson's disease without dyskinesia or fluctuating manifestations (HCC) Take 2 (two) tablets by mouth 3 (three) times a day . 540 tablet 3 02/13/2025 04/17/2025 Discontinued Start: 04-08-2021 carbidopa-levo dopa (SINEMET) 25-100 mg per tablet Indications: Parkinson's disease (HCC) 0.5 tab 3x/day x 7 days; then 1 tab 3x/day after that (6 AM - 12 Noon - 6 PM) . 270 tablet 6 04/08/2021 Active cephalexin 500 mg oral capsule (10 sources) Cephalosporin Antibacterial Start: 10-12-2023 take 1 capsule by mouth every twelve hours Cephalexin 500 mg capsule Active 500 mg PO EVERY 12 HOURS 6 3 0 October 12, 2023 1:00am post-operative Start: 04-17-2023 End: 04-24-2023 take 1 capsule by mouth three times daily cephALEXin 500 MG capsule Take 1 capsule by mouth 3 times daily for 7 days. 21 capsule 0 04/17/2023 04/24/2023 Active Start: 08-14-2018 End: 08-17-2018 take 1 capsule by mouth every twelve hours Cephalexin 500 MG capsule Discontinued 500 mg PO EVERY 12 HOURS 6 3 0 August 14, 2018 1:00am August 16, 2018 1:00am August 17, 2018 1:12am post-operative cholecalciferol 0.025 mg oral tablet (9 sources) Vitamin D Start: 09-28-2015 End: 10-04-2023 take 2 tablets by mouth once daily Cholecalciferol (Vitamin D3) (Vitamin D3) 1,000 UNIT tablet Active 2000 U PO DAILY September 28, 2015 1:00am take 1 tablet by mouth once eva y Vitamin D3 25 MCG (1000 UT) tablet Take 3,000 Units by mouth daily. 0 Active cholecalciferol, vitamin D3, (D3-2000 ORAL) (20 sources) take 4000 mg by mouth once daily cholecalciferol, vitamin D3, (D3-2000 ORAL) Take 4,000 mg by mouth daily . Active take 4000 mg by mouth once daily cholecalciferol, vitamin D3, (D3-2000 ORAL) Take 4,000 mg by mouth daily . 0 Active take 5000 mg by mouth once daily cholecalciferol, vitamin D3, (D3-2000 ORAL) Take 5,000 mg by mouth daily . 0 Active escitalopram 10 mg oral tablet (20 sources) Serotonin Reuptake Inhibitor Start: 09-16-2021 End: 08-16-2025 take 1 tablet by mouth once daily escitalopram oxalate (LEXAPRO) 10 MG tablet Indications: Anxiety Take 1 (one) tablet (10 mg total) by mouth daily . 90 tablet 3 08/16/2024 08/16/2025 Active Lexapro 10 MG Or al Tablet Quantity: 0 Refills: 0 Ordered: 22-Jun-2023 DO Active famotidine 20 mg oral tablet (20 sources) Histamine-2 Receptor Antagonist Start: 03-25-2021 End: 05-20-2024 take 1 tablet by mouth once daily as needed for gastroesophageal reflux disease Famotidine (Acid Controller) 20 mg tablet Active 20 mg PO DAILY as needed for GERD October 11, 2023 1:00am loratadine 10 mg oral tablet (2 sources) Start: 02-26-2025 take 1 tablet by mouth once daily Loratadine (Claritin) 10 MG tablet Take 1 tablet by mouth daily. 10 tablet 02/26/2025 Active Magnesium (3 sources) Start: 08-07-2018 take 250 mg by mouth twice daily Magnesium Active 250 MG PO TWICE A DAY August 07, 2018 1:00am Start: 08-07-2018 take 250 mg by mouth twice doug ly Magnesium Active 250 MG PO TWICE A DAY August 07, 2018 12:00am magnesium citrate 100 mg oral tablet (20 sources) take 3.2 capsules by mouth once daily magnesium citrate 100 mg cap Take 3.2 capsules (320 mg total) by mouth daily . Active magnesium hydroxide 80 mg/ml oral suspension (2 sources) Start: 04-17-2025 End: 04-17-2026 take 15 mL by mouth once daily magnesium hydroxide (MOM) 400 mg/5 mL Susp Indications: Constipation, unspecified constipation type Take 15 mL (1,200 mg total) by mouth daily . 450 mL 04/17/2025 04/17/2026 Active melatonin 5 mg oral tablet (20 sources) take 1 tablet by mouth once daily in the evening melatonin 5 mg Tab Take 5 mg by mouth every evening . 0 Active Multiple Minerals-Vitamins (BRENDA MAG ZINC +D3 PO) (7 sources) take 1 tablet by mouth twice daily Multiple Minerals-Vitamins (BRENDA MAG ZINC +D3 PO) Take by mouth. One tab twice a day Active take 1 tablet by mouth twice doug ly Multiple Minerals-Vitamins (BRENDA MAG ZINC +D3 PO) Take by mouth. One tab twice a day 0 Active multivitamin (THERAGRAN) per tablet (20 sources) take 1 tablet by felisa th once daily multivitamin (THERAGRAN) per tablet Take 1 (one) tablet by mouth daily . Active take 1 tablet by mouth once eva y multivitamin (THERAGRAN) per tablet Take 1 (one) tablet by mouth daily . 0 Active take 1 tablet by mouth once eva y multivitamin (THERAGRAN) per tablet Take 1 tablet by mouth daily . 0 Active MULTIVITAMIN Tab (7 sources) take 1 tablet by felisa th once daily MULTIVITAMIN Tab Take 1 tablet by mouth daily. Active take 1 tablet by mouth once eva y MULTIVITAMIN Tab Take 1 tablet by mouth daily. 0 Active naproxen 375 mg delayed release oral tablet (1 source) Nonsteroidal Anti-inflammatory Drug Start: 01-16-2018 End: 01-31-2018 take 1 tablet by mouth twice daily at mealtime naproxen (EC NAPROSYN) 375 MG TbEC Take 1 (one) tablet (375 mg total) by mouth 2 (two) times a day with meals for 30 doses. 30 tablet 0 01/16/2018 01/31/2018 Active Valley 3 1200 MG capsule (7 sources) take 1 tablet by mouth once daily Valley 3 1200 MG capsule Take by mouth. One tab daily Active take 1 tablet by mouth once vea y Valley 3 1200 MG capsule Take by mouth. One tab daily 0 Active Valley-3 Fatty Acids (Fish Oil) 300 MG capsule (6 sources) Start: 09-28-2015 take 1 capsule by mouth twice daily Valley-3 Fatty Acids (Fish Oil) 300 MG capsule Active 1200 mg PO TWICE A DAY September 28, 2015 1:00am Start: 09-28-2015 take [address] [facility] twice daily Valley-3 Fatty Acids (Fish Oil) 300 MG capsule Active 1200 MG PO TWICE A DAY September 28, 2015 1:00am Start: 09-28-2015 take [address] [facility] twice daily Valley-3 Fatty Acids (Fish Oil) 300 MG capsule Active 1200 MG PO TWICE A DAY September 28, 2015 12:00am omega-3 fatty acids/fish oil (fish oil-omega-3 fatty acids) 300-1,000 mg capsule (20 sources) take 2 capsules by [facility] once daily omega-3 fatty acids/fish oil (fish oil-omega-3 fatty acids) 300-1,000 mg capsule Take 2 (two) capsules by mouth daily . Active take 2 capsules by mouth once da jerilyn omega-3 fatty acids/fish oil (fish oil-omega-3 fatty acids) 300-1,000 mg capsule Take 2 (two) capsules by mouth daily . 0 Active take 1 capsule by mouth once doug ly omega-3 fatty acids/fish oil (fish oil-omega-3 fatty acids) 300-1,000 mg capsule Take 2 g by mouth daily . 0 Active omeprazole 10 mg delayed release oral capsule (3 sources) Proton Pump Inhibitor Start: 10-12-2023 take 1 capsule by mouth once daily Omeprazole 10 mg capsule,delayed release(DR/EC) Active 10 mg PO DAILY October 12, 2023 1:00am ondansetron 4 mg oral tablet (20 sources) Serotonin-3 Receptor Antagonist Start: 04-08-2021 End: 05-08-2021 take 1 tablet by mouth twice daily ondansetron (ZOFRAN) 4 MG tablet Indications: Nausea Take 1 (one) tablet (4 mg total) by mouth 2 (two) times a day . 60 tablet 0 04/08/2021 Active pantoprazole 40 mg delayed release oral tablet (20 sources) Proton Pump Inhibitor Start: 08-31-2018 pantoprazole (PROTONIX) 40 MG tablet Take 40 mg by mouth as needed . 0 08/31/2018 Active phenazopyridine hydrochloride 200 mg oral tablet (9 sources) Start: 04-17-2023 End: 04-01-2025 take 1 tablet by mouth three times daily as needed for muscle spasms Phenazopyridine (Pyridium) 200 mg tablet Active 200 mg PO 3 TIMES DAILY NEEDED as needed for Bladder Spasms 30 7 0 October 12, 2023 1:00am Start: 04-17-2023 End: 2023 take 1 tablet by mouth three times daily Phenazopyridine 200 MG tablet Take 1 tablet by mouth 3 times daily for 2 days. 6 tablet 04/17/2023 Active potassium citrate 10 meq extended release oral tablet (20 sources) Metabolic Alkalinizer Start: 12-05-2016 End: 04-01-2025 take 1 tablet by mouth once daily, then take 1-2 tablets by mouth once daily potassium citrate (UROCIT-K) 10 mEq (1,080 mg) SR tablet Indications: takes 1-2 tablets daily Take 1 (one) tablet (10 mEq total) by mouth daily Reasons: takes 1-2 tablets daily. 12/05/2016 Active Start: 11-13-2015 End: 05-20-2024 take 1 tablet by mouth twice daily potassium citrate 10 MEQ (1080 MG) Tab CR Take 1 tablet by mouth 2 times daily. 30 tablet 3 01/04/2018 05/20/2024 Discontinued raNITIdine 150 mg oral tablet (12 sources) Histamine-2 Receptor Antagonist Start: 08-31-2018 End: 12-11-2020 take 1 tablet by mouth twice daily ranitidine (ZANTAC) 150 MG Tab tablet Indications: Chest pain due to GERD Take 1 tablet by mouth 2 times daily. 30 tablet 5 08/31/2018 Active romosozumab-aqqg (EVENITY SUBQ) (20 sources) romosozumab-aqqg (EVENITY SUBQ) Inject under the skin every 30 (thirty) days . Active romosozumab-aqqg (EVENITY SUBQ) Inject under the skin every 30 (thirty) days . 0 Active rosuvastatin calcium 10 mg oral tablet (20 sources) HMG-CoA Reductase Inhibitor Start: 12-12-2024 take 1 tablet by mouth once daily Rosuvastatin 10 MG tablet Indications: Hypercholesteremia Take 1 tablet by mouth daily. 90 tablet 3 12/12/2024 Active Start: 11-29-2021 End: 10-04-2023 take 1 tablet by mouth once daily Rosuvastatin 10 MG tablet Indications: Hypercholesteremia Take 1 tablet by mouth daily. 90 tablet 3 10/04/2023 Active Crestor 10 MG Or al Tablet Quantity: 0 Refills: 0 Ordered: 22-Jun-2023 DO Active simvastatin 20 mg oral tablet (20 sources) HMG-CoA Reductase Inhibitor Start: 09-28-2015 End: 02-10-2022 take 1 tablet by mouth at bedtime Simvastatin 20 MG tablet Active 20 mg PO AT BEDTIME September 28, 2015 1:00am ubidecarenone 50 mg chewable tablet (20 sources) Start: 11-13-2015 Coenzyme Q10 5 0 MG tablet,chewable Active 50 - 100 mg PO DAILY November 13, 2015 1:00am Start: 11-13-2015 Coenzyme Q10 A ctive 50 - 100 MG PO DAILY November 13, 2015 12:00am take 10 capsules by mouth three times daily coenzyme Q10 100 mg capsule Take 100 mg by mouth 3 (three) times a day . Active ubidecarenone 100 mg / vitamin e 5 unt oral capsule (7 sources) take 1 capsule by mouth twice daily Coenzyme Q10 (Co Q-10) 100 MG capsule Take 1 capsule by mouth 2 times daily. Active Vitamin B Complex (Complex B-100) tablet extended release (3 sources) Start: 09-07-2023 Vitamin B Complex (Complex B-100) tablet extended release Active 1 {tbl} PO DAILY September 07, 2023 1:00am Start: 09-07-2023 take 1 tablet by mouth once da jerilyn Vitamin B Complex (Complex B-100) tablet extended release Active 1 TABLET PO DAILY September 07, 2023 12:00am vitamin b12 1 mg oral tablet (8 sources) Vitamin B12 take 1 tablet by mouth once daily cyanocobalamin (B-12) 1000 MCG tablet Take 1 (one) tablet (1,000 mcg total) by mouth daily . Active Vitamin D-Vitamin K (DOSOKAP PO) (4 sources) take 1 tablet by mouth once daily Vitamin D-Vitamin K (DOSOKAP PO) Take by mouth. One tab daily Active Completed/Discontinued Medications Medication Drug Class(es) Dates Sig (Normalized) Sig (Original) Calcium Citrate (1 source) Calcium Citrate TABS Quantity: 0 Refills: 0 Ordered: 22-Jun-2023 DO Active CoQ10 CAPS (1 source) CoQ10 CAPS Quantity: 0 Refills: 0 Ordered: 22-Jun-2023 DO Active 1 ml denosumab 60 mg/ml prefilled syringe (14 sources) RANK Ligand Inhibitor Start: 05-14-2025 End: 05-14-2025 denosumab (PROLIA) injection 60 mg Start: 05-14-2025 End: 05-14-2025 inject 60 mg by subcutaneous injection once 60 mg, Subcutaneous, Once, On Mon05/14/25 at 1200, For 1 dose Start: 11-04-2024 End: 11-04-2024 denosumab (PROLIA) injection 60 mg Start: 11-04-2024 End: 11-04-2024 denosumab (PROLIA) injection 60 mg Start: 11-04-2024 End: 11-04-2024 inject 60 mg by subcutaneous injection once 60 mg, Subcutaneous, Once, On Mon11/04/24 at 1115, For 1 dose Start: 11-04-2024 End: 11-04-2024 denosumab (PROLIA) injection 60 mg Start: 11-04-2024 End: 11-04-2024 denosumab (PROLIA) injection 60 mg Start: 11-04-2024 End: 11-04-2024 inject 60 mg by subcutaneous injection once 60 mg, Subcutaneous, Once, On Mon11/04/24 at 1115, For 1 dose Start: 05-01-2024 End: 05-01-2024 denosumab (PROLIA) injection 60 mg Start: 05-01-2024 End: 05-01-2024 inject 60 mg by subcutaneous injection once 60 mg, Subcutaneous, Once, On Mon05/01/24 at 1400, For 1 dose Start: 11-01-2023 End: 11-01-2023 denosumab (PROLIA) injection 60 mg Start: 11-01-2023 End: 11-01-2023 denosumab (PROLIA) injection 60 mg Start: 04-28-2023 End: 04-28-2023 denosumab (PROLIA) injection 60 mg Start: 04-28-2023 End: 04-28-2023 denosumab (PROLIA) injection 60 mg DosoKap TABS (1 source) DosoKap TABS Gama ntity: 0 Refills: 0 Ordered: 22-Jun-2023 DO Active esomeprazole 20 mg delayed release oral capsule (2 sources) Proton Pump Inhibitor End: 10-05-2018 esomeprazole (NEXIUM) 20 MG capsule Take 20 mg by mouth as needed. 10/05/2018 Discontinued lansoprazole 30 mg delayed release oral capsule (2 sources) Proton Pump Inhibitor End: 10-05-2018 lansoprazole (PREVACID) 30 MG capsule Take 30 mg by mouth as needed . 10/05/2018 Discontinued Multivitamin Adults TABS (1 source) Multivitamin Amrik lts TABS Quantity: 0 Refills: 0 Ordered: 22-Jun-2023 DO Active Valley 3 CAPS (1 source) Valley 3 CAPS Gama ntity: 0 Refills: 0 Ordered: 22-Jun-2023 DO Active predniSONE 20 mg oral tablet (5 sources) Start: 02-26-2025 End: 04-01-2025 predniSONE 20 MG tablet Indications: Contact dermatitis due to poison martha Take 1 tablet bid x 3 days and then 1 tablet once daily x 3 days. 9 tablet 02/26/2025 04/01/2025 Discontinued Start: 02-21-2025 End: 02-27-2025 take 2 tablets by mouth once daily, then take 1 tablet by mouth once daily predniSONE 20 MG tablet Take 2 tablets by mouth daily for 3 days, THEN 1 tablet daily for 3 days. 40,40,40,20,20,20. 9 tablet 02/21/2025 02/27/2025 Active Start: 05-20-2024 End: 05-25-2024 take 1 tablet by mouth twice daily predniSONE 20 MG tablet Indications: Bilateral lumbar radiculopathy , Acute bilateral low back pain with bilateral sciatica Take 1 tablet by mouth 2 times daily for 5 days. 10 tablet 05/20/2024 05/25/2024 Start: 04-15-2024 End: 04-21-2024 take 2 tablets by mouth once daily, then take 1 tablet by mouth once daily predniSONE 20 MG tablet Take 2 tablets by mouth daily for 3 days, THEN 1 tablet daily for 3 days. 40,40,40,20,20,20. 9 tablet 04/15/2024 04/21/2024 Active 1.17 ml romosozumab-aqqg 89. 7 mg/ml prefilled syringe (20 sources) Start: 09-28-2022 End: 09-28-2022 romosozumab (EVENITY) syring e 210 mg Start: 08-26-2022 End: 08-26-2022 romosozumab (EVENITY) syring e 210 mg Start: 06-29-2022 End: 06-29-2022 romosozumab (EVENITY) syring e 210 mg Start: 06-29-2022 End: 06-29-2022 romosozumab (EVENITY) syring e 210 mg Start: 06-29-2022 End: 06-29-2022 romosozumab (EVENITY) syring e 210 mg Start: 06-29-2022 End: 06-29-2022 romosozumab (EVENITY) syring e 210 mg Start: 05-25-2022 End: 05-25-2022 romosozumab (EVENITY) syring e 210 mg Start: 05-25-2022 End: 05-25-2022 romosozumab (EVENITY) syring e 210 mg Start: 04-27-2022 End: 04-27-2022 romosozumab (EVENITY) syring e 210 mg Start: 04-27-2022 End: 04-27-2022 romosozumab (EVENITY) syring e 210 mg Start: 03-30-2022 End: 03-30-2022 romosozumab (EVENITY) syring e 210 mg Start: 03-30-2022 End: 03-30-2022 romosozumab (EVENITY) syring e 210 mg Start: 02-23-2022 End: 02-23-2022 romosozumab (EVENITY) syring e 210 mg Start: 02-23-2022 End: 02-23-2022 romosozumab (EVENITY) syring e 210 mg Start: 01-26-2022 End: 01-26-2022 romosozumab (EVENITY) syring e 210 mg Start: 01-26-2022 End: 01-26-2022 romosozumab (EVENITY) syring e 210 mg Start: 01-26-2022 End: 01-26-2022 romosozumab (EVENITY) syring e 210 mg Start: 01-26-2022 End: 01-26-2022 romosozumab (EVENITY) syring e 210 mg Start: 12-22-2021 End: 12-22-2021 romosozumab (EVENITY) syring e 210 mg Start: 12-22-2021 End: 12-22-2021 romosozumab (EVENITY) syring e 210 mg Start: 11-24-2021 End: 11-24-2021 romosozumab (EVENITY) syring e 210 mg Start: 11-24-2021 End: 11-24-2021 romosozumab (EVENITY) syring e 210 mg End: 09-20-2023 romosozumab-aqqg (Evenity) 1 05 MG/1.17ML Solution Prefilled Syringe Inject under the skin every 30 days. 0 09/20/2023 Discontinued 1 ml triamcinolone acetonide 40 mg/ml injection (6 sources) Corticosteroid Start: 04-15-2024 End: 04-15-2024 triamcinolone (KENALOG-40) injection 40 mg Start: 04-15-2024 End: 04-15-2024 inject 1 dose by intramuscular injection once 40 mg, Intramuscular, ONCE (IN CLINIC), 1 dose, On Mon04/15/24 at 1245 Start: 08-12-2022 End: 08-12-2022 triamcinolone acetonide (KENALOG-40) injection 40 mg Start: 03-22-2021 End: 10-04-2023 triamcinolone 0.1 % Cream cr eam Indications: Poison martha dermatitis Apply twice daily as needed 45 g 0 03/22/2021 10/04/2023 Discontinued (Therapy completed) Vitamin B Complex CAPS (1 source) Vitamin B Comple x CAPS Quantity: 0 Refills: 0 Ordered: 22-Jun-2023 DO Active Problems Active Problems Problem Classification Problem Date Documented Da te Episodic/Chronic Abdominal pain (1 source) Unspecified abdominal pain; Translations: [Unspecified abdominal pain] Onset: 5 Episodic Allergic reactions (17 sources) Contact dermatitis due to poison martha; Translations: [Allergic contact dermatitis due to plants, except food] Onset: 1 03-25-2021 Episodic Anxiety disorders (20 sources) Anxiety; Translations: [Anxiety disorder, unspecified] Onset: 1 08-10-2021 Chronic Calculus of urinary tract (20 sources) History of calculus of kidney; Translations: [Kidney stone] Onset: 8 12-25-2017 Episodic Coronary atherosclerosis and other heart disease (7 sources) Coronary arteriosclerosis; Translations: [Atherosclerotic heart disease of [place] coronary artery without angina pectoris] Onset: 8 08-28-2019 Chronic Disorders of lipid metabolism (20 sources) Hypercholesterolemia; Translations: [Pure hypercholesterolemia, unspecified] Onset: 8 Resolved: 2 12-25-2017 Chronic Esophageal disorders (20 sources) Gastroesophageal reflux disease; Translations: [Gastro-esophageal reflux disease without esophagitis] Onset: 9 10-03-2018 Chronic Esophageal disorders (1 source) Gastroesophageal reflux disease with hiatal hernia; Translations: [Hiatal hernia with GERD without esophagitis] Episodic Genitourinary symptoms and ill-defined conditions (2 sources) Urinary symptoms ; Translations: [Unspecified symptoms and signs involving the genitourinary system] 04-17-2023 Episodic Nausea and vomiting (1 source) Nausea; Translations: [Nausea] Episodic Nutritional deficiencies (20 sources) Vitamin D deficiency; Translations: [Vitamin D deficiency, unspecified] Onset: 0 03-20-2020 Chronic Osteoarthritis (2 sources) Osteoarthritis of left knee joint; Translations: [Unilateral primary osteoarthritis, left knee] Chronic Osteoporosis (20 sources) Senile osteoporosis; Translations: [Age-related osteoporosis without current pathological fracture] Onset: 0 03-20-2020 Chronic Other aftercare (3 sources) Long-term current use of drug therapy; Translations: [Other custodial (current) drug therapy] 10-29-2024 Episodic Other bone disease and musculoskeletal deformities (20 sources) Idiopathic scoliosis AND/OR kyphoscoliosis; Translations: [Other idiopathic scoliosis, site unspecified] Onset: 1 12-11-2020 Chronic Other bone disease and musculoskeletal deformities (20 sources) Idiopathic kyphoscoliosis; Translations: [Other idiopathic scoliosis, site unspecified] Onset: 1 07-02-2021 Chronic Other ear and sense organ disorders (16 sources) Sensorineural hearing loss, bilateral; Translations: [Sensorineural hearing loss, bilateral] Onset: 5 Chronic Other ear and sense organ disorders (1 source) Sensorineural hearing loss, bilateral; Translations: [Sensorineural hearing loss, bilateral] Onset: 5 Chronic Other ear and sense organ disorders (1 source) Sudden hearing loss; Translations: [Sudden hearing loss, unspecified laterality] Episodic Other gastrointestinal disorders (1 source) Heartburn; Translations: [Heartburn] Episodic Other gastrointestinal disorders (1 source) Eructation; Translations: [Gaseous regurgitation] Episodic Other gastrointestinal disorders (1 source) Burping; Translations: [Belching] Episodic Other gastrointestinal disorders (1 source) Chronic constipation; Translations: [Constipation, unspecified] Episodic Other gastrointestinal disorders (17 sources) Constipation; Translations: [Other constipation] Onset: 3 09-20-2023 Episodic Other gastrointestinal disorders (2 sources) Constipation, unspecified; Translations: [Constipation, unspecified] Onset: 5 Episodic Other hereditary and degenerative nervous system conditions (7 sources) Resting tremor; Translations: [Other specified forms [...] Translations: [Other instability, left knee] Episodic Other non-traumatic joint disorders (1 source) Pain in elbow; Translations: [Pain in right elbow] 01-29-2024 Episodic Other screening for suspected conditions (not mental disorders or infectious disease) (3 sources) Radiology result abnormal; Translations: [Abnormal findings on diagnostic imaging of other specified body structures] Onset: 5 04-01-2025 Chronic Parkinson`s disease (20 sources) Parkinson's disease; Translations: [Parkinson's disease] Onset: 1 Resolved: 3 Chronic Parkinson`s disease (4 sources) Parkinson`s disease; Translations: [Parkinson's disease without dyskinesia, without mention of fluctuations] Onset: 3 Residual codes; unclassified (9 sources) History of drug therapy; Translations: [Personal history of other drug therapy] Episodic Spondylosis; intervertebral disc disorders; other back problems (20 sources) Lumbar spondylosis; Translations: [Spondylosis without myelopathy or radiculopathy, lumbar region] Onset: 1 12-11-2020 Chronic Unclassified (1 source) Patient encounter status; Translations: [Screening for osteoporosis] Past or Other Problems Problem Classification Problem Date Documented Da te Episodic/Chronic Heart valve disorders (7 sources) Heart murmur; Translations: [Cardiac murmur, unspecified] Onset: 10-09-2018 08-28-2019 Episodic Nonspecific chest pain (10 sources) Chest pain; Translations: [Non-cardiac chest pain] Onset: 08-31-2018 08-31-2018 Episodic Other aftercare (2 sources) Other custodial (current) drug therapy; Translations: [Other termite treater (current) drug therapy] Onset: 11-04-2024 Episodic Other circulatory disease (7 sources) Elevated blood pressure; Translations: [Elevated blood-pressure reading, without diagnosis of hypertension] Onset: 09-07-2020 09-07-2020 Episodic Other lower respiratory disease (7 sources) Dyspnea on exertion; Translations: [Other forms of dyspnea] Onset: 08-31-2018 09-05-2019 Episodic Other screening for suspected conditions (not mental disorders or infectious disease) (17 sources) Patient encounter status; Translations: [Encounter for screening for osteoporosis] Onset: 11-04-2024 Episodic Other upper respiratory disease (20 sources) Difficulty speaking; Translations: [Dysphonia] Onset: 04-06-2021 Episodic Other upper respiratory disease (20 sources) Dysphonia; Translations: [Dysphonia] Onset: 04-06-2021 04-06-2021 Episodic Residual codes; unclassified (2 sources) Personal history of other drug therapy; Translations: [Personal history of other drug therapy] Onset: 11-04-2024 Episodic Spondylosis; intervertebral disc disorders; other back problems (10 sources) Lumbar radiculopathy; Translations: [Radiculopathy, lumbar region] Onset: 05-20-2024 05-20-2024 Episodic Unclassified (2 sources) Onset: 09-19-2022 Resolved: 09-19-2022 09-19-2022 Results Test Name Value Interpretation Reference Range Facility PROTEIN ELECTROPHORESIS, LIA Manrique 05-14-2025 Albumin [Mass/Vol] 3.6 g/dL Normal 3.1-5.5 [facility] Comment on above: Performed By: #### 4 [id number] #### [facility] [address] [place] [address] Donny Emanuel M.D. [id number] ALPHA 1 0.3 g/dL Normal 0.2-0.5 [facility] Comment on above: Performed By: #### 4 6350 #### [facility] [address] [place], [place] [id number] Donny Emanuel M.D. [id number] ALPHA 2 0.9 g/dL Normal 0.4-1.1 [facility] Comment on above: Performed By: #### 4 6379 #### [facility] [address] [place], [place] [id number] Donny Emanuel M.D. [id number] BETA GLOBULIN 1.0 g/dL Normal 0.6-1.3 [facility] Comment on above: Performed By: #### 4 6379 #### [facility] [address] [place] [address] Donny Emanuel M.D. [id number] GAMMA GLOBULIN 0.8 g/dL Normal 0.6-1.8 [facility] Comment on above: Performed By: #### 4 [id number] #### [facility] [address] [place] [address] Donny Emanuel M.D. [id number] Protein [Mass/Vol] 6.5 g/dL Normal 6.0-8.[address] [facility] Comment on above: Performed By: #### 4 6379 #### [facility] [address] [place], [place] [id number] Donny Emanuel M.D. [id number] REVIEWED BY Reviewed by Pathologist: Lana White MD Normal [facility] Comment on above: Performed By: #### 4 [id number] #### [facility] [address] [place], [place] [id number] Donny Emanuel M.D. [id number] SPEP INTERPRETATION Normal pattern. Serum protein electrophoresis is insufficient to rule out a monoclonal protein. Recommend serum immunofixation and serum free light chains if clinically indicated. Normal [facility] Comment on above: Performed By: #### 4 6330 #### [facility] [address] [place], [place] [id number] Donny Emanuel M.D. [id number] Abdomen/Pelvis without Conto n 04-07-2025 Abdomen/Pelvis without Cont [facility] Imaging Services [address] [place], [place] [address] Abdomen/Pelvis without Cont MR#: [id number] Acct: [id number] Name: UMA MCGRATH Rep #: [id number] : [id number] F [id number] From: Gian patrick MD PCP: Dr. Nel Marcano MD Status: REG CLI Study: Abdomen/Pelvis without Cont Date of Exam: 04/25 Exam# [id number] Ordering Dr: Michelle Crenshaw MD PROCEDURE: ABDOMEN/PELVIS WITHOUT CONT 04/07/2025 REASON FOR EXAM: RIGHT FLANK HEMATURIA TECHNIQUE: ABDOMEN/PELVIS WITHOUT CONT Noncontrast technique limits evaluation of the abdominal and pelvic viscera. Coronal and Sagittal reconstruction series were provided. One or more dose reduction techniques were used (e.g., Automated exposure control, adjustment of the mA and/or kV according to patient size, use of iterative reconstruction technique). RADIATION DOSE SUMMARY: CTDlvol: 7.3 mGy DLP: 368.49 mGycm COMPARISON: 06/20/2023. FINDINGS: CT SCAN OF THE ABDOMEN AND PELVIS WITHOUT ORAL OR IV CONTRAST. CLINICAL INDICATION: TECHNIQUE: Axial and reformatted sagittal and coronal images of the abdomen pelvis obtained without IV contrast administration. COMPARISON: None. FINDINGS: The visualized lung bases are unremarkable. Normal unenhanced liver. Multiple cysts are seen scattered throughout the liver largest measuring 3.1 cm in the caudate lobe. Normal gallbladder and extrahepatic biliary system. Normal unenhanced spleen. Normal pancreas. Normal bilateral adrenal glands. Normal size of the right kidney. There is no right renal mass. 3 mm stone is seen in the lower pole of the right kidney. 5.6 mm stone is seen in the level of the right ureterovesical junction. There is no right hydronephrosis. Normal visualized right ureter. Normal size of the left kidney. There is no left renal mass. Multiple stones are seen in the left renal collecting system largest measuring 4.5 mm in the lower pole. There is no left hydronephrosis. Normal visualized left ureter. Normal visualized stomach. Normal small intestine. Normal colon. The appendix is visualized and appears normal. There is no demonstrated peritoneal fluid. Normal abdominal aorta. Scattered atherosclerotic calcifications are seen in the aortic wall. Normal inferior vena cava. Normal retroperitoneum. Normal urinary bladder. There is no pelvic mass lesion or lymphadenopathy. There is no pelvic fluid. Normal abdominal wall. Degenerative changes are seen in the lumbar vertebra. CT/Abdomen/Pelvis without Cont IMPRESSION: Distal right ureterolithiasis. No hydronephrosis. Bilateral nephrolithiasis. Benign liver cysts. Degenerative changes in the lumbar vertebra. Reading [facility] CC: Dr. Nel Marcano MD; Dr. Michelle Crenshaw MD Outbound Sales Specialist: Signed Normal [facility] LIPID PROFILEon 12-24-2024 Cholesterol [Mass/Vol] 144 mg/dL Normal 107-217 [facility] Comment on above: Performed By: #### L IP2 #### Testing performed at [address] [address] Cholesterol in HDL [Mass/Vol] 42 mg/dL Normal 33-75 [facility] Comment on above: Performed By: #### L IP2 #### Testing performed at [address] [address] Cholesterol in LDL [Mass/Vol] 77 mg/dL Normal <100 [facility] Comment on above: Performed By: #### L IP2 #### Testing performed at [address] [address] Cholesterol in VLDL [Mass/Vol] 25 mg/dL Normal 5-25 [facility] Comment on above: Performed By: #### L IP2 #### Testing performed at [address] [address] Cholesterol.total/Chol esterol in HDL [Mass ratio] 3.43 {ratio} Normal [facility] Comment on above: Result Comment: RISK TOTAL/HDL RATIO MEN WOMEN 1/2 AVERAGE 3.43 3.27 AVERAGE 4.97 4.44 2X AVERAGE 9.55 7.05 3X AVERAGE 23.99 11.04 Performed By: #### L IP2 #### Testing performed at [address] [address] Triglyceride [Mass/Vol] 123 mg/dL Normal 0-150 [facility] Comment on above: Performed By: #### L IP2 #### Testing performed at [facility] [address] [place] [address] C TELOPEPTIDE (CTX)on 2024 C TELOPEPTIDE (CTX) 123 pg/mL Normal see note [facility] Comment on above: Result Comment: Unable to flag abnormal result(s), please refer to reference range(s) below: Reference Range, Females: <5 years: Not Established 5-9 years: 574-1849 pg/mL 10-13 years: 519-2415 pg/mL 14-17 years: 242-1291 pg/mL 18-29 years: 64-640 pg/mL 30-39 years: 60-650 pg/mL 40-49 years: 50-465 pg/mL >49 years: Not Established No reference range is provided for postmenopausal women because of the increased rate of bone turnover post-menopause. It is recommended that results for postmenopausal women be compared to the premenopausal reference range as this will give a better indication of their rate of bone loss. For additional information, please refer to https://education.UFOstart AG/faq/REB297 (This link is being provided for informational/ educational purposes only.) Performed By: #### 8 837, [id number] #### [facility] [address], [address] [place] [address] Crusher Setter: Jose A Turcios MD #### [id number] #### [facility]/[address] [place], [place] Crusher Setter: Marty Poole M.D.,PhD PTH, INTACT AND CALCIUMon Calcium [Mass/Vol] 9.1 mg/dL Normal 8.6-10.4 [facility] Comment on above: Performed By: #### 8 837, 20675 #### [facility] [address], [address] [place], [place] [id number] Crusher Setter: Jose A Turcios MD #### [id number] #### [facility]/[place] [id number] [facility] [address] [place] Crusher Setter: Marty Poole M.D.,PhD PARATHYROID HORMONE, INTACT 49 pg/mL Normal 16-77 [facility] Comment on above: Result Comment: Interpretive Guide Intact PTH Calcium ------- Normal Parathyroid Normal Normal Hypoparathyroidism Low or Low Normal Low Hyperparathyroidism Primary Normal or High High Secondary High Normal or Low Tertiary High High Non-Parathyroid Hypercalcemia Low or Low Normal High Performed By: #### 8 837, 66326 #### [facility] [place] [id number] [facility], [address] [place] [phone] Crusher Setter: Jose A Turcios MD #### [id number] #### [facility]/[place] [id number] [facility] [address] [place], [place] Crusher Setter: Marty Poole M.D.,PhD VITAMIN D,25-OH,TOTAL,IAon 0 11-09-2024 VITAMIN D,25-OH,TOTAL,IA 93 ng/mL Normal 30-100 [facility] Comment on above: Result Comment: Isabelle min D Status 25-OH Vitamin D: Deficiency: <20 ng/mL Insufficiency: 20 - 29 ng/mL Optimal: > or = 30 ng/mL For 25-OH Vitamin D testing on patients on D2-supplementation and patients for whom quantitation of D2 and D3 fractions is required, the QuestAssureD(TM) 25-OH VIT D, (D2,D3), LC/MS/MS is recommended: order code 99341 (patients >2yrs). See Note 1 Note 1 For additional information, please refer to http://education.Need.Plug Apps/faq/USH046 (This link is being provided for informational/ educational purposes only.) Performed By: #### 8 837, 11846 #### [facility] [address], [address] [place] [phone] Crusher Setter: Jose A Turcios MD #### [id number] #### [facility]/[place] [id number] [facility] [address] [place], [place] Crusher Setter: Marty Poole M.D.,PhD BETA CROSSLAPS (BETA CTX)on 05-01-2024 BETA - CROSSLAPS 67 pg/mL Normal [facility] Comment on above: Result Comment: Beta Crosslaps reference ranges (pg/mL): Males: <30 years = Not established 30-50 years = 0 - 584 51-70 years = 0 - 704 >70 years = 0 - 854 Females: <18 years = Not established Premenopausal = 25 - 573 Postmenopausal = 104 - 1008 Performed By: #### 4 7979 #### [facility] [address] [place] [address] Donny Emanuel M.D. [id number] PTH INTACT (PROCESSED AT [facility] )on 05-01-2024 Calcium [Mass/Vol] 9.1 mg/dL Normal 8.4-10.2 [facility] Comment on above: Performed By: #### 4 6413 #### [facility] [address] [place] [address] Donny Emanuel M.D. [id number] PTH INTACT 37.1 pg/mL Normal 12.0-65.0 [facility] Comment on above: Performed By: #### 4 6413 #### [facility] [address] [place], [place] [id number] Donny Emanuel M.D. [id number] VITAMIN D, TOTAL, 25-OHon VITAMIN D 25-HYDROXY 72 ng/mL Normal 30-100 [facility] Comment on above: Order Comment: Assay performed using [employer] CLIA methodology. Result Comment: Isabelle min D status: Deficiency: <10 ng/mL Insufficiency: 10-30 ng/mL Sufficiency: 30-100 ng/mL Toxicity: >100 ng/mL Performed By: #### 4 6678 #### [facility] [address] [place], [place] [address] Donny Emanuel M.D. [id number] CBC, EDIF, PLATELETon 2022 ABSOLUTE BASOPHIL COUNT 0.0 10*3/uL 0.0 - 0.2 10*3/uL [facility] Basophils/100 WBC (Bld) 0.5 % 0.0 - 2.0 % [facility] Differential cell count method Nom (Bld) AUTO DIFF % [facility] Eosinophils (Bld) [#/Vol] 0.2 10*3/uL 0.0 - 0.7 10*3/uL [facility] Eosinophils/100 WBC (Bld) 3.9 % 0.0 - 11.0 % [facility] Erythrocyte distribution width (RBC) [Ratio] 13.2 % 11.5 - 14.5 % [facility] Hematocrit (Bld) [Volume fraction] 43.9 % 36.0 - 48.0 % [facility] Hemoglobin (Bld) [Mass/Vol] 14.3 g/dL [facility] Interpretation and review of laboratory results Abnormal [facility] Lymphocytes (Bld) [#/Vol] 1.0 10*3/uL Low 1.2 - 3.4 10*3/uL [facility] Lymphocytes/100 WBC (Bld) 23.7 % 20.0 - 55.0 % [facility] MCH (RBC) [Entitic mass] 29.9 pg 26.0 - 35.0 PG [facility] MCHC (RBC) [Mass/Vol] 32.5 g/dL [facility] MCV (RBC) [Entitic vol] 92.0 fL [facility] Monocytes (Bld) [#/Vol] 0.4 10*3/uL 0.0 - 0.7 10*3/uL [facility] Monocytes/100 WBC (Bld) 10.4 % High 0.0 - 10.0 % [facility] Neutrophils (Bld) [#/Vol] 2.5 10*3/uL 1.4 - 6.5 10*3/uL [facility] Neutrophils/100 WBC (Bld) 61.5 % 37.0 - 75.0 % [facility] Platelet mean volume (Bld) [Entitic vol] 8.1 fL [facility] Platelets (Bld) [#/Vol] 181 10*3/uL 130 - 400 10*3/uL [facility] RBC (Bld) [#/Vol] 4.77 10*6/uL 4.0 - 5.4 10*6/uL [facility] WBC (Bld) [#/Vol] 4.1 10*3/uL 3.6 - 11.0 10*3/uL [facility] COMPREHENSIVE METABOLIC PANE Jama 09-21-2023 Albumin [Mass/Vol] 4.5 G/dl 3.5 - 5.0 G/dl [facility] Albumin/Globulin [Mass ratio] 2.0 {ratio} RATIO [facility] ALP [Catalytic activity/Vol] 44 U/L [facility] ALT [Catalytic activity/Vol] 13 U/L NINF [facility] AST [Catalytic activity/Vol] 30 U/L [facility] Bilirubin [Mass/Vol] 0.6 mg/dL [facility] Calcium [Mass/Vol] 9.2 mg/dL [facility] Chloride [Moles/Vol] 105 mmol/L [facility] Comment on above: Please note: Triglyc eride levels of 600mg/dL or higher may positively bias chloride results by approximately 2.1 mmol CO2 [Moles/Vol] 30 mmol/L [facility] Creatinine [Mass/Vol] 0.79 mg/dL [facility] GFR COMMENT Average GFR for 70+ years old = 75. [facility] Comment on above: Chronic Kidney disea se, GFR = <60. Kidney failure, GFR = <15. The GFR estimate is not adjusted for extreme body surface area or acute process, nor has it been validated for women or ethnic groups other than and . GFR/1.73 sq M.predicted among blacks MDRD (S/P/Bld) [Vol rate/Area] 91 mL/min/{1.73_m2} ml/min/1.73sq .m [facility] GFR/1.73 sq M.predicted among non-blacks MDRD (S/P/Bld) [Vol rate/Area] 75 mL/min/{1.73_m2} ml/min/1.73sq .m [facility] Glucose post fast [Mass/Vol] 106 mg/dL High [facility] Comment on above: NORMAL <100 mg/dL PREDIABETES 101-126 mg/dL DIABETES 126 mg/dL or higher Interpretation and review of laboratory results Abnormal [facility] Potassium [Moles/Vol] 4.2 mmol/L [facility] Protein [Mass/Vol] 6.8 g/dL [facility] Sodium [Moles/Vol] 139 mmol/L [facility] Urea nitrogen [Mass/Vol] 15 mg/dL [facility] LIPID PANEL W CALCULATED LDL on 09-21-2023 Cholesterol [Mass/Vol] 151 mg/dL [facility] Cholesterol in HDL [Mass/Vol] 37 mg/dL [facility] Cholesterol in LDL [Mass/Vol] 94 mg/dL NINF [facility] Cholesterol in VLDL [Mass/Vol] 20 mg/dL [facility] Cholesterol.total/Chol esterol in HDL [Mass ratio] 4.08 {ratio} RATIO [facility] Comment on above: RISK TOTAL/HDL RATIO MEN WOMEN 1/2 AVERAGE 3.43 3.27 AVERAGE 4.97 4.44 2X AVERAGE 9.55 7.05 3X AVERAGE 23.99 11.04 Triglyceride [Mass/Vol] 99 mg/dL [facility] No Panel Informationon 09-21 [facility] TSH W/FT4 REFLEXon 3 TSH Qn 0.841 m[IU]/L [facility] Initial Visit (Gastroenterol ogy)on 06-22-2023 Initial Visit (Gastroenterology) Diagnoses/Problems Assessed Chronic constipation (564.00) (K59.09) Orders SocHx: Does not use tobacco Tobacco Use Screening; Status:Complete; Done: 22Jun2023 Perform:Not Applicable;Ordered; For:SocHx: Does not use tobacco; Ordered By:Nader Javier; Chief Complaint NPV in office today for constipation. Pt reports since April approx 1 BM daily with help of MiraLAX- Kya,W,Cooper and Gus. History of Present IllnessSeen and seen today acutely. Diagnosed with Parkinson disease approximately 2 years ago currently on no medications. Is involved in active physical therapy, delayed the disease at [facility]. She exercises daily. She lives independently still [...] that in her literature on Parkinson's as well. Recent Cologuard testing was negative. She denies any rectal bleeding Review of Systems Constitutional: no fever, no chills, not feeling tired and no recent weight loss. ENT: no lymphadenopathy. Cardiovascular: no shortness of breath and no chest pain. Respiratory: no cough. Gastrointestinal: as noted in HPI. Musculoskeletal: no joint swelling. Integumentary: no rashes, no skin lesions and was no jaundiced. All other systems have been reviewed and are negative for complaint. Active Problems Problems Colon cancer screening (V76.51) (Z12.11) Surgical History Problems History of Knee surgery History of Lithotripsy Family History Mother No pertinent family history Social History Problems Daily caffeine consumption Does not use tobacco (V49.89) (Z78.9) No alcohol use No illicit drug use Patient has living will (V49.89) (Z78.9) Allergies Medication No Known Drug Allergies Recorded By: Nader Javier; 06/22/2023 3:06:58 PM Current Meds Medication NameInstruction Aspirin 81 MG TABS Calcium Citrate TABS CoQ10 CAPS Crestor 10 MG Oral Tablet DosoKap TABS Lexapro 10 MG Oral Tablet Multivitamin Adults TABS [place] 3 CAPS Potassium Citrate ER 10 MEQ (1080 MG) Oral Tablet Extended Release Vitamin B Complex CAPS Vitals Vital Signs Recorded: 22Jun2023 03:06PM Height5 ft 5 in Mnebgz728 lb 6.4 oz BMI Eayweuceqf81.03 kg/m2 BSA Calculated1.75 Physical Exam Constitutional General appearance: In no acute distress . Masklike facies. Resting tremor left hand. Eyes Anicteric Sclerae . Ears, Nose, Mouth, and Throat Oropharynx without lesions. Neck Supple, no lymphadenopathy. Pulmonary Auscultation of lungs: Clear. Cardiovascular Auscultation of heart: RRR without murmur. Examination of extremities for edema: Normal. Abdomen Soft, non-tender. Bowel sounds normal. No hepatomegaly or splenomegaly. Skin No specific lesions, no spider angiomata or palmar erythema. Psychiatric patient alert. judgement was appropriate. insight appropriate. Signatures Electronically signed by : Adam Corona DO; Jun 22 2023 3:54PM EST (Author) Normal Touchworks Basophil percentageOrdered B y: Michelle Crenshaw on 06-20-2023 Basophil percentage < 0.9 mg/dL 0.55-1.02 [facility] No Panel InformationOrdered By: Michelle Crenshaw on 06-20-2023 Bedside Estimated GFR (eGFR) > 60.0000 mL/min >60 [facility] Cytology report of Body flui d Cyto stainOrdered By: Michelle Crenshaw on 06-07-2023 Cytology report Cyto stain Doc (Body fld) SEE PATHOLOGY REPORT [facility] Comment on above: Specimen submitted t o Anatomical Pathology Department for testing. POCT URINE DIPSTICK NON-AUTO MATEDon 04-17-2023 Amorphous sediment LM Ql (Urine sed) [facility] Appearance (U) slightly cloudy [facility] Bacteria LM Ql (Urine sed) [facility] Bilirubin Ql (U) small [facility] Casts LM.LPF (Urine sed) [#/Area] [facility] Color (U) dark yellow [facility] Crystals LM Nom (Urine sed) [facility] Epithelial cells.squamous LM.HPF (Urine sed) [#/Area] [facility] Flow cytometry specialist review Kole (Unsp spec) [Interp] [facility] Glucose Auto test strip (U) [Mass/Vol] Negative mg/dL [facility] Ketones [Mass/Vol] Negative mg/dL [facility] Leukocyte esterase Qn (U) [facility] Leukocyte esterase Test strip Ql (U) large [facility] Microscopic observation Gram stain Nom (Bronch spec) [facility] Nitrite Ql (U) Positive [facility] pH (U) 6.0 [pH] 5 - 7 [facility] Protein Ql (U) 100 mg/dL [facility] RBC LM.HPF (Urine sed) [#/Area] [facility] RBC Ql (U) large [facility] Specific gravity (U) [Rel density] 1.030 1.001 - 1.035 [facility] Transitional cells LM Ql (Urine sed) [facility] Urobilinogen Qn (U) 1.0 [facility] WBC LM.HPF (Urine sed) [#/Area] [facility] Internal controls OK [facility] - Molecular patho logyon 09-05-2022 Noninvasive colorectal cancer DNA and occult blood screening Kole (Stl) [Interp] Negative Negative [facility] [facility] Work Phone: Comment on above: [employer] (CLIA #:[id number])[address] [place] [address] DELGADO COHEN , Clinical Laboratory Medical DirectorNEGATIVE TEST RESULT. A negative Cologuard result indicates a low likelihood that a colorectal cancer (CRC) or advanced adenoma (adenomatous polyps with more advanced pre-malignant features) is present. The chance that a person with a negative Cologuard test has a colorectal cancer is less than 1 in 1500 (negative predictive value >99.9%) or has an advanced adenoma is less than 5.3% (negative predictive value 94.7%). These data are based on a prospective cross-sectional study of 10,000 individuals at average risk for colorectal cancer who were screened with both Cologuard and colonoscopy. (Matthew Ware. et al, N Engl J Med 2014;370(14):6304-9710) The normal value (reference range) for this assay is negative.COLOGUARD RE-SCREENING RECOMMENDATION: Periodic colorectal cancer screening is an important part of preventive healthcare for asymptomatic individuals at average risk for colorectal cancer. Following a negative Cologuard result, the [place] Cancer Society and U.S. Multi-Society Task Force screening guidelines recommend a Cologuard re-screening interval of 3 years. References: [place] [employer] Society Guideline for Colorectal Cancer Screening: https://www.cancer.org/cancer/dtydl-sgpkat-hqrtqr/detection-alexander gnosis-staging/acs-recommendations.html.; Rommel MURRAY, Mahad SPAULDING, Lv NICOLAS, Colorectal Cancer Screening: Recommendations for Physicians and Patients from the U.S. Multi-Society Task Force on Colorectal Cancer Screening , Am J Gastroenterology 2017; 112:9124-3471.TEST DESCRIPTION: Composite algorithmic analysis of stool DNA-biomarkers with hemoglobin immunoassay. Quantitative values of individual biomarkers are not reportable and are not associated with individual biomarker result reference ranges. Cologuard is intended for colorectal cancer screening of adults of either sex, 45 years or older, who are at average-risk for colorectal cancer (CRC). Cologuard has been approved for use by the U.S. FDA. The performance of Cologuard was established in a cross sectional study of average-risk adults aged 50-84. Cologuard performance in patients ages 45 to 49 years was estimated by sub-group analysis of near-age groups. Colonoscopies performed for a positive result may find as the most clinically significant lesion: colorectal cancer [4.0%], advanced adenoma (including sessile serrated polyps greater than or equal to 1cm diameter) [20%] or non- advanced adenoma [31%]; or no colorectal neoplasia [45%]. These estimates are derived from a prospective cross-sectional screening study of 10,000 individuals at average risk for colorectal cancer who were screened with both Cologuard and colonoscopy. (Matthew Ware. et al, N Engl J Med 2014;370(14):0239-0153.) Cologuard may produce a false negative or false positive result (no colorectal cancer or precancerous polyp present at colonoscopy follow up). A negative Cologuard test result does not guarantee the absence of CRC or advanced adenoma (pre-cancer). The current Cologuard screening interval is every 3 years. ([place] Cancer Society and U.S. Multi-Society Task Force). Cologuard performance data in a 10,000 patient pivotal study using colonoscopy as the reference method can be accessed at the following location: www.[employer]/results. Additional description of the Cologuard test process, warnings and precautions can be found at www.[employer]formaticsoguard.com. LG Jt Injection/Arthrocentes is: Sulema kneeon 08-12-2022 Claire Rosario CNP 08/12/2022 9:12 PM LG Jt Injection/Arthrocent esis: L knee Performed by: Claire Rosario CNP Authorized by: Claire Rosario CNP CPT 55554 - Large Joint Arthrocentesis: Consent given by: [...] the procedure well with no immediate complications [facility] Parathyrin.intact and Calciu m panelon 02-23-2022 Calcium [Mass/Vol] 9.3 mg/dL 8.4 - 10. 2 mg/dL [facility] Interpretation and review of laboratory results Abnormal [facility] Parathyrin.intact [Mass/Vol] 71.9 pg/mL High 12 - 65 pg/mL [facility] Vitamin D, Total, 25-OHon 25-hydroxyvitamin D [Mass/Vol] 47 ng/mL 30 - 100 ng/mL [facility] Comment on above: Vitamin D status: Deficiency: <10 ng/mL Insufficiency: 10-30 ng/mL Sufficiency: 30-100 ng/mL Toxicity: >100 ng/mL Interpretation and review of laboratory results Normal [facility] Assay performed using [employer] CLIA methodology. [facility] Beta Crosslaps (Beta CTX)on 09-22-2021 Collagen crosslinked C-telopeptide [Mass/Vol] 408 pg/mL [facility] Comment on above: Beta Crosslaps refer ence ranges (pg/mL): Males: <30 years = Not established 30-50 years = 0 - 584 51-70 years = 0 - 704 >70 years = 0 - 854 Females: <18 years = Not established Premenopausal = 25 - 573 Postmenopausal = 104 - 1008 [facility] Parathyrin.intact and Calciu m panelon 09-22-2021 Calcium [Mass/Vol] 9.8 mg/dL 8.4 - 10. 2 mg/dL [facility] Interpretation and review of laboratory results Normal [facility] Parathyrin.intact [Mass/Vol] 34.7 pg/mL 12.0 - 65.0 pg/mL [facility] Vitamin D, Total, 25-OHon 25-hydroxyvitamin D [Mass/Vol] 51 ng/mL 30 - 100 ng/mL [facility] Comment on above: Vitamin D status: Deficiency: <10 ng/mL Insufficiency: 10-30 ng/mL Sufficiency: 30-100 ng/mL Toxicity: >100 ng/mL Interpretation and review of laboratory results Normal [facility] Assay performed using [employer] CLIA methodology. [facility] No Panel Informationon 05-05 [facility] [place] [address] Work Phone: [email or web address]} [facility] [place] [address] Work Phone: [place] [address] [facility] Phone: [facility] MCGRATH ([id number]) 1950 F Date Time Provider Department 03/25/21 JULES GROVES NREUS2 During your visit today, we recorded the following information about you: [facility]ily [facility] 03/25/2021 11:43 AM Signed Patient requesting OT at outside facility. Forwarding to Dr. Groves to place order and I will fax per [employer] message to facility. Allergies As of Date: 03/25/2021 Noted Allergy Reaction PERCOCET (OXYCODONE-ACETAMINO PHEN)03/02/2021 8 - GI Upset Date Reviewed: 03/02/2021 Reviewed by: Joanne Root MA - Fully Assessed Reason for Visit: Orders [681] Cmt: OT Primary Visit Diagnosis:Parkinson' s disease (HCC) [G20] Order(s):CONSULT TO SUPERVISOR [employer]ESSING [19991010] Order #: [id number]: 1 FUTURE Prescriptions as of 03/25/2021 Sig: MIRTAZAPINE 15 MG TABLET Take 1 tablet by mouth daily * POTASSIUM CITRATE ER 10 MEQ (* Take 1 mEq by mouth once eva* SIMVASTATIN 20 MG TABLET Take 20 mg by mouth daily at * ASCORBIC ACID (VITAMIN C) 500* Take 500 mg by mouth once doug* CHOLECALCIFEROL (VITAMIN D3) * Take 5,000 Units by mouth onc* [id number] NC ORAL Take 1 tablet by mouth once d* MULTIVITAMIN ORAL LIQUID Take 5 mL by mouth once daily. Problem List As Of Date 03/25/2021 Noted Resolved ASHD (arteriosclerotic heart disease) [I25.10] 12/25/2017 Calculus of kidney [N20.0] 05/08/2018 Cardiac murmur, unspecified [R01.1] 10/09/2018 Chronic GERD [K21.9] 10/03/2018 Dyslipidemia [E78.5] 09/05/2019 Hypercholesteremia [E78.00] 12/25/2017 Osteoarthritis of lumbar spine [M47.816] 12/11/2020 Parkinson's disease (HCC) [G20] 02/24/2021 Vitamin D deficiency [E55.9] 03/20/2020 Encounter Status:Closed by JULES GROVES on 03/25/21 [facility] 03-24-2021 [facility] Telephone (NRN) UMA MCGRATH ([id number]) 1950 F Date Time Provider Department 03/24/21 [facility] During your visit today, we recorded the following information about you: Celeste Galo 03/24/2021 10:49 AM Signed Patient called asking if Dr. Groves can please send in a referral to Monique Carrion so she can make an appointment. Please call patient when referral is sent. JANINE Nicholson RN 03/26/2021 9:40 AM Signed noted Joanne Root MA 03/26/2021 3:05 PM Signed Spoke with pt and advised that referral is placed and to call and schedule appointment. Pt understood and had no further questions. Allergies As of Date: 03/24/2021 Noted Allergy Reaction PERCOCET (OXYCODONE-ACETAMINO PHEN)03/02/2021 8 - GI Upset Date Reviewed: 03/02/2021 Reviewed by: Joanne Root MA - Fully Assessed Reason for Visit: Referral Request [124] Primary Visit Diagnosis:Parkinson' s disease (HCC) [G20] Order(s):CONSULT TO PSYCHOLOGY [9036] Order #: [id number]: 1 FUTURE Prescriptions as of 03/24/2021 Sig: MIRTAZAPINE 15 MG TABLET Take 1 tablet by mouth daily * POTASSIUM CITRATE ER 10 MEQ (* Take 1 mEq by mouth once eva* SIMVASTATIN 20 MG TABLET Take 20 mg by mouth daily at * ASCORBIC ACID (VITAMIN C) 500* Take 500 mg by mouth once doug* CHOLECALCIFEROL (VITAMIN D3) * Take 5,000 Units by mouth onc* [id number] NC ORAL Take 1 tablet by mouth once d* MULTIVITAMIN ORAL LIQUID Take 5 mL by mouth once daily. Problem List As Of Date 03/24/2021 Noted Resolved ASHD (arteriosclerotic heart disease) [I25.10] 12/25/2017 Calculus of kidney [N20.0] 05/08/2018 Cardiac murmur, unspecified [R01.1] 10/09/2018 Chronic GERD [K21.9] 10/03/2018 Dyslipidemia [E78.5] 09/05/2019 Hypercholesteremia [E78.00] 12/25/2017 Osteoarthritis of lumbar spine [M47.816] 12/11/2020 Parkinson's disease (HCC) [G20] 02/24/2021 Vitamin D deficiency [E55.9] 03/20/2020 Encounter Status:Closed by JULES GROVES on 03/26/21 [facility] MARY BETH MCGRATHMERISSA Mckenna ([id number]) 1950 F Date Time Provider Department 03/23/21 JULES GROVES [facility] During your visit today, we recorded the following information about you: Yael Alonzo Pss 03/23/2021 8:22 AM Signed Patient was seen for New patient Parkinson on 03/04/21 with provider. Patient wasn't given any medication at that time. Patient is calling because she is having extreme anxiety. Patient isn't able to sleep but a few hours. Patient is trying breathing exercises, walking and anything she can think. Patient has an appointment with PCP 03/25/21. Please call [phone] patient and advise. Jules Groves MD 03/23/2021 2:38 PM Signed March 23, 2021 2:37 PM Can recommend remeron 15 mg at bedtime. This will help with sleep and anxiety.Order Placed if she would like to start. MD Joanne Molina MA 03/23/2021 3:45 PM Signed LM for pt to callback. Pls advise of Dr. Groves's message. Joanne Root MA 03/24/2021 10:59 AM Signed Pharmacy contacted pt advising that Remeron prescription was ready. Allergies As of Date: 03/23/2021 Noted Allergy Reaction PERCOCET (OXYCODONE-ACETAMINO PHEN)03/02/2021 8 - GI Upset Date Reviewed: 03/02/2021 Reviewed by: Joanne Root MA - Fully Assessed Reason for Visit: Anxiety [9] Order(s):mirtazapine (REMERON) 15 mg tabletTake 1 tablet by mouth daily at bedtime.Disp: 30 tabletRfl: 11 Prescriptions as of 03/23/2021 Sig: MIRTAZAPINE 15 MG TABLET Take 1 tablet by mouth daily * POTASSIUM CITRATE ER 10 MEQ (* Take 1 mEq by mouth once eva* SIMVASTATIN 20 MG TABLET Take 20 mg by mouth daily at * ASCORBIC ACID (VITAMIN C) 500* Take 500 mg by mouth once doug* CHOLECALCIFEROL (VITAMIN D3) * Take 5,000 Units by mouth onc* [id number] NC ORAL Take 1 tablet by mouth once d* MULTIVITAMIN ORAL LIQUID Take 5 mL by mouth once daily. Problem List As Of Date 03/23/2021 Noted Resolved ASHD (arteriosclerotic heart disease) [I25.10] 12/25/2017 Calculus of kidney [N20.0] 05/08/2018 Cardiac murmur, unspecified [R01.1] 10/09/2018 Chronic GERD [K21.9] 10/03/2018 Dyslipidemia [E78.5] 09/05/2019 Hypercholesteremia [E78.00] 12/25/2017 Osteoarthritis of lumbar spine [M47.816] 12/11/2020 Parkinson's disease (HCC) [G20] 02/24/2021 Vitamin D deficiency [E55.9] 03/20/2020 Prescriptions ordered this encounter Disp Refills Start End MIRTAZAPINE 15 MG TABLET 30 t* 11 03/23/2021 03/23/2022 Route: ORAL Sig: Take 1 tablet by mouth daily at bedtime. Encounter Status:Closed by JULES GROVES on 03/23/21 [facility] DENISOVon 03-04-2021 [facility] Office Visit (NRMDN) UMA MCGRATH ([id number]) 1950 F Date Time Provider Department 03/04/21 1:00 PM JULES GROVES During your visit today, we recorded the following information about you: Weight Height 67.7 kg 1.651 m Jules Groves MD 03/08/2021 10:09 PM Signed [facility] - NEW PATIENT EVALUATION I had the pleasure of evaluating Ms. Mcgrath to our clinic today. As you know [...] She has one daughter who is a mumps developer and has her on a detox smoothie. [...] behavior disorder: no Restless Legs Syndrome: no Mood/Behavior/Cognit ion Cognitive impairment: yes Has had some issues [...] 5,000 Units by mouth once daily. - VXFAAIA-[id number]-LS NC ORAL Take 1 tablet by mouth once daily. - multivitamins (-TRACY) liqd Take 5 mL by mouth once daily. No current facility-administere d medications for this visit. Past Medical and [...] Objective Vital Signs: Ht 165.1 cm (5' 5) Wt 67.7 kg (149 lb 3.2 oz) SpO2 98% BMI 24.83 kg/m? General Physical Examination: General: Awake, alert, interactive, no acute distress, good nutr (more content not included)... Normal [facility] CT HEAD OR BRAIN WITHOUT CON TRASTon 01-14-2021 No acute intracranial findings. [employer] Workstation ID: [id number] [facility] EXAMINATION: CT HEAD OR BRAIN WITHOUT CONTRAST HISTORY: ORDERING SYSTEM PROVIDED HISTORY: tremor, TECHNOLOGIST PROVIDED HISTORY: Illness/Other Reason for exam: tremor Encounter Type: Initial Additional signs and symptoms: none ORDERING SYSTEM PROVIDED DIAGNOSIS CODES: R25.1 Tremor COMPARISON: CT head on 11/24/2008. TECHNIQUE: CT examination of the head without IV contrast. Dose reduction techniques were achieved by using automated exposure control and/or adjustment of mA and/or kV according to patient size and/or use of iterative reconstruction technique. FINDINGS: The patient is tilted in the gantry, limiting the evaluation. There is mild volume loss with compensatory dilation of the ventricular system. The 4th ventricle is within normal limits. The ventricles, basilar cisterns are otherwise patent. There is no acute intracranial hemorrhage or mass effect. No extra-axial fluid is seen. The globes and orbits appear unremarkable. No acute abnormalities of the calvarium. The paranasal sinuses, mastoid air cells are clear. [facility] Interface, Rad In Beleni Speechq - 01/14/2021 9:16 PM EDT EXAMINATION: CT HEAD OR BRAIN WITHOUT CONTRAST HISTORY: ORDERING SYSTEM PROVIDED HISTORY: tremor, TECHNOLOGIST PROVIDED HISTORY: Illness/Other Reason for exam: tremor Encounter Type: Initial Additional signs and symptoms: none ORDERING SYSTEM PROVIDED DIAGNOSIS CODES: R25.1 Tremor COMPARISON: CT head on 11/24/2008. TECHNIQUE: CT examination of the head without IV contrast. Dose reduction techniques were achieved by using automated exposure control and/or adjustment of mA and/or kV according to patient size and/or use of iterative reconstruction technique. FINDINGS: The patient is tilted in the gantry, limiting the evaluation. There is mild volume loss with compensatory dilation of the ventricular system. The 4th ventricle is within normal limits. The ventricles, basilar cisterns are otherwise patent. There is no acute intracranial hemorrhage or mass effect. No extra-axial fluid is seen. The globes and orbits appear unremarkable. No acute abnormalities of the calvarium. The paranasal sinuses, mastoid air cells are clear. IMPRESSION: No acute intracranial findings. [employer] Workstation ID: [id number] [facility] CBCon 12-09-2017 ABSOLUTE BAS 0.0 X10 Normal [facility] Comment on above: Performed By: #### C MPF, ACBC, LIP2 ####Testing performed at [address] [address] ABSOLUTE EOS 0.20 X10 Normal [facility] Comment on above: Performed By: #### C MPF, ACBC, LIP2 ####Testing performed at [address] [address] Basophils/100 WBC Auto (Bld) 0.7 % Normal 0.0-2.0 [facility] Comment on above: Performed By: #### C MPF, ACBC, LIP2 ####Testing performed at [address] [address] DTYPE AUTO DIFF Normal [facility] Comment on above: Performed By: #### C MPF, ACBC, LIP2 ####Testing performed at [address] [address] Eosinophils/100 leukocytes 5.4 % Normal 0.0-11.0 [facility] Comment on above: Performed By: #### C MPF, ACBC, LIP2 ####Testing performed at [address] [address] Lymphocytes 1.50 X10 Normal [facility] Comment on above: Performed By: #### C MPF, ACBC, LIP2 ####Testing performed at [address] [address] Lymphocytes/100 leukocytes 32.6 % Normal 20.0-55.0 [facility] Comment on above: Performed By: #### C MPF, ACBC, LIP2 ####Testing performed at [address] [address] Monocytes 0.4 X10 Normal [facility] Comment on above: Performed By: #### C MPF, ACBC, LIP2 ####Testing performed at [address] [place] [address] Monocytes/100 leukocytes 9.6 % Normal 0.0-10.0 [facility] Comment on above: Performed By: #### C MPF, ACBC, LIP2 ####Testing performed at [address] [address] Neutrophils 2.4 x10 Normal 1.0-7.0 [facility] Comment on above: Performed By: #### C MPF, ACBC, LIP2 ####Testing performed at [address] [address] Neutrophils/100 leukocytes 51.7 % Normal 37.0-75.0 [facility] Comment on above: Performed By: #### C MPF, ACBC, LIP2 ####Testing performed at [address] [address] Erythrocyte distribution width Auto Ratio (RBC) 13.0 % Normal 11.5-14.5 [facility] Comment on above: Performed By: #### C MPF, ACBC, LIP2 ####Testing performed at [address] [address] Erythrocytes (RBC) 4.95 /cmm Normal 4.0-5.4 [facility] Comment on above: Performed By: #### C MPF, ACBC, LIP2 ####Testing performed at [address] [address] Hematocrit (HCT) 44.6 % Normal 36.0-48.0 [facility] Comment on above: Performed By: #### C MPF, ACBC, LIP2 ####Testing performed at [address] [address] Hemoglobin mass conc (Bld) 15.1 g/dL Normal 12.0-16.0 [facility] Comment on above: Performed By: #### C MPF, ACBC, LIP2 ####Testing performed at [address] [address] MCH 30.6 pg Normal 26.0-35.0 [facility] Comment on above: Performed By: #### C MPF, ACBC, LIP2 ####Testing performed at [address] [address] MCHC mass conc (RBC) 33.9 g/dL Normal 27.0-37.0 [facility] Comment on above: Performed By: #### C MPF, ACBC, LIP2 ####Testing performed at [address] [address] MCV 90.1 fL Normal 80.0-100.0 [facility] Comment on above: Performed By: #### C MPF, ACBC, LIP2 ####Testing performed at [address] [address] Platelet mean volume (PMV) 8.9 fL Normal 7.4-11.0 [facility] Comment on above: Performed By: #### C MPF, ACBC, LIP2 ####Testing performed at [address] [address] Platelets 192 /cmm Normal 130.0-400.0 [facility] Comment on above: Performed By: #### C MPF, ACBC, LIP2 ####Testing performed at [address] [address] WBC (Leukocytes) 4.6 /cmm Normal 3.6-11.0 [facility] Comment on above: Performed By: #### C MPF, ACBC, LIP2 ####Testing performed at [address] [address] CMP FASTINGon 12-09-2017 A:G RATIO 1.9 RATIO Normal 1.3-2.2 [facility] Comment on above: Performed By: #### C MPF, ACBC, LIP2 ####Testing performed at [address] [address] Alanine aminotransferase (ALT) 15 U/L Normal 14-54 [facility] Comment on above: Performed By: #### C MPF, ACBC, LIP2 ####Testing performed at [address] [address] Albumin 4.6 G/dl Normal 3.5-5.0 [facility] [facility] Comment on above: Performed By: #### C MPF, ACBC, LIP2 ####Testing performed at [address] [address] Alkaline phosphatase (ALP) 41 U/L Normal 38-126 [facility] Comment on above: Performed By: #### C MPF, ACBC, LIP2 ####Testing performed at [address] [address] Aspartate aminotransferase (AST) 17 U/L Normal 15-41 [facility] Comment on above: Performed By: #### C MPF, ACBC, LIP2 ####Testing performed at [address] [address] Bilirubin (total) 1.1 mg/dL Normal 0.2-1.2 [facility] Comment on above: Performed By: #### C MPF, ACBC, LIP2 ####Testing performed at [address] [address] BUN (urea nitrogen) 12 mg/dL Normal 7-20 [facility] Comment on above: Performed By: #### C MPF, ACBC, LIP2 ####Testing performed at [address] [address] Creatinine 0.8 mg/dL Normal 0.52-1.04 [facility] Comment on above: Performed By: #### C MPF, ACBC, LIP2 ####Testing performed at [address] [address] eGFR (non-black) Average GFR for 60-69 years old = 85. Normal [facility] Comment on above: Result Comment: Hr Director tae Kidney disease, GFR = <60.Kidney failure, GFR = <15.The GFR estimate is not adjusted for extreme body surface area or acute process, nor has it been validated for women or ethnic groups other than and . Performed By: #### C MPF, ACBC, LIP2 ####Testing performed at [address] [address] eGFR (non-black) mL/min/{1.73_m2} Normal [facility] Comment on above: Performed By: #### C MPF, ACBC, LIP2 ####Testing performed at [address] [address] Protein 7.0 g/dL Normal 6.3-8.2 [facility] Comment on above: Performed By: #### C MPF, ACBC, LIP2 ####Testing performed at [address] [address] Calcium 9.3 mg/dL Normal 8.4-10.2 [facility] Comment on above: Performed By: #### C MPF, ACBC, LIP2 ####Testing performed at [address] [address] Chloride 103 mmol/L Normal 98-107 [facility] Comment on above: Performed By: #### C MPF, ACBC, LIP2 ####Testing performed at [address] [address] CO2 30 mmol/L Normal 22-30 [facility] Comment on above: Performed By: #### C MPF, ACBC, LIP2 ####Testing performed at [address] [address] Glucose mass conc 102 mg/dL High 70-100 [facility] Comment on above: Result Comment: NORM AL <100 mg/dLPREDIABETES 101-126 mg/dLDIABETES 126 mg/dL or higher Performed By: #### C MPF, ACBC, LIP2 ####Testing performed at [address] [address] Potassium molar conc 4.2 mmol/L Normal 3.5-5.1 [facility] Comment on above: Performed By: #### C MPF, ACBC, LIP2 ####Testing performed at [address] [address] Sodium 139 mmol/L Normal 137-145 [facility] Comment on above: Performed By: #### C MPF, ACBC, LIP2 ####Testing performed at [address] [address] LIPID PROFILEon 12-09-2017 Cholesterol 154 mg/dL Normal 100-199 [facility] Comment on above: Performed By: #### C MPF, ACBC, LIP2 ####[place] [address] Cholesterol in VLDL mass conc 31 mg/dL High 5.0-25.0 [facility] Comment on above: Performed By: #### C MPF, ACBC, LIP2 ####[place] [address] Cholesterol to HDL Ratio 4.28 {ratio} Normal [facility] Comment on above: Result Comment: RISK TOTAL/HDL RATIO MEN WOMEN1/2 AVERAGE 3.43 3.27AVERAGE 4.97 4.442X AVERAGE 9.55 7.053X AVERAGE 23.99 11.04 Performed By: #### C MPF, ACBC, LIP2 ####[place] [address] HDL Cholesterol 36 mg/dL Low 40-60 [facility] Comment on above: Performed By: #### C MPF, ACBC, LIP2 ####[place] [address] LDL Cholesterol 87 MG/DL Normal 0-100 [facility] Comment on above: Performed By: #### C MPF, ACBC, LIP2 ####[place] [address] Triglyceride 157 mg/dL High <150 [facility] Comment on above: Performed By: #### C MPF, ACBC, LIP2 ####Testing performed at [place] [id number] Vital Signs Date Time Vital Sign Value Performing Clinician Facility 05-14-2025 10:55-0400 Body mass index (BMI) [Ratio] 25.46 kg/m2 Leidy Donald MD Work Phone: [facility] 05-14-2025 10:55-0400 Body weight 69.4 kg Leidy Donald MD Work Phone: [facility] 05-14-2025 10:55-0400 Diastolic blood pressure 73 mm[Hg] Leidy Donald MD Work Phone: [facility] 05-14-2025 10:55-0400 Systolic blood pressure 133 mm[Hg] Leidy Donald MD Work Phone: [facility] 04-17-2025 12:57-0400 Diastolic blood pressure 77 mm[Hg] Florentino Villasenor PATIENT RELATIONS DIRECTOR Work Phone: [facility] 04-17-2025 12:57-0400 Heart rate 89 /min Florentino Villasenor PATIENT RELATIONS DIRECTOR Work Phone: [facility] 04-17-2025 12:57-0400 Respiratory rate 16 /min Florentino Villasenor PATIENT RELATIONS DIRECTOR Work Phone: [facility] 04-17-2025 12:57-0400 Systolic blood pressure 120 mm[Hg] Florentino Villasenor PATIENT RELATIONS DIRECTOR Work Phone: [facility] 04-01-2025 12:58-0400 Body height 165.1 cm Nel Haus DO Work Phone: [facility] 04-01-2025 12:58-0400 Body mass index (BMI) [Ratio] 25.38 kg/m2 Nel Haus DO Work Phone: [facility] 04-01-2025 12:58-0400 Body temperature 97.7 [degF] Nel Haus DO Work Phone: [facility] 04-01-2025 12:58-0400 Body weight 69.17 kg Nel Haus DO Work Phone: [facility] 04-01-2025 12:58-0400 Diastolic blood pressure 70 mm[Hg] Nel Haus DO Work Phone: [facility] 04-01-2025 12:58-0400 Heart rate 67 /min Nel Haus DO Work Phone: [facility] 04-01-2025 12:58-0400 Respiratory rate 16 /min Nel Haus DO Work Phone: [facility] 04-01-2025 12:58-0400 SaO2% (BldA) [Mass fraction] 93 % Nel Haus DO Work Phone: [facility] 04-01-2025 12:58-0400 Systolic blood pressure 137 mm[Hg] Nel Haus DO Work Phone: [facility] 02-26-2025 08:34-0400 Body height 165.1 cm Nel Haus DO Work Phone: [facility] 02-26-2025 08:34-0400 Body mass index (BMI) [Ratio] 25.53 kg/m2 Nel Haus DO Work Phone: [facility] 02-26-2025 08:34-0400 Body temperature 98.4 [degF] Nel Haus DO Work Phone: [facility] 02-26-2025 08:34-0400 Body weight 69.58 kg Nel Haus DO Work Phone: [facility] 02-26-2025 08:34-0400 Diastolic blood pressure 60 mm[Hg] Nel Haus DO Work Phone: [facility] 02-26-2025 08:34-0400 Heart rate 82 /min Nel Haus DO Work Phone: [facility] 02-26-2025 08:34-0400 Respiratory rate 18 /min Nel Haus DO Work Phone: [facility] 02-26-2025 08:34-0400 SaO2% (BldA) [Mass fraction] 92 % Nel Haus DO Work Phone: [facility] 02-26-2025 08:34-0400 Systolic blood pressure 120 mm[Hg] Nel Haus DO Work Phone: [facility] 02-13-2025 10:34-0400 Diastolic blood pressure 89 mm[Hg] Matt Lopez MD Work Phone: [facility] 02-13-2025 10:34-0400 Heart rate 73 /min Matt Lopez MD Work Phone: [facility] 02-13-2025 10:34-0400 Respiratory rate 16 /min Matt Lopez MD Work Phone: [facility] 02-13-2025 10:34-0400 Systolic blood pressure 144 mm[Hg] Matt Lopez MD Work Phone: [facility] 11-04-2024 10:08-0500 Body mass index (BMI) [Ratio] 25.46 kg/m2 Marjorie Nava PATIENT RELATIONS DIRECTOR Work Phone: [facility] 11-04-2024 10:08-0500 Body weight 69.4 kg Marjorie Nava PATIENT RELATIONS DIRECTOR Work Phone: [facility] 11-04-2024 10:08-0500 Diastolic blood pressure 81 mm[Hg] Marjorie Nava PATIENT RELATIONS DIRECTOR Work Phone: [facility] 11-04-2024 10:08-0500 Systolic blood pressure 137 mm[Hg] Marjorie Nava PATIENT RELATIONS DIRECTOR Work Phone: [facility] 08-16-2024 10:27-0500 Diastolic blood pressure 84 mm[Hg] Matt Lopez MD Work Phone: [facility] Comment on above: pt reports feeling stressed / has [facility] 08-16-2024 10:27-0500 Heart rate 73 /min Matt Lopez MD Work Phone: [facility] 08-16-2024 10:27-0500 Respiratory rate 16 /min Matt Lopez MD Work Phone: [facility] 08-16-2024 10:27-0500 Systolic blood pressure 132 mm[Hg] Matt Lopez MD Work Phone: [facility] Comment on above: pt reports feeling stressed / has [facility] 05-20-2024 15:38-0400 Body height 165.1 cm Nel Haus DO Work Phone: [facility] 05-20-2024 15:38-0400 Body mass index (BMI) [Ratio] 26.46 kg/m2 Nel Haus DO Work Phone: [facility] 05-20-2024 15:38-0400 Body temperature 98.1 [degF] Nel Haus DO Work Phone: [facility] 05-20-2024 15:38-0400 Body weight 72.12 kg Nel Haus DO Work Phone: [facility] 05-20-2024 15:38-0400 Diastolic blood pressure 79 mm[Hg] Nel Haus DO Work Phone: [facility] 05-20-2024 15:38-0400 Heart rate 68 /min Nel Haus DO Work Phone: [facility] 05-20-2024 15:38-0400 Respiratory rate 16 /min Nel Haus DO Work Phone: [facility] 05-20-2024 15:38-0400 SaO2% (BldA) [Mass fraction] 94 % Nel Haus DO Work Phone: [facility] 05-20-2024 15:38-0400 Systolic blood pressure 145 mm[Hg] Nel Haus DO Work Phone: [facility] 05-01-2024 13:06-0400 Diastolic blood pressure 81 mm[Hg] Marjorie Nuñezer PATIENT RELATIONS DIRECTOR Work Phone: [facility] 05-01-2024 13:06-0400 Heart rate 76 /min Marjorie Nuñezer PATIENT RELATIONS DIRECTOR Work Phone: [facility] 05-01-2024 13:06-0400 Systolic blood pressure 127 mm[Hg] Jaceleen Graver PATIENT RELATIONS DIRECTOR Work Phone: [facility] 05-01-2024 13:05-0400 Body mass index (BMI) [Ratio] 25.46 kg/m2 Jaceleen Graver PATIENT RELATIONS DIRECTOR Work Phone: [facility] 05-01-2024 13:05-0400 Body weight 69.4 kg Marjorie Nuñezer PATIENT RELATIONS DIRECTOR Work Phone: [place] [address]-15-2024 12:40-0400 Body height 165.1 cm Jayna Moreno PA Work Phone: [facility] 04-15-2024 12:40-0400 Body mass index (BMI) [Ratio] 25.69 kg/m2 Jayna Moreno PA Work Phone: [facility] 04-15-2024 12:40-0400 Body temperature 98.1 [degF] Jayna Moreno PA Work Phone: [facility] 04-15-2024 12:40-0400 Body weight 70.03 kg Jayna Moreno PA Work Phone: [facility] 04-15-2024 12:40-0400 Diastolic blood pressure 70 mm[Hg] Jayna Moreno PA Work Phone: [facility] 04-15-2024 12:40-0400 Heart rate 82 /min Jayna Moreno PA Work Phone: [facility] 04-15-2024 12:40-0400 Respiratory rate 16 /min Jayna Moreno PA Work Phone: [facility] 04-15-2024 12:40-0400 SaO2% (BldA) [Mass fraction] 97 % Jayna Moreno PA Work Phone: [facility] 04-15-2024 12:40-0400 Systolic blood pressure 133 mm[Hg] Jayna Moreno PA Work Phone: [facility] 01-17-2024 11:52-0400 Diastolic blood pressure 88 mm[Hg] Matt Lopez MD Work Phone: [facility] 01-17-2024 11:52-0400 Heart rate 66 /min Matt Lopez MD Work Phone: [facility] 01-17-2024 11:52-0400 Respiratory rate 16 /min Matt Lopez MD Work Phone: [facility] 01-17-2024 11:52-0400 Systolic blood pressure 160 mm[Hg] Matt Lopez MD Work Phone: [facility] 11-01-2023 13:16-0500 Body height 165.1 cm Leidy Donald MD Work Phone: [facility] 11-01-2023 13:16-0500 Body mass index (BMI) [Ratio] 25.38 kg/m2 Leidy Donald MD Work Phone: [facility] 11-01-2023 13:16-0500 Body weight 69.17 kg Leidy Donald MD Work Phone: [facility] 11-01-2023 13:16-0500 Diastolic blood pressure 86 mm[Hg] Leidy Donald MD Work Phone: [facility] 11-01-2023 13:16-0500 Heart rate 79 /min Leidy Donald MD Work Phone: [facility] 11-01-2023 13:16-0500 Systolic blood pressure 138 mm[Hg] Leidy Donald MD Work Phone: [facility] 10-12-2023 10:25-0500 Body temperature 98.6 [degF] [facility] 10-12-2023 10:25-0500 Diastolic blood pressure 59 mm[Hg] [facility] 10-12-2023 10:25-0500 Heart rate 73 /min [facility] 10-12-2023 10:25-0500 Respiratory rate 16 /min [facility] 10-12-2023 10:25-0500 SaO2% (BldA) [Mass fraction] 93 % [facility] 10-12-2023 10:25-0500 Systolic blood pressure 119 mm[Hg] [facility] 10-12-2023 06:37-0500 Body height 167.64 cm [facility] 10-12-2023 06:37-0500 Body mass index (BMI) [Ratio] 23.7 kg/m2 [facility] 10-12-2023 06:37-0500 Body weight 66.67 kg [facility] 09-20-2023 14:23-0500 Body height 165.1 cm Nel Haus DO Work Phone: [facility] 09-20-2023 14:23-0500 Body mass index (BMI) [Ratio] 25.31 kg/m2 Nel Haus DO Work Phone: [facility] 09-20-2023 14:23-0500 Body temperature 98.71 [degF] Nel Haus DO Work Phone: [facility] 09-20-2023 14:23-0500 Body weight 68.99 kg Nel Haus DO Work Phone: [facility] 09-20-2023 14:23-0500 Diastolic blood pressure 60 mm[Hg] Nel Haus DO Work Phone: [facility] 09-20-2023 14:23-0500 Heart rate 86 /min Nel Haus DO Work Phone: [facility] 09-20-2023 14:23-0500 Respiratory rate 16 /min Nel Haus DO Work Phone: [facility] 09-20-2023 14:23-0500 SaO2% (BldA) [Mass fraction] 94 % Nel Haus DO Work Phone: [facility] 09-20-2023 14:23-0500 Systolic blood pressure 120 mm[Hg] Nel Haus DO Work Phone: [facility] 07-17-2023 12:27-0400 Diastolic blood pressure 84 mm[Hg] Matt Lopez MD Work Phone: [facility] 07-17-2023 12:27-0400 Heart rate 77 /min Matt Lopez MD Work Phone: [facility] 07-17-2023 12:27-0400 Respiratory rate 16 /min Matt Lopez MD Work Phone: [facility] 07-17-2023 12:27-0400 Systolic blood pressure 134 mm[Hg] Matt Lopez MD Work Phone: [facility] 06-22-2023 15:06-0400 Body height 165.1 cm Nel P Haus [facility] Work Phone: 06-22-2023 15:06-0400 Body mass index (BMI) [Ratio] 25.03 kg/m2 Nel P Haus Work Phone: [facility] Work Phone: 06-22-2023 15:06-0400 Body surface area Derived from formula 1.75 m2 Nel P Haus Work Phone: [facility] Work Phone: 06-22-2023 15:06-0400 Body weight 68.22 kg Nel P Haus Work Phone: [facility] Work Phone: 04-28-2023 09:11-0400 Body mass index (BMI) [Ratio] 25.01 kg/m2 Marjorie Nuñezer PATIENT RELATIONS DIRECTOR Work Phone: [facility] 04-28-2023 09:11-0400 Body weight 68.18 kg Marjorie Graver PATIENT RELATIONS DIRECTOR Work Phone: [facility] 04-28-2023 09:11-0400 Diastolic blood pressure 80 mm[Hg] Jaceleen Graver PATIENT RELATIONS DIRECTOR Work Phone: [facility] 04-28-2023 09:11-0400 Systolic blood pressure 135 mm[Hg] Kelleen Graver PATIENT RELATIONS DIRECTOR Work Phone: [facility] 04-17-2023 09:41-0400 Body height 165.1 cm Chirag TRUJILLO Work Phone: [facility] 04-17-2023 09:41-0400 Body mass index (BMI) [Ratio] 22.96 kg/m2 Chirag Jose De Jesus PA Work Phone: [facility] 04-17-2023 09:41-0400 Body temperature 98.01 [degF] Chirag Jose De Jesus PA Work Phone: [facility] 04-17-2023 09:41-0400 Body weight 62.6 kg Chirag Jose De Jesus PA Work Phone: [facility] 04-17-2023 09:41-0400 Diastolic blood pressure 73 mm[Hg] Chirag Jose De Jesus PA Work Phone: [facility] 04-17-2023 09:41-0400 Heart rate 75 /min Chirag Jose De Jesus PA Work Phone: [facility] 04-17-2023 09:41-0400 Respiratory rate 17 /min Chirag Jose De Jesus PA Work Phone: [facility] 04-17-2023 09:41-0400 SaO2% (BldA) [Mass fraction] 99 % Chirag Jose De Jesus PA Work Phone: [facility] 04-17-2023 09:41-0400 Systolic blood pressure 150 mm[Hg] Chirag Jose De Jesus PA Work Phone: [facility] 01-10-2023 11:49-0400 Diastolic blood pressure 92 mm[Hg] Matt Lopez MD Work Phone: [facility] 01-10-2023 11:49-0400 Heart rate 66 /min Matt Lopez MD Work Phone: [facility] 01-10-2023 11:49-0400 Respiratory rate 16 /min Matt Lopez MD Work Phone: [facility] 01-10-2023 11:49-0400 Systolic blood pressure 163 mm[Hg] Matt Lopez MD Work Phone: [facility] 10-05-2022 12:34-0500 Diastolic blood pressure 85 mm[Hg] Nicole Hayden CNP Work Phone: [facility] 10-05-2022 12:34-0500 Heart rate 60 /min Nicole Catracho PATIENT RELATIONS DIRECTOR Work Phone: [facility] 10-05-2022 12:34-0500 Respiratory rate 16 /min Nicole Catracho PATIENT RELATIONS DIRECTOR Work Phone: [facility] 10-05-2022 12:34-0500 Systolic blood pressure 160 mm[Hg] Nicole Phameone PATIENT RELATIONS DIRECTOR Work Phone: [facility] 09-28-2022 12:13-0500 Diastolic blood pressure 81 mm[Hg] Leidy Donald MD Work Phone: [facility] 09-28-2022 12:13-0500 Systolic blood pressure 138 mm[Hg] Leidy Donald MD Work Phone: [facility] 09-19-2022 09:43-0500 Body height 165.1 cm Nel Haus DO Work Phone: [facility] 09-19-2022 09:43-0500 Body mass index (BMI) [Ratio] 25.49 kg/m2 Nel Haus DO Work Phone: [facility] 09-19-2022 09:43-0500 Body weight 69.49 kg Nel Haus DO Work Phone: [facility] 09-19-2022 09:43-0500 Diastolic blood pressure 82 mm[Hg] Nel Haus DO Work Phone: [facility] 09-19-2022 09:43-0500 Heart rate 76 /min Nel Haus DO Work Phone: [facility] 09-19-2022 09:43-0500 SaO2% (BldA) [Mass fraction] 96 % Nel Haus DO Work Phone: [facility] 09-19-2022 09:43-0500 Systolic blood pressure 138 mm[Hg] Nel Haus DO Work Phone: [facility] 08-26-2022 11:02-0500 Diastolic blood pressure 72 mm[Hg] Marjorie Nava PATIENT RELATIONS DIRECTOR Work Phone: [facility] 08-26-2022 11:02-0500 Systolic blood pressure 128 mm[Hg] Marjorie Nava PATIENT RELATIONS DIRECTOR Work Phone: [facility] 08-11-2022 09:13-0500 Body height 167.6 cm Claire Rosario CNP Work Phone: [facility] 08-11-2022 09:13-0500 Body mass index (BMI) [Ratio] 23.57 kg/m2 Claire Rosario CNP Work Phone: [facility] 08-11-2022 09:13-0500 Body weight 66.22 kg Claire Rosario CNP Work Phone: [facility] 08-04-2022 09:59-0400 Diastolic blood pressure 85 mm[Hg] Matt Lopez MD Work Phone: [facility] 08-04-2022 09:59-0400 Heart rate 68 /min Matt Lopez MD Work Phone: [facility] 08-04-2022 09:59-0400 Respiratory rate 16 /min Matt Lopez MD Work Phone: [facility] 08-04-2022 09:59-0400 Systolic blood pressure 147 mm[Hg] Matt Lopez MD Work Phone: [facility] 06-29-2022 11:00-0400 Diastolic blood pressure 80 mm[Hg] Leidy Donald MD Work Phone: [facility] 06-29-2022 11:00-0400 Systolic blood pressure 130 mm[Hg] Leidy Donald MD Work Phone: [facility] 05-25-2022 10:34-0400 Diastolic blood pressure 79 mm[Hg] Leidy Donald MD Work Phone: [facility] 05-25-2022 10:34-0400 Systolic blood pressure 144 mm[Hg] Leidy Donald MD Work Phone: [facility] 05-19-2022 10:03-0400 Body height 167.6 cm Claire Rosario CNP Work Phone: [facility] 05-19-2022 10:03-0400 Body mass index (BMI) [Ratio] 23.57 kg/m2 Claire Rosario CNP Work Phone: [facility] 05-19-2022 10:03-0400 Body weight 66.22 kg Claire Rosario CNP Work Phone: [facility] 04-27-2022 11:36-0400 Diastolic blood pressure 79 mm[Hg] Marjorie Nava PATIENT RELATIONS DIRECTOR Work Phone: [facility] 04-27-2022 11:36-0400 Systolic blood pressure 139 mm[Hg] Marjorie Nava PATIENT RELATIONS DIRECTOR Work Phone: [facility] 03-30-2022 11:02-0400 Diastolic blood pressure 81 mm[Hg] Leidy Donald MD Work Phone: [facility] 03-30-2022 11:02-0400 Systolic blood pressure 150 mm[Hg] Leidy Donald MD Work Phone: [facility] 02-23-2022 11:47-0400 Diastolic blood pressure 83 mm[Hg] Leidy Donald MD Work Phone: [facility] 02-23-2022 11:47-0400 Systolic blood pressure 135 mm[Hg] Leidy Donald MD Work Phone: [facility] 02-23-2022 11:33-0400 Body height 164.5 cm Leidy Donald MD Work Phone: [facility] 02-23-2022 11:33-0400 Body mass index (BMI) [Ratio] 24.99 kg/m2 Leidy Donald MD Work Phone: [facility] 02-23-2022 11:33-0400 Body weight 67.59 kg Leidy Donald MD Work Phone: [facility] 02-10-2022 07:58-0400 Diastolic blood pressure 84 mm[Hg] Matt Lopez MD Work Phone: [facility] 02-10-2022 07:58-0400 Heart rate 65 /min Matt Lopez MD Work Phone: [facility] 02-10-2022 07:58-0400 Systolic blood pressure 135 mm[Hg] Matt Lopez MD Work Phone: [facility] 01-26-2022 11:39-0400 Diastolic blood pressure 81 mm[Hg] Leidy Donald MD Work Phone: [facility] 01-26-2022 11:39-0400 Systolic blood pressure 135 mm[Hg] Leidy Donald MD Work Phone: [facility] 12-22-2021 13:42-0400 Diastolic blood pressure 85 mm[Hg] Leidy Donald MD Work Phone: [facility] 12-22-2021 13:42-0400 Systolic blood pressure 137 mm[Hg] Leidy Donald MD Work Phone: [facility] 11-24-2021 13:44-0500 Diastolic blood pressure 82 mm[Hg] Leidy Donald MD Work Phone: [facility] 11-24-2021 13:44-0500 Systolic blood pressure 127 mm[Hg] Leidy Donald MD Work Phone: [facility] 09-30-2021 16:01-0500 Diastolic blood pressure 80 mm[Hg] Leidy Donald MD Work Phone: [facility] 09-30-2021 16:01-0500 Systolic blood pressure 140 mm[Hg] Leidy Donald MD Work Phone: [facility] 09-22-2021 14:47-0500 Body height 164.5 cm Leidy Donald MD Work Phone: [facility] 09-22-2021 14:47-0500 Body mass index (BMI) [Ratio] 24.55 kg/m2 Leidy Donald MD Work Phone: [facility] 09-22-2021 14:47-0500 Body weight 66.41 kg Leidy Donald MD Work Phone: [facility] 09-22-2021 14:47-0500 Diastolic blood pressure 85 mm[Hg] Leidy Donald MD Work Phone: [facility] 09-22-2021 14:47-0500 Systolic blood pressure 148 mm[Hg] Leidy Donald MD Work Phone: [facility] 04-08-2021 15:03-0400 Diastolic blood pressure 81 mm[Hg] Tom Ng MD Work Phone: [facility] 04-08-2021 15:03-0400 Heart rate 87 /min Tom Ng MD Work Phone: [facility] 04-08-2021 15:03-0400 Respiratory rate 16 /min Tom Ng MD Work Phone: [facility] 04-08-2021 15:03-0400 SaO2% (BldA) [Mass fraction] 96 % Tom Ng MD Work Phone: [facility] 04-08-2021 15:03-0400 Systolic blood pressure 128 mm[Hg] Tom Ng MD Work Phone: [facility] 01-05-2021 07:45-0400 BP Diastolic 93 mm[Hg] [facility] 01-05-2021 07:45-0400 BP Systolic 164 mm[Hg] [facility] 01-05-2021 07:45-0400 Pulse (Heart Rate) 68 /min [facility] 01-05-2021 07:45-0400 Pulse Oximetry 98 % [facility] 01-05-2021 07:45-0400 Respiratory Rate 16 /min [facility] 12-11-2020 10:15-0500 BP Diastolic 86 mm[Hg] [facility] 12-11-2020 10:15-0500 BP Systolic 143 mm[Hg] [facility] 12-11-[facility] 09:50-0500 BMI (Body Mass Index) 25.15 kg/m2 [facility] 12-11-2020 09:50-0500 Body weight 68.[address] [facility] 12-11-2020 09:50-[address] [facility] 03-20-2020 08:34-0400 BP Diastolic 83 mm[Hg] [facility] 03-20-2020 08:34-0400 BP Systolic 146 mm[Hg] [facility] 03-20-2020 08:29-0400 BMI (Body Mass Index) 24.87 kg/m2 [facility] 03-20-2020 08:29-0400 Body weight 67.[address] [facility] 03-20-2020 08:29-[address] [facility] 11-14-2018 10:53-0500 BMI (Body Mass Index) 25.64 kg/m2 [facility] 11-14-2018 10:53-0500 Body Temperature 97.39 [degF] [facility] 11-14-2018 10:53-0500 BP Diastolic 87 mm[Hg] [facility] 11-14-2018 10:53-0500 BP Systolic 145 mm[Hg] [facility] 11-14-2018 10:53-0500 Height 165.1 cm [facility] 11-14-2018 10:53-0500 Pulse (Heart Rate) 72 /min [facility] 11-14-2018 10:53-0500 Pulse Oximetry 96 % [facility] 11-14-2018 10:53-0500 Weight 69.9 kg [facility] 10-05-2018 15:13-0500 BMI (Body Mass Index) 24.74 kg/m2 [facility] 10-05-2018 15:13-0500 Body Temperature 97.81 [degF] [facility] 10-05-2018 15:13-0500 BP Diastolic 91 mm[Hg] [facility] 10-05-2018 15:13-0500 BP Systolic 154 mm[Hg] [facility] 10-05-2018 15:13-0500 Height 165.1 cm [facility] 10-05-2018 15:13-0500 Pulse (Heart Rate) 76 /min [facility] 10-05-2018 15:13-0500 Pulse Oximetry 97 % [facility] 10-05-2018 15:13-0500 Weight 67.45 kg [facility] 08-31-2018 09:16-0500 BMI (Body Mass Index) 24.86 kg/m2 [facility] Work Phone: 08-31-2018 09:16-0500 Body Temperature 97.81 [degF] [facility] Work Phone: 08-31-2018 09:16-0500 BP Diastolic 83 mm[Hg] [facility] Work Phone: 08-31-2018 09:16-0500 BP Systolic 146 mm[Hg] [facility] Work Phone: 08-31-2018 09:16-0500 Height 165.1 cm [facility] Work Phone: 08-31-2018 09:16-0500 Pulse (Heart Rate) 76 /min [facility] Work Phone: 08-31-2018 09:16-0500 Pulse Oximetry 98 % [facility] Work Phone: 08-31-2018 09:16-0500 Weight 67.77 kg [facility] Work Phone: Encounters Encounter Date Encounter Type Care Provider Facility Start: 06-07-2025 ambulatory [facility] Facility:[facility] Start: 05-14-2025 End: 05-14-2025 Office outpatient visit 25 minutes Leidy Donald MD Work Phone: [facility] Comment on above: Age-related osteopor osis without current pathological fracture [M81.0 (ICD-10-CM)] (Primary Dx); Vitamin D deficiency; Osteoarthritis of lumbar spine, unspecified spinal osteoarthritis complication status; Osteoarthritis of thoracic spine, unspecified spinal osteoarthritis complication status; Personal history of drug therapy; Encounter for long-term current use of high risk medication Start: 05-14-2025 End: 05-14-2025 ambulatory NEL MARCANO [facility] Start: 04-17-2025 End: 04-21-2025 ambulatory NEL MARCANO [facility] Start: 04-17-2025 End: 04-17-2025 Office outpatient visit 25 minutes Florentino Villasenor CNP Work Phone: [facility] Comment on above: Parkinson's disease without dyskinesia or fluctuating manifestations (HCC) (Primary Dx); Constipation, unspecified constipation type Start: 04-07-2025 End: 04-07-[address] Nel Marcano MD Work Phone: -Cat Scan [facility] Start: 04-07-2025 End: 04-07-[address] Michelle Crenshaw MD -Cat Scan [facility] Work Phone: Start: 04-07-2025 End: 04-07-2025 ambulatory Michelle Crenshaw Facility:[facility] Start: 04-01-2025 End: 04-01-2025 Office outpatient visit 15 minutes Nel Marcano DO Work Phone: [facility] [place] Comment on above: Allergic contact kamini matitis, unspecified trigger (Primary Dx); Vitamin D deficiency; Hypercholesteremia; Osteoarthritis of spine with radiculopathy, lumbar region; Abnormal findings on diagnostic imaging of other specified body structures Start: 04-01-2025 ambulatory NEL MARCANO [facility] Start: 03-10-2025 End: 03-10-2025 Documentation procedure Van Dubon OT [facility] Occupational Therapy Comment on above: Occupational Therapy ; Neuro Start: 03-05-2025 End: 03-09-2025 ambulatory Matt Lopez MD Work Phone: [facility] Occupational Therapy Comment on above: Parkinson's disease without dyskinesia or fluctuating manifestations (HCC) (Primary Dx) Start: 03-03-2025 End: 03-07-2025 ambulatory Matt Lopez MD Work Phone: [facility] Occupational Therapy Comment on above: Parkinson's disease (HCC) (Primary Dx); Parkinson disease (HCC); Parkinson's disease without dyskinesia or fluctuating manifestations (HCC) Start: 02-26-2025 End: 02-26-2025 Office outpatient visit 15 minutes Nelellyn Marcano DO Work Phone: [facility] [place] Comment on above: Contact dermatitis d ue to poison martha (Primary Dx) Start: 02-26-2025 ambulatory NEL P HAUS [facility] Start: 02-21-2025 ambulatory NEL P HAUS [facility] Start: 02-17-2025 End: 02-17-2025 Transcribe Orders Matt Lopez MD Work Phone: [facility] Occupational Therapy Comment on above: Parkinson disease (H CC) (Primary Dx) Start: 02-13-2025 End: 02-13-2025 Office outpatient visit 40 minutes Matt Lopez MD Work Phone: [facility] Comment on above: Anxiety (Primary Dx) ; Parkinson's disease without dyskinesia or fluctuating manifestations (HCC); Constipation, unspecified constipation type Start: 02-13-2025 End: 02-17-2025 ambulatory NEL NAEL [facility] Start: 02-03-2025 End: 02-07-2025 Clinical Support Celeste Wong Work Phone: [facility] Comment on above: Sensorineural hearin g loss, bilateral (Primary Dx) Start: 01-31-2025 End: 02-04-2025 Clinical Support Celeste Wong Work Phone: [facility] Comment on above: Sensorineural hearin g loss, bilateral (Primary Dx) Start: 01-20-2025 End: 01-20-2025 Clinical Support Celeste Wong Work Phone: [facility] Comment on above: Sensorineural hearin g loss, bilateral (Primary Dx) Start: 01-20-2025 End: 01-24-2025 [facility] Start: 12-24-2024 ambulatory NEL Jessica [facility] Start: 12-12-2024 ambulatory NEL P [facility] Start: 11-04-2024 End: 11-04-2024 Office outpatient visit 25 minutes Marjorie Nava CNP Work Phone: [facility] Comment on above: Age-related osteopor osis without current pathological fracture [M81.0 (ICD-10-CM)] (Primary Dx); Vitamin D deficiency; Osteoarthritis of lumbar spine, unspecified spinal osteoarthritis complication status; Osteoarthritis of thoracic spine, unspecified spinal osteoarthritis complication status; Personal history of drug therapy; Encounter for long-term current use of high risk medication Start: 11-04-2024 End: 11-08-2024 Clinical Support Leidy Donald MD Work Phone: [facility] Comment on above: Screening for osteop orosis [Z13.820] (Primary Dx); Age-related osteoporosis without current pathological fracture [M81.0] Start: 11-04-2024 ambulatory PHYSICIAN [facility] Ambulatory Start: 08-16-2024 End: 08-16-2024 Office outpatient visit 25 minutes Matt Lopez MD Work Phone: [facility] Comment on above: Anxiety (Primary Dx) ; Parkinson's disease without dyskinesia or fluctuating manifestations (HCC) Start: 08-16-2024 End: 08-16-2024 ambulatory NEL NAEL MARCANO [facility] Start: 07-17-2024 ambulatory NEL P [facility] Start: 07-03-2024 ambulatory NEL P [facility] Start: 06-26-2024 ambulatory NEL P [facility] Start: 06-19-2024 ambulatory NEL P US [facility] Start: 06-07-2024 ambulatory NEL Jessica MARCANO [facility] Start: 05-31-2024 ambulatory NEL Jessica MARCANO [facility] Start: 05-28-2024 ambulatory NEL P JEET [facility] Start: 05-20-2024 End: 05-20-2024 Office outpatient visit 15 minutes Nel Marcano DO Work Phone: [facility] [place] Comment on above: Bilateral lumbar rad iculopathy (Primary Dx); Acute bilateral low back pain with bilateral sciatica; Osteoarthritis of spine with radiculopathy, lumbar region Start: 05-20-2024 ambulatory SELF SELF Betsey Elizondo [facility] Start: 05-01-2024 End: 05-05-2024 ambulatory NEL NAEL [facility] Start: 05-01-2024 End: 05-01-2024 Office outpatient visit 25 minutes Marjorie Nava PATIENT RELATIONS DIRECTOR Work Phone: [facility] Comment on above: Age-related osteopor osis without current pathological fracture [M81.0 (ICD-10-CM)] (Primary Dx); Vitamin D deficiency; Osteoarthritis of lumbar spine, unspecified spinal osteoarthritis complication status; Osteoarthritis of thoracic spine, unspecified spinal osteoarthritis complication status; Personal history of drug therapy; Encounter for long-term current use of high risk medication Start: 04-15-2024 ambulatory NEL Jessica MARCANO [facility] Start: 04-15-2024 End: 04-15-2024 Office outpatient visit 15 minutes Jayna TRUJILLO Work Phone: [facility] Comment on above: Poison martha (Primary Dx) Start: 01-26-2024 End: 01-26-2024 Office outpatient visit 15 minutes Claire Rosario PATIENT RELATIONS DIRECTOR Work Phone: [facility] Comment on above: Right elbow pain (Pr imary Dx) Start: 01-18-2024 End: 01-18-2024 Clinical Support Celeste Wong Work Phone: [facility] Comment on above: Sensorineural hearin g loss, bilateral (Primary Dx) Start: 01-17-2024 End: 01-17-2024 Office outpatient visit 25 minutes Matt Lopez MD Work Phone: [facility] Comment on above: Parkinson's disease, unspecified whether dyskinesia present, unspecified whether manifestations fluctuate (HCC) (Primary Dx); Anxiety Start: 01-16-2024 End: 01-16-2024 Clinical Support Celeste Wong Work Phone: [facility] Comment on above: Sensorineural hearin g loss, bilateral (Primary Dx) Start: 11-25-2023 Refill Matt theodore MD Work Phone: [facility] Physician [facility], Neuroscience Comment on above: Parkinson's disease without dyskinesia or fluctuating manifestations Start: 11-01-2023 End: 11-01-2023 Office outpatient visit 25 minutes Leidy Donald MD Work Phone: [facility] Comment on above: Age-related osteopor osis without current pathological fracture [M81.0 (ICD-10-CM)] (Primary Dx); Vitamin D deficiency; Osteoarthritis of lumbar spine, unspecified spinal osteoarthritis complication status; Osteoarthritis of thoracic spine, unspecified spinal osteoarthritis complication status; Personal history of drug therapy; Encounter for long-term current use of high risk medication Start: 10-25-2023 End: 10-25-2023 ambulatory [facility] Work Phone: Start: 10-25-2023 End: 10-25-2023 Patient encounter procedure [facility]-Cat Scan, [facility] Work Phone: Start: 10-12-2023 End: 10-12-2023 Admission to same day surgery center [facility] Start: 10-12-2023 End: 10-12-2023 ambulatory [facility] Work Phone: Start: 09-20-2023 End: 09-20-2023 Office outpatient visit 25 minutes Nel Marcano DO Work Phone: [facility] [place] Comment on above: Generalized anxiety disorder (Primary Dx); Intermittent constipation; Parkinson's disease without dyskinesia or fluctuating manifestations; Hypercholesteremia Start: 07-17-2023 End: 07-17-2023 Office outpatient visit 15 minutes Matt Lopez MD Work Phone: [facility] Comment on above: Parkinson's disease without dyskinesia or fluctuating manifestations (Primary Dx); Anxiety Start: 07-05-2023 End: 07-05-2023 Patient encounter procedure [facility]Rad[facility], [place] Work Phone: Start: 06-22-2023 Office outpatient vi sit 15 minutes Nel Marcano Work Phone: [facility] [address] Work Phone: Start: 06-22-2023 ambulatory DO ADAM Torres [id number] Start: 06-20-2023 End: 06-20-2023 ambulatory [facility] Work Phone: Start: 06-20-2023 End: 06-20-2023 Patient encounter procedure [facility]-Cat Scan, [facility] Work Phone: Start: 06-08-2023 Orders Only Nicole Hayden PATIENT RELATIONS DIRECTOR Work Phone: [facility] Start: 06-07-2023 End: 06-07-2023 ambulatory [facility] Work Phone: Start: 06-07-2023 End: 06-07-2023 Patient encounter procedure [facility]Labor[facility], [place] Work Phone: Start: 04-28-2023 End: 04-28-2023 Office outpatient visit 25 minutes Marjorie Nava PATIENT RELATIONS DIRECTOR Work Phone: [facility] Comment on above: Age-related osteopor osis without current pathological fracture [M81.0 (ICD-10-CM)] (Primary Dx); Vitamin D deficiency; Osteoarthritis of lumbar spine, unspecified spinal osteoarthritis complication status; Osteoarthritis of thoracic spine, unspecified spinal osteoarthritis complication status; Personal history of drug therapy; Encounter for long-term current use of high risk medication Start: 04-17-2023 End: 04-17-2023 Office outpatient new 30 minutes William Cruz MD Work Phone: [facility] Comment on above: UTI symptoms (Primar y Dx); Dysuria Start: 01-10-2023 End: 01-10-2023 Office outpatient visit 15 minutes Nicole Hayden PATIENT RELATIONS DIRECTOR Work Phone: [facility] Comment on above: Parkinson's disease (HCC) (Primary Dx); Anxiety Start: 12-06-2022 End: 12-06-2022 Clinical Support Isela Alejo [facility] Comment on above: Sensorineural hearin g loss, bilateral (Primary Dx) Start: 12-02-2022 End: 12-02-2022 ambulatory Nicole Hayden PATIENT RELATIONS DIRECTOR Work Phone: [facility] Occupational Therapy Comment on above: Parkinson's disease (HCC) (Primary Dx) Sensorineural hearin g loss, bilateral (Primary Dx) Start: 11-30-2022 End: 11-30-2022 ambulatory Nicole Calvilloone PATIENT RELATIONS DIRECTOR Work Phone: [facility] Occupational Therapy Comment on above: Parkinson's disease (HCC) (Primary Dx) Start: 11-23-2022 End: 11-23-2022 ambulatory Nicole Hayden PATIENT RELATIONS DIRECTOR Work Phone: [facility] Occupational Therapy Comment on above: Parkinson's disease (HCC) (Primary Dx) Start: 11-16-2022 End: 11-16-2022 ambulatory Nicole Phameone PATIENT RELATIONS DIRECTOR Work Phone: [facility] Occupational Therapy Comment on above: Parkinson's disease (HCC) (Primary Dx) Start: 11-11-2022 End: 11-11-2022 ambulatory Nicole Phameone PATIENT RELATIONS DIRECTOR Work Phone: [facility] Occupational Therapy Comment on above: Parkinson's disease (HCC) (Primary Dx) Start: 11-09-2022 End: 11-09-2022 ambulatory Nicoleshoaib Calvilloone PATIENT RELATIONS DIRECTOR Work Phone: [facility] Occupational Therapy Comment on above: Parkinson's disease (HCC) (Primary Dx) Start: 11-01-2022 End: 11-01-2022 ambulatory Nicole Lizette Catracho PATIENT RELATIONS DIRECTOR Work Phone: [facility] Neuro Rehab Comment on above: Parkinson disease (H CC) Parkinson's disease (HCC) Parkinson's disease (HCC) (Primary Dx) Start: 10-20-2022 End: 10-20-2022 Clinical Support Leidy Donald MD Work Phone: [facility] Comment on above: Screening for osteop orosis [Z13.820 (ICD-10-CM)] (Primary Dx); Age-related osteoporosis without current pathological fracture [M81.0 (ICD-10-CM)] Start: 10-05-2022 End: 10-05-2022 Office outpatient visit 40 minutes Nicole Hayden PATIENT RELATIONS DIRECTOR Work Phone: [facility] Comment on above: Parkinson disease (H CC) (Primary Dx) Start: 09-28-2022 End: 09-28-2022 Clinical Support Leidy Donald MD Work Phone: [facility] Comment on above: Senile osteoporosis (Primary Dx) Start: 09-19-2022 End: 09-19-2022 Office outpatient visit 15 minutes Nel Marcano DO Work Phone: [facility] [place] Comment on above: Generalized anxiety disorder (Primary Dx); Parkinson's disease; Hypercholesteremia; Vitamin D deficiency Start: 09-12-2022 Chart Update Nel Marcano Work Phone: [facility] [address] Work Phone: Start: 08-26-2022 End: 08-26-2022 Clinical Support Marjorie Nava PATIENT RELATIONS DIRECTOR Work Phone: [facility] Comment on above: Senile osteoporosis (Primary Dx) Start: 08-24-2022 AUDIT Nel Marcano Work Phone: [facility] [address] Work Phone: Start: 08-11-2022 End: 08-11-2022 Office outpatient visit 15 minutes Claire Rosario CNP Work Phone: [facility] Comment on above: Instability of left knee joint (Primary Dx); Primary osteoarthritis of left knee Start: 08-04-2022 End: 08-04-2022 Office outpatient visit 25 minutes Matt Lopez MD Work Phone: [facility] Comment on above: Anxiety (Primary Dx) ; Parkinson's disease (HCC) Start: 06-29-2022 End: 07-04-2022 Clinical Support Leidy Donald MD Work Phone: [facility] Comment on above: Age-related osteopor osis without current pathological fracture (Primary Dx) Start: 05-27-2022 End: 05-27-2022 Clinical Support Celeste Wong Work Phone: [facility] Comment on above: Sensorineural hearin g loss, bilateral (Primary Dx) Start: 05-25-2022 End: 05-25-2022 Clinical Support Leidy Donald MD Work Phone: [facility] Comment on above: Age-related osteopor osis without current pathological fracture (Primary Dx) Start: 05-19-2022 End: 05-19-2022 Office outpatient new 30 minutes Claire Rosario CNP Work Phone: [facility] Comment on above: Primary osteoarthrit is of left knee (Primary Dx) Start: 04-27-2022 End: 04-27-2022 Clinical Support Marjorie Nava CNP Work Phone: [facility] Comment on above: Age-related osteopor osis without current pathological fracture (Primary Dx) Start: 03-30-2022 End: 03-30-2022 Clinical Support Leidy Donald MD Work Phone: [facility] Comment on above: Age-related osteopor osis without current pathological fracture (Primary Dx) Start: 02-23-2022 End: 02-23-2022 Office outpatient visit 25 minutes Leidy Donald MD Work Phone: [facility] Comment on above: Age-related osteopor osis without current pathological fracture (Primary Dx); Vitamin D deficiency; Osteoarthritis of lumbar spine, unspecified spinal osteoarthritis complication status; Osteoarthritis of thoracic spine, unspecified spinal osteoarthritis complication status; Personal history of drug therapy; Encounter for long-term current use of high risk medication Start: 02-10-2022 End: 02-10-2022 Office outpatient visit 15 minutes Matt Lopez MD Work Phone: [facility] Comment on above: Parkinson's disease (HCC) (Primary Dx); Anxiety Start: 01-26-2022 End: 01-26-2022 Clinical Support Leidy Donald MD Work Phone: [facility] Comment on above: Senile osteoporosis (Primary Dx) Start: 01-20-2022 End: 01-20-2022 Patient encounter status Celeste Wong Work Phone: [facility] Start: 01-20-2022 End: 01-20-2022 Transcribe Orders Celeste Wong Work Phone: [facility] Comment on above: Encounter for hearin g examination, unspecified whether abnormal findings (Primary Dx) Sensorineural hearin g loss, bilateral (Primary Dx); Encounter for hearing examination, unspecified whether abnormal findings Start: 12-22-2021 End: 12-22-2021 Clinical Support Leidy Donald MD Work Phone: [facility] Comment on above: Age-related osteopor osis without current pathological fracture (Primary Dx) Start: 12-01-2021 End: 12-01-2021 Clinical Support Celeste Wong Work Phone: [facility] Comment on above: Sensorineural hearin g loss, bilateral (Primary Dx) Start: 11-24-2021 End: 11-24-2021 Clinical Support Leidy Donald MD Work Phone: [facility] Comment on above: Age-related osteopor osis without current pathological fracture (Primary Dx) Start: 09-22-2021 End: 09-22-2021 Office outpatient visit 25 minutes Leidy Donald MD Work Phone: [facility] Comment on above: Age-related osteopor osis without current pathological fracture (Primary Dx); Vitamin D deficiency; Osteoarthritis of lumbar spine, unspecified spinal osteoarthritis complication status; Osteoarthritis of thoracic spine, unspecified spinal osteoarthritis complication status; Personal history of drug therapy; Encounter for long-term current use of high risk medication Start: 08-04-2021 End: 08-04-2021 Clinical Support Leidy Donald MD Work Phone: [facility] Comment on above: Screening for osteop orosis; Age-related osteoporosis without current pathological fracture Start: 06-11-2021 End: 06-11-2021 ambulatory Jules Groves MD Work Phone: [facility] Speech Therapy Comment on above: Dysphonia; Parkinson's disease (HCC) Start: 06-09-2021 End: 06-09-2021 ambulatory Jules Groves MD Work Phone: [facility] Speech Therapy Comment on above: Dysphonia; Parkinson's disease (HCC) Start: 06-08-2021 End: 06-08-2021 ambulatory Jules Groves MD Work Phone: [facility] Speech Therapy Comment on above: Dysphonia; Parkinson's disease (HCC) Start: 06-03-2021 End: 06-03-2021 ambulatory Jules Groves MD Work Phone: [facility] Speech Therapy Comment on above: Dysphonia; Parkinson's disease (HCC) Start: 06-01-2021 End: 06-01-2021 ambulatory Jules Groves MD Work Phone: [facility] Speech Therapy Comment on above: Dysphonia; Parkinson's disease (HCC) Start: 05-27-2021 End: 05-27-2021 ambulatory Jules Groves MD Work Phone: [facility] Speech Therapy Comment on above: Dysphonia; Parkinson's disease (HCC) Start: 05-25-2021 End: 05-25-2021 ambulatory Jules Groves MD Work Phone: [facility] Speech Therapy Comment on above: Dysphonia; Parkinson's disease (HCC) Start: 05-21-2021 End: 05-21-2021 ambulatory Jules Groves MD Work Phone: [facility] Speech Therapy Comment on above: Dysphonia; Parkinson's disease (HCC) Start: 05-18-2021 End: 05-18-2021 ambulatory Jules Groves MD Work Phone: [facility] Speech Therapy Comment on above: Dysphonia; Parkinson's disease (HCC) Start: 05-17-2021 End: 05-17-2021 ambulatory Jules Groves MD Work Phone: [facility] Speech Therapy Comment on above: Dysphonia; Parkinson's disease (HCC) Start: 05-13-2021 End: 05-13-2021 ambulatory Jules Groves MD Work Phone: [facility] Occupational Therapy Comment on above: Parkinson's disease (HCC) Start: 05-13-2021 Chart Update Nel Marcano Work Phone: [facility] Gastroenterology[facility] [address] Work Phone: Start: 05-12-2021 End: 05-12-2021 ambulatory Jules Groves MD Work Phone: [facility] Neuro Rehab Comment on above: Age-related osteopor osis without current pathological fracture; Vitamin D deficiency Start: 05-11-2021 End: 05-11-2021 ambulatory Jules Groves MD Work Phone: [facility] Occupational Therapy Comment on above: Parkinson's disease (HCC) Start: 05-10-2021 End: 05-10-2021 ambulatory Jules Groves MD Work Phone: [facility] Neuro Rehab Comment on above: Age-related osteopor osis without current pathological fracture; Vitamin D deficiency Start: 05-07-2021 End: 05-07-2021 ambulatory Jules Groves MD Work Phone: [facility] Neuro Rehab Comment on above: Age-related osteopor osis without current pathological fracture; Vitamin D deficiency Start: 05-06-2021 End: 05-06-2021 ambulatory Jules Groves MD Work Phone: [facility] Occupational Therapy Comment on above: Parkinson's disease (HCC) Start: 05-04-2021 End: 05-04-2021 ambulatory Jules Groves MD Work Phone: [facility] Occupational Therapy Comment on above: Parkinson's disease (HCC) Start: 04-27-2021 End: 04-27-2021 ambulatory Jules Groves MD Work Phone: [facility] Occupational Therapy Comment on above: Parkinson's disease (HCC) Start: 04-26-2021 End: 04-26-2021 ambulatory Jules Groves MD Work Phone: [facility] Neuro Rehab Comment on above: Age-related osteopor osis without current pathological fracture; Vitamin D deficiency Start: 04-23-2021 End: 04-23-2021 ambulatory Jules Groves MD Work Phone: [facility] Neuro Rehab Comment on above: Age-related osteopor osis without current pathological fracture; Vitamin D deficiency Start: 04-22-2021 End: 04-22-2021 ambulatory Jules Groves MD Work Phone: [facility] Occupational Therapy Comment on above: Parkinson's disease (HCC) Start: 04-20-2021 End: 04-20-2021 ambulatory Jules Groves MD Work Phone: [facility] Occupational Therapy Comment on above: Parkinson's disease ([facility]) Start: 04-16-2021 Release of Information Provide r Not In System [facility] Historical Mapping Start: 04-16-2021 TEE Legacy Provider Not I n System [facility] Historical Mapping Start: 04-08-2021 End: 04-08-2021 Office outpatient visit 40 minutes Tom Ng MD Work Phone: [facility] Neurological Physicians Comment on above: Parkinson's disease (HCC) (Primary Dx); Nausea Start: 04-06-2021 End: 04-06-2021 ambulatory Jules Groves MD Work Phone: [facility] Speech Therapy Comment on above: Parkinson's disease (HCC); Dysphonia Parkinson's disease (HCC) Start: 03-24-2021 End: 03-24-2021 Transcribe Orders Jules Groves MD Work Phone: [facility] Neuro Rehab Comment on above: Parkinson's disease (HCC) (Primary Dx) Start: 03-08-2021 End: 03-08-2021 Clinical Support Roro Wong [facility] Physician [facility] Audiology Comment on above: Sensorineural hearin g loss, bilateral (Primary Dx) Start: 01-14-2021 End: 01-14-2021 Subsequent hospital visit by physician Felipe Gavin Work Phone: [facility] CT Scan Comment on above: Arrived Start: 01-05-2021 End: 01-05-2021 Office outpatient new 45 minutes Nel Marcano Work Phone: [facility] Neurological Physicians Comment on above: Parkinson's disease (HCC) (Primary Dx); Tremor Start: 12-11-2020 End: 12-11-2020 Office outpatient visit 15 minutes Leidy Donald Work Phone: [facility] Osteopor[facility] Comment on above: Age-related osteopor osis without current pathological fracture (Primary Dx); Vitamin D deficiency; Scoliosis (and kyphoscoliosis), idiopathic; Osteoarthritis of lumbar spine, unspecified spinal osteoarthritis complication status; Osteoarthritis of thoracic spine, unspecified spinal osteoarthritis complication status Start: 11-10-2020 End: 11-10-2020 Transcribe Orders Nel Marcano Work Phone: [facility] Physicians Comment on above: Tremor (Primary Dx) Start: 11-06-2020 End: 11-06-2020 Orders Only Sugar Ballard Work Phone: [facility] Family Medicine [place] Start: 05-11-2020 End: 05-11-2020 Clinical Support Roro Mills [facility] Audiology Comment on above: Sensorineural hearin g loss, bilateral (Primary Dx) Start: 04-08-2020 End: 04-08-2020 Clinical Support Roro Mills [facility] Audiology Comment on above: Sensorineural hearin g loss, bilateral (Primary Dx) Start: 03-27-2020 End: 03-27-2020 Clinical Support Nel Marcano Work Phone: [facility] Audiology Comment on above: Sensorineural hearin g loss, bilateral (Primary Dx); Sudden hearing loss, unspecified laterality Start: 03-20-2020 End: 03-20-2020 Office outpatient new 30 minutes Leidy Donald Work Phone: [facility] Comment on above: Age-related osteopor osis without current pathological fracture (Primary Dx); Vitamin D deficiency Start: 03-20-2020 End: 03-20-2020 Clinical Support Leidy Donald Work Phone: [facility] Comment on above: Screening for osteop orosis; Age-related osteoporosis without current pathological fracture Start: 11-14-2018 End: 11-14-2018 Office outpatient visit 15 minutes Rayray Lam Work Phone: [facility] Comment on above: Hiatal hernia with G ERD without esophagitis (Primary Dx) Start: 10-30-2018 End: 10-30-2018 Patient encounter procedure Rayray Lam [facility] Start: 10-05-2018 End: 10-05-2018 Office outpatient visit 25 minutes Rayray Lam Work Phone: [facility] Comment on above: Heartburn (Primary D x); Chest pain, non-cardiac; Gaseous regurgitation; Belching; Chronic cough Start: 08-31-2018 End: 08-31-2018 Office outpatient visit 15 minutes Nel Marcano Work Phone: [facility] Internal Medicine [place] Comment on above: Chest pain due to GE RD (Primary Dx); Shortness of breath Start: 01-23-2018 End: 01-23-2018 Office/outpatient visit, [facility], level 2 Cali Blanc Work Phone: [facility] Start: 01-16-2018 End: 01-16-2018 Emergency department patient visit NEL MARCANO [facility] Start: 12-09-2017 Ambulatory NEL MARCANO [facility] Procedures Date Procedure Procedure Detail Performing Clinician Start: 04-07-2025 CT of abdomen and pe lvis without contrast Dr. Nel Marcano MD Work Phone: Start: 11-18-2024 DEXA- BONE DENSITY Leidy Donald MD Work Phone: Start: 10-25-2023 CT of abdomen and pe lvis without contrast Start: 10-12-2023 Cysto,Ureteroscopy,R etro,Di l,Laser,Stent (Left) Start: 10-12-2023 Fluoroscopic guidance Start: 09-21-2023 Lipid 1996 panel - S dickson or Plasma Nel Marcano DO Work Phone: Start: 07-05-2023 Diagnostic radiograp hy of abdomen Start: 06-20-2023 Computed tomography of abdomen and pelvis with contrast Start: 04-17-2023 Urnls dip stick/tabl et rgnt non-auto w/o micrscp Chirag TRUJILLO Work Phone: Start: 12-02-2022 Lipid 1996 panel - S dickson or Plasma Chirag TRUJILLO Work Phone: Start: 10-20-2022 Dxa bone density jordan dy 1/> sites axial skel Leidy Donald MD Work Phone: Start: 08-12-2022 Arthrocentesis aspir &/inj major jt/bursa w/o us Claire Rosario PATIENT RELATIONS DIRECTOR Work Phone: Start: 08-04-2021 Dxa bone density jordan dy 1/> sites axial skel Leidy Donald MD Work Phone: Start: 06-09-2021 Lipid [...] Activity Detail Author Start: 05-04-2029 Tetanus vaccination [facility] Start: 09-21-2028 Lipid panel LIPID SCREENING [facility] Start: 12-03-2027 Lipid panel LIPID SCREENING [facility] Start: 06-09-2026 Lipid panel LIPID SCREENING [facility] Start: 12-23-2025 End: 12-23-2025 Patient encounter procedure 12/23/2025 10:00 AM EDT Office Visit [facility] [address] [place] [address] Chirag Martinez, [address] [place] [address] [facility] Start: 11-14-2025 End: 11-14-2025 Patient encounter procedure 11/14/2025 11:00 AM EST Office Visit [facility] [address] [place] [address] Marjorie Nava CNP [address] [facility] [address] [place] [address] [facility] Start: 09-05-2025 Screening for malignant neoplasm of colon [facility] Start: 07-31-2025 End: 07-31-2025 Patient encounter procedure 07/31/2025 10:00 AM EDT Office Visit [facility], Neuroscience [address] [place] [address] Matt Lopez MD [address] [place] [address] [facility] Start: 06-02-2025 Influenza vaccination INFLUENZA VACCINE (#1) [facility] Start: 05-14-2025 End: 05-14-2025 Patient encounter procedure 05/14/2025 11:00 AM EDT Office Visit [facility] [address] [place] [phone] Leidy Donald MD [address] [place] [address] [facility] Start: 04-17-2025 End: 04-17-2025 Patient encounter procedure 04/17/2025 12:45 PM EDT Office Visit [facility], Neuroscience [address] [place] [address] Florentino Villasenor, VLADIMIR [address] [facility] [place] [address] [facility] Start: 04-01-2025 End: 04-01-2026 Complete blood count with white cell differential, automated CBC, EDIF, PLATELET Lab Routine Osteoarthritis of spine with radiculopathy, lumbar region Expected: 04/01/2025 (Approximate), Expires: 04/01/2026 [facility] Comment on above: Expected: 04/01/2025 (Approximate), Expi res: 04/01/2026 Start: 04-01-2025 End: 04-01-2026 Comprehensive metabolic 2000 panel - Serum or Plasma COMPREHENSIVE METABOLIC PANEL Lab Routine Hypercholesteremia Expected: 04/01/2025 (Approximate), Expires: 04/01/2026 [facility] Comment on above: Expected: 04/01/2025 (Approximate), Expi res: 04/01/2026 Start: 04-01-2025 End: 04-01-2026 PTH INTACT PTH INTACT Lab Routine Vitamin D deficiency Expected: 04/01/2025 (Approximate), Expires: 04/01/2026 [facility] Comment on above: Expected: 04/01/2025 (Approximate), Expi res: 04/01/2026 Start: 04-01-2025 End: 04-01-2026 TSH W/FT4 REFLEX TSH W/FT4 REFLEX Lab Routine Vitamin D deficiency Abnormal findings on diagnostic imaging of other specified body structures Expected: 04/01/2025 (Approximate), Expires: 04/01/2026 [facility] Comment on above: Expected: 04/01/2025 (Approximate), Expi res: 04/01/2026 Start: 04-01-2025 End: 04-01-2026 VITAMIN D (25-HYDROXY,TOTAL) VITAMIN D (25-HYDROXY,TOTAL) Lab Routine Vitamin D deficiency Expected: 04/01/2025 (Approximate), Expires: 04/01/2026 [facility] Comment on above: Expected: 04/01/2025 (Approximate), Expi res: 04/01/2026 Start: 03-26-2025 End: 03-26-2025 ambulatory 03/26/2025 3:30 PM EDT Treatment [facility] Occupational Therapy [address] [place] [address] Matt Lopez MD [address] [facility] [address] [place] [phone] Van Dubon OT [facility] Occupational Therapy Start: 03-24-2025 End: 03-24-2025 ambulatory 03/24/2025 3:30 PM EDT Treatment [facility] Occupational Therapy [address] [place] [phone] Matt Lopez MD [address] [facility] [address] [place] [address] Van Dubon, [facility] Occupational Therapy Start: 03-21-2025 End: 03-21-2025 ambulatory 03/21/2025 3:30 PM EDT Treatment [facility] Occupational Therapy [address] [place] [phone] Matt Lopez MD [address] [facility] [address] [place] [address] Van Dubon, [facility] Occupational Therapy Start: 03-17-2025 End: 03-17-2025 ambulatory 03/17/2025 3:30 PM EDT Treatment [facility] Occupational Therapy [address] [place] [phone] Matt Lopez MD [address] [facility] [address] [place] [id number] Van Dubon, [facility] Occupational Therapy Start: 03-12-2025 End: 03-12-2025 ambulatory 03/12/2025 3:30 PM EDT Treatment [facility] Occupational Therapy [address] [place] [phone] Matt Lopez MD [address] [facility] [address] [place] [id number] [facility] Start: 03-10-2025 End: 03-10-2025 ambulatory 03/10/2025 3:30 PM EDT Treatment [facility] Occupational Therapy [address] [place] [address] Matt Lopez MD [address] [facility] [address] [place] [address] Van Dubon OT [facility] Occupational Therapy Start: 03-05-2025 End: 03-05-2025 ambulatory 03/05/2025 3:30 PM EDT Treatment [facility] Occupational Therapy [address] [facility] [address] [place] [address] Matt Lopez MD [address] [facility] [address] [place] [address] Van Dubon OT Discharge Disposition: Home [facility] Occupational Therapy Start: 03-03-2025 End: 03-03-2025 ambulatory 03/03/2025 10:15 AM EDT Evaluation [facility] Occupational Therapy [address] [facility] [place] [phone] Matt Lopez MD [address] [facility] [address] [place] [address] Van Dubon OT Discharge Disposition: Home [facility] Occupational Therapy Start: 02-13-2025 End: 02-13-2025 Patient encounter procedure 02/13/2025 10:30 AM EDT Office Visit [facility], Neuroscience [address] [place] [address] Matt Lopez MD [address] [facility] [address] [place] [address] Discharge Disposition: Home [facility], Neuroscience Start: 11-04-2024 End: 11-04-2024 Clinical Support [facility] Start: 10-08-2024 End: 10-08-2024 Patient encounter procedure 10/08/2024 11:00 AM EST Office Visit [facility] [address] [place] [address] Chirag Martinez DO [address] [place] [address] [facility] Start: 07-19-2024 End: 07-19-2024 Patient encounter procedure 07/19/2024 11:00 AM EDT Office Visit [facility], Neuroscience [address] [facility] [address] [place] [address] Nicole Hayden, PATIENT RELATIONS DIRECTOR [address] [place] [address] Discharge Disposition: Home [facility] Neuroscience Start: 06-26-2024 End: 06-26-2024 ambulatory 06/26/2024 12:00 PM EDT Rehab Services Visit [facility] [address] [place] [address] Nel Marcano, DO [address] [place] [address] Omer Cardona G, PT, DPT, ATC [address] [place] [address] [facility] Start: 06-02-2024 COVID-19 VACCINE ( season) COVID-19 VACCINE ( season) [facility] Start: 06-02-2024 COVID-19 Vaccine ( season) COVID-19 Vaccine ( season) [facility] Start: 06-02-2024 Influenza vaccination INFLUENZA VACCINE (#1) [facility] Start: 05-01-2024 End: 05-01-2024 Patient encounter procedure 05/01/2024 1:45 PM EDT Office Visit [facility] [address] [place] [phone] Marjorie Nava, PATIENT RELATIONS DIRECTOR [address] [place] [address] [facility] Start: 02-01-2024 Screening for malignant neoplasm of cervix CERVICAL CANCER SCREENING DISCUSSION [facility] Start: 01-26-2024 End: 01-26-2024 Patient encounter procedure 01/26/2024 8:30 AM EDT Office Visit [facility] [address] [place] [address] Claire Rosario, PATIENT RELATIONS DIRECTOR [address] [phone] [facility] Start: 01-17-2024 End: 01-17-2024 Patient encounter procedure 01/17/2024 12:00 PM EDT Office Visit [facility], Neuroscience [address] [place] [address] Matt Lopez MD [address] [place] [address] Discharge Disposition: Home [facility], Neuroscience Start: 11-01-2023 End: 11-01-2023 Patient encounter procedure 11/01/2023 1:15 PM EST Office Visit [facility] [address] [place] [phone] Leidy Donald MD [address] [place] [address] [facility] Start: 10-12-2023 Jeanettes mica fragmntj manj&/rmvl ureteral calculus ANESTH STONE REMOVAL [facility] Start: 10-12-2023 Cysto/uretero w/lithotripsy &indwell stent insrt CYSTO/URETERO W/LITHOTRIPSY [facility] Start: 10-12-2023 Patient discharge [facility] Start: 12-05-2023 Screening for malignant neoplasm of colon COLORECTAL CANCER SCREENING DISCUSSION [facility] Start: 07-17-2023 End: 07-17-2023 Patient encounter procedure 07/17/2023 12:30 PM EDT Office Visit [facility], Neuroscience [address] [place] [address] Matt Lopez MD [address] [place] [address] Discharge Disposition: Home [facility] Neuroscience Start: 06-02-2023 COVID-19 Vaccine ( season) COVID-19 Vaccine () [facility] Start: 06-02-2023 Influenza vaccination [facility] Start: 05-30-2023 End: 05-30-2023 Patient encounter procedure [facility] Start: 04-20-2023 End: 04-20-2023 Patient encounter procedure [facility] Start: 2023 Respiratory Syncytial Virus Immunization: Risk, 60-74 Risk, or 75+ (1 - 1-dose 75+ series) Respiratory Syncytial Virus Immunization: Risk, 60-74 Risk, or 75+ (1 - 1-dose 75+ series) [facility] Start: 2023 RSV VACCINE (1 - 1-dose 75+ series) RSV VACCINE (1 - 1-dose 75+ series) [facility] Start: 04-17-2023 End: 04-17-2024 Bacteria identified in Urine by Culture [facility] Comment on above: Expected: 04/17/2023, Expires: Start: 01-10-2023 End: 01-10-2023 Patient encounter procedure 01/10/2023 Office Visit Neurology Matt Lopez MD [address] [place] [address] [facility] Neuroscience Start: 12-09-2022 Fasting lipid profile LIPID SCREENING [facility] Work Phone: Start: 12-02-2022 End: 12-02-2022 ambulatory 12/02/2022 Treatment Rehabilitation Nicole Hayden, PATIENT RELATIONS DIRECTOR [address] [place] [address] [facility] Start: 11-30-2022 End: 11-30-2022 ambulatory 11/30/2022 Treatment Rehabilitation Nicole Hayden, PATIENT RELATIONS DIRECTOR [address] [place] [address] [facility] Start: 11-23-2022 End: 11-23-2022 ambulatory 11/23/2022 Treatment Rehabilitation [place] Nicole Lizette, PATIENT RELATIONS DIRECTOR [address] [place] [address] [facility] Start: 11-21-2022 End: 11-21-2022 ambulatory 11/21/2022 Treatment Rehabilitation [place] Nicole Lizette, PATIENT RELATIONS DIRECTOR [address] [place] [address] [facility] Start: 11-18-2022 End: 11-18-2022 ambulatory 11/18/2022 Treatment Rehabilitation [place] Nicole Lizette, PATIENT RELATIONS DIRECTOR [address] [place] [address] [facility] Start: 11-16-2022 End: 11-16-2022 ambulatory 11/16/2022 Treatment Rehabilitation CatrachoNicole, PATIENT RELATIONS DIRECTOR [address] [place] [address] [facility] Start: 11-11-2022 End: 11-11-2022 ambulatory 11/11/2022 Treatment Rehabilitation Nicole Hayden, PATIENT RELATIONS DIRECTOR [address] [place] [address] [facility] Start: 11-09-2022 End: 11-09-2022 ambulatory 11/09/2022 Treatment Rehabilitation Nicole Hayden, PATIENT RELATIONS DIRECTOR [address] [place] [address] [facility] Start: 11-01-2022 End: 11-01-2022 ambulatory [facility] Occupational Therapy Start: 10-20-2022 End: 10-20-2022 Clinical Support [facility] Start: 10-05-2022 End: 10-05-2022 Patient encounter procedure 10/05/2022 Office Visit Neurology Nicole Hayden, PATIENT RELATIONS DIRECTOR [address] [place] [address] [facility] Neuroscience Start: 09-28-2022 End: 09-28-2022 Clinical Support 09/28/2022 Clinical Support Rheumatology Leidy Donald MD [address] [place] [address] [facility] Start: 09-19-2022 End: 09-19-2023 C-reactive protein C REACTIVE PROTEIN Lab Routine Parkinson's disease Expected: 09/19/2022, Expires: 09/19/2023 [facility] Comment on above: Expected: 09/19/2022, Expires: Start: 09-19-2022 End: 09-19-2023 VITAMIN D (25-HYDROXY,TOTAL) VITAMIN D (25-HYDROXY,TOTAL) Lab Routine Vitamin D deficiency Expected: 09/19/2022, Expires: 09/19/2023 [facility] Comment on above: Expected: 09/19/2022, Expires: Start: 08-26-2022 End: 08-26-2022 Clinical Support 08/26/2022 Clinical Support Rheumatology Marjorie Nava, PATIENT RELATIONS DIRECTOR [address] [place] [address] [facility] Start: 08-04-2022 End: 08-04-2022 Patient encounter procedure 08/04/2022 Office Visit Neurology Matt Lopez MD [address] [facility] [address] [place] [address] [facility] Neuro[facility] Start: 07-27-2022 End: 07-27-2022 Clinical Support 07/27/2022 Clinical Support Rheumatology Marjorie Nava, PATIENT RELATIONS DIRECTOR [address] [place] [address] [facility] Start: 06-29-2022 End: 06-29-2022 Clinical Support 06/29/2022 Clinical Support Rheumatology Leidy Donald MD [address] [place] [address] [facility] Start: 06-02-2022 Influenza vaccination Sequential Influenza Vaccine (#1) [facility] Start: 05-27-2022 End: 05-27-2022 Clinical Support 05/27/2022 Clinical Support Otolaryngology Celeste Guerra, AuD [address] [facility] [address]th [place] [address] [facility] Audiology Start: 05-25-2022 End: 05-25-2022 Clinical Support [facility] Start: 04-27-2022 End: 04-27-2022 Clinical Support 04/27/2022 Clinical Support Rheumatology Marjorie Nava, PATIENT RELATIONS DIRECTOR [address] [place] [address] [facility] Start: 03-30-2022 End: 03-30-2022 Clinical Support 03/30/2022 Clinical Support Rheumatology Leidy Donald MD [address] [place] [address] [facility] Start: 02-23-2022 End: 02-23-2022 Patient encounter procedure 02/23/2022 Office Visit Rheumatology Leidy Donald MD [address] [place] [address] [facility] Start: 02-10-2022 End: 02-10-2022 Patient encounter procedure 02/10/2022 Office Visit Neurology Matt Lopez MD [address] [facility] [address] [place] [address] [facility] Neuro[facility] Start: 01-26-2022 End: 01-26-2022 Clinical Support 01/26/2022 Clinical Support Rheumatology Leidy Donald MD [address] [place] [address] [facility] Start: 01-20-2022 End: 01-20-2022 Clinical Support 01/20/2022 Clinical Support Otolaryngology Celeste Guerra, AuD [address] [place] [address] [facility] Audiology Start: 12-22-2021 End: 12-22-2021 Clinical Support 12/22/2021 Clinical Support Rheumatology Leidy Donald MD [address] [place] [address] [facility] Start: 12-17-2021 End: 12-17-2021 Patient encounter procedure 12/17/2021 Office Visit Neurology Tom Ng MD [address] [address] [facility] Start: 10-27-2021 End: 10-27-2021 Patient encounter procedure 10/27/2021 Office Visit Rheumatology Marjorie Nava, PATIENT RELATIONS DIRECTOR [address] [place] [address] [facility] Start: 08-11-2021 End: 08-11-2021 Patient encounter procedure [facility] Start: 08-10-2021 End: 08-10-2021 Patient encounter procedure [facility] Neuro[facility] Start: 08-04-2021 End: 08-04-2021 Clinical Support 08/04/2021 Clinical Support Rheumatology [facility] Start: 07-20-2021 End: 07-20-2021 Patient encounter procedure [facility] Start: 06-11-2021 End: 06-11-2021 [facility] Speech Therapy Start: 06-09-2021 End: 06-09-2021 ambulatory [facility] Speech Therapy Start: 06-08-2021 End: 06-08-2021 ambulatory [facility] Speech Therapy Start: 06-03-2021 End: 06-03-2021 [facility] Speech Therapy Start: 06-02-2021 Influenza vaccination Sequential Influenza Vaccine (#1) [facility] Start: 06-01-2021 End: 06-01-2021 [facility] Speech Therapy Start: 05-31-2021 End: 05-31-2021 [facility] Speech Therapy Start: 05-27-2021 End: 05-27-2021 [facility] Speech Therapy Start: 05-25-2021 End: 05-25-2021 ambulatory [facility] Speech Therapy Start: 05-24-2021 End: 05-24-2021 [facility] Speech Therapy Start: 05-21-2021 End: 05-21-2021 [facility] Speech Therapy Start: 05-20-2021 End: 05-20-2021 Clinical Support [facility] Start: 05-18-2021 End: 05-18-2021 [facility] Speech Therapy Start: 05-17-2021 End: 05-17-2021 [facility] Speech Therapy Start: 05-13-2021 End: 05-13-2021 ambulatory 05/13/2021 Treatment Rehabilitation Jules Groves MD [address] [place] [id number] [place], [facility] Occupational Therapy Start: 05-12-2021 End: 05-12-2021 ambulatory 05/12/2021 Treatment Rehabilitation Jules Groves MD [address] [place] [id number] Leandro James, [facility] Neuro Rehab Start: 05-11-2021 End: 05-11-2021 ambulatory 05/11/2021 Treatment Rehabilitation Jules Groves MD [address] [place] [id number] [place], [facility] Occupational Therapy Start: 05-10-2021 End: 05-10-2021 ambulatory 05/10/2021 Treatment Rehabilitation Jules Groves MD [address] [place] [phone] Roro Galvez, [facility] Neuro Rehab Start: 05-07-2021 End: 05-07-2021 ambulatory 05/07/2021 Treatment Rehabilitation Jules Groves MD [address] [place] [id number] Roro Galvez, [facility] Start: 05-06-2021 End: 05-06-2021 ambulatory 05/06/2021 Treatment Rehabilitation Jules Groves MD [address] [place] [phone] [facility] Start: 05-05-2021 End: 05-05-2021 ambulatory 05/05/2021 Treatment Rehabilitation Jules Groves MD [address] [place] [id number] Roro Galvez, [facility] Start: 05-04-2021 End: 05-04-2021 ambulatory 05/04/2021 Treatment Rehabilitation Jules Groves MD [address] [place] [id number] [facility] Start: 05-03-2021 End: 05-03-2021 ambulatory 05/03/2021 Treatment Rehabilitation Jules Groves MD [address] [place] [phone] [facility] Start: 04-29-2021 End: 04-29-2021 ambulatory 04/29/2021 Treatment Rehabilitation Jules Groves MD [address] [place] [phone] [facility] Start: 04-28-2021 End: 04-28-2021 ambulatory 04/28/2021 Treatment Rehabilitation Jules Groves MD [address] [place] [phone] Roro Galvez [facility] Start: 04-27-2021 End: 04-27-2021 ambulatory 04/27/2021 Treatment Rehabilitation Jules Groves MD [address] [place] [id number] [facility] Start: 04-26-2021 End: 04-26-2021 ambulatory 04/26/2021 Treatment Rehabilitation Jules Groves MD [address] [place] [phone] Roro Galvez, [facility] Start: 04-23-2021 End: 04-23-2021 ambulatory 04/23/2021 Treatment Rehabilitation Jules Groves MD [address] [place] [phone] [facility] Start: 04-22-2021 End: 04-22-2021 ambulatory 04/22/2021 Treatment Rehabilitation Jules Groves MD [address] [place] [phone] [place] [facility] Occupational Therapy Start: 04-20-2021 End: 04-20-2021 ambulatory 04/20/2021 Treatment Rehabilitation Jules Groves MD [address] [place] [phone] [place] [facility] Occupational Therapy Start: 2021 End: 2021 ambulatory 2021 Treatment Rehabilitation Jules Groves MD [address] [place] [id number] Roro Galvez, [facility] Re[facility] Start: 04-08-2021 End: 04-08-2021 Office Visit 04/08/2021 Office Visit Neurology Tom Ng MD [address] [place] [address] [phone] [facility] Start: 04-06-2021 End: 04-06-2021 ambulatory [facility] Speech Therapy Start: 02-24-2021 COVID-19 Vaccine (2 - Booster for Shayne series) COVID-19 Vaccine (2 - Booster for Shayne series) [facility] Start: 01-05-2021 End: 01-05-2021 Office Visit 01/05/2021 Office Visit Neurology Nel Marcano DO [address] [place] [address] [phone] Felipe Gavin MD [facility] [address] [address] [phone] [facility] Start: 12-11-2020 End: 12-11-2020 Office Visit 12/11/2020 Office Visit Rheumatology Leidy Donald MD [address] [place] [address] [phone] [facility] Start: 10-28-2020 End: 10-28-2020 Office Visit 10/28/2020 Office Visit Rheumatology Leidy Donald MD [address] [place] [address] [phone] [facility] Start: 06-03-2020 End: 06-03-2020 Clinical Support 06/03/2020 Clinical Support Otolaryngology Roro Mills AuD [facility] Audiology Start: 06-02-2020 Influenza vaccination given [facility] Start: 04-29-2020 End: 04-29-2020 Clinical Support 04/29/2020 Clinical Support OtolaryngologRoro Cheung AuD [facility] Audiology Start: 04-08-2020 End: 04-08-2020 Clinical Support 04/08/2020 Clinical Support OtolaryngologRoro Cheung AuD [facility] Aud[facility] Start: 03-27-2020 End: 03-27-2020 Clinical Support 03/27/2020 Clinical Support Otolaryngology Nel Marcano DO [address] [place] [address] [phone] Roro Mills AuD [facility] Audiology Start: 10-30-2018 End: 10-30-2018 Ambulatory 10/30/2018 Scanned Document [facility] Rayray Lam MD [address] [facility] [address] [place] [address] [phone] [facility] Start: 10-03-2018 End: 10-03-2018 Ambulatory 10/03/2018 Office Visit Internal Medicine Nel Marcano DO [address] [place] [address] [phone] [facility] Internal Medicine [place] Start: 06-02-2018 Influenza vaccination INFLUENZA VACCINE (#1) [facility] Work Phone: Start: 06-02-2018 Influenza vaccination given SEQUENTIAL INFLUENZA VACCINE (#1) [facility] Start: 06-02-2017 Influenza vaccination SEQUENTIAL INFLUENZA VACCINE (#1) [facility] Start: 2013 Fall risk assessment [facility] Start: 2013 Pneumococcal vaccination [facility] Start: 2013 Pneumococcal Vaccine: Age 65+ (1 - PCV) Pneumococcal Vaccine: Age 65+ (1 - PCV) [facility] Start: 2013 Pneumococcal Vaccine: Age 65+ (1 of 1 - PCV) Pneumococcal Vaccine: Age 65+ (1 of 1 - PCV) [facility] Start: 2013 Pneumococcal Vaccine: Age 65+ (1 of 1 - PPSV23) Pneumococcal Vaccine: Age 65+ (1 of 1 - PPSV23) [facility] Start: 2008 RSV VACCINE (1 - 1-dose 60+ series) RSV VACCINE (1 - 1-dose 60+ series) [facility] Start: 2008 Zoster vacc, sc ZOSTER VACCINE [facility] Start: 1998 Administration of herpes zoster vaccine ZOSTER VACCINES (1 of 2) [facility] Start: 1998 Pneumococcal Vaccine: Age 50+ (1 of 1 - PCV) Pneumococcal Vaccine: Age 50+ (1 of 1 - PCV) [facility] Start: 1998 Protein mass conc COLON CANCER SCREENING DISCUSSION [facility] Work Phone: Start: 1998 Screening for malignant neoplasm of colon [facility] Start: 1998 Zoster vaccine hzv live for subcutaneous use ZOSTER (SHINGLES) VACCINE (1 of 2) [facility] Start: 1988 Protein mass conc MAMMOGRAM SCREENING DISCUSSION [facility] Work Phone: Start: 1988 Screening for malignant neoplasm of breast [facility] Start: 1988 Screening mammography Mammogram [facility] Start: 1969 Screening for malignant neoplasm of cervix [facility] Start: 1967 Pneumococcal vaccination PNEUMOCOCCAL VACCINE SERIES (1 of 2 - PCV) [facility] Start: 1967 Third diphtheria, tetanus and acellular pertussis (DTaP) vaccination TDAP (ADULT) [facility] Work Phone: Start: 1966 Hepatitis C antibody, confirmatory test Hepatitis C Screening [facility] Start: 1966 Hepatitis C screening Hepatitis C Screening [facility] Start: 1966 Tetanus vaccination TETANUS [facility] Work Phone: Start: 1964 COVID-19 Vaccine (1 of 2) COVID-19 Vaccine (1 of 2) [facility] Start: 1960 Adolescent depression screening assessment Depression Screening (PHQ9) [facility] Start: 1960 Depression screening using PHQ-9 (Patient Health Questionnaire 9) score [facility] Start: 1954 Pneumococcal vaccination [facility] Start: 1951 History and physical examination, annual for health maintenance Wellness Visit [facility] Start: 1951 Medicare Wellness Visit Medicare Wellness Visit [facility] Start: 1948 Depression screening using PHQ-9 (Patient Health Questionnaire 9) score Depression Screening (PHQ9) [facility] Start: 1948 Fall risk assessment Falls Risk Assessment [facility] Start: 1948 Hepatitis C screening HEPATITIS C VIRUS SCREENING [facility] Start: 1948 Screening for malignant neoplasm of colon [facility] Start: 1948 Screening mammography Mammogram [facility] Start: 1948 End: 1948 Hepatitis C antibody, confirmatory test [facility] Work Phone: Start: 1948 HEPATITIS C SCREENING HEPATITIS C SCREENING [facility] Start: 1948 End: 1948 Protein mass conc COLONOSCOPY [facility] Start: 1948 Screening colonoscopy COLONOSCOPY [facility] Start: 1948 End: 1948 Screening for osteoporosis [facility] Start: 1948 End: 1948 Tetanus vaccination [facility] End: 03-20-2021 Basic metabolic 2000 panel Basic Metabolic Panel Lab Routine Age-related osteoporosis without current pathological fracture 1 Occurrences starting 03/20/2020 until 03/20/2021 [facility] Comment on above: 1 Occurrences starting 03/20/2020 until 03/20/2021 Beta Crosslaps (Beta CTX) [facility] Comment on above: Ordered: 03/20/2020 End: 12-12-2021 Beta Crosslaps (Beta CTX) Beta Crosslaps (Beta CTX) Lab Routine Age-related osteoporosis without current pathological fracture 1 Occurrences starting 12/11/2020 until 12/12/2021 [facility] Comment on above: 1 Occurrences starting 12/11/2020 until 12/12/2021 End: 09-23-2022 Beta Crosslaps (Beta CTX) Beta Crosslaps (Beta CTX) Lab Routine Age-related osteoporosis without current pathological fracture 1 Occurrences starting 09/22/2021 until 09/23/2022 [facility] Comment on above: 1 Occurrences starting 09/22/2021 until 09/23/2022 Beta Crosslaps (Beta CTX) Beta Crosslaps (Beta CTX) Lab Routine Age-related osteoporosis without current pathological fracture 09/22/2021 3:35 PM EST [facility] End: 02-24-2023 Beta Crosslaps (Beta CTX) Beta Crosslaps (Beta CTX) Lab Routine Age-related osteoporosis without current pathological fracture 1 Occurrences starting 02/23/2022 until 02/24/2023 [facility] Work Phone: Comment on above: 1 Occurrences starting 02/23/2022 until 02/24/2023 Beta Crosslaps (Beta CTX) Beta Crosslaps (Beta CTX) Lab Routine Age-related osteoporosis without current pathological fracture 02/23/2022 12:13 PM EDT [facility] End: 04-28-2024 Beta Crosslaps (Beta CTX) Beta Crosslaps (Beta CTX) Lab Routine Age-related osteoporosis without current pathological fracture [M81.0 (ICD-10-CM)] 1 Occurrences starting 04/28/2023 until 04/28/2024 [facility] Comment on above: 1 Occurrences starting 04/28/2023 until 04/28/2024 Beta Crosslaps (Beta CTX) Beta Crosslaps (Beta CTX) Lab Routine Age-related osteoporosis without current pathological fracture [M81.0 (ICD-10-CM)] 04/28/2023 9:51 AM EDT [facility] End: 11-01-2024 Beta Crosslaps (Beta CTX) Beta Crosslaps (Beta CTX) Lab Routine Age-related osteoporosis without current pathological fracture [M81.0 (ICD-10-CM)] 1 Occurrences starting 11/01/2023 until 11/01/2024 [facility] Comment on above: 1 Occurrences starting 11/01/2023 until 11/01/2024 Beta Crosslaps (Beta CTX) Beta Crosslaps (Beta CTX) Lab Routine Age-related osteoporosis without current pathological fracture [M81.0 (ICD-10-CM)] 11/01/2023 2:14 PM [facility] End: 05-02-2025 Beta Crosslaps (Beta CTX) Beta Crosslaps (Beta CTX) Lab Routine Age-related osteoporosis without current pathological fracture [M81.0 (ICD-10-CM)] 1 Occurrences starting 05/01/2024 until 05/02/2025 [facility] Comment on above: 1 Occurrences starting 05/01/2024 until 05/02/2025 Beta Crosslaps (Beta CTX) Beta Crosslaps (Beta CTX) Lab Routine Age-related osteoporosis without current pathological fracture [M81.0 (ICD-10-CM)] 05/01/2024 1:40 PM EDT [facility] End: 11-05-2025 Beta Crosslaps (Beta CTX) Beta Crosslaps (Beta CTX) Lab Routine Age-related osteoporosis without current pathological fracture [M81.0 (ICD-10-CM)] 1 Occurrences starting 11/04/2024 until 11/05/2025 [facility] Comment on above: 1 Occurrences starting 11/04/2024 until 11/05/2025 Beta Crosslaps (Beta CTX) Beta Crosslaps (Beta CTX) Lab Routine Age-related osteoporosis without current pathological fracture [M81.0 (ICD-10-CM)] 11/04/2024 11:16 AM [facility] End: 05-15-2026 Beta Crosslaps (Beta CTX) Beta Crosslaps (Beta CTX) Lab Routine Age-related osteoporosis without current pathological fracture [M81.0 (ICD-10-CM)] 1 Occurrences starting 05/14/2025 until 05/15/2026 [facility] Comment on above: 1 Occurrences starting 05/14/2025 until 05/15/2026 End: 11-04-2025 Calcium [Mass/volume] in Serum or Plasma Calcium Level Lab Routine Age-related osteoporosis without current pathological fracture [M81.0 (ICD-10-CM)] 1 Occurrences starting 11/04/2024 until 11/04/2025 [facility] Comment on above: 1 Occurrences starting 11/04/2024 until 11/04/2025 Calcium [Mass/volume ] in Serum or Plasma Calcium Level Lab Routine Age-related osteoporosis without current pathological fracture [M81.0 (ICD-10-CM)] 11/04/2024 11:16 AM [facility] Celiac disease screen Celiac Ser ology [place] Panel Lab Routine Age-related osteoporosis without current pathological fracture Ordered: 03/20/2020 [facility] Comment on above: Ordered: 03/20/2020 End: 12-11-2021 Creatinine [Mass/Vol] Creatinine, serum Lab Routine Age-related osteoporosis without current pathological fracture 1 Occurrences starting 12/11/2020 until 12/11/2021 [facility] Comment on above: 1 Occurrences starting 12/11/2020 until 12/11/2021 Creatinine [Mass/Vol] Creatinine , serum Lab Routine Age-related osteoporosis without current pathological fracture 12/11/2020 10:33 AM [facility] End: 10-31-2024 Creatinine [Mass/volume] in Serum or Plasma Creatinine, serum Lab Routine Age-related osteoporosis without current pathological fracture [M81.0 (ICD-10-CM)] 1 Occurrences starting 11/01/2023 until 10/31/2024 [facility] Comment on above: 1 Occurrences starting 11/01/2023 until 10/31/2024 Creatinine [Mass/volume] in Serum or Plasma Creatinine, serum Lab Routine Age-related osteoporosis without current pathological fracture [M81.0 (ICD-10-CM)] 11/01/2023 2:14 PM EST [facility] End: 01-05-2022 CT of head without contrast CT Head Or Brain Without Contrast Imaging Routine Tremor 1 Occurrences starting 01/05/2021 until 01/05/2022 [facility] Comment on above: 1 Occurrences starting 01/05/2021 until 01/05/2022 End: 02-08-2023 MR Knee Left Without Contrast MR Knee Left Without Contrast Imaging Routine Primary osteoarthritis of left knee 1 Occurrences starting 08/11/2022 until 02/08/2023 [facility] Work Phone: Comment on above: 1 Occurrences starting 08/11/2022 until 02/08/2023 Parathyrin.intact an d Calcium panel - Serum or Plasma [facility] Comment on above: Ordered: 03/20/2020 End: 12-11-2021 Parathyrin.intact and Calcium panel - Serum or Plasma PTH, Intact Lab Routine Age-related osteoporosis without current pathological fracture 1 Occurrences starting 12/11/2020 until 12/11/2021 [facility] Comment on above: 1 Occurrences starting 12/11/2020 until 12/11/2021 End: 09-22-2022 Parathyrin.intact and Calcium panel - Serum or Plasma PTH, Intact Lab Routine Age-related osteoporosis without current pathological fracture 1 Occurrences starting 09/22/2021 until 09/22/2022 [facility] Comment on above: 1 Occurrences starting 09/22/2021 until 09/22/2022 Parathyrin.intact an d Calcium panel - Serum or Plasma PTH, Intact Lab Routine Age-related osteoporosis without current pathological fracture 09/22/2021 3:35 PM [facility] End: 04-27-2024 Parathyrin.intact and Calcium panel - Serum or Plasma PTH Intact (Processed at [facility]) Lab Routine Age-related osteoporosis without current pathological fracture [M81.0 (ICD-10-CM)] 1 Occurrences starting 04/28/2023 until 04/27/2024 [facility] Comment on above: 1 Occurrences starting 04/28/2023 until 04/27/2024 Parathyrin.intact an d Calcium panel - Serum or Plasma PTH Intact (Processed at [facility]) Lab Routine Age-related osteoporosis without current pathological fracture [M81.0 (ICD-10-CM)] 04/28/2023 9:51 AM EDT [facility] End: 10-31-2024 Parathyrin.intact and Calcium panel - Serum or Plasma PTH Intact (Processed at [facility]) Lab Routine Age-related osteoporosis without current pathological fracture [M81.0 (ICD-10-CM)] 1 Occurrences starting 11/01/2023 until 10/31/2024 [facility] Comment on above: 1 Occurrences starting 11/01/2023 until 10/31/2024 Parathyrin.intact an d Calcium panel - Serum or Plasma PTH Intact (Processed at [facility]) Lab Routine Age-related osteoporosis without current pathological fracture [M81.0 (ICD-10-CM)] 11/01/2023 2:14 PM [facility] End: 05-01-2025 Parathyrin.intact and Calcium panel - Serum or Plasma PTH Intact (Processed at [facility]) Lab Routine Age-related osteoporosis without current pathological fracture [M81.0 (ICD-10-CM)] 1 Occurrences starting 05/01/2024 until 05/01/2025 [facility] Comment on above: 1 Occurrences starting 05/01/2024 until 05/01/2025 Parathyrin.intact an d Calcium panel - Serum or Plasma PTH Intact (Processed at [facility]) Lab Routine Age-related osteoporosis without current pathological fracture [M81.0 (ICD-10-CM)] 05/01/2024 1:40 PM [facility] End: 11-04-2025 Parathyrin.intact and Calcium panel - Serum or Plasma PTH Intact (Processed at [facility]) Lab Routine Age-related osteoporosis without current pathological fracture [M81.0 (ICD-10-CM)] 1 Occurrences starting 11/04/2024 until 11/04/2025 [facility] Comment on above: 1 Occurrences starting 11/04/2024 until 11/04/2025 Parathyrin.intact an d Calcium panel - Serum or Plasma PTH Intact (Processed at [facility]) Lab Routine Age-related osteoporosis without current pathological fracture [M81.0 (ICD-10-CM)] 11/04/2024 11:16 AM EST [facility] End: 05-14-2026 Parathyrin.intact and Calcium panel - Serum or Plasma PTH Intact (Processed at [facility]) Lab Routine Age-related osteoporosis without current pathological fracture [M81.0 (ICD-10-CM)] 1 Occurrences starting 05/14/2025 until 05/14/2026 [facility] Comment on above: 1 Occurrences starting 05/14/2025 until 05/14/2026 Patient referral [facility] Work Phone: Serum immunofixation Immunofixat ion, Serum Lab Routine Age-related osteoporosis without current pathological fracture Ordered: 03/20/2020 [facility] Comment on above: Ordered: 03/20/2020 Serum protein electrophoresis Protein Electrophoresis, Blood Lab Routine Age-related osteoporosis without current pathological fracture Ordered: 03/20/2020 [facility] Comment on above: Ordered: 03/20/2020 End: 09-13-2025 Serum protein electrophoresis Protein Electrophoresis, Blood Lab Routine Age-related osteoporosis without current pathological fracture [M81.0 (ICD-10-CM)] 1 Occurrences starting 05/14/2025 until 09/13/2025 [facility] Comment on above: 1 Occurrences starting 05/14/2025 until 09/13/2025 Vitamin D, 25-hydrox y measurement [facility] Comment on above: Ordered: 03/20/2020 End: 12-11-2021 Vitamin D, 25-hydroxy measurement Vitamin D, Total, 25-OH Lab Routine Vitamin D deficiency 1 Occurrences starting 12/11/2020 until 12/11/2021 [facility] Comment on above: 1 Occurrences starting 12/11/2020 until 12/11/2021 End: 09-22-2022 Vitamin D, 25-hydroxy measurement Vitamin D, Total, 25-OH Lab Routine Vitamin D deficiency 1 Occurrences starting 09/22/2021 until 09/22/2022 [facility] Work Phone: Comment on above: 1 Occurrences starting 09/22/2021 until 09/22/2022 Vitamin D, 25-hydrox y measurement Vitamin D, Total, 25-OH Lab Routine Vitamin D deficiency 09/22/2021 3:35 PM EST [facility] End: 04-27-2024 Vitamin D, 25-hydroxy measurement Vitamin D, Total, 25-OH Lab Routine Vitamin D deficiency 1 Occurrences starting 04/28/2023 until 04/27/2024 [facility] Work Phone: Comment on above: 1 Occurrences starting 04/28/2023 until 04/27/2024 Vitamin D, 25-hydrox y measurement Vitamin D, Total, 25-OH Lab Routine Vitamin D deficiency 04/28/2023 9:51 AM EDT [facility] End: 10-31-2024 Vitamin D, 25-hydroxy measurement Vitamin D, Total, 25-OH Lab Routine Vitamin D deficiency 1 Occurrences starting 11/01/2023 until 10/31/2024 [facility] Work Phone: Comment on above: 1 Occurrences starting 11/01/2023 until 10/31/2024 Vitamin D, 25-hydrox y measurement Vitamin D, Total, 25-OH Lab Routine Vitamin D deficiency 11/01/2023 2:14 PM EST [facility] End: 05-01-2025 Vitamin D, 25-hydroxy measurement Vitamin D, Total, 25-OH Lab Routine Vitamin D deficiency 1 Occurrences starting 05/01/2024 until 05/01/2025 [facility] Work Phone: Comment on above: 1 Occurrences starting 05/01/2024 until 05/01/2025 Vitamin D, 25-hydrox y measurement Vitamin D, Total, 25-OH Lab Routine Vitamin D deficiency 05/01/2024 1:40 PM EDT [facility] End: 11-04-2025 Vitamin D, 25-hydroxy measurement Vitamin D, Total, 25-OH Lab Routine Vitamin D deficiency 1 Occurrences starting 11/04/2024 until 11/04/2025 [facility] Work Phone: Comment on above: 1 Occurrences starting 11/04/2024 until 11/04/2025 Vitamin D, 25-hydrox y measurement Vitamin D, Total, 25-OH Lab Routine Vitamin D deficiency 11/04/2024 11:16 AM EST [facility] End: 05-14-2026 Vitamin D, 25-hydroxy measurement Vitamin D, Total, 25-OH Lab Routine Vitamin D deficiency 1 Occurrences starting 05/14/2025 until 05/14/2026 [facility] Work Phone: Comment on above: 1 Occurrences starting 05/14/2025 until 05/14/2026 XR Bone Density DEXA Vertebral Fracture Assessment XR Bone Density DEXA Vertebral Fracture Assessment Imaging Routine 03/20/2020 11:52 AM EDT [facility] Immunizations Immunization Date Immunization Notes Care Provider Preethi ruffin 07-30-2024 influenza virus vaccine, unspecified formulation Nel Marcano DO Work Phone: [facility] 07-21-2023 influenza virus vaccine, unspecified formulation Jayna TRUJILLO Work Phone: [facility] 07-13-2022 influenza virus vaccine, unspecified formulation Chirag TRUJILLO Work Phone: [facility] 05-04-2019 tetanus toxoid, redu erick diphtheria toxoid, and acellular pertussis vaccine, adsorbed Nel Ha DO Work Phone: [facility] 07-27-2015 influenza, injectabl e, quadrivalent, preservative free [facility] 07-27-2015 influenza, seasonal, injectable [facility] Work Phone: 06-29-2013 influenza virus vaccine, unspecified formulation Nel Marcano [employer] [facility] Work Phone: Payers Date Payer Category Payer Self-pay [id number] 09-26-2019 Managed Care (unspecified) [place] [address] [id number] 09-26-2019 Unknown 09-26-2019 Private Health Insurance [facility] [id number] 10-02-2016 Unknown [id number] 04-01-2013 Medicare MEDICARE MEDICAR E PART A & B xxxxxxxxxxx 2013-Present [place] xxxxxxxxxxx [id number] 04-01-2013 Medicare [id number] 04-01-2013 Medicare [id number]. 2.7.3.943485.315 04-01-2013 Medicare [id number] [id number]. 2.7.3.343820.315 04-01-2013 Medicare [id number] 1950 Unknown [id number] 2.16.840.1.031660.3.579. 2.902 1948 Unknown [id number] 2.16.840.1.853731.3.579. 2.356 1948 Unknown [id number] 2.16.840.1.447562.3.579. 2.983 1948 Unknown [id number] 2.16.840.1.383127.3.579. 2.98 1948 Unknown [id number] 2.16.840.1.329045.3.579. 2.98 1948 Unknown [id number] 2.16.840.1.748526.3.579. 2.98 1948 Unknown [id number] 2.16.840.1.397742.3.579. 2.98 1948 Unknown [id number] 2.16.840.1.844715.3.579. 2.98 1948 Unknown [id number] 2.16.840.1.233290.3.579. 2.98 1948 Unknown [id number] 2.16.840.1.999296.3.579. 2.983 1948 Unknown [id number] 2.16.840.1.319276.3.579. 2. 1948 Unknown [id number] 2.16.840.1.420641.3.579. 2.98 1948 Unknown [id number] 2.16.840.1.814894.3.579. 2. 1948 Unknown [id number] 2.16.840.1.161090.3.579. 2. 1948 Unknown [id number] 2.16.840.1.677454.3.579. 2. 1948 Unknown [id number] 2.16.840.1.344329.3.579. 2. 1948 Unknown [id number] 2.16840.1.927763.3.579. 2. 1948 Unknown [id number] 2.16840.1.702094.3.579. 2. 1948 Unknown [id number] 2.16840.1.208889.3.579. 2. 1948 Unknown [id number] 2.16.840.1.331144.3.579. 2.900 1948 Unknown [id number] 2.16840.1.130584.3.579. 2.900 1948 Unknown [id number] 2.16.840.1.253225.3.579. 2.900 1948 Unknown [id number] 2.16.840.1.868066.3.579. 2. 1948 Unknown [id number] 2.16.840.1.816520.3.579. 2.90 1948 Unknown [id number] 2.16.840.1.027142.3.579. 2. 1948 Unknown [id number] 2.16.840.1.566903.3.579. 2. 1948 Unknown [id number] 2.16.840.1.852389.3.579. 2. 1948 Unknown [id number] 2.16.840.1.583475.3.579. 2. 1948 Unknown [id number] 2.16.840.1.012071.3.579. 2. 1950 Unknown [id number] 2.16840.1.431331.3.579. 2.903 Medicare supplementa l policy (as second payer) [employer] [id number]. [id number] Private Health Insurance [employer]/CONTINENTAL LIFE xxxxxxxxxx Effective for all dates xxxxxxxxxx 1.2.840.762811.1.13.385. 2.7.3.285737.315 Private Health Insurance [id number] 1.2.840.050581.1.13.385. 2.7.3.288431.315 Private Health Insurance [employer] A [employer]/CONTINENTAL LIFE [id number] Effective for all dates [phone] [address] [address] [place] [address] 1.2.840.096051.1.13.385. 2.7.3.002893.315 Unknown [id number] 2.16840.1.390323.3.579. 2.462 Unknown [id number] 2.16.840.1.616611.3.579. 2.462 Social History Date Type Detail Facility Start: 01-23-2018 End: 02-23-2022 Tobacco smoking status NHIS Never smoker [facility] Start: 1950 [facility] Start: 03-20-2020 End: 05-14-2025 Alcohol intake [facility] Start: 11-14-2021 End: 01-10-2023 Exposure to SARS-CoV-2 (event) Not sure [facility] Start: 03-20-2020 End: 02-23-2022 Tobacco use and exposure [facility] Start: 02-23-2022 End: 05-14-2025 Cigarette pack-years [facility] Start: 1950 Sex Assigned At Female [facility] Start: 10-20-2022 End: 05-14-2025 Tobacco use panel [facility] Start: 12-11-2017 Gender identity Identifies as female gender (finding) [facility] Start: 10-05-2018 Sexual orientation Heterosexual (fin ding) [facility] Start: 08-07-2018 End: 10-11-2023 Tobacco smoking status NHIS Unknown if ever smoked [facility] Start: 08-07-2018 Non-smoker [facility] Start: 11-04-2012 Sex Female (finding) [facility] NEGATED: Highlighted row [facility] NEGATED: Highlighted rowStart: NINF History of tobacco use Passive smoker [facility] Medical Equipment Procedure Code Equipment Code Equipment Origin al Text Equipment Identifier Dates STENT,URETERAL PIGTAIL [id number] FDA Start: 08-14-2018 STENT,URETERAL PIGTAIL [id number] FDA Start: 08-14-2018 STENT,URETERAL PIGTAIL [id number] FDA Start: 08-14-2018 STENT,URETERAL PIGTAIL [id number] FDA Start: 08-14-2018 STENT,URETERAL PIGTAIL [id number] FDA Start: 08-14-2018 STENT,URETERAL PIGTAIL [id number] FDA Start: 10-12-2023 STENT,URETERAL PIGTAIL [id number] FDA Start: 08-14-2018 STENT,URETERAL PIGTAIL [id number] FDA Start: 10-12-2023 Goals Date Patient Goal Desired Activity /State Personal health goal Comment on above: Formatting of this n ote might be different from the original. Pt will demonstrate independence in a home exercise program to improve hip and lumbar ROM, pain-reducing exercises, and progressive strengthening of the LE and trunk musculature in 6 weeks. Pt will have a decrease subjective symptoms in reported area of pain to a rating of 0/10 or to an acceptable tolerable level allowing the patient to sleep, sit for long periods, stand, walk, and resume back with previous level of activity in 6 weeks Pt will be able to demonstrate lumbar AROM in all planes of motion without pain and to normative values related to age, gender, and body type to allow the patient to perform normal ADL and recreational activities in 6 weeks. Pt will demonstrate improved strength of the transverse abdominus by performing active PPT while supine, sitting, and standing to provide greater active support of the pelvis and trunk in 6 weeks. Pt will demonstrate increased strength of the hip and LE musculature to at least 4/5 to provide greater active support of the hips and pelvis to improve ability to perform ADL such as rising from chair, going up and down steps, walking, and standing in 6 weeks. Pt have normal yazidi of pain-free hip AROM/PROM to allow patient to dress, groom, and hygiene ADL as prior level of function in 6 weeks. Pt will demonstrate ability to ambulate for longer durations without pain and with a normal symmetrical gait in 6 weeks. Pt will demonstrate a reduced fall risk following physical therapy based on improvements in standardized test scores and use of proper assistive device within 6 weeks. Functional Status Date Assessment Result Facility 04-01-2025 Are you deaf, or do you have serious difficulty hearing No 04/01/2025 1:01 PM Radha Pérez RN No [facility] [employer] 04-01-2025 Are you blind, or do you have serious difficulty seeing, even when wearing glasses No 04/01/2025 1:01 PM Radha Pérez RN No [facility] 04-01-2025 Do you have serious difficulty walking or climbing stairs No 04/01/2025 1:01 PM Radha Pérez RN No [facility] 04-01-2025 Do you have difficul ty dressing or bathing No 04/01/2025 1:01 PM [facility] 04-01-2025 Because of a physica l, mental, or emotional condition, do you have difficulty doing errands alone such as visiting a physician's office or shopping No 04/01/2025 1:01 PM Radha Pérez RN [facility] 02-26-2025 Are you deaf, or do you have serious difficulty hearing No 02/26/2025 8:35 AM EDT Harini Redd LPN [facility] 02-26-2025 Are you blind, or do you have serious difficulty seeing, even when wearing glasses No 02/26/2025 8:35 AM EDT Harini Redd LPN [facility] 02-26-2025 Do you have serious difficulty walking or climbing stairs No 02/26/2025 8:35 AM EDT Harini Redd LPN [facility] 02-26-2025 Do you have difficul ty dressing or bathing No 02/26/2025 8:35 AM EDT Harini Redd LPN [facility] 02-26-2025 Because of a physica l, mental, or emotional condition, do you have difficulty doing errands alone such as visiting a physician's office or shopping No 02/26/2025 8:35 AM EDT Harini Redd LPN [facility] 10-12-2023 Functional status Ambulates [facility] Work Phone: Mental Status Date Assessment Result Facility 04-01-2025 Because of a physica l, mental, or emotional condition, do you have serious difficulty concentrating, remembering, or making decisions No 04/01/2025 1:01 PM Radha Pérez RN [facility] 02-26-2025 Because of a physica l, mental, or emotional condition, do you have serious difficulty concentrating, remembering, or making decisions No 02/26/2025 8:35 AM EDT Harini Redd LPN [facility] 10-12-2023 Cognitive function Voice/Name [facility] Work Phone: Clinical Notes 03-04-2021 to 05-14-2025 Patient InstructionsLeidy Donald MD - 05/14/2025 11:00 AM EDTPatient InstructionsFlorentino Villasenor CNP - 04/17/2025 12:45 PM EDTShirley Beckett - 04/01/2025 1:00 PM EDTPatient Instructions Note Date & Type Note Facility 05-14-2025 Instructions Mónica Steen MA - 05/14/2025 11:05 AM EDT Thank You For Trusting [facility] with Your Care! Our goal is to provide you with exceptional patient care. You may receive a patient satisfaction survey via email or text from [employer]. We appreciate your feedback and kindly ask that you complete the survey. The associates caring for you today were: Clinical Team: Elina Javier CMA and Mónica VALDOVINOS You can help manage your healthcare 24/04 with [facility] [employer]. To activate your account, visit [email or web address]. Until your next visit, [email or web address] documented in this encounter [facility] 05-14-2025 History of Present illness Narrative Images from the original note were not included. 05/14/25 Uma Mcgrath 1950 Dear Nel Meyer, DO [facility] [place] [id number] Uma Mcgrath was seen on 05/14/25 for the followin. Age-related osteoporosis without current [...] thoracic spine Dysphonia Parkinson's disease (HCC) Anxiety Constipation Current Rheumatologic Medications: Prolia #07 May 2025, DosoKap daily Current Outpatient Medications Medication Sig Dispense [...] facility-administered medications for this visit. She is 75 y.o.. Since her last visit she has had no falls or no fractures or new back pain that can be attributed to her osteoporosis. . She has no activity related back pain. She is exercising regularly. She goes to a strength class twice a week in the delayed the disease class III times a week. She has been diagnosed with Parkinson's disease and says it is in the early stages. She is on carbidopa and has not had any falls since she started it. She has obvious tremors today. She tolerates Prolia without any GI, or cardiac side effects. She is taking 5500 units of vitamin D regularly. She is taking 2837-0765 mg of calcium supplement She has had no intercurrent illness. The following portions of the patient's history were reviewed and updated as appropriate: allergies, current medications, past medical history, 10 point ROS and problem list. There has been no change in her social history. She has been for the past many years. She has 3 children and 2 grandchildren. 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 Osteoporosis Treatment to date has included: Evenity Oct - Sep 2022 Prolia Oct DXA to Date: Date: 03/21 08/22 10/24 11/26 Manuf: samantha samantha samantha samantha L1-L4: -1.2 -2.4 -1.3 -0.8 L FN: -2.1 -2.1 -1.8 -1.7 L Tot Hip -1.8 -1.9 -1.7 -1.4 R FN -1.9 -2.0 -1.7 -1.6 R Tot Hip -1.9 -2.1 -1.9 -1.7 TBS 1.262 1.291 1.384 1.377 I personally interpreted the last DXA done: November 2024 in our office L1-L2 T-score: -0.8 with L3 and L4 omitted due to discordance due to slight scoliosis and osteoarthritis entire spine is likely somewhat overestimated due to scoliosis and osteoarthritis On VFA there was no compression fracture there was osteo-arthritis and deformity in the thoracic mid spine. This has improved 6.1% since the prior study it is now improved 15.5% since 2020 L Fem Neck T-score: -1.7 L Total Hip: -1.4 This has improved 4.3% since the prior study overall it is improved 6.4% since 2020 R Fem Neck: -1.6 R Total Hip: -1.7 This has improved 3.1% since the prior study overall this is improved 4% since 2020 These results are consistent with WHO criteria for osteopenia. Clinical risk factors for fracture: Age low bone mass FRAX: MOF 12.9 % HIP 3.0% TBS Score : 1.377 (Trabecular Bone Score) this is consistent with normal microarchitecture of the trabecular bone of the spine by TBS analysis TBS Risk of MOF : 5-7 (Per 1000 women per year) This is consistent with low or moderate risk for fracture by TBS analysis TBS adjusted FRAX: MOF: 11.7% HIP: 3.0% Fragility Fractures: None I reviewed her last labs: Recent Labs Units 11/04/24 05/01/24 11/01/23 1414 04/28/23 0951 10/20/22 1126 02/23/22 1213 VIT D 25 ng/mL 93 72 69 65 49 47 SPEP -- -- Normal -- PTH pg/mL 49 37.1 43.5 45.4 56.1 71.9* CALCIUM mg/dL 9.1 9.1 9.4 9.7 9.1 9.3 CREATININE mg/dL 0.59* -- -- -- BETA - CROSSLAPS pg/mL 123 67 92 90 507 833 PE: BP 133/73 Wt 69.4 kg (153 lb) BMI 25.46 kg/m Diagnoses and all orders for this visit: Age-related osteoporosis without current pathological fracture - PTH, Intact; Future - Beta Crosslaps (Beta CTX); Future Uma has osteopenia on DEXA and has made a nice improvement in her spine and hips from the previous study. However she is still at significant risk for fracture due to age and low bone mass so we are going to go ahead with Prolia today and again in 6 months. I will check for secondary causes of osteoporosis as noted above including a marker of bone resorption as a baseline that we can follow going forward. The CTX marker of bone resorption is nicely suppressed suggesting that the Prolia is working physiologically. As an independent risk assessment for fracture [...] of this nice patient. Sincerely Leidy Donald MD [facility] Osteopor[facility] Physicians CC: A total of 33 minutes was spent by me reviewing the patient's chart pertinent medical notes from other providers as well as testing and labs in preparation for [id number] visit with the patient today. During this encounter, counseling and coordination of care were also conducted. Specifically we addressed the risk, benefits, and alternatives to the therapies discussed above; interviewing examining and counseling the patient and ordering and reviewing lab tests and documenting the patient's note Note: To expedite correspondence this note was generated by [employer] voice recognition software. Some grammatical or spelling errors may occur using the system. Portions of this history have been copied from a previous note, but pertinent information has been amended and updated by me. documented in this encounter [facility] 05-14-2025 Note 05/14/25 mUa Mcgrath [address] Marcano, Nel Nayak, DO [facility] [place] [id number] Uma Mcgrath was seen on 05/14/25 for the followin. Age-related osteoporosis without current [...] thoracic spine Dysphonia Parkinson's disease (HCC) Anxiety Constipation Current Rheumatologic Medications: Prolia #07 May 2025, DosoKap daily Current Outpatient Medications Medication Sig Dispense [...] facility-administered medications for this visit. She is 75 y.o.. Since her last visit she has had no falls or no fractures or new back pain that can be attributed to her osteoporosis. . She has no activity related back pain. She is exercising regularly. She goes to a strength class twice a week in the delayed the disease class III times a week. She has been diagnosed with Parkinson's disease and says it is in the early stages. She is on carbidopa and has not had any falls since she started it. She has obvious tremors today. She tolerates Prolia without any GI, or cardiac side effects. She is taking 5500 units of vitamin D regularly. She is taking 5799-0259 mg of calcium supplement She has had no intercurrent illness. The following portions of the patient's history were reviewed and updated as appropriate: allergies, current medications, past medical history, 10 point ROS and problem list. There has been no change in her social history. She has been for the past many years. She has 3 children and 2 grandchildren. 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 Osteoporosis Treatment to date has included: Evenity Oct - Sep 2022 Prolia Oct DXA to Date: Date: 03/21 08/22 10/24 11/26 Manuf: samantha samantha samantha samantha L1-L4: -1.2 -2.4 -1.3 -0.8 L FN: -2.1 -2.1 -1.8 -1.7 L Tot Hip -1.8 -1.9 -1.7 -1.4 R FN -1.9 -2.0 -1.7 -1.6 R Tot Hip -1.9 -2.1 -1.9 -1.7 TBS 1.262 1.291 1.384 1.377 I personally interpreted the last DXA done: November 2024 in our office L1-L2 T-score: -0.8 with L3 and L4 omitted due to discordance due to slight scoliosis and osteoarthritis entire spine is likely somewhat overestimated due to scoliosis and osteoarthritis On VFA there was no compression fracture there was osteo-arthritis and deformity in the thoracic mid spine. This has improved 6.1% since the prior study it is now improved 15.5% since 2020 L Fem Neck T-score: -1.7 L Total Hip: -1.4 This has improved 4.3% since the prior study overall it is improved 6.4% since 2019 R Fem Neck: -1.6 R Total Hip: -1.7 This has improved 3.1% since the prior study overall this is improved 4% since 2020 These results are consistent with WHO criteria for osteopenia. Clinical risk factors for fracture: Age low bone mass FRAX: MOF 12.9 % HIP 3.0% TBS Score : 1.377 (Trabecular Bone Score) this is consistent with normal microarchitecture of the trabecular bone of the spine by TBS analysis TBS Risk of MOF : 5-7 (Per 1000 women per year) This is consistent with low or moderate risk for fracture by TBS analysis TBS adjusted FRAX: MOF: 11.7% HIP: 3.0% Fragility Fractures: None I reviewed her last labs: Recent Labs Units 11/04/24 05/01/24 11/01/23 1414 04/28/23 0951 10/20/22 1126 (more content not included)... [facility] 04-17-2025 Instructions Florentino Villasenor CNP - 04/17/2025 1:30 PM EDT Take milk of mag as needed for constipation. documented in this encounter [facility] 04-17-2025 History of Present illness Narrative [facility]ORD[facility] CLINIC FOLLOW-UP VISIT Assessment: Uma Mcgrath is a 74 y.o. female with right more so than left sided tremor prominent Parkinson disease who has responded generally well to dopamine replacement therapy. Levodopa increased at last visit to better control tremor and mobility concerns. Today, she reports she had benefit at 1.5 tablets of carbidopa/levodopa and stopped increasing there. She reports a rash that developed about a week after increasing her carbidopa/levodopa. She states the rash covered her entire body and was not overly itchy or painful, although would not easily go away. She had follow-up with her primary care and a automation control integrator and was treated for poison martha, although this did not clear up the rash. Her daughter did develop shingles a few days after seeing her. My guess is the patient had a very mild shingles infection that responded systemically without localized pain as she has previously been vaccinated for shingles. She otherwise denies any bothersome side effects of falls, stiffness, dizziness/lightheadedness, major mood fluctuations, or severe insomnia. She does note constipation to be a continued problem, and I placed an order for milk of mag to be used as needed. We discussed and implemented the plan shown below. Plan: Carbidopa/levodopa 25/100 will continue at 1.5 tab 3 times daily taken at 7 AM, noon, and 5 PM in an effort to improve motor function through the day. Rash developed. Lexapro can continue at 10 mg daily for depression and anxiety control. Could consider higher doses in the future. Currently uses a combo of magnesium glycinate 400 mg with probiotics and MiraLAX for constipation. Order placed for milk of mag 15 mL as needed. I would like to see the patient back in 3 months; earlier if needed. I answered all of the questions asked of me; the patient/care-partner had no remaining unaddressed symptomatic issues. I personally spent 45 total minutes today in pre-review of the chart, [id number] interaction with the patient/care-partner (including discussion of the chart review, assessment of today's visit, and clinical plan development, as detailed above), updating/placing orders, and post-visit documentation. I am managing/treating Uma Mcgrath's complex chronic condition(s) serving as the focal point for the patient's care for consistency and continuity over time; my ongoing relationship with this patient requires continued responsibility and cognitive effort of being the focal point for all services related to the chronic condition detailed above. HPI: I saw Uma Mcgrath in follow-up at the [facility] Disorders clinic for Parkinson disease, several symptoms were discussed as detailed elsewhere. ROS: As detailed elsewhere. Physical Exam: GENERAL: Well-nourished, no distress. MENTAL STATUS: Awake, alert, followed commands. CRANIAL NERVES: Extra-ocular movements full. Face symmetric. Pupils equal, round. No ptosis. No dysarthria. No chorea. MOTOR: Mild left more so than right sided bradykinesia and rigidity seen at the left wrist and foot. Very mild resting tremor seen at the right hand. SENSORY, REFLEXES, CEREBELLAR, GAIT: Reduced right arm swing, otherwise stable. Reviewed: Chart review. Sincerely, Florentino Villasenor CNP documented in this encounter [facility] 04-17-2025 Note [facility] FOLLOW-UP VISIT Assessment: Uma Mcgrath is a 74 y.o. female with right more so than left sided tremor prominent Parkinson disease who has responded generally well to dopamine replacement therapy. Levodopa increased at last visit to better control tremor and mobility concerns. Today, she reports she had benefit at 1.5 tablets of carbidopa/levodopa and stopped increasing there. She reports a rash that developed about a week after increasing her carbidopa/levodopa. She states the rash covered her entire body and was not overly itchy or painful, although would not easily go away. She had follow-up with her primary care and a automation control integrator and was treated for poison martha, although this did not clear up the rash. Her daughter did develop shingles a few days after seeing her. My guess is the patient had a very mild shingles infection that responded systemically without localized pain as she has previously been vaccinated for shingles. She otherwise denies any bothersome side effects of falls, stiffness, dizziness/lightheadedness, major mood fluctuations, or severe insomnia. She does note constipation to be a continued problem, and I placed an order for milk of mag to be used as needed. We discussed and implemented the plan shown below. Plan: Carbidopa/levodopa 25/100 will continue at 1.5 tab 3 times daily taken at 7 AM, noon, and 5 PM in an effort to improve motor function through the day. Rash developed. Lexapro can continue at 10 mg daily for depression and anxiety control. Could consider higher doses in the future. Currently uses a combo of magnesium glycinate 400 mg with probiotics and MiraLAX for constipation. Order placed for milk of mag 15 mL as needed. I would like to see the patient back in 3 months; earlier if needed. I answered all of the questions asked of me; the patient/care-partner had no remaining unaddressed symptomatic issues. I personally spent 45 total minutes today in pre-review of the chart, [id number] interaction with the patient/care-partner (including discussion of the chart review, assessment of today's visit, and clinical plan development, as detailed above), updating/placing orders, and post-visit documentation. I am managing/treating Uma Mcgrath's complex chronic condition(s) serving as the focal point for the patient's care for consistency and continuity over time; my ongoing relationship with this patient requires continued responsibility and cognitive effort of being the focal point for all services related to the chronic condition detailed above. HPI: I saw Uma Mcgrath in follow-up at the [facility] clinic for Parkinson disease, several symptoms were discussed as detailed elsewhere. ROS: As detailed elsewhere. Physical Exam: GENERAL: Well-nourished, no distress. MENTAL STATUS: Awake, alert, followed commands. CRANIAL NERVES: Extra-ocular movements full. Face symmetric. Pupils equal, round. No ptosis. No dysarthria. No chorea. MOTOR: Mild left more so than right sided bradykinesia and rigidity seen at the left wrist and foot. Very mild resting tremor seen at the right hand. SENSORY, REFLEXES, CEREBELLAR, GAIT: Reduced right arm swing, otherwise stable. Reviewed: Chart review. Sincerely, Florentino Villasenor CNP AUTHENTICATED BY FLORENTINO VILLASENOR, ON 04/17/2025 15:46:56 [facility] 04-08-2025 Radiology Diagnostic study note [facility] Imaging Services [address] [place] [address] Abdomen/Pelvis without Cont MR#: [id number] Acct: [id number] Name: UMA MCGRATH Rep #: [id number] : 1950 F 74 From: Christoph Carney MD PCP: Dr. Nel Marcano MD Status: REG CLI Study:Abdomen/Pelvis without Cont Date of Exa m: 04/07/25 Exam# [id number] Ordering Dr: Michelle Crenshaw MD PROCEDURE: ABDOMEN/PELVIS WITHOUT CONT 04/07/2025 REASON FOR EXAM: RIGHT FLANK HEMATURIA TECHNIQUE: ABDOMEN/PELVIS WITHOUT CONT Noncontrast technique limits evaluation of the abdominal and pelvic viscera. Coronal and Sagittal reconstruction series were provided. One or more dose reduction techniques were used (e.g., Automated exposure control, adjustment of the mA and/or kV according to patient size, use of iterative reconstruction technique). RADIATION DOSE SUMMARY: CTDlvol: 7.3 mGy DLP: 368.49 mGycm COMPARISON: 06/20/2023. FINDINGS: CT SCAN OF THE ABDOMEN AND PELVIS WITHOUT ORAL OR IV CONTRAST. CLINICAL INDICATION: TECHNIQUE: Axial and reformatted sagittal and coronal images of the abdomen pelvis obtained without IV contrast administration. COMPARISON: None. FINDINGS: The visualized lung bases are unremarkable. Normal unenhanced liver. Multiple cysts are seen scattered throughout the liverlargest measuring 3.1 cm in the caudate lobe. Normal gallbladder and extrahepatic biliary system. Normal unenhanced spleen. Normal pancreas. Normal bilateral adrenal glands. Normal size of the right kidney. There is no right renal mass. 3 mm stone is seen in the lower pole of the right kidney. 5.6 mm stone is seen in the level of the right ureterovesical junction. There is noright hydronephrosis. Normal visualized right ureter. Normal size of the left kidney. There is no left renal mass. Multiple stones are seen in the left renal collecting system largest measuring 4.5 mm in the lower pole. There is no left hydronephrosis. Normal visualized left ureter. Normal visualized stomach. Normal small intestine. Normal colon. The appendixis visualized and appears normal. There is no demonstrated peritoneal fluid. Normal abdominal aorta. Scattered atherosclerotic calcifications are seen in the aortic wall. Normal inferior vena cava. Normal retroperitoneum. Normal urinary bladder. There is no pelvic mass lesion or lymphadenopathy. There is no pelvic fluid. Normal abdominal wall. Degenerative changes are seen in the lumbar vertebra. CT/Abdomen/Pelvis without Cont IMPRESSION: Distal right ureterolithiasis. No hydronephrosis. Bilateral nephrolithiasis. Benign liver cysts. Degenerative changes in the lumbar vertebra. Reading Location: [place] [address] CC: Dr. Nel Marcano MD; Dr. Michelle Crenshaw MD ~ Outbound Sales Specialist: Signed [facility] 04-01-2025 History of Present illness Narrative Subjective History of Present Illness Chief Complaint Patient presents with Rash She was told she had poison martha and was treated with prednisone. Says it was getting worse, not better so she went to a automation control integrator. Was told there it wasn't poison martha and a skin biopsy was done. After that her skin was covered all over her body. Daughter put some honey on her with gloves, then 5 days later her daughter has shingles. So she feels daughter caught shingles from her. Biopsy results were Dermal Hypersensitivity. Objective Review of Systems Constitutional: Negative for activity [...] reviewed and are negative. Vitals: Blood pressure 137/70, pulse 67, temperature 97.7 F (36.5 C), temperature source Temporal, resp. rate 16, height 1.651 m (5' 5), weight 69.2 kg (152 lb 8 oz), SpO2 93%, not currently . Physical Exam Vitals and nursing note reviewed. HENT: Head: Normocephalic. Cardiovascular: Rate and Rhythm: Normal rate and regular rhythm. Heart sounds: No murmur heard. Pulmonary: Effort: Pulmonary effort is normal. Breath sounds: Normal breath sounds. Abdominal: General: Bowel sounds are normal. Palpations: Abdomen is soft. Tenderness: There is no abdominal tenderness. Musculoskeletal: General: No swelling. Assessment and Plan ICD-10-CM 1. Allergic contact dermatitis, unspecified trigger L23.9 If rash returns, can take Zyrtec 10 mg once daily and Pepcid 20 mg twice daily. Get blood work done a few days before next office visit. If lab work or other testing was ordered at your visit, check your My Chart account for test results or call the office to get results or if you have questions. ALEXEI Paige, was the medical office administrator for today's note. I have performed all essential components of the history and physical exam, confirmed the diagnosis and developed a plan of care at this visit. I have reviewed the note at the visit and have added edits as appropriate to my evaluation and plan of care. documented in this encounter [facility] 04-01-2025 Instructions Shirley Beckett - 04/01/2025 1:00 PM EDT Assessment and Plan ICD-10-CM 1. Allergic contact dermatitis, unspecified trigger L23.9 If rash returns, can take Zyrtec 10 mg once daily and Pepcid 20 mg twice daily. Get blood work done a few days before next office visit. If lab work or other testing was ordered at your visit, check your My Chart account for test results or call the office to get results or if you have questions. Shirley Beckett [facility], was the medical office administrator for today's note. I have performed all essential components of the history and physical exam, confirmed the diagnosis and developed a plan of care at this visit. I have reviewed the note at the visit and have added edits as appropriate to my evaluation and plan of care. documented in this encounter [facility] 03-10-2025 History of Present illness Narrative This note is to serve as documentation for today's session cancellation. Information obtained through outpatient registration staff. Per report, patient left VM canceling today's session due to having a case of shingles. Today was slated to be patient's last session. Therapist plans to follow-up with patient determine if she is agreeable with wrapping up with OP OT due to adequately addressing POC. documented in this encounter [facility] 03-05-2025 History of Present illness Narrative Images from the original note were not included. [facility] DAILY TREATMENT NOTE Today's Date 03/05/2025 Patient Name: Uma Mcgrath Date of : 1950 Current Visit #: 2 Authorized Visits: [id number] Case Name: OT3-PD History: Pre-Treatment Pain Scale: 0 Symptoms: stabilized Functional Diagnosis: 1. Parkinson's disease without dyskinesia or fluctuating manifestations (HCC) Clinical Information: Subjective: No new changes reported since previous session. Objective Access Code: [email or web address] URL: [email or web address] Date: 03/05/2025 Prepared by: Van Dubon Program Notes Perform with a HIIT format of 30 work/10 seconds rest. Do 3-4 rounds per session. Exercises - Kettlebell Squat - 1 x daily - 2 x weekly - Kettlebell Suitcase Carry - 1 x daily - 2 x weekly - Single-Arm Kettlebell Clean - 1 x daily - 2 x weekly - Single Leg Deadlift with Kettlebell - 1 x daily - 2 x weekly - Half-Kneeling Bottoms Up Kettlebell Overhead Press - 1 x daily - 2 x weekly - DNS High Oblique Sit with Kettlebell Overhead Press Level 1 - 1 x daily - 2 x weekly Treatments: Occupational Therapy Exercise Log - 03/05/25 1530 OTHER Precautions/Contraindications OT visit 2 Notes Total treatment time: 15:30-16:25. Therapeutic Exercise (09511) Intervention Education on resources for developing HEP specific to her needs for symptom management of her PD. Parameters Handouts provided (I would create a personalized Parkinson's exercise routine Parkinson's disease and an exercise fact sheet) Intervention Education on newly created HEP utilizing HIIT and kettle fagan formats in conjunction to the movement behavior strategies. Parameters Printed routine provided to help with carryover. Please refer to objective portion for details. Additional Exercises Add more exercises? Yes Self Care (62834) Intervention Review of patient's results from images from initial evaluation to update on current functioning status compared to status at time of discharge from previous encounter to address patient's concerns of potential progression of functional deficits. OT Treatment Times Therex Total Time 40 15:45-16:25 Self Care Total Time 15 15:30-15:45 Direct Treatment Time 55 Total Treatment Time 55 Goals: Occupational Therapy Neuro goals: 1. Participate in HEP education integrating movement behavior strategies with functional UB strengthening to address patient's identified needs to improve efficiency with ADL performance as well as focusing on balance, coordination, and higher-level attention skills with retention displayed by completing routine without verbal cues for accuracy. 2. Improve/Demo ability to complete simulated high complexity complex time management tasks, problem solving tasks, household management tasks, and scheduling/daily organization tasks with Without verbal cues. 3. Demonstrate ability to self-initiate and alternate attention between 4 5-10 minute IADL tasks no within a 45-60 period as would be needed for household management and work simulation tasks. Patient Education: Quality of movement, Written HEP, HEP Modification, Community Fitness, and Diagnosis and recovery specific education with patient demonstrated understanding, verbalized understanding, and written information provided . Post-Treatment Pain Scale: 0 Assessment: Patient had an expected response to treatment. Skilled Intervention demonstrated by modifications of treatment per exercise log including increased assistance and safety interventions per exercise log. Progress towards goals as expected. Plan for Next Visit: Treatment Visit with focus on review of information provided this session to support new learning. Van Dubon OTR/L STATE LICENSE, [id number] documented in this encounter [facility] 03-03-2025 History of Present illness Narrative Images from the original note were not included. [facility] Occupational Therapy Evaluation Today's Date 03/03/2025 Patient Name: Uma Mcgrath Date of : 1950 Case Name: OT3-PD Functional Diagnosis: 1. Parkinson's disease (HCC) 2. Parkinson disease (HCC) Clinical Information: Subjective All subjective data collected as part of a multidisciplinary team: Yes Referring Diagnosis: G20.A1 (ICD-10-CM) - Parkinson disease (HCC) Patient accompanied [...] multiple times ORTHOPEDIC SURGERY Subjective History: Pt presenting this date for OP OT neuro evaluation to address symptom mgt for her PD following recent neurology f/u appt. This pt is familiar to this therapist from previous OP encounters with last one occurring in 2022. Per charting from her last neurology visit on 02/13/2025, the patient with right more so than left sided tremor prominent Parkinson disease who has responded generally well to dopamine replacement therapy but who reported more daily problems with tremors and mobility now compared to at her last visit. Currently, pt noticing a decline in FM performance in ADL's, such as handwriting, UB strength, and minor attention to task changes that she notices incidentally when multi-tasking. Patient shared that while she is still able to complete her daily routine, she is concerned that she may be progressing in her Parkinson's symptoms. In particular, she reported that she has noticed progressive upper body weakness when performing her exercises or house chores. She is also has noticed intermittent episodes where she will have difficulty with problem-solving for word finding when multitasking. Patient shared that she is participating in Delayed the Disease classes three days a week and upper body strengthening at home 2 days a week. She is also performing a stretching program during the week at home. Previous Treatment for this condition: Yes Therapy [...] independent Shower/Tub: independent Car Transfer: independent Comments: Patient not reporting any falls at home. She is able to walk without an assistive device or LOB with direction changes. Current Activity Level: very active Premorbid Activity Level: very active The patient remains independent with her B ADLs/IADL routine, which includes driving and regular exercise perform both at community and home. Home medical equipment owned: No Social Support: Patient lives alone. Additional Social Support: Pt lives alone in a raised ranch floor plan w/ main living quaters on the 2nd floor. House is built on the side of a hill facing a cash. Yazdanism, social, or cultural considerations to be made [...] patient reported and independent with all (Patient shared that she is still able to complete her daily routine but is concerned about progression and bradykinesia affecting ADL performance.) Upper Body Dressing: increased time and effort with all Instrumental Activities of Daily Livingpatient reported and independent with all (Patient shared that she still has difficulty with handwriting but has noticed improvement since her last encounter.) Sleep Assessment Sleep disturbance: no Sleep Disturbance Red Flags: None Comments: Barriers to Care: None Fall risk screening Fallen 2 or more times in the last 12 months: No Injured as a result of a fall in the last 12 months: No Yazdanism, social, or cultural considerations to be made aware of before starting treatment: No Objective Hand dominance: right Affected side: bilateral Cognition/ Mental Status Oriented x4: Yes Follows commands: 2-step Attention: Therapist observation :Intact: WFL for sustained attention but inconsistencies with alternating or dual task performance. Sequencing: Therapist observation :Intact: Inconsistencies with multistep task performance. Problem solving simple: Therapist observation : intact Problem solving complex: Therapist observation : intact (Benefiting from some additional time for complex problem-solving.) Safety & Judgement/Insight: Therapist observation : intact Memory and Orientation: Therapist observation : intact Cognitive Status Notes: Patient shared that she has noticed intermittent difficulties with rapid problem-solving or word finding during multitasking at home. Vision/ Perceptual Skills No visual impairments identified Subjective symptoms: No changes in functional vision reported at this time. Visual Booth: Pass Shoulder Right Shoulder Range of Motion: WFL Left Shoulder Range of Motion: WFL Elbow Right Elbow WFL Left Elbow Range of Motion: WFL Grasping and Prehension Skill Gross Grasp Right: intact Left: intact Gross Extension Right: intact Left: intact Skilled prehensions Right: intact Left: intact Sensation Sensation: Intact 9 Hole Peg Test - 03/03/25 1043 9 Hole Peg Test Right hand peg test (sec) 21 42% improvement from previous encounter with 0% IMP currently Left hand peg test (sec) 22 12% improvement from previous encounter with 0% IMP currently Box and Blocks - 03/03/25 1049 Box and Blocks Dominant hand Right Right hand box and blocks description 54 completions 11% improvement from previous encounter with 17% IMP currently Left hand box and blocks description 60 completions Relatively consistent with previous encounter with 1% improvement in 6% IMP currently Rapid Metal Sander Strength - 03/03/25 1055 Right Rapid Metal Sander Strength Metal Sander #1: 54.29 0% IMP on average score. #2: 56.9 #3: 55.71 Average: 55.63 Left Rapid Metal Sander Strength: Metal Sander #1: 53.57 0% IMP on average score. #2: 55.48 #3: 49.76 Average: 52.94 Phone Number Copy Test - 03/03/25 1050 OTHER Phone Number Copy: Time 71 Phone Number Copy: Number of Errors 1 [place] Making Test - 03/03/25 1041 [place] A [place] A Time (sec) 40 [place] A Errors 0 [place] B [place] B TIme (sec) 69 [place] B Errors -- Multiple errors Treatment Plan: Frequency of Visits: twice per week Duration: 4 weeks Interventions: Therapeutic Exercise (04037), Neuromuscular Re-Education (89281), Therapeutic/ Functional Activities (22272), and Self Care (92837) Rehab Potential: good Occupational Therapy Neuro goals: 1. Participate in HEP education integrating movement behavior strategies with functional UB strengthening to address patient's identified needs to improve efficiency with ADL performance as well as focusing on balance, coordination, and higher-level attention skills with retention displayed by completing routine without verbal cues for accuracy. 2. Improve/Demo ability to complete simulated high complexity complex time management tasks, problem solving tasks, household management tasks, and scheduling/daily organization tasks with Without verbal cues. 3. Demonstrate ability to self-initiate and alternate attention between 4 5-10 minute IADL tasks no within a 45-60 period as would be needed for household management and work simulation tasks. Patient Education provided: Discussed Plan of care frequency and duration, treatment plan, importance of attendance for recovery, team concept, and diagnosis/pathophysiology/progno sis. Pt is in agreement with plan, and [...] Performance deficits include: Balance impairments, Mobility impairments, Strength impairments, and Attention impairments 3-5 (Moderate) performance deficits identified which [...] anxiety Clinical Impression: Uma Mcgrath presents to [facility] on 03/03/2025 for an occupational therapy assessment with c/o concern of progression of Parkinson symptoms affecting speed efficiency and multitasking. Upon assessment, displayed inconsistencies in difficulty with rapid alternating and dual task performance. 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 Potential barriers to rehabilitation include chronicity or [...] above number. Van Dubon OTR/L STATE LICENSE, [id number] documented in this encounter [facility] 02-26-2025 History of Present illness Narrative Subjective History of Present Illness Chief Complaint Patient presents with Poison Martha/Poison [place]/Poison [place] Exposure Patient is here today to follow up on a visit to the [facility] clinic on 02/21 for a rash that was diagnosed as poison martha. Patient was given a steroid injection and oral prednisone for 3 days. Patient states that the rash is spreading and is now on her face and it wasn't before. Patient states that it is all over her body now. Patient states that the itching has calmed down considerably but it still itches. Objective Review of Systems Constitutional: Negative for activity [...] back pain, myalgias and neck pain. Skin: Positive for rash. Negative for color change. Neurological: Negative for dizziness, syncope and light-headedness. Psychiatric/Behavioral: Negative for decreased concentration and sleep disturbance. All other systems reviewed and are negative. Vitals: Blood pressure 120/60, pulse 82, temperature 98.4 F (36.9 C), resp. rate 18, height 1.651 m (5' 5), weight 69.6 kg (153 lb 6.4 oz), SpO2 92%, not currently . Physical Exam Vitals and nursing note reviewed. HENT: Head: Normocephalic. Cardiovascular: Rate and Rhythm: Normal rate and regular rhythm. Heart sounds: No murmur heard. Pulmonary: Effort: Pulmonary effort is normal. Breath sounds: Normal breath sounds. Abdominal: General: Bowel sounds are normal. Palpations: Abdomen is soft. Tenderness: There is no abdominal tenderness. Musculoskeletal: General: No swelling. Skin: Findings: Rash (erythematous papules on all 4 extremities and trunk) present. Assessment and Plan ICD-10-CM 1. Contact dermatitis due to poison martha L23.7 Begin Claritin 10 mg once daily. Continue prednisone 20 mg twice daily for 3 days and then 20 mg once daily for 3 days. ALEXEI Paige, was the medical office administrator for today's note. I have performed all essential components of the history and physical exam, confirmed the diagnosis and developed a plan of care at this visit. I have reviewed the note at the visit and have added edits as appropriate to my evaluation and plan of care. documented in this encounter [facility] 02-26-2025 Instructions Shirley Beckett - 02/26/2025 8:30 AM EDT Assessment and Plan ICD-10-CM 1. Contact dermatitis due to poison martha L23.7 Begin Claritin 10 mg once daily. Continue prednisone 20 mg twice daily for 3 days and then 20 mg once daily for 3 days. ALEXEI Paige, was the medical office administrator for today's note. I have performed all essential components of the history and physical exam, confirmed the diagnosis and developed a plan of care at this visit. I have reviewed the note at the visit and have added edits as appropriate to my evaluation and plan of care. documented in this encounter [facility] 02-13-2025 Note [facility] FOLLOW-UP VISIT Assessment: Uma Mcgrath is a 74 y.o. female with right more so than left sided tremor prominent Parkinson disease who has responded generally well to dopamine replacement therapy but who reported more daily problems with tremors and mobility now compared to at her last visit. The motor exam showed tremor and bradykinesia at levels that should respond to higher dose levodopa. After much discussion, she decided in favor of this approach to see if we can improve control of tremor, rigidity, bradykinesia, anxiety, and cognitive processing. Regarding falls: None reported. Regarding depression, anxiety, or impulse control symptoms: Anxiety continues to be a problem, the somewhat episodic nature may suggest that it is due to dopaminergic wearing off, at least in part. Regarding cognition: Slower cognitive processing/cognitive fogging was reported, again this may be due to dopaminergic wearing off, at least in part. Regarding sleep: No intrusive problems reported. Regarding visual/auditory hallucinations and delusional thinking: None reported. Regarding lightheadedness/unsteadiness: None reported. Regarding dyskinesia: None reported. Constipation was also discussed as a still-problematic issue. Plan: Carbidopa/levodopa 25/100, currently used at 1 tab 3 times daily taken at 7 AM, noon, and 5 PM, will be increased by 0.5 tab every 4 days until she is potentially taking 2 tabs 3 times daily with the symptomatic goals detailed above. We discussed, and I gave her written information about, potential dopaminergic side effects that she escalates. The goal will be to use the lowest dose that is clearly helpful for symptoms and well-tolerated. Lexapro will continue at 10 mg daily for anxiety control. We could certainly consider a higher dose in the future. In addition to water, I suggested switching to magnesium glycinate up to 400 mg daily and using Benefiber to try to better-control her constipation. She currently uses magnesium citrate, probiotics, and MiraLAX. If these measures are not effective we may need to use a prescription agent. At her request I wrote an order for outpatient occupational therapy. Please be sure that osteoporosis and skin screening are up-to-date, as PD carries a statistically increased risk for both conditions. Please do not prescribe any anti-dopaminergic drugs for nausea or mood. I would like to see the patient back in 2 months; earlier if needed. I answered all of the questions asked of me; the patient/care-partner had no remaining unaddressed symptomatic issues. I personally spent 40 total minutes today in pre-review of the chart, [id number] interaction with the patient/care-partner (including discussion of the chart review, assessment of today's visit, and clinical plan development, as detailed above), updating/placing orders, and post-visit documentation. I am managing/treating Uma Mcgrath's complex chronic condition(s) serving as the focal point for the patient's care for consistency and continuity over time; my ongoing relationship with this patient requires continued responsibility and cognitive effort of being the focal point for all services related to the chronic condition detailed above. HPI: I saw Uma Mcgrath in follow-up at the [facility] for Parkinson disease, we discussed multiple symptoms as detailed elsewhere. ROS: As detailed elsewhere. Physical Exam: GENERAL: Well-nourished, no distress. MENTAL STATUS: Awake, alert, followed commands. CRANIAL NERVES: No tremor, dystonia, or chorea. MOTOR: Mild-moderate right more so than left-sided bradykinesia and tremor involving the arms/hands, no chorea. SENSORY, REFLEXES, CEREBELLAR, GAIT: Gait appeared stable. Reviewed: Chart review. Sincerely, Matt Lopez MD, PhD AUTHENTICATED BY MATT LOPEZ, ON 02/13/2025 11:53:45 [facility] 02-13-2025 History of Present illness Narrative [facility] FOLLOW-UP VISIT Assessment: Uma Mcgrath is a 74 y.o. female with right more so than left sided tremor prominent Parkinson disease who has responded generally well to dopamine replacement therapy but who reported more daily problems with tremors and mobility now compared to at her last visit. The motor exam showed tremor and bradykinesia at levels that should respond to higher dose levodopa. After much discussion, she decided in favor of this approach to see if we can improve control of tremor, rigidity, bradykinesia, anxiety, and cognitive processing. Regarding falls: None reported. Regarding depression, anxiety, or impulse control symptoms: Anxiety continues to be a problem, the somewhat episodic nature may suggest that it is due to dopaminergic wearing off, at least in part. Regarding cognition: Slower cognitive processing/cognitive fogging was reported, again this may be due to dopaminergic wearing off, at least in part. Regarding sleep: No intrusive problems reported. Regarding visual/auditory hallucinations and delusional thinking: None reported. Regarding lightheadedness/unsteadiness: None reported. Regarding dyskinesia: None reported. Constipation was also discussed as a still-problematic issue. Plan: Carbidopa/levodopa 25/100, currently used at 1 tab 3 times daily taken at 7 AM, noon, and 5 PM, will be increased by 0.5 tab every 4 days until she is potentially taking 2 tabs 3 times daily with the symptomatic goals detailed above. We discussed, and I gave her written information about, potential dopaminergic side effects that she escalates. The goal will be to use the lowest dose that is clearly helpful for symptoms and well-tolerated. Lexapro will continue at 10 mg daily for anxiety control. We could certainly consider a higher dose in the future. In addition to water, I suggested switching to magnesium glycinate up to 400 mg daily and using Benefiber to try to better-control her constipation. She currently uses magnesium citrate, probiotics, and MiraLAX. If these measures are not effective we may need to use a prescription agent. At her request I wrote an order for outpatient occupational therapy. Please be sure that osteoporosis and skin screening are up-to-date, as PD carries a statistically increased risk for both conditions. Please do not prescribe any anti-dopaminergic drugs for nausea or mood. I would like to see the patient back in 2 months; earlier if needed. I answered all of the questions asked of me; the patient/care-partner had no remaining unaddressed symptomatic issues. I personally spent 40 total minutes today in pre-review of the chart, [id number] interaction with the patient/care-partner (including discussion of the chart review, assessment of today's visit, and clinical plan development, as detailed above), updating/placing orders, and post-visit documentation. I am managing/treating Uma Mcgrath's complex chronic condition(s) serving as the focal point for the patient's care for consistency and continuity over time; my ongoing relationship with this patient requires continued responsibility and cognitive effort of being the focal point for all services related to the chronic condition detailed above. HPI: I saw Uma Mcgrath in follow-up at the [facility] for Parkinson disease, we discussed multiple symptoms as detailed elsewhere. ROS: As detailed elsewhere. Physical Exam: GENERAL: Well-nourished, no distress. MENTAL STATUS: Awake, alert, followed commands. CRANIAL NERVES: No tremor, dystonia, or chorea. MOTOR: Mild-moderate right more so than left-sided bradykinesia and tremor involving the arms/hands, no chorea. SENSORY, REFLEXES, CEREBELLAR, GAIT: Gait appeared stable. Reviewed: Chart review. Sincerely, Matt Lopez MD, PhD documented in this encounter [facility] 02-03-2025 History of Present illness Narrative Images from the original note were not included. [facility] [address] [place] [address] Name: Uma Mcgrath : 1950 Date: 02/03/25 Hearing Aid Consult Note: Ms. Mcgrath returned today to sisal picker her in warranty right hearing aid repair. She will return as needed for hearing aid concerns. Electronically Signed by: Marvin Hopkins, CCC/A, FAAA, JESSICA Cert. 02/03/25 12:56 PM documented in this encounter [facility] 01-31-2025 History of Present illness Narrative Images from the original note were not included. [facility] [address] [place] [address] Name: Uma Mcgrath : 1950 Date: 01/31/25 Hearing Aid Consult Note: Ms. Mcgrath returned today and picked up her left, [id number] hearing aid repair (see note below). She will return as needed for hearig aid concerns and as scheduled for routine hearing aid care. Electronically Signed by: Marvin Hopkins, EVERT, HILARY, JESSICA Cert. 01/31/25 12:46 PM documented in this encounter [facility] 01-20-2025 History of Present illness Narrative Images from the original note were not included. [facility] [address] [place] [address] Name: Uma Mcgrath : 1950 Date: 01/20/25 Hearing Aid Consult Note: Ms. Mcgrath dropped of her hearing aids today for dbo-pj-[id number] cleaning and repair (see note below). I had to charge both hearing aids for 30 minutes as they were upon arrival. Once they reached yellow, I was able to assess them. A visual inspection and listening check of her right hearing aid were unremarkable. I cleaned the hearing aid and changed the wax trap and dome - function is excellent. A visual inspection of the left hearing aid revealed a missing program button (button was in accompanying bag). A listening check revealed that the hearing aid is working and producing adequate output; however, the missing program disallows volume control usage and on/off function. I cleaned the aid and changed the wax trap and dome. I called Ms. Mcgrath and left a [facility] asking her permission to send the left hearing aid for out of warranty repair with an associated cost of $300.00. I also explained that her right hearing aid is ready for sisal picker. I will await Ms. Mcgrath's return call before taking action with the left hearing aid. Electronically Signed by: Marvin Hopkins, EVERT, HILARY, JESSICA Cert. 01/20/25 2:38 PM documented in this encounter [facility] 01-20-2025 History of Present illness Narrative Images from the original note were not included. [facility] [address] [place] [address] Name: Uma Mcgrath : 1950 Date: 01/20/25 Hearing Aid Consult Note: Ms. Mcgrath dropped of her hearing aids today for [id number] cleaning and repair (see note below). I had to charge both hearing aids for 30 minutes as they were upon arrival. Once they reached yellow, I was able to assess them. A visual inspection and listening check of her right hearing aid were unremarkable. I cleaned the hearing aid and changed the wax trap and dome - function is excellent. A visual inspection of the left hearing aid revealed a missing program button (button was in accompanying bag). A listening check revealed that the hearing aid is working and producing adequate output; however, the missing program disallows volume control usage and on/off function. I cleaned the aid and changed the wax trap and dome. I called Ms. Mcgrath and left a M asking her permission to send the left hearing aid for out of warranty repair with an associated cost of $300.00. I also explained that her right hearing aid is ready for sisal picker. I will await Ms. Mcgrath's return call before taking action with the left hearing aid. Electronically Signed by: Marvin Hopkins, WERO/Felipe, FAAA, JESSICA Linda. 01/20/25 2:38 PM documented in this encounter [facility] 11-04-2024 History of Present illness Narrative DEXA performed documented in this encounter [facility] 11-04-2024 History of Present illness Narrative 11/04/24 Uma Mcgrath [address] Marcano, Nel Nayak, DO [address] [facility] [address] Uma Mcgrath was seen on 11/04/24 for the followin. Age-related osteoporosis without current [...] disease (HCC) Anxiety Current Rheumatologic Medications: Prolia #06 November 2024, DosoKap daily Current Outpatient Medications Medication Sig Dispense [...] facility-administered medications for this visit. She is 74 y.o.. Since her last visit she has [...] of vitamin D regularly. She is taking 6950-3573 mg of calcium supplement She has had no intercurrent illness. The following portions of the patient's history were reviewed and updated as appropriate: allergies, current medications, past medical history, 10 point ROS and problem list. There has been no change in her social history. She has been for the past 10 years. She has 3 children and 2 grandchildren. 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 Her grandson who is adopted is in 8th grade and plays basketball. Osteoporosis Treatment to date has included: Evenity Oct - Sep 2022 Prolia Oct DXA to Date: Date: 03/21 08/22 10/24 11/26 Manuf: samantha samantha samantha samantha L1-L4: -1.2 -2.4 -1.3 -0.8 L FN: -2.1 -2.1 -1.8 -1.7 L Tot Hip -1.8 -1.9 -1.7 -1.4 R FN -1.9 -2.0 -1.7 -1.6 R Tot Hip -1.9 -2.1 -1.9 -1.7 TBS 1.262 1.291 1.384 1.377 I personally interpreted the last DXA done: November 2024 in our office L1-L2 T-score: -0.8 with L3 and L4 omitted due to discordance due to slight scoliosis and osteoarthritis entire spine is likely somewhat overestimated due to scoliosis and osteoarthritis On VFA there was no compression fracture there was osteo-arthritis and deformity in the thoracic mid spine. This has improved 6.1% since the prior study it is now improved 15.5% since 2020 L Fem Neck T-score: -1.7 L Total Hip: -1.4 This has improved 4.3% since the prior study overall it is improved 6.4% since 2019 R Fem Neck: -1.6 R Total Hip: -1.7 This has improved 3.1% since the prior study overall this is improved 4% since 2020 These results are consistent with WHO criteria for osteopenia. Clinical risk factors for fracture: Age low bone mass FRAX: MOF 12.9 % HIP 3.0% TBS Score : 1.377 (Trabecular Bone Score) this is consistent with normal microarchitecture of the trabecular bone of the spine by TBS analysis TBS Risk of MOF : 5-7 (Per 1000 women per year) This is consistent with low or moderate risk for fracture by TBS analysis TBS adjusted FRAX: MOF: 11.7% HIP: 3.0% Fragility Fractures: None I reviewed her last labs: Recent Labs Units 05/01/24 11/01/23 1414 04/28/23 0951 10/20/22 1126 02/23/22 1213 09/22/21 1535 VIT D 25 ng/mL 72 69 65 49 47 51 SPEP -- -- Normal -- -- PTH pg/mL 37.1 43.5 45.4 56.1 71.9* 34.7 CALCIUM mg/dL 9.1 9.4 9.7 9.1 9.3 9.8 CREATININE mg/dL 0.59* -- -- -- -- BETA - CROSSLAPS pg/mL 67 92 90 507 833 408 PE: BP 137/81 Wt 69.4 kg (153 lb) BMI 25.46 kg/m Diagnoses and all orders for this visit: Age-related osteoporosis without current pathological fracture - PTH, Intact; Future - Beta Crosslaps (Beta CTX); Future Uma has osteopenia on DEXA and has made a nice improvement in her spine and hips from the previous study. She however is still at significant risk for fracture due to age and low bone mass so we are going to go ahead with Prolia today and again in 6 months. I [...] this nice patient. Sincerely Marjorie Nava CNP [facility] CC: A total of 33 minutes was spent by me reviewing the patient's chart pertinent medical notes from other providers as well as testing and labs in preparation for [id number]-rc-zbly visit with the patient today. During this encounter, counseling and coordination of care were also conducted. Specifically we addressed the risk, benefits, and alternatives to the therapies discussed above; interviewing examining and counseling the patient and ordering and reviewing lab tests and documenting the patient's note Note: To expedite correspondence this note was generated by [employer] voice recognition software. Some grammatical or spelling errors may occur using the system. Portions of this history have been copied from a previous note, but pertinent information has been amended and updated by me. documented in this encounter [facility] 11-04-2024 Note 11/04/24 Uma Mcgrath 1950 Dear Nel Meyer, DO [facility] [facility] [address] Uma Mcgrath was seen on 11/04/24 for the followin. Age-related osteoporosis without current [...] disease (HCC) Anxiety Current Rheumatologic Medications: Prolia #06 November 2024, DosoKap daily Current Outpatient Medications Medication Sig Dispense [...] facility-administered medications for this visit. She is 74 y.o.. Since her last visit she has [...] of vitamin D regularly. She is taking 6438-0038 mg of calcium supplement She has had no intercurrent illness. The following portions of the patient's history were reviewed and updated as appropriate: allergies, current medications, past medical history, 10 point ROS and problem list. There has been no change in her social history. She has been for the past 10 years. She has 3 children and 2 grandchildren. 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 Her grandson who is adopted is in 8th grade and plays basketball. Osteoporosis Treatment to date has included: Evenity Oct - Sep 2022 Prolia Oct DXA to Date: Date: 03/21 08/22 10/24 11/26 Manuf: samantha samantha samantha samantha L1-L4: -1.2 -2.4 -1.3 -0.8 L FN: -2.1 -2.1 -1.8 -1.7 L Tot Hip -1.8 -1.9 -1.7 -1.4 R FN -1.9 -2.0 -1.7 -1.6 R Tot Hip -1.9 -2.1 -1.9 -1.7 TBS 1.262 1.291 1.384 1.377 I personally interpreted the last DXA done: November 2024 in our office L1-L2 T-score: -0.8 with L3 and L4 omitted due to discordance due to slight scoliosis and osteoarthritis entire spine is likely somewhat overestimated due to scoliosis and osteoarthritis On VFA there was no compression fracture there was osteo-arthritis and deformity in the thoracic mid spine. This has improved 6.1% since the prior study it is now improved 15.5% since 2019 L Fem Neck T-score: -1.7 L Total Hip: -1.4 This has improved 4.3% since the prior study overall it is improved 6.4% since 2020 R Fem Neck: -1.6 R Total Hip: -1.7 This has improved 3.1% since the prior study overall this is improved 4% since 2020 These results are consistent with WHO criteria for osteopenia. Clinical risk factors for fracture: Age low bone mass FRAX: MOF 12.9 % HIP 3.0% TBS Score : 1.377 (Trabecular Bone Score) this is consistent with normal microarchitecture of the trabecular bone of the spine by TBS analysis TBS Risk of MOF : 5-7 (Per 1000 women per year) This is consistent with low or moderate risk for fracture by TBS analysis TBS adjusted FRAX: MOF: 11.7% HIP: 3.0% Fragility Fra (more content not included)... [facility] 08-16-2024 Note [facility] MOVEMENT DISORDERS CLINIC FOLLOW-UP VISIT Assessment: Uma Mcgrath is a 74 y.o. female with right more so than left sided tremor prominent Parkinson disease who has responded well to levodopa on her average day without on/off motor fluctuations or side effects such as dyskinesias, lightheadedness, hallucinations, or vivid dreams/REM behavior disorder. The examination remained stable. We discussed that higher dose levodopa would likely do a better job to suppress tremor, but she stated that her average day was comfortable and sufficiently functional and that she did not need to make any changes today. She reported that anxiety was escalated at times, but not to a level that required higher dose Lexapro. No intrusive gait or cognitive problems were reported. I think she is doing very well. Plan: Carbidopa/levodopa 25/100 will continue at 1 tab 3 times daily taken at 7 AM, noon, and 5 PM. We could increase the dose at any time to better control tremor. For today, she was happy with her average daily function. Lexapro can continue at 10 mg daily for anxiety control. This could be increased at any time. Again, for today, she was happy with her average daily mood control. We discussed occupational therapy, as she has some difficulty with activities of daily living due to the right hand tremor and often relies on her left hand. After discussion, she decided to hold off on an OT referral for the moment. I am happy to make that referral at any time, however. I would like to see the patient back in 6 months; earlier if needed. I answered all of the questions asked of me; the patient/care-partner had no remaining unaddressed symptomatic issues. I personally spent 30 total minutes today in pre-review of the chart, [id number] interaction with the patient/care-partner (including discussion of the chart review, assessment of today's visit, and clinical plan development, as detailed above), updating/placing orders, and post-visit documentation. I am managing/treating Uma Mcgrath's complex chronic condition(s) serving as the focal point for the patient's care for consistency and continuity over time; my ongoing relationship with this patient requires continued responsibility and cognitive effort of being the focal point for all services related to the chronic condition detailed above. HPI: I saw Uma Mcgrath in follow-up at the [facility] clinic for Parkinson disease, we discussed multiple symptoms as detailed elsewhere. ROS: As detailed elsewhere. Physical Exam: GENERAL: Well-developed and well-nourished, no distress. MENTAL STATUS: Awake, alert, followed commands. CRANIAL NERVES: Extra-ocular movements full. Face symmetric. Pupils equal, round. No ptosis. No dysarthria. MOTOR: Mild right hand bradykinesia and tremor without chorea. SENSORY, REFLEXES, CEREBELLAR, GAIT: Gait appeared stable. Reviewed: Chart records. Sincerely, Matt Lopez MD, PhD AUTHENTICATED BY MATT LOPEZ, ON 08/16/2024 10:53:37 [facility] 08-16-2024 History of Present illness Narrative [facility] MOVEMENT DISORDERS CLINIC FOLLOW-UP VISIT Assessment: Uma Mcgrath is a 74 y.o. female with right more so than left sided tremor prominent Parkinson disease who has responded well to levodopa on her average day without on/off motor fluctuations or side effects such as dyskinesias, lightheadedness, hallucinations, or vivid dreams/REM behavior disorder. The examination remained stable. We discussed that higher dose levodopa would likely do a better job to suppress tremor, but she stated that her average day was comfortable and sufficiently functional and that she did not need to make any changes today. She reported that anxiety was escalated at times, but not to a level that required higher dose Lexapro. No intrusive gait or cognitive problems were reported. I think she is doing very well. Plan: Carbidopa/levodopa 25/100 will continue at 1 tab 3 times daily taken at 7 AM, noon, and 5 PM. We could increase the dose at any time to better control tremor. For today, she was happy with her average daily function. Lexapro can continue at 10 mg daily for anxiety control. This could be increased at any time. Again, for today, she was happy with her average daily mood control. We discussed occupational therapy, as she has some difficulty with activities of daily living due to the right hand tremor and often relies on her left hand. After discussion, she decided to hold off on an OT referral for the moment. I am happy to make that referral at any time, however. I would like to see the patient back in 6 months; earlier if needed. I answered all of the questions asked of me; the patient/care-partner had no remaining unaddressed symptomatic issues. I personally spent 30 total minutes today in pre-review of the chart, [id number] interaction with the patient/care-partner (including discussion of the chart review, assessment of today's visit, and clinical plan development, as detailed above), updating/placing orders, and post-visit documentation. I am managing/treating Uma Mcgrath's complex chronic condition(s) serving as the focal point for the patient's care for consistency and continuity over time; my ongoing relationship with this patient requires continued responsibility and cognitive effort of being the focal point for all services related to the chronic condition detailed above. HPI: I saw Uma Mcgrath in follow-up at the [facility] clinic for Parkinson disease, we discussed multiple symptoms as detailed elsewhere. ROS: As detailed elsewhere. Physical Exam: GENERAL: Well-developed and well-nourished, no distress. MENTAL STATUS: Awake, alert, followed commands. CRANIAL NERVES: Extra-ocular movements full. Face symmetric. Pupils equal, round. No ptosis. No dysarthria. MOTOR: Mild right hand bradykinesia and tremor without chorea. SENSORY, REFLEXES, CEREBELLAR, GAIT: Gait appeared stable. Reviewed: Chart records. Sincerely, Matt Lopez MD, PhD documented in this encounter [facility] 05-20-2024 History of Present illness Narrative scia Subjective History of Present Illness Chief Complaint Patient presents with Sciatica Here today with c/o having sciatica now going into mostly her gluteal area on both sides. It was running down her legs but isn't doing that as much now. She exercises 5 days a week and doesn't want to have stop that. Onset was 3-4 weeks ago. She would like to be referred to physical therapy. Pain increases after she has been active. She isn't aware of any positions that make it better. She has tried some online exercises and they have helped. She has taken Advil and it does help. Objective Review of Systems Constitutional: Negative for activity [...] urinating, flank pain, frequency and urgency. Musculoskeletal: Positive for back pain and myalgias. Negative for arthralgias and neck pain. Skin: Negative for color change and rash. Neurological: Negative for dizziness, syncope and light-headedness. Psychiatric/Behavioral: Negative for decreased concentration and sleep disturbance. All other systems reviewed and are negative. Vitals: Blood pressure 145/79, pulse 68, temperature 98.1 F (36.7 C), resp. rate 16, height 1.651 m (5' 5), weight 72.1 kg (159 lb), SpO2 94%, not currently . Physical Exam Vitals and nursing note reviewed. HENT: Head: Normocephalic. Cardiovascular: Rate and Rhythm: Normal rate and regular rhythm. Heart sounds: No murmur heard. Pulmonary: Effort: Pulmonary effort is normal. Breath sounds: Normal breath sounds. Abdominal: General: Bowel sounds are normal. Palpations: Abdomen is soft. Tenderness: There is no abdominal tenderness. Musculoskeletal: General: No swelling. Assessment and Plan ICD-10-CM 1. Bilateral lumbar radiculopathy M54.16 2. Acute bilateral low back pain with bilateral sciatica M54.42 M54.41 3. Osteoarthritis of spine with radiculopathy, lumbar region M47.26 Hold ibuprofen. Begin prednisone 20 mg twice daily for 5 days. Referral placed to Physical Therapy. Can use a stationary bike or elliptical machine. Avoid using treadmill for now. ALEXEI Paige, was the medical office administrator for today's note. I have performed all essential components of the history and physical exam, confirmed the diagnosis and developed a plan of care at this visit. I have reviewed the note at the visit and have added edits as appropriate to my evaluation and plan of care. documented in this encounter [facility] 05-20-2024 Instructions Shirley Beckett - 05/20/2024 3:45 PM EDT Assessment and Plan ICD-10-CM 1. Bilateral lumbar radiculopathy M54.16 2. Acute bilateral low back pain with bilateral sciatica M54.42 M54.41 3. Osteoarthritis of spine with radiculopathy, lumbar region M47.26 Hold ibuprofen. Begin prednisone 20 mg twice daily for 5 days. Referral placed to Physical Therapy. Can use a stationary bike or elliptical machine. Avoid using treadmill for now. ALEXEI Paige, was the medical office administrator for today's note. I have performed all essential components of the history and physical exam, confirmed the diagnosis and developed a plan of care at this visit. I have reviewed the note at the visit and have added edits as appropriate to my evaluation and plan of care. documented in this encounter [facility] 05-01-2024 History of Present illness Narrative Images from the original note were not included. 05/01/24 Uma Mcgrath [address] Marcano, Nel Nayak, [facility] [id number] Uma cMgrath was seen on 05/01/24 for the followin. Age-related osteoporosis without current [...] (HCC) Anxiety Current Rheumatologic Medications: Prolia number 04 April 2024, DosoKap daily Current Outpatient Medications Medication Sig Dispense [...] facility-administered medications for this visit. She is 74 y.o.. Since her last visit she has [...] of vitamin D regularly. She is taking [id number] mg of calcium supplement She has had no intercurrent illness. The following portions of the patient's history were reviewed and updated as appropriate: allergies, current medications, past medical history, 10 point ROS and problem list. There has been no change in her social history. She has been for the past 10 years. She has 3 children and 2 grandchildren. 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 Her grandson who is adopted is in 8th grade and plays basketball. Osteoporosis Treatment to date has included: Evenity Oct - Sep 2022 Prolia Oct DXA to Date: Date: 03/21 08/22 10/24 Manuf: samantha samantha samantha L1-L4: -1.2 -2.4 -1.3 L FN: -2.1 [...] study overall it is improved 2.1% since 2020 R Fem Neck: -1.7 Total Hip: -1.9 [...] Fractures: None I reviewed her last labs: Recent Labs Units 11/01/23 1414 04/28/23 0951 10/20/22 1126 02/23/22 1213 09/22/21 1535 VIT D 25 ng/mL 69 65 49 47 51 SPEP -- -- Normal -- -- PTH pg/mL 43.5 45.4 56.1 71.9* 34.7 CALCIUM mg/dL 9.4 9.7 9.1 9.3 9.8 CREATININE mg/dL 0.59* -- -- -- -- BETA - CROSSLAPS pg/mL 92 90 507 833 408 PE: BP 127/81 Pulse 76 Wt 69.4 kg (153 lb) BMI 25.46 kg/m Diagnoses and all orders for this visit: Age-related osteoporosis without current pathological fracture - PTH, Intact; Future - Beta Crosslaps (Beta CTX); Future Uma had a very good response to Evenity and now has osteopenia by DEXA. She however is still at significant risk for fracture due to age and low bone mass so we are going to go ahead with Prolia today and again in 6 months. I [...] this nice patient. Sincerely Marjorie Nava CNP [facility] CC: A total of 33 minutes was spent by me reviewing the patient's chart pertinent medical notes from other providers as well as testing and labs in preparation for [id number] visit with the patient today. During this encounter, counseling and coordination of care were also conducted. Specifically we addressed the risk, benefits, and alternatives to the therapies discussed above; interviewing examining and counseling the patient and ordering and reviewing lab tests and documenting the patient's note Note: To expedite correspondence this note was generated by [employer] voice recognition software. Some grammatical or spelling errors may occur using the system. Portions of this history have been copied from a previous note, but pertinent information has been amended and updated by me. documented in this encounter [facility] 04-15-2024 History of Present illness Narrative URGENT CARE eNCOUnter CHIEF COMPLAINT Poison Martha/Poison [place]/Poison Sumac Exposure (All on chest, under armpits, down by groin) HPI Uma Mcgrath is a 73 y.o. female who presents today for complaint of poison martha rash on chest, back, arms, and legs. Patient states she was exposed to poison martha. Denies fever, chills, or illness. REVIEW OF SYSTEMS Review of Systems As documented in HPI. A thorough 12 point review of systems was evaluated including Constitutional and general appearance, Head, Face, Ears, Eyes, Nose, Throat, Cardiovascular, Pulmonary, GI, , Skin, and Psychiatric and was found to be negative without symptoms or signs consistent with acute pathology with the exception of that specifically documented in the HPI section of this documentation. PAST MEDICAL HISTORY Past Medical History: Diagnosis Date Hyperlipidemia Kidney stones Parkinsons 12/31/2020 SURGICAL HISTORY Past Surgical History: Procedure Laterality Date ARTHROSCOPY KNEE W/ MENISCUS REPAIR Right LITHOTRIPSY RENAL STENT PLACEMENT TUBAL LIGATION CURRENT MEDICATIONS Current Outpatient Medications Medication Sig Dispense Refill ascorbic acid 500 MG tablet Take 1 tablet by mouth daily. aspirin EC [address] Take 1 tablet by mouth daily. Carbidopa-levodopa 25-100 MG per tablet Take 1 tablet by mouth 3 times daily. Coenzyme Q10 (Co Q-10) 100 MG capsule Take 1 capsule by mouth 2 times daily. cyanocobalamin 1000 MCG tablet Take 1 tablet by mouth daily. Escitalopram 10 MG tablet Take 1 tablet by mouth daily. 90 tablet 3 faMOTIdine (Pepcid) 20 MG tablet Take 1 tablet by mouth every evening at 6 PM. (Patient taking differently: Take 1 tablet by mouth as needed.) 90 tablet 3 Multiple Minerals-Vitamins (BRENDA MAG ZINC +D3 PO) Take by mouth. One tab twice a day MULTIVITAMIN Tab Take 1 tablet by mouth daily. Valley 3 1200 MG capsule Take by mouth. One tab daily Phenazopyridine 200 MG tablet Take 1 tablet by mouth 3 times daily for 2 days. 6 tablet 0 potassium citrate 10 MEQ (1080 MG) Tab CR Take 1 tablet by mouth 2 times daily. (Patient taking differently: Take 1 tablet by mouth daily.) 30 tablet 3 predniSONE 20 MG tablet Take 2 tablets by mouth daily for 3 days, THEN 1 tablet daily for 3 days. 40,40,40,20,20,20. 9 tablet 0 Rosuvastatin 10 MG tablet Take 1 tablet by mouth daily. 90 tablet 3 Vitamin D-Vitamin K (DOSOKAP PO) Take by mouth. One tab daily Current Facility-Administered Medications Medication Dose Route Frequency Provider Last Rate Last Admin triamcinolone (KENALOG-40) injection 40 mg 40 mg Intramuscular Once (In Clinic) Jayna Moreno, PA ALLERGIES Allergies Allergen Reactions Oxycodone Nausea and Vomiting FAMILY HISTORY Family History Problem Relation Age of Onset Diabetes Mother No known problems Father SOCIAL HISTORY Social History Socioeconomic History Marital status: Spouse name: Not on file Number of children: Not on file Years of education: Not on file Highest education level: Not on file Occupational History Not on file Tobacco Use Smoking status: Never Smokeless tobacco: Never Vaping Use Vaping status: Never Used Substance and Sexual Activity Alcohol use: No [...] Resource Strain: Not on file Food Insecurity: No Food Insecurity (07/25/2023) Received from [email or web address] [facility] Brief Food Brief social Worry about food: Not on file Brief social Food run out: Not on file Transportation Needs: No Transportation Needs (07/25/2023) Received from [employer] [facility] Brief Transportation Brief social Transport to appt: Not on file Brief social Transport to work: Not on file Physical Activity: Not on file Stress: Not on file Social Connections: Not on file Intimate Partner Violence: Not on file Housing Stability: Low Risk (07/25/2023) Received from [email or web address] [facility] Brief Housing Brief social Pay for mortgage/rent: Not on file Brief social: Place to sleep: Not on file PHYSICAL EXAM BP 133/70 (BP Location: Left arm, BP Position: Sitting) Pulse 82 Temp 98.1 F (36.7 C) (Temporal) Resp 16 Ht 1.651 m (5' 5) Wt 70 kg (154 lb 6.4 oz) SpO2 97% BMI 25.69 kg/m Smoking Status Never Physical Exam General exam: Patient is well-developed and well-nourished in no distress. Patient does not appear acutely ill or toxic. Eye exam: Lids and conjunctivae are normal ENT exam: head and facial exam is normal. The neck is supple without meningeal signs. No significant adenopathy. Pulmonary exam: No respiratory distress. Respiratory rate is normal. No stridor. Breath sounds are equal bilaterally. There are no wheezes, rales, or rhonchi noted. Cardiac exam: The cardiac rate and rhythm are normal. No significant murmurs, rubs, or gallops. Peripheral pulses are normal. Skin and soft tissue: + erythematous papules on chest and back, and forearms. Musculoskeletal exam: There is no peripheral edema. Musculoskeletal exam of the lower extremities is normal without significant focal tenderness or spasm. Neurologic: Patient is alert and appropriate. Normal speech. Normal symmetric strength and tone in all extremities. Psychiatric: Normal adult with appropriate demeanor and interpersonal interaction. Is oriented to person, place, and time. Diagnosis, Assessment & Plan: Dary was seen today for poison martha/poison oak/poison sumac exposure. Diagnoses and all orders for this visit: Poison martha - triamcinolone (KENALOG-40) injection 40 mg Other orders - predniSONE 20 MG tablet; Take 2 tablets by mouth daily for 3 days, THEN 1 tablet daily for 3 days. 40,40,40,20,20,20. 73-year-old female presents today with poison martha dermatitis. Patient given injection of Kenalog in the clinic. Patient was started on prednisone taper. Advised that she follow up with the primary care provider. Return if any new or worsening symptoms. RONNIE Bower 04/15/2024 documented in this encounter [facility] 01-29-2024 History of Present illness Narrative [facility] [address] [facility] [address] [facility] [id number] Chief Complaint Patient presents with Right Elbow - Pain Uma Mcgrath returns to the office today for right elbow pain. She denies any injury. She has been having pain for the last year. She has pain with certain movements. She denies any bruising to the elbow. She does take otc pain medications, which do help with her symptoms. She hasn't used any heat/ice nor has she used any topical ointments. She has been lifting weights and doesn't know if that is making it worse. The patient's past medical history, surgical history, social history, family history, medications and allergies were reviewed with the patient today and are available in the chart for further review. Allergies Allergen Reactions Oxycodone GI Intolerance Percocet [Oxycodone-Acetaminophen] GI Intolerance Current Outpatient Medications: ascorbic acid, vitamin C, (VITAMIN C) 100 MG tablet, Take 5 (five) tablets (500 mg total) by mouth daily ., Disp: , Rfl: [...] escitalopram oxalate (LEXAPRO) 10 MG tablet, Take 1 (one) tablet (10 mg total) by mouth daily ., Disp: , Rfl: magnesium citrate 100 mg cap, Take 3.2 capsules (320 mg total) by mouth daily ., Disp: , Rfl: multivitamin (THERAGRAN) per tablet, Take 1 (one) tablet by mouth daily ., Disp: , Rfl: omega-3 fatty acids/fish oil (fish oil-omega-3 fatty acids) 300-1,000 mg capsule, Take 2 (two) capsules by mouth daily ., Disp: , Rfl: potassium citrate (UROCIT-K) 10 mEq (1,080 mg) SR tablet, Take 1 (one) tablet (10 mEq total) by mouth daily Reasons: takes 1-2 tablets daily., Disp: , Rfl: romosozumab-aqqg (EVENITY SUBQ), Inject under the skin every 30 (thirty) days ., Disp: , Rfl: rosuvastatin (CRESTOR) 10 MG tablet, Take 1 (one) tablet (10 mg total) by mouth daily ., Disp: , Rfl: [...] ROS: Review of Systems Musculoskeletal: Positive for arthralgias and myalgias. ORTHO: Right Elbow Exam Tenderness The patient is experiencing tenderness in the medial epicondyle and lateral epicondyle. Range of Motion The patient has normal right elbow ROM. Muscle Strength The patient has normal right elbow strength. Tests Varus: negative Valgus: negative Tinel's sign (cubital tunnel): negative Other Erythema: absent Scars: absent Sensation: normal Pulse: present Imaging: R Elbow: There is a small osseous fragment adjacent to the coronoid process. This most likely represents a remote traumatic injury. This fragment does cause mild joint space narrowing at this site.Joint spaces are otherwise preserved. The soft tissues are unremarkable.There are no radiopaque foreign bodies. No elbow effusion. Assessment/Plan: After examination and reviewing of the patient x-ray images, we discussed treatment for the elbow. She is going to continue with conservative measures, try continued otc pain medications, revise her upper body exercises and possibly try some topical creams or compression to the elbow. I did send her home with some physical therapy exercises that she can integrate into her exercise regimen. If there is no improvement, I can see her back in the office as needed. documented in this encounter [facility] 01-18-2024 History of Present illness Narrative Images from the original note were not included. [facility] [address] [place] [address] Name: Uma Mckenna Foster : 1950 Date: 01/18/24 Hearing Aid Contact Note: Ms. Mcgrath picked up her, in warranty, repaired hearing aids today. She will return as needed for hearing aid concerns. Electronically Signed by: Marvin Hopkins, WERO/Felipe, HILARY, JESSICA Mckeon. 01/18/24 11:10 AM documented in this encounter [facility] 01-17-2024 History of Present illness Narrative [facility] MOVEMENT DISORDERS CLINIC FOLLOW-UP VISIT Assessment: Uma Mcgrath is a 73 y.o. female with right more so than left sided tremor prominent Parkinson disease who has responded generally well to levodopa with regard to control of rigidity and bradykinesia more so than tremor. We discussed that this is common. She reported being comfortable with good function on her average day at home, with occasional tremor escalation. The examination remained stable today. She reported no problems with on/off motor fluctuations or side effects of lightheadedness, dyskinesias, or hallucinations. We discussed that higher dose levodopa may better alleviate tremor, for today she was not interested. She reported that mood was doing well on Lexapro. No intrusive cognitive problems were reported. We discussed the below plan. Plan: Carbidopa/levodopa 25/100 will continue at 1 tab 3 times daily taken at 7 AM, noon, and 5 PM. Higher doses could be tried at any time to achieve better tremor suppression. If requested, I would suggest 1.5-1.5-1 tabs taken at the above times to start. Lexapro will continue at 10 mg daily for anxiety control. I gave her updated resource information. I would like to see the patient back in 6 months; earlier if needed. I answered all of the questions asked of me; the patient/care-partner had no remaining unaddressed symptomatic issues. I personally spent 30 total minutes today in pre-review of the chart, injn-[id number]-fbjd interaction with the patient/care-partner (including discussion of the chart review, assessment of today's visit, and clinical plan development, as detailed above), updating/placing orders, and post-visit documentation. HPI: I saw Uma Mcgrath in follow-up at the [facility] clinic for Parkinson disease, we discussed multiple symptoms as detailed elsewhere. ROS: As detailed elsewhere. Physical Exam: GENERAL: Well-developed and well-nourished, no distress. MENTAL STATUS: Awake, alert, followed commands. CRANIAL NERVES: Extra-ocular movements full. Face symmetric. Pupils equal, round. No ptosis. No dysarthria. MOTOR: Very mild right more so than left-sided bradykinesia, mild right arm tremor, no chorea. SENSORY, REFLEXES, CEREBELLAR, GAIT: Deferred given lack of gait symptoms by history. Reviewed: Chart records. Sincerely, Matt Lopez MD, PhD documented in this encounter [facility] 01-16-2024 History of Present illness Narrative Images from the original note were not included. [facility] [address] [place] [address] Name: Uma Mcgrath : 1950 Date: 01/16/24 Hearing Aid Contact Note: Ms. Mcgrath dropped off her in warranty hearing aids for cleaning today. A visual inspection and listening check of the hearing aids were unremarkable. The hearing aids were cleaned and the wax traps and domes were changed. Function is excellent. I contacted Mrs. Mcgrath and she reported that she will pick her hearing aids up tomorrow. Mrs. Mcgrath expressed agreement with and understanding of the above. Electronically Signed by: Marvin Hopkins, CCC/A, FAAA, JESSICA Cert. 01/16/24 12:22 PM documented in this encounter [facility] 11-28-2023 Miscellaneous Notes Please refuse, patient was filling from previous SS script, called pharmacy and they will 'refill' from your latest script ( 07/2023 ) and thus keep it from becoming inactive Carbidopa-Levodopa 25-100 mg, x1 tab, TID documented in this encounter [facility] 11-28-2023 Telephone encounter Note Please refuse, patient was filling from previous SS script, called pharmacy and they will 'refill' from your latest script ( 07/2023 ) and thus keep it from becoming inactive Carbidopa-Levodopa 25-100 mg, x1 tab, TID [facility] 11-01-2023 History of Present illness Narrative Images from the original note were not included. 10/20/23 Uma G Foster [address] Marcano, Nel Nayak, [place] [id number] Uma Mcgrath was seen on 10/20/23 for the followin. Age-related osteoporosis without current [...] Osteoarthritis of thoracic spine Dysphonia Parkinson's disease Anxiety Current Rheumatologic Medications: Prolia number 04 Oct 2023 Vitamin D 5500 units daily Current Outpatient [...] of vitamin D regularly. She is taking 7901-0364 mg of calcium supplement She has had no intercurrent illness. The following portions of the patient's history were reviewed and updated as appropriate: allergies, current medications, past medical history, 10 point ROS and problem list. There has been no change in her social history. She has been for the past 10 years. She has 3 children and 2 grandchildren. 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 Her grandson who is adopted is in 8th grade and plays basketball. Osteoporosis Treatment to date has included: Evenity Oct - Sep 2022 Prolia Oct DXA to Date: Date: 03/21 08/22 10/24 Manuf: samantha samantha samantha L1-L4: -1.2 -2.4 -1.3 L FN: -2.1 [...] study it is now improved 9.4% since 2019 L Fem Neck T-score: -1.8 LTotal Hip: [...] Fractures: None I reviewed her last labs: Recent Labs Units 04/28/23 0951 10/20/22 1126 02/23/22 1213 09/22/21 1535 12/11/20 1033 VIT D 25 ng/mL 65 49 47 51 48 SPEP -- Normal -- -- -- PTH INTACT pg/mL 45.4 56.1 71.9* 34.7 53.3 CALCIUM mg/dL 9.7 9.1 9.3 9.8 9.5 CREATININE mg/dL -- -- -- -- 0.68 BETA - CROSSLAPS pg/mL 90 507 833 408 635 PE: There were no vitals taken for this visit. Diagnoses and all orders for this visit: Age-related osteoporosis without current pathological fracture - PTH, Intact; Future - Beta Crosslaps (Beta CTX); Future Uma had a very good response to Evenity and now has osteopenia by DEXA. She however is still at significant risk for fracture due to age and low bone mass so we are going to go ahead with Prolia today and again in 6 months. I [...] of this nice patient. Sincerely Leidy Donald MD [facility] Osteoporosis Physicians CC: A total of 31 minutes was spent by me reviewing the patient's chart pertinent medical notes from other providers as well as testing and labs in preparation for [id number]-[id number] visit with the patient today. During this encounter, counseling and coordination of care were also conducted. Specifically we addressed the risk, benefits, and alternatives to the therapies discussed above; interviewing examining and counseling the patient and ordering and reviewing lab tests and documenting the patient's note Note: To expedite correspondence this note was generated by [employer] recognition software. Some grammatical or spelling errors may occur using the system. Portions of this history have been copied from a previous note, but pertinent information has been amended and updated by me. documented in this encounter [facility] 10-12-2023 History and physical note Note Date/Time October 12, 2023 7:39am [facility] Medical Records Department [address] [place] [address] History & Physical Exam 10/12/23 0735 MR#: [id number] Acct: [id number] Name: UMA MCGRATH Rep #:[id number] : 1950 73 From: Michelle Pete PCP: Dr. Nel Marcano MD Status:[facility] Location: [place] [address] HPI - General HPI Narrative UMA MCGRATH, is a 73 F who presents for surgical intervention for a leftrenal calculus found on CT scan as a result of an evaluation for gross hematuria. She has had stones previously and had surgery approximately 3 years ago. Informed consent was obtained. [facility] Medical History Cardiology follow-up encounter Gastric reflux History of echocardiogram History of kidney stones History of stress test Leg cramps Non-smoker Parkinson's disease Wears glasses Wears hearing aid Home Medications ascorbic acid (vitamin C) 500 mg chewable tablet (Vitamin C) 500 mg PO DAILY 09/28/15 [History Last Taken 09/28/15] calcium carbonate 500 mg calcium (1,250 mg) chewable tablet 500 mg PO DAILY 09/28/15 [History Last Taken 09/28/15] cholecalciferol (vitamin D3) 25 mcg (1,000 unit) tablet (Vitamin D3) 2,000 unit PO DAILY 09/28/15 [History Last Taken 09/28/15] omega-3 fatty acids 300 mg capsule (Fish Oil) 1,200 mg PO BID 09/28/15 [History Last Taken 09/27/15] simvastatin 20 mg tablet 20 mg PO QHS 09/28/15 [History Last Taken 10/11/23] aspirin 81 mg tablet,delayed release 81 mg PO DAILY@0800 11/13/15 [History Last Taken 10/01/23] coenzyme Q10 50 mg chewable tablet 50 - 100 mg PO DAILY 11/13/15 [History Last Taken Unknown] potassium citrate 10 mEq (1,080 mg) tablet,extended release 1 tab PO BID PRN LOWPOTASSIUM 11/13/15 [History Last Taken Unknown] carbidopa 25 mg-levodopa 100 mg tablet 1 tab PO TID 09/07/23 [History Last Taken 10/11/23] escitalopram oxalate 10 mg tablet (Lexapro) 10 mg PO DAILY 09/07/23 [History Last Taken 10/11/23] vitamin B complex (Complex B-100 tablet,extended release) 1 tab PO DAILY 09/07/23 [History Last Taken Unknown] famotidine 20 mg tablet (Acid Controller) 20 mg PO DAILY PRN GERD 10/11/23 [History Last Taken 10/11/23] omeprazole 10 mg capsule,delayed release 10 mg PO DAILY 10/12/23 [History Last Taken 10/11/23] Allergy/AdvReac Type Severity Reaction Status Date / Time oxycodone HCl [From Percocet] AdvReac Nausea Verified 10/12/23 06:34 Surgical History History of lateral meniscus repair of left knee History of tubal ligation Social History Smoking Status: Never smoker ROS Constitutional Constitutional: Reports systems reviewed and no addt'l complaints, except as documented Eyes Eyes: Reports systems reviewed and no addt'l complaints, except as documented ENT HEENT: Reports systems reviewed and no addt'l complaints, except as documented Cardiovascular Cardiovascular: Denies abdominal pain, chest pain, diaphoresis or dyspnea Respiratory/Chest Respiratory/Chest: Denies chest congestion, chest tightness, cough or dyspnea Gastrointestinal Gastrointestinal: Denies nausea or vomiting Genitourinary Genitourinary: Reports hematuria; Denies abdominal discomfort or flank pain Musculoskeletal Musculoskeletal: Reports systems reviewed and no addt'l complaints, except as documented Integumentary Integumentary: Reports systems reviewed and no addt'l complaints, except as documented Neurologic Neurologic: Reports systems reviewed and no addt'l complaints, except as documented Psychiatric Psychiatric: Reports systems reviewed and no addt'l complaints, except as documented Endocrine Endocrinology: Reports systems reviewed and no addt'l complaints, except as documented Hematologic/Lymphatic Hematologic/Lymphatic: Reports systems reviewed and no addt'l complaints, exceptas documented Allergic/Immunologic Allergic/Immunologic: Reports systems reviewed and no addt'l complaints, except as documented Vital Signs Vital Signs Vital Signs: 10/12/23 06:37 10/12/23 06:37 Temperature 97.5 F L Temperature Source Temporal Pulse Rate 59 L Respiratory Rate 17 Respiratory Pattern Normal Blood Pressure 140/92 H Blood Pressure Mean 108 Blood Pressure Source Monitor Blood Pressure Position Semi-Fowlers Blood Pressure Location Right Arm Pulse Ox 98 Oxygen Delivery Method Room Air Weight Weight: 66.678 kg Body Mass Index (BMI) 23.7 Physical Exam Const alert, oriented x3 and no apparent distress HEENT normocephalic, head/scalp atraumatic, hearing grossly normal bilaterally, external ears normal, external nose normal and moist oral mucous membranes Eyes General Eye: normal appearance of both eyes Neck supple Lymph Lymphatic: no lymphedema noted Chest inspection of chest normal Resp normal respiratory effort, normal air movement and no retractions Cardio regular rate GI soft to palpation, non-tender and non-distended no CVA tenderness Back/Spine no CVA tenderness Extremity normal to inspection Extremity Narrative: Tremors Skin no rashes or lesions noted, no wounds, skin turgor normal, no jaundice, no petechiae and no mottling Neuro oriented x3 and CN's II-XII intact bilaterally Psych mental status grossly normal, thought process normal, cooperative and affect normal Assessment & Plan Assessment/Plan (1) Renal calculus, left: PLAN: Plan Cystoscopy, left ureteroscopy, holmium laser lithotripsy, stone basket extraction, left ureteral stent insertion 10/12/23 0739 <Electronically signed by Michelle Crenshaw MD> Cosigner Signature (if applicable): CC: Dr. Nel Marcano MD; Dr. Michelle Crenshaw MD~ Signed [facility] Work Phone: [phone]) 434-570001-11-2024 Procedure [facility] 09-20-2023 History of Present illness Narrative* Nel Marcano, - 09/20/2023 2:30 PM EST Subjective History of Present Illness Chief Complaint Patient presents with Anxiety Here for a follow up. States her anxiety started when she got diagnosed a few years ago with parkinsons. States she is doing fine now with taking the lexapro. Constipation States she gets constipation frequently and feels like this could be due to medication and Parkinson's disease. She will use Miralax Mon, Wed & Fri if needed and will use Colace other days if needed. Objective Review of Systems Constitutional: Negative for activity [...] reviewed and are negative. Vitals: Blood pressure 120/60, pulse 86, temperature 98.7 F (37.1 C), resp. rate 16, height 1.651 m(5' 5), weight 69 kg (152 lb 1.6 oz), SpO2 94 %, not currently . Physical Exam Vitals [...] ICD-10-CM 1. Generalized anxiety disorder F41.1 2. Intermittent constipation K59.09 3. Parkinson's disease without dyskinesia or fluctuating manifestations G20.A1 4. Hypercholesteremia E78.00 Obtain fasting blood work. If lab work or other testing was ordered at your visit, please call our office ([phone]) one week after the lab draw or test to receive your results. ALEXEI Piage, was the medical office administrator for today's note. I have performed all essential components of the history and physical exam, confirmed the diagnosis and developed a plan of care at this visit. I have reviewed the note at the visit and have added edits as appropriate to my evaluation andplan of care. documented in this [facility]12-20-2023 Instructions* Patient Instructions* Shirley Beckett - 09/20/2023 2:30 PM EST Assessment and Plan ICD-10-CM 1. Generalized anxiety disorder F41.1 2. Intermittent constipation K59.09 3. Parkinson's disease without dyskinesia or fluctuating manifestations G20.A1 4. Hypercholesteremia E78.00 Obtain fasting blood work. If lab work or other testing was ordered at your visit, please call our office ([phone]) one week after the lab draw or test to receive your results. Shirley Beckett [facility], was the medical office administrator for today's note. I have performed all essential components of the history and physical exam, confirmed the diagnosis and developed a plan of care at this visit. I have reviewed the note at the visit and have added edits as appropriate to my evaluation andplan of care. documented in this [facility]10-16-2023 History of Present illness Narrative* Matt Lopez MD - 07/17/2023 12:54 PM EDT [facility] FOLLOW-UP VISIT Assessment: Uma [...] minutes today in pre-review of the chart, krwe-lt-fbwq interaction with the patient/care-partner (including discussion of the chart review, assessment of today's visit, and clinical plan development, as detailed above), updating/placing orders, and post-visit documentation. HPI: I saw Uma Mcgrath in follow-up at the [facility] clinic for Parkinson disease, [...] Matt Lopez MD, PhD documented in this [id number] History of Present illness Narrative* Joaquinestefani Marjorie Coradoe, VLADIMIR - 04/28/2023 9:00 AM EDT 04/28/23 Uma Mcgrath 1950 Dear Nel Meyer, DO [address] [facility] [address] Uma Mcgrath was seen on 04/28/23 for [...] no fractures or new back pain that canbe attributed to her osteoporosis. She attributes her falls to her Parkinson's although she is on no medication for it at the moment. She has no activity related back pain. She walks 30 to 45 minutesa few times a week and does weights [...] of vitamin D regularly. She is taking 3420-7275 mg of calcium supplement She has had no intercurrent illness. The following portions of the patient's history were reviewed and updated as appropriate: allergies, current medications, past medical history, 10 point ROS and problem list. There has been no change in her social history. She has been for the past 10 years. She has3 children and 2 grandchildren. 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 Her grandson who is adopted is in seventh grade and plays basketball. Osteoporosis Treatment to date has included: Evenity Oct - Sep 2022 Prolia Oct DXA to Date: Date: 03/21 08/22 10/24 Manuf: samantha samantha samantha L1-L4: -1.2 -2.4 -1.3 L FN: -2.1 [...] study it is now improved 9.4% since 2019 L Fem Neck T-score: -1.8 LTotal Hip: [...] low bone mass so we are going togo ahead with Reggieia today and again in 6 months. I will check for secondary causes of osteoporosisas noted above including a marker of bone [...] this nice patient. Sincerely Marjorie Nava CNP [facility] Osteoporosis Physicians CC: A total of 35 minutes was spent by me reviewing the patient's chart pertinent medical notes from other providers as well as testing and labs in preparation for abte-ov-huqe visit with the patienttoday. During this encounter, counseling and coordination of care were also conducted. Specificallywe addressed the risk, benefits, and alternatives to the therapies discussed above; interviewing examining and counseling the patient and ordering and reviewing lab tests and documenting the patient's note Note: To expedite correspondence this note was generated by [employer] voice recognition software. Somegrammatical or spelling errors may occur using the system. Portions of this history have been copied from a previous note, but pertinent information has been amended and updated by me. documented in this [id number] History of Present illness Narrative* RONNIE Bolden - 04/17/2023 9:35 AM EDT Emergency Department Report [facility] Service Date:.04/17/23 PCP: Nel Marcano Chief [...] with above information. . documented in this [facility]07-17-2023 Instructions* Patient Instructions* RONNIE Bolden - 04/17/2023 9:35 AM EDT [...] in 1 week to recheck a urine. * Attachments The following attachments cannot be sent through Care Everywhere. * Dysuria (Tuvaluan) documented in this [facility]04-11-2023 History of Present illness Narrative* Matt Lopez MD - 01/10/2023 12:20 PM EDT [facility] FOLLOW-UP VISIT Assessment: Uma [...] minutes today in pre-review of the chart, eyvw-de-ygwy interaction with the patient/care-partner (including discussion of the chart review, assessment of today's visit, and clinical plan development, as detailed above), updating/placing orders, and post-visit documentation. HPI: I saw Uma Mcgrath in follow-up at the [facility] clinic for Parkinson disease [...] Matt Lopez MD, PhD documented in this [id number] History of Present illness Narrative* Isela Alejo - 12/07/2022 9:13 AM EST Images from the original note were not included. [facility] [address] [place] [address] Name: Uma Mcgrath : 1950 Date: 12/07/22 Hearing Aid Contact Note: Ms. Mcgrath returned on 12/06/2022 to sisal picker her left and right repaired hearing aids. Ms. Mcgrath will return with any future hearing aid needs or concerns. Electronically signed by: Isela Alejo [employer] 12/07/22 9:13 AM documented in this [id number] History of Present illness Narrative* Marvin Hopkins - 12/05/2022 11:07 AM EST Images from the original note were not included. [facility] [address] [address] Name: Uma Mcgrath : 1950 Date: 12/05/22 Hearing Aid Contact Note: Ms. 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 Her note stated that her hearing aids will not charge. I placed the hearing aids in [facility] on Monday and they immediately began to charge. Both hearing aid batteries were low (yellow). I allowed the hearing aids to charge over the weekend. A visual inspection and listening check today were unremarkable. I cleaned the hearing aids and changed the wax traps and domes. Function is excellent. I will notify Ms. Mcgrath that her hearing aids are ready for sisal picker. I contacted Ms. Mcgrath and we discussed the above. She will sisal picker the hearing aids at her earliest convenience. Ms. Mcgrath expressed understanding of and agreement with the above. Electronically Signed by: Marvin Hopkins, CCC/A, FAAA, JESSICA Cert. 12/05/22 11:07 AM documented in this [id number] History of Present illness Narrative* Van Dubon OT - 12/02/2022 2:45 PM EST [facility] OUTPATIENT REHABILITATION DAILY TREATMENT NOTE Today's Date 12/02/2022 Patient Name: Uma Mcgrath Date of : 1950 Current Visit #: 9 Authorized Visits: 199 Case Name: [id number] History: Pre-Treatment Pain Scale: 0 Symptoms: stabilized Functional Diagnosis: 1. Parkinson's disease (HCC) Clinical Information: Subjective: Patient actively participated in her discharge assessment to formally determine changesthat occurred since her initial evaluation. DISCHARGE SUMMARY: The patient's attendance has been consistent through her course of treatment. Patient has actively participate in education covering integration of movement behavior strategies, such as large amplitude movement, increasing intensity, increasing complexity of task performance, andmaking sure her task selection was specific to her motivated needs. Patient has been able to returndemonstration of adequate retention of this information when performing therapeutic exercises. However, patient has difficulty with consistent implementation when performing ADLs, such as handwriting, due to distractibility and difficulty with divided attention. Patient has also participated in educ ation on recommended carryover activities to help address [...] was also reminded that strategies covered in therapymay help to only potentially manage movement related [...] as agreement to wrap up her course ofOP OT at this time due to adequately [...] OT visit 9 Notes Total treatment time: 8388-7163. The pt actively participated in her D/C assessment to formally determine changes that have occurred since her initial evaluation. Functional Activity (24698) Intervention Performance in outcome measures with processing [...] this session. Van Dubon OTR/L STATE LICENSE, [id number] documented in this [id number] History of Present illness Narrative* Van uDbon OT - 11/30/2022 2:45 PM EST [facility] OUTPATIENT REHABILITATION DAILY TREATMENT NOTE Today's Date [...] Treatments: Occupational Therapy Exercise Log - 11/30/22 1642 OTHER Precautions/Contraindications OT visit 8 Notes Total treatment time: 14:50-15:35. LTG 2 and 4 addressed during this session with both goals ongoing. Neuro Re-Ed (37045) Intervention Review of patient develop therapeutic exercise program to assess patient's applicationof movement behavior strategies and self-monitoring skills for [...] to carryover to home practice. Functional Activity (11499) Intervention Screening of functional vision to address [...] voicing understanding of information provided Self Care (55602) Intervention Review of handwriting assignment determine accuracy [...] Visit: Discharge Van Dubon OTR/L STATE LICENSE, [id number] documented in this [id number] History of Present illness Narrative* Van Dubon OT - 11/23/2022 2:45 PM EST [facility] OUTPATIENT REHABILITATION DAILY TREATMENT NOTE Today's Date [...] Treatments: Occupational Therapy Exercise Log - 11/23/22 7117 OTHER Precautions/Contraindications OT visit 7 Notes Total treatment time: 7665-8241. LTG 1 and 4 addressed during this session with both goals ongoing. Functional Activity (41200) Intervention Functional mobility incorporating functional carry to generalize movement behavior strategies with increased complexity of task. Parameters Patient able to maintain optimal postural alignment and arm swing while carrying items without additional verbal cueing. This was an improvement in self-monitoring skills and implementation of strategies. Self Care (72340) Intervention Handwriting activity with increased complexity of [...] divided attention. Patient also provided assignment to cre ate a sequential task we can perform during [...] of skills. Van Dubon OTR/L STATE LICENSE, [id number] documented in this [id number] History of Present illness Narrative* Van Dubon OT - 11/16/2022 2:45 PM EST [facility] OUTPATIENT REHABILITATION DAILY TREATMENT NOTE Today's Date [...] Notes Total tx time: 14:50-15:30. Neuro Re-Ed (99747) Intervention Review of HEP to determine accuracy [...] motor learning. Van Dubon OTR/L STATE LICENSE, [id number] documented in this [id number] History of Present illness Narrative* Van Dubon OT - 11/16/2022 2:45 PM EST [facility] OUTPATIENT REHABILITATION DAILY TREATMENT NOTE Today's Date [...] session with both goals ongoing. Neuro Re-Ed (03891) Intervention Review of HEP to determine accuracy of retained information. Parameters Patient benefited from structured review to clarify technique of therapeutic exercises, which helped with improved implementation of large amplitude and increasing intensity movement strategies. Patient continued to benefit from modeling and mod verbal cues for accurate/consistent impleme ntation. Patient also provided education on modifications to [...] motor learning. Van Dubon OTR/L STATE LICENSE, [id number] documented in this [id number] History of Present illness Narrative* Van Dubon OT - 11/11/2022 2:45 PM EST [facility] OUTPATIENT REHABILITATION DAILY TREATMENT NOTE Today's Date [...] Treatments: Occupational Therapy Exercise Log - 11/11/22 6790 OTHER Precautions/Contraindications OT visit 3 Notes Total treatment time: 14:50-15:34. LTG 1 and 2 addressed during this session with both goals ongoing. Neuro Re-Ed (31174) Intervention HEP education with therapeutic exercises focused on increasing intensity performance with increased complexity and to incorporate other movement behavior strategies. Parameters Printed program provided to help with accuracy of carryover. Patient benefited from modeling, moderate verbal cues for implementation of strategy, and therapist responsible for keeping count of repetitions to help with accuracy of performance of HEP. Patient would benefit from structuredreview to support new learning. Intervention Theraputty activity to incorporate large amplitude movement, speed of performance, andcomplexity. Parameters Patient having difficulty with consistent limitation [...] Structure review of today's tasks to support newlearning. Van Dubon, OTR/L STATE LICENSE, [id number] documented in this [id number] History of Present illness Narrative* Van Dubon OT - 11/09/2022 2:45 PM EST [facility] OUTPATIENT REHABILITATION DAILY TREATMENT NOTE Today's Date [...] Test: R: , L: ; MALGORZATA Isometric Metal Sander Strength Test: R: , L: . Treatments: Occupational Therapy Exercise Log - 11/09/22 1651 OTHER Precautions/Contraindications OT visit 2 Notes Total treatment time: 1969-3478. Neuro Re-Ed (77518) Intervention Tabletop activities focused on generalization of [...] new learning. Van Dubon OTR/L STATE LICENSE, [id number] documented in this [id number] History of Present illness Narrative* Van Dubon OT - 11/09/2022 2:45 PM EST [facility] OUTPATIENT REHABILITATION DAILY TREATMENT NOTE Today's Date [...] OT visit 2 Notes Total treatment time: 1260-3781. LTG 3, 1 addressed during this session with both goals ongoing. Neuro Re-Ed (58850) Intervention Tabletop activities focused on generalization of [...] understanding of information provided and willingness to implementat home. OT Treatment Times Neuro Re-Ed Total [...] new learning. Van Dubon OTR/L STATE LICENSE, [id number] documented in this [id number] History of Present illness Narrative* TRACY Lawler - 11/01/2022 11:00 AM EST [facility] Speech Therapy Evaluation Today's Date 11/01/2022 Patient Name: Uma Mcgrath Date of : 1950 Case Name: ST-2 Functional Diagnosis: 1. Parkinson's disease (HCC) Clinical [...] from levodopa which was previously prescribed but shehesitates to start. She finds exercise to be helpful and would be interested in returning to physical therapy before starting medication. No recent falls. Continues to drive during daylight hours, does not feel comfortable driving at night. Lives alone. Some difficulties with ADLs. 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 Again discussed this may be alleviated with dopaminereplacement therapy. After much discussion with patient and daughter who was present for today's visit she declined to start medication at this time. Denies difficulty with sleep or mood. Lexapro continues to be helpful. Subjective History: Patient is a 72 y/o female referred by Nurse Practitioner, Nicole Hayden d/tParkinson's disease. Reported changes do not impact the patient's ability to complete daily IADL's.Changes began in 2019, however, no voice changes since last speech therapy in 2020. Patient's relevant medical history includes: Parkinson Disease. 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 Patient reports mild memory difficulties however, [...] stating, I have always had hoarse vocal quality. Previous Treatment for this condition: Yes Therapy [...] open ended quesitons after short story: 02/03) Account Service Associate Memory: WFL (/5 (100%)) Working Memory: WFL Memory for new learning: WFL Executive Function Verbal Problem Solving: WFL (Patient able to provide solutions to home and community related problems) Verbal reasoning: WFL (Provided 3/3 correct reasons for presented problems) Organizational planning: WFL [place] Categorization: WFL Abstract Categorization: Mild (75-95%) (4/5 [...] with an average duration of 17.92 seconds [place] Passage: 85 dB Conversation: 75-80 dB Treatment Plan: No further ST warranted at this time. Patient Education provided: Discussed treatment plan and diagnosis/pathophysiology/prognosis. Pt isin agreement with plan, and all questions at this time were answered. Clinical Impression: Uma Mcgrath presents to [facility] outpatient neurological rehab services on 11/01/2022 for a clinical voice evaluation and an informal speech language cognitive evaluation d/t Parkinson's disease. Pt's chief complaints include: slight memory changes, however, not impacting completion of daily tasks. Upon assessment, pt exhibited cognitive-linguistic skills within normal limits. Patient reporting slight memory changes, such as walking in a room and forgetting what to get, however, not frequent.Patient independent with use of memory strategies. Memory changes are not impacting completion of IALD's and hobbies. Patient able to recall 100% of information during testing from an immediate and delayed standpoint. Pt presented with intact voice. Patient reporting minimal changes since last duration of speech therapy. Patient states, my kids ask me talk up on the phone sometimes, however, not often and patient has no difficulty in any other situation or environment. Patient's volume ranging between 76 up to90 dB in all structured and unstructured tasks [...] the above number. TRACY Lawler State License, [id number] documented in this [id number] History of Present illness Narrative* Breanne Philippe, PT - 11/01/2022 10:15 AM EST [facility] OUTPATIENT [facility]IL[facility] Physical Therapy Evaluation Today's Date 11/01/2022 Patient Name: Uma Mcgrath Date of : 1950 Case Name: PT- 2 Functional Diagnosis: 1. Parkinson disease (HCC) Clinical Information: Subjective Referring Diagnosis: PD Patient accompanied by: unaccompanied History of Present Illness Subjective History: Uma arrives to OP PT following referral from STOGY [employer]KER. She is familiar to this department as was seen in summer of 2020 for the [facility]SV[employer] program for PD. Since then, Uma states she performs delay the disease multiple times per week, goes to a stretching and strengthening class,and when she doesn't go to class, does her delay the disease book, goes on her treadmill, jump ropes, and core strengthening. She has considering starting into the balance class at the fitness [facility] to reported deficits intermittently with maintaining single leg stance for 30 sec. She reports 2 falls within the last year, both of them were on bleachers at a basketball game, one following diff iculty with side stepping and one with difficulty [...] Social Support: kids help with leaves, snow Yazdanism, social, or cultural considerations to be made [...] fall in the last 12 months: No Yazdanism, social, or cultural considerations to be made [...] Weakness Noted: hip extensors/glutes Neuromotor: Neuromotor Coordination: [facility] Neuromotor Tests Neuromotor Sensation: intact Functional Mobility Transfers: Sit to stand: Modified independent and Insufficient forward flexion Stand to sit: Modified independent and Insufficient forward flexion Stand/squat pivot: Modified indpendent and Insufficient forward flexion Locomotion/Gait Locomotion/Gait: Decreased amplitude of movement (decreased R arm swing) Step length: Decreased R Device: None Other gait: Functional Objective Testin sec-Time Chh-ol-Jcvrx: 14 reps with decreased forward trunk lean Timed Up and Go: 5 sec FGA: Treatments: Physical Therapy Exercise Log - 11/01/22 1413 OTHER Precautions/Contraindications PD Notes Evaluation only: 2825-3878 Therapeutic Exercise (56083) Intervention Education in proper sit<>stand technique, proper turning practice for increasinggait amplitude Evaluation only Patient Education provided: Discussed diagnosis/pathophysiology/prognosis. Pt is in agreement with plan, and all questions at this time were answered. CPT Code 68608 Low 03955 Moderate 89021 High History 0 1-2 3+ Comorbidities: hx [...] Clinical Impression: . Uma Mcgrath presents to [facility] outpatient neurological rehab services with c/o fine motor deficits, mild balance difficulty due to history of PD. Upon assessment, Uma does demonstrate changes in sit<>stand mechanics and mild balance deficits, however her FGA is 26/30 and TUG is 5 sec suggesting well [...] above number. BREANNE PHILIPPE PT STATE LICENSE, [id number] documented in this [id number] History of Present illness Narrative* Van Dubon, OT - 11/01/2022 9:30 AM EST [facility] OUTPATIENT [facility]HABIL[facility] Occupational Therapy Evaluation Today's Date [...] pt noticing a decline in FMC affecting HW,tying shoes, using scissors,and adult coloring. Pt remains independent in her daily routine, but isrequiring more time d/t slowing in movement. Previous [...] week Duration: 4 weeks Interventions: Therapeutic Exercise (38274), Neuromuscular Re-Education (92840), Therapeutic/ Functional Activities (69861), and Self Care (00128) Rehab Potential: good Occupational Therapy Neuro goals: No data was found Patient Education provided: Discussed Plan of care frequency and duration, treatment plan, importance of attendance for recovery, team concept, and diagnosis/pathophysiology/prognosis. Pt is in agreement with plan, and [...] anxiety Clinical Impression: Uma Mcgrath presents to [facility] Neurological Rehabilitation on 11/01/2022 for an [...] above number. Van Dubon OTR/L STATE LICENSE, [id number] documented in this [id number] History of Present illness Narrative* Van Dubon OT - 11/01/2022 9:30 AM EST [facility] Occupational Therapy Evaluation Today's Date [...] of 2020 when she participated in the [facility] BIG program. Currently, pt noticing a decline in FMC affecting HW,tying shoes, using scissors,and adult coloring. Pt remains independent in her daily routine, but isrequiring more time d/t slowing in movement. Previous [...] week Duration: 4 weeks Interventions: Therapeutic Exercise (01539), Neuromuscular Re-Education (09907), Therapeutic/ Functional Activities (94730), and Self Care (91584) Rehab Potential: good Occupational Therapy Neuro goals: [...] of attendance for recovery, team concept, and diagnosis/pathophysiology/prognosis. Pt is in agreement with plan, and [...] anxiety Clinical Impression: Uma Mcgrath presents to [facility] on 11/01/2022 for an [...] above number. Van Dubon OTR/L STATE LICENSE, [id number] documented in this [id number] History of Present illness Narrative* Van Dubon OT - 11/01/2022 9:30 AM EST [facility] Occupational Therapy Evaluation Today's Date [...] the summer when she participated in the [email or web address] program. Currently, pt noticing a decline in FMC affecting HW,tying shoes, using scissors,and adult coloring. Pt remains independent in her daily routine, but isrequiring more time d/t slowing in movement. Previous [...] side of a hill facing a cash. Yazdanism, social, or cultural considerations to be made [...] fall in the last 12 months: No Yazdanism, social, or cultural considerations to be made [...] sharing that she is able to complete herIADL routine. However, patient is noticing progressive difficulty [...] week Duration: 4 weeks Interventions: Therapeutic Exercise (77758), Neuromuscular Re-Education (08871), Therapeutic/ Functional Activities (58993), and Self Care (60791) Rehab Potential: good Occupational Therapy Neuro goals: [...] of attendance for recovery, team concept, and diagnosis/pathophysiology/prognosis. Pt is in agreement with plan, and [...] anxiety Clinical Impression: Uma Mcgrath presents to [facility] on 11/01/2022 for an [...] above number. Van Dubon OTR/L STATE LICENSE, [id number] documented in this [id number] History of Present illness Narrative* TANYA HurdOLOGIST - 10/20/2022 11:39 AM EST DEXA performed documented in this [id number] History of Present illness Narrative* Heavenly Argueta OT - 10/05/2022 2:01 PM EST Pt seen today in Movement disorders clinic for Occupational Therapy screen. Most recent therapy services: OP, PT, OT, and SR. STRATEGIC SOURCING MANAGER 05/2021 Swallowing Questions: 1. Do you cough/choke and/or have persistent throat clearing with liquids/solids?: no 2. Do you ever have the sensation of food sticking in your throat?: no Cognitive Questions: Have you noticed a change in memory, attention (keeping your attention, completing 2 tasks at once,alternating your attention between task)? : yes Have [...] Fell going both up and down the 4tiitoo Current routine exercise program: weekly DTD classes Therapy needs identified: Desired location: [facility] Education provided: HEP Adherence, Importance of attendance to therapy, and Role of exercise and exercise guidelines [place] Cognitive Assessment completed with the following results: Visuospatial/executive: 3/5 Namin/3 Attention: 6/6 Language: 3/3 Abstraction: 2/2 Delayed recall: 2/5 Orientation: /6 Total score: 24/30 with normal being score equal to or greater than 26/30. No charge for OT screen this date. Will continue to follow at Movement disorders clinic and assess for therapy related needs. * Nicole Hayden CNP - 10/05/2022 12:47 PM EST [facility] MOVEMENT DISORDERS CLINIC FOLLOW-UP VISIT Assessment: Uma [...] minutes today in pre-review of the chart, duke-sg-johw interaction with the patient/care-partner (including discussion of the chart review, assessment of today's visit, and clinical plan development, as detailed above), updating/placing orders, and post-visit documentation. HPI: I saw Uma Mcgrath in follow-up at the [facility] Movement Disorders clinic for Parkinson disease. Tremor, slowness, and stiffness have become troublesome enough that she was interestedin talking about medication again today. ROS: As [...] swing bilaterally Reviewed: Chart review. Sincerely, Nicole Hayden CNP documented in this [id number] History of Present illness Narrative* Nel Marcano, DO - 09/19/2022 9:45 AM EST History of Present Illness Chief Complaint Patient presents with Anxiety Patient is here today for a follow up on anxiety. Patient is currently taking lexapro 10 MG once a day with no concerns. States that the medication works well for her anxiety. Here in office today toget a refill on medication. No other concerns. [...] 138/82, pulse 76, height 1.651 m (5' 5), weight 69.5 kg (153 lb 3.2 oz), [...] She follows with Dr. Matt Lopez at [facility] for Parkinson's - she states she has not started the medications as prescribed. Discussion regarding use of Sinemet (carbidopa/levidopa) and Mirapex (pramipexole) to control symptoms associated with Parkinson's. Obtain blood work - will need to fast for this blood draw. If lab work or other testing was ordered at your visit, please call our office ([phone]) one week after the lab draw or test to receive your results. ALEXEI Paige, was the medical office administrator for today's note. I have performed all essential components of the history and physical exam, confirmed the diagnosis and developed a plan of care at this visit. I have reviewed the note at the visit and have added edits as appropriate to my evaluation andplan of care. documented in this [facility]12-19-2022 Instructions* Patient Instructions* Shirley Beckett - 09/19/2022 9:45 AM EST Assessment and Plan ICD-10-CM 1. Generalized anxiety disorder F41.1 2. Parkinson's disease G20 3. Hypercholesteremia E78.00 4. Vitamin D deficiency E55.[address] Matt Lopez at [facility] for Parkinson's - she states she has not started the medications as prescribed. Discussion regarding use of Sinemet (carbidopa/levidopa) and Mirapex (pramipexole) to control symptoms associated with Parkinson's. Obtain blood work - will need to fast for this blood draw. If lab work or other testing was ordered at your visit, please call our office ([phone]) one week after the lab draw or test to receive your results. ALEXEI Paige, was the medical office administrator for today's note. I have performed all essential components of the history and physical exam, confirmed the diagnosis and developed a plan of care at this visit. I have reviewed the note at the visit and have added edits as appropriate to my evaluation andplan of care. [facility] this [facility] History of Present illness Narrative* Brianda Skelton MA - 08/26/2022 11:02 AM EST Evenity in both arms, pt tolerated well, next appt 09/28 documented in this [id number] History of Present illness Narrative* Claire Rosario CNP - 08/12/2022 8:30 PM ESTAssociated Order(s): LG Jt Injection/Arthrocentesis: L knee Post-Procedure Diagnose(s): Instability of left knee joint [address] [facility] [address] [facility] [id number] Chief Complaint Patient presents with Left Knee - Follow-up Uma Mcgrath returns to the office today for follow up on her left knee. I last saw this mary lady in May of this year. She has some arthritis in the left knee but has been managing it with otc pain relievers as well as exercise. She has parkinsons so exercising is very important to her.She can't recall one instance but she now is having locking up in her knee as well as the feeling of instability. She wants to keep exercising but the knee continues to become more painful and she isnervous that she won't be able to continue [...] 300-1,000 mg capsule, Take 2 g by mouthdaily ., Disp: , Rfl: potassium citrate (UROCIT-K) [...] complications and she tolerated this well. I willsee her back in the office to review her MRI results. LG Jt Injection/Arthrocentesis: L knee Performed by: Claire Rosario CNP Authorized by: Claire Rosario CNP CPT 70271 - Large Joint Arthrocentesis: Consent given by: [...] with no immediate complications documented in this [id number] History of Present illness Narrative* Matt Lopez MD - 08/04/2022 10:27 AM EDT [facility] MOVEMENT DISORDERS CLINIC FOLLOW-UP VISIT Assessment: Uma G Foster is a 72 y.o. female with right [...] the day. We discussed that the medication shouldbe taken 30 minutes before or 60 minutes [...] minutes today in pre-review of the chart, ylcc-uv-negz interaction with the patient/care-partner (including discussion of the chart review, assessment of today's visit, and clinical plan development, as detailed above), updating/placing orders, and post-visit documentation. HPI: I saw Uma Mcgrath in follow-up at the [facility] Movement Disorders clinic for Parkinson disease. [...] Matt Lopez MD, PhD documented in this [id number] History of Present illness Narrative* Lani Mcpherson MA - 06/29/2022 11:54 AM EDT Patient got evenity injection in both arms tolerated it well next appt 07/27 documented in this [id number] History of Present illness Narrative* Lani Mcpherson MA - 06/29/2022 11:54 AM EDT Patient got evenity injection in both arms tolerated it well next appt 07/27 documented in this [id number] History of Present illness Narrative* Marvin Hopkins - 05/27/2022 9:42 AM EDT Images from the original note were not included. [facility] [address] [place] [address] Name: Uma Mcgrath : 1950 Date: 05/27/22 [...] is aware that she can download the Kudan dong at any time and connect her hearing aids to her phone for streaming phone calls and media at any time. Ms. Mcgrath will return as scheduled for her conformity evaluation, sooner if there are any issues. Mrs. Mcgrath expressed understanding of and agreement with the above. Electronically Signed by: Marvin Hopkins, CCC/A, FAAA, JESSICA Cert. 05/27/22 9:42 AM documented in this [id number] History of Present illness Narrative* Lani Mcpherson MA - 05/25/2022 10:32 AM EDT Patient got evenity inj in both arms tolerated it well next appt is 06/29 documented in this [id number] History of Present illness Narrative* Claire Rosario CNP - 05/22/2022 7:07 PM EDT Uma Mcgrath 1950 CC: 72 y.o. is a she [...] some pain in the knee and wanted tohave it checked. She doesn't want to be [...] 300-1,000 mg capsule, Take 2 g by mouthdaily ., Disp: , Rfl: potassium citrate (UROCIT-K) [...] Edwards EGD [address] Gnozalez; patient can not recall date EGD 12/01/2016 [...] discuss different activities and modifications with her six sigma black trainer.She is to continue with otc pain medications if she needs them. I am more than happy to see her back as needed. Diagnosis: Problem List Items Addressed This Visit None Follow Up: No follow-ups on file. Claire Rosario CNP documented in this [id number] History of Present illness Narrative* Tisha Maldonado MA - 04/27/2022 11:35 AM EDT Patient tolerated Evenity injections well. Injections given in both arms subcutaneous Next appointment 05-25-22 documented in this [id number] History of Present illness Narrative* Lani Mcpherson MA - 03/30/2022 11:02 AM EDT Patient got injection in both arms tolerated it well Patient got injection in both arms Patients next appt is 04/27 documented in this [id number] History of Present illness Narrative* Leidy Donald MD - 02/23/2022 11:30 AM EDT Images from the original note were not included. 02/23/22 Uma Mcgrath [address] Nel Marcano, DO [address] [facility] [address] Uma Mcgrath was seen on 02/23/22 for the [...] stages. She is doing an exercise program tailoredtowards increasing her balance. She has obvious tremors today. She tolerates Evenity without any GI, or cardiac side effects. She does experience a headache 2 days after receiving the injection. She is taking 4000 units of vitamin D regularly. She is taking 1033-0924 mg of calcium supplement She has had no intercurrent illness. The following portions of the patient's history were reviewed and updated as appropriate: allergies, current medications, past medical history, 10 point ROS and problem list. There has been no change in her social history. She has been for the past 10 years. She has3 children and 2 grandchildren. 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 Osteoporosis Treatment to date has included: Evenity OctJanuary 2022 DXA to Date: Date: 03/21 08/22 Manuf: [employer] L1-L4: -1.2 -2.4 L FN: -2.1 -2.1 [...] falling. We will continue with Evenity monthly asit is well tolerated and affordable. She understands the black box warning about cardiovascular events I will check for secondary causes of osteoporosis as noted above including a marker of bone resor ption as a baseline that we can follow [...] this nice patient. Sincerely Leidy Donald M.D. [facility] CC: A total of 35 minutes was spent by me reviewing the patient's chart pertinent medical notes from other providers as well as testing and labs in preparation for naga-oc-rtyo visit with the patienttoday. During this encounter, counseling and coordination of care were also conducted. Specificallywe addressed the risk, benefits, and alternatives to the therapies discussed above; interviewing examining and counseling the patient and ordering and reviewing lab tests and documenting the patient's note Note: To expedite correspondence this note was generated by [employer] voice recognition software. Somegrammatical or spelling errors may occur using the system. Portions of this history have been copied from a previous note, but pertinent information has been amended and updated by me. documented in this [id number] History of Present illness Narrative* Matt Lopez MD - 02/10/2022 8:21 AM EDT [facility]IC FOLLOW-UP VISIT Assessment: Uma [...] minutes today in pre-review of the chart, cuyv-et-[id number] interaction with the patient/care-partner (including discussion of the chart review, assessment of today's visit, and clinical plan development, as detailed above), and post-visit documentation. HPI: I saw Uma Mcgrath in follow-up at the [facility] clinic for Parkinson disease [...] Matt Lopez MD, PhD documented in this [id number] History of Present illness Narrative* Celeste Guerra, AuD - 01/20/2022 1:16 PM EDT Images from the original note were not included. [facility] [address] [place] [address] Name: Uma Mcgrath : 1950 Date: 01/20/22 History & Purpose of Evaluation: Ms. Mcgrath was seen today for audiologic evaluation at the kind request of Dr. Marcano. Ms. Mcgrath was last evaluated on 02/25/2020. Results at that time revealed a mild sloping to moderately severe sensorineural hearing loss, bilaterally. Ms. Mcgrath has been wearing binaural hearing aids forthe past 13 years. She would not like to replace her older, unrepairable right hearing aid and match it to her newer left hearing aid. Please see below for other pertinent case history information asreported by Ms. Mcgrath. Otologic Symptoms R L [...] by: Marvin Marvin, CCC/A, FAAA JESSICA Certified Outreach Associate 01/20/22 1:17 PM documented in this [id number] History of Present illness Narrative* Marvin Hopkins - 12/01/2021 11:45 AM EST Images from the original note were not included. [facility] [address] [place] [address] Name: Uma Mcgrath : 1950 Date: 12/01/21 Hearing Aid Contact Note: Ms. Mcgrath was seen today for right hearing aid repair. Ms. Mcgrath presented her older, righthearing aid as . A listening check confirmed that the aid is not functioning. I changed the battery, wax trap, dome and coverstitch binder to no avail. The aid is no [...] by: Marvin Marvin, CCC/A, FAAA JESSICA Certified Outreach Associate 12/01/21 11:45 AM documented in this [id number] History of Present illness Narrative* Leidy Donald MD - 09/22/2021 3:00 PM EST Images from the original note were not included. 09/22/21 Uma Mcgrath [address] Nel Marcano, DO [address] [address] Uma Mcgrath was seen on 09/22/21 for [...] stages. She is doing an exercise program tailoredtowards increasing her balance She is taking 1000 [...] and 2 grandchildren. 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 Osteoporosis Treatment to date has included: None [...] this nice patient. Sincerely Leidy Stevens M.D. [facility] Oste[facility] CC: A total of 35 minutes was spent by me reviewing the patient's chart pertinent medical notes from other providers as well as testing and labs in preparation for dkwk-kj-uufo visit with the patienttoday. During this encounter, counseling and coordination of care were also conducted. Specificallywe addressed the risk, benefits, and alternatives to the therapies discussed above; interviewing examining and counseling the patient and ordering and reviewing lab tests and documenting the patient's note Note: To expedite correspondence this note was generated by [employer] voice recognition software. Somegrammatical or spelling errors may occur using the system. Portions of this history have been copied from a previous note, but pertinent information has been amended and updated by me. documented in this [id number] History of Present illness Narrative* TANYA HurdOLOGIST - 08/04/2021 11:43 AM EDT DEXA performed documented in this [id number] History of Present illness Narrative* Seen and seen today acutely. Diagnosed with Parkinson disease approximately 2 years ago currently on no medications. Is involved in active physical therapy, delayed the disease at [facility]. She exercises daily. She lives independently still drives and is able to perform all of her acts of daily living. She has noticed that her tremor has increased and is wondering if she should start her Sinemet, she has follow-up appoint with her neurologist in July. She has been having some constipationas advised over the phone to begin MiraLAX [...] that in her literature on Parkinson's as well. * Recent Cologuard testing was negative. She denies any rectal bleeding [facility] [address] Work Phone: [phone] 794-878709-10-2021 History of Present illness Narrative* TRACY Argueta - 06/11/2021 8:45 AM EDT [facility] OUTPATIENT REHABILITATION DAILY TREATMENT NOTE Today's Date [...] #25 from the Speak[employer]! Workbook with the SR. STRATEGIC SOURCING MANAGER as part of this treatment session. Task Target dB Patient met target dB in X/10 trials Cues needed Spontaneous conversational speech 75 6/10 No cues Warm up 85 8/10 No cues Sustained ah 85 10/10 No cues Vocal glides 85 10/10 No cues Reciting numerical sequences 80 10/10 No cues Reading phrases 75 10/10 No cues Cognitive-linguistic task 75 10/10 No cues Weigher Operator informed patient of discharge due to completion of Speakout program. Weigher Operator discussed maintenance recommendations. Patient verbalized understanding and all questions were answered. Goals: Speech Therapy: Voice: LT. The patient will produce spontaneous conversation while using intentindependently in order to be heard and understood by familiar and unfamiliar listeners by 4-6 weeksfrom start of the program. ST. The patient will coordinate vocal and articulatory subsystems in hierarchial speech tasks by producing sounds with intention with no cues. 2. The patient will read phrases, sentences, and paragraphs with intention, yielding improved vocalquality, loudness, articulatory precision, and endurance while maintaining [...] this Visit: Discharge TRACY Argueta STATE LICENSE, [id number] documented in this [id number] History of Present illness Narrative* TRACY Argueta - 06/09/2021 8:45 AM EDT [facility] OUTPATIENT REHABILITATION DAILY TREATMENT NOTE Today's Date [...] #24 from the [employer]! Workbook with the SR. STRATEGIC SOURCING MANAGER as part of this treatment session. Task Target dB Patient met target dB in X/10 trials Cues needed Spontaneous conversational speech 75 6/10 No cues Warm up 85 8/10 MIN Sustained ah 85 10/10 No cues Vocal glides 85 10/10 No cues Reciting numerical sequences 80 10/10 MIN Reading phrases 75 10/10 No cues Cognitive-linguistic task 75 10/10 No cues Weigher Operator provided further instructions regarding warm ups and numerical sequences to facilitate effective performance of each. Patient verbalized understanding. Weigher Operator informed patient of discharge next session. Patient was agreeable. Goals: Speech Therapy: Voice: LT. The patient will produce spontaneous conversation while using intentindependently in order to be heard and understood by familiar and unfamiliar listeners by 4-6 weeksfrom start of the program. ST. The patient will coordinate vocal and articulatory subsystems in hierarchial speech tasks by producing sounds with intention with no cues. 2. The patient will read phrases, sentences, and paragraphs with intention, yielding improved vocalquality, loudness, articulatory precision, and endurance while maintaining [...] Speakout lesson 25 TRACY Argueta STATE LICENSE, [id number] documented in this [id number] History of Present illness Narrative* TRACY Argueta - 06/08/2021 8:45 AM EDT [facility] OUTPATIENT REHABILITATION DAILY TREATMENT NOTE Today's Date [...] Treatments: Patient completed Lesson #24 from the [employer] Workbook with the SR. STRATEGIC SOURCING MANAGER as part of this treatment session. Task Target dB Patient met target dB in X/10 trials Cues needed Spontaneous conversational speech 75 8/10 No cues Warm up 85 9/10 min Sustained ah 85 10/10 No cues Vocal glides 85 10/10 min Reciting numerical sequences 80 9/10 min Reading phrases 75 10/10 No cues Cognitive-linguistic task 75 10/10 No cues Weigher Operator explained carryover exercises in workbooks and reviewed a few exercises she needed minimal cuesto perform. Weigher Operator explained Home exercise program post completion of sessions since she only has 2 more sessions left. All questions were answered regarding this information. Goals: Speech Therapy: Voice: LT. The patient will produce spontaneous conversation while using intentindependently in order to be heard and understood by familiar and unfamiliar listeners by 4-6 weeksfrom start of the program. ST. The patient will coordinate vocal and articulatory subsystems in hierarchial speech tasks by producing sounds with intention with no cues. 2. The patient will read phrases, sentences, and paragraphs with intention, yielding improved vocalquality, loudness, articulatory precision, and endurance while maintaining [...] lesson 24 speakout TRACY Argueta STATE LICENSE, [id number] documented in this [id number] History of Present illness Narrative* TRACY Argueta - 06/08/2021 8:45 AM EDT [facility] OUTPATIENT REHABILITATION DAILY TREATMENT NOTE Today's Date [...] Treatments: Patient completed Lesson #24 from the [employer] Workbook with the SR. STRATEGIC SOURCING MANAGER as part of this treatment session. Task Target dB Patient met target dB in X/10 trials Cues needed Spontaneous conversational speech 75 8/10 No cues Warm up 85 9/10 min Sustained ah 85 10/10 No cues Vocal glides 85 10/10 min Reciting numerical sequences 80 9/10 min Reading phrases 75 10/10 No cues Cognitive-linguistic task 75 10/10 No cues Weigher Operator explained carryover exercises in workbooks and reviewed a few exercises she needed minimal cuesto perform. Weigher Operator explained Home exercise program post completion of sessions since she only has 2 more sessions left. All questions were answered regarding this information. Goals: Speech Therapy: Voice: LT. The patient will produce spontaneous conversation while using intentindependently in order to be heard and understood by familiar and unfamiliar listeners by 4-6 weeksfrom start of the program. ST. The patient will coordinate vocal and articulatory subsystems in hierarchial speech tasks by producing sounds with intention with no cues. 2. The patient will read phrases, sentences, and paragraphs with intention, yielding improved vocalquality, loudness, articulatory precision, and endurance while maintaining [...] on lesson 24 speakTRACY Bright STATE LICENSE, [id number] documented in this [id number] History of Present illness Narrative* TRACY Argueta - 06/08/2021 8:45 AM EDT [facility] OUTPATIENT REHABILITATION DAILY TREATMENT NOTE Today's Date [...] #23 from the [employer]! Workbook with the SR. STRATEGIC SOURCING MANAGER as part of this treatment session. Task Target dB Patient met target dB in X/10 trials Cues needed Spontaneous conversational speech 75 8/10 No cues Warm up 85 9/10 min Sustained ah 85 10/10 No cues Vocal glides 85 10/10 min Reciting numerical sequences 80 9/10 min Reading phrases 75 10/10 No cues Cognitive-linguistic task 75 10/10 No cues Weigher Operator explained carryover exercises in workbooks and reviewed a few exercises she needed minimal cuesto perform. Weigher Operator explained Home exercise program post completion of sessions since she only has 2 more sessions left. All questions were answered regarding this information. Goals: Speech Therapy: Voice: LT. The patient will produce spontaneous conversation while using intentindependently in order to be heard and understood by familiar and unfamiliar listeners by 4-6 weeksfrom start of the program. ST. The patient will coordinate vocal and articulatory subsystems in hierarchial speech tasks by producing sounds with intention with no cues. 2. The patient will read phrases, sentences, and paragraphs with intention, yielding improved vocalquality, loudness, articulatory precision, and endurance while maintaining [...] lesson 24 speakout TRACY Argueta STATE LICENSE, [id number] documented in this [id number] History of Present illness Narrative* TRACY Argueta - 06/03/2021 8:45 AM EDT [facility] OUTPATIENT REHABILITATION DAILY TREATMENT NOTE Today's Date [...] #18 from the SpeakOut! Workbook with the SR. STRATEGIC SOURCING MANAGER as part of this treatment session. Task [...] and performed all tasks with independence. Patient presentedwithout questions regarding HEP. Patient continues to improve. Goals: Speech Therapy: Voice: LT. The patient will produce spontaneous conversation while using intentindependently in order to be heard and understood by familiar and unfamiliar listeners by 4-6 weeksfrom start of the program. ST. The patient will coordinate vocal and articulatory subsystems in hierarchial speech tasks by producing sounds with intention with no cues. 2. The patient will read phrases, sentences, and paragraphs with intention, yielding improved vocalquality, loudness, articulatory precision, and endurance while maintaining [...] speakout lesson 23 TRACY Argueta STATE LICENSE, [id number] documented in this [id number] History of Present illness Narrative* TRACY Argueta - 06/01/2021 8:45 AM EDT [facility] OUTPATIENT REHABILITATION DAILY TREATMENT NOTE Today's Date [...] #16 from the [employer]! Workbook with the SR. STRATEGIC SOURCING MANAGER as part of this treatment session. Task [...] HEP. Patient continues to improve use of intent. Goals: Speech Therapy: Voice: LT. The patient will produce spontaneous conversation while using intentindependently in order to be heard and understood by familiar and unfamiliar listeners by 4-6 weeksfrom start of the program. ST. The patient will coordinate vocal and articulatory subsystems in hierarchial speech tasks by producing sounds with intention with no cues. 2. The patient will read phrases, sentences, and paragraphs with intention, yielding improved vocalquality, loudness, articulatory precision, and endurance while maintaining [...] Speakout lesson 18 TRACY Argueta STATE LICENSE, [id number] documented in this [id number] History of Present illness Narrative* TRACY Colón - 05/27/2021 8:45 AM EDT [facility] OUTPATIENT REHABILITATION DAILY TREATMENT NOTE Today's Date [...] #11 from the SpeakOut! Workbook with the SR. STRATEGIC SOURCING MANAGER as part of this treatment session. Task [...] patient will produce spontaneous conversation while using intentindependently in order to be heard and understood by familiar and unfamiliar listeners by 4-6 weeksfrom start of the program. ST. The patient will coordinate vocal and articulatory subsystems in hierarchial speech tasks by producing sounds with intention with no cues. 2. The patient will read phrases, sentences, and paragraphs with intention, yielding improved vocalquality, loudness, articulatory precision, and endurance while maintaining [...] from Speak Out! TRACY Colón STATE LICENSE, [id number] documented in this [id number] History of Present illness Narrative* TRACY Colón - 05/25/2021 8:45 AM EDT [facility] OUTPATIENT REHABILITATION DAILY TREATMENT NOTE Today's Date [...] Objective Patient completed Lesson #9 from the [employer] Workbook with the SR. STRATEGIC SOURCING MANAGER as part of this treatment session. Task [...] patient will produce spontaneous conversation while using intentindependently in order to be heard and understood by familiar and unfamiliar listeners by 4-6 weeksfrom start of the program. ST. The patient will coordinate vocal and articulatory subsystems in hierarchial speech tasks by producing sounds with intention with no cues. 2. The patient will read phrases, sentences, and paragraphs with intention, yielding improved vocalquality, loudness, articulatory precision, and endurance while maintaining [...] on Lesson #11 TRACY Colón STATE LICENSE, [id number] documented in this [id number] History of Present illness Narrative* TRACY Argueta - 05/21/2021 8:45 AM EDT [facility] OUTPATIENT REHABILITATION DAILY TREATMENT NOTE Today's Date [...] Treatments: Patient completed Lesson #8 from the [employer] Workbook with the SR. STRATEGIC SOURCING MANAGER as part of this treatment session. Task [...] to utilize more intent during cognitive tasks. Weigher Operator reviewed home exercises to perform until the next speech therapy session. Patient was agreeable and verbalized understanding. Goals: Speech Therapy: Voice: LT. The patient will produce spontaneous conversation while using intentindependently in order to be heard and understood by familiar and unfamiliar listeners by 4-6 weeksfrom start of the program. ST. The patient will coordinate vocal and articulatory subsystems in hierarchial speech tasks by producing sounds with intention with no cues. 2. The patient will read phrases, sentences, and paragraphs with intention, yielding improved vocalquality, loudness, articulatory precision, and endurance while maintaining [...] on Lesson 8 TRACY Argueta STATE LICENSE, [id number] documented in this [id number] History of Present illness Narrative* TRACY Argueta - 05/18/2021 8:45 AM EDT [facility] OUTPATIENT REHABILITATION DAILY TREATMENT NOTE Today's Date [...] #2 from the [employer]! Workbook with the SR. STRATEGIC SOURCING MANAGER as part of this treatment session. Task [...] patient will produce spontaneous conversation while using intentindependently in order to be heard and understood by familiar and unfamiliar listeners by 4-6 weeksfrom start of the program. ST. The patient will coordinate vocal and articulatory subsystems in hierarchial speech tasks by producing sounds with intention with no cues. 2. The patient will read phrases, sentences, and paragraphs with intention, yielding improved vocalquality, loudness, articulatory precision, and endurance while maintaining [...] SPEAKOUT lesson 5 TRACY Argueta STATE LICENSE, [id number] documented in this [id number] History of Present illness Narrative* TRACY Argueta - 05/17/2021 8:45 AM EDT [facility] OUTPATIENT REHABILITATION DAILY TREATMENT NOTE Today's Date [...] #1 from the [employer]! Workbook with the SR. STRATEGIC SOURCING MANAGER as part of this treatment session. Task Target dB Patient met target dB in X/10 trials Cues needed Spontaneous conversational speech 75 2/10 No cues Warm up 85 4/10 MIN Sustained ah 85 8/10 MIN Vocal glides 85 4/10 MOD Reciting numerical sequences 80 9/10 MIN Reading phrases 75 10/10 No cues Cognitive-linguistic task 75 8/10 No cues Weigher Operator provided initial models for tasks since it was the introduction to the program. Patient needed minimal-moderate verbal cues to perform tasks effectively. Weigher Operator discussed carryover tasks and home tasks to perform daily. All questions were answered. Patient was agreeable and verbalized understanding. Goals: Speech Therapy: Voice: LT. The patient will produce spontaneous conversation while using intentindependently in order to be heard and understood by familiar and unfamiliar listeners by 4-6 weeksfrom start of the program. ST. The patient will coordinate vocal and articulatory subsystems in hierarchial speech tasks by producing sounds with intention with no cues. 2. The patient will read phrases, sentences, and paragraphs with intention, yielding improved vocalquality, loudness, articulatory precision, and endurance while maintaining [...] SPEAKOUT lesson 2 TRACY Argueta STATE LICENSE, [id number] documented in this [id number] History of Present illness Narrative* Van Dubon OT - 05/13/2021 11:00 AM EDT [facility] OUTPATIENT REHABILITATION DAILY TREATMENT NOTE Today's Date 05/13/2021 Patient Name: Uma Mcgrath Date of : 1950 Current Visit #: 9 Authorized Visits: [id number] Case Name: OT-PD History: Pre-Treatment Pain Scale: 0 Symptoms: stabilized Functional Diagnosis: 1. Parkinson's disease (HCC) Clinical Information: Subjective: Patient actively participated in her discharge assessment to formally determine changesthat have occurred since her initial evaluation. Pt has been more mindful of posture as well as howshe is moving while performing everyday tasks. However, she has not been able to consistently do this every day. Patient was receptive to recommendation of participating in Delay the Disease exerciseclasses to help with habituation of strategies during transition after completing OP OT. Patient agreeable to discontinuing OP OT at this time due to completing LSVT BIG program. Objective Objective General Observations: Box and Blocks Test: R: 57 completions, L: 57 completions; Nine Hole Peg Test: R: 25 seconds , L: 25 seconds; MALGORZATA Isometric Metal Sander Strength Test: R: , L: . Hand dominance: right Affected side: bilateral (Right side more pronounced.) Gait/ Balance Weight Bearing Status Assistive device used: none Additional observational gait details: TU 6 seconds w/ limited right arm swing . TUG(Manual): 67 seconds while carrying a cup of water [...] 3 addressed during the session. Functional Activity (22503) Intervention Performance of LSVT BIG HEP with patient leading exercise program, keeping count of repetitions, and not having access to therapist modeling therapeutic exercises to increase complexity of task for generalization of movement behavior strategies. Functional Activity (55366) Intervention Performance of outcome measures for this [...] w/ Mod I for at least 10 min.and large amplitude movement and proper postural alignment [...] expected. Discharge Van Dubon OTR/L STATE LICENSE, [id number] documented in this [id number] History of Present illness Narrative* Leandro James PT - 05/12/2021 11:00 AM EDT [facility] OUTPATIENT REHABILITATION DAILY TREATMENT NOTE Today's Date [...] states that she will be attending the [address] [place] [address] [employer] for the free 30-day membership and DTD programs. Objective 30-Second Jkz-kr-Eccnh: 20 repetitions without UE assistance Timed Up and Go: 4.5 sec Harrison Balance Test: 56/56 6 MWT: 2305 feet without AD Treatments: Physical Therapy Exercise Log - 05/12/21 1130 OTHER Precautions/Contraindications Parkinson's Disease-LSVT Notes Visit 9; 11:30 AM-12:300 PM Therapeutic Exercise (21130) Intervention sci fit x 6 min on [...] x2 sets from outside bench Neuro Re-Ed (96401) Intervention Community fitness education and continual performance of PD based workout post DC x 20min Additional Exercises Add more exercises? Yes PT [...] Patient will be able to perform 30-second ijf-ue-diret test with >20 repetitions to demonstrate improved [...] environment during gait over even and uneven terrainwith maintenance of adequate speed, and no path deviations or LOB in 4 weeks. Patient will demonstrate appropriate amplitude and timing of stepping reactions to recover from internal or external perturbations to prevent fall in 4 weeks. Patient will be able to perform and achieve distance on 6 minute walk test to >1500 feet to showimproved functional endurance and promote return to community ambulation in 4 weeks. Patient Education: Quality of movement, Written HEP, HEP Adherence, Caregiver Education, Community Resources, Community Fitness and Diagnosis and recovery specific education with patient demonstratedunderstanding, verbalized understanding and written information provided . [...] this session Leandro James PT STATE LICENSE, [id number] documented in this [id number] History of Present illness Narrative* Abida Sheldon EVIER/Sulema - 05/11/2021 11:00 AM EDT [facility] OUTPATIENT REHABILITATION DAILY TREATMENT NOTE Today's Date 05/11/2021 Patient Name: Uma Mcgrath Date of : 1950 Current Visit #: 8 Authorized Visits: 199 Case Name: OT-PD History: Pre-Treatment Pain Scale: 0 Symptoms: stabilized Functional Diagnosis: 1. 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 Objective Treatments: Occupational Therapy Exercise Log - 05/11/21 1211 Neuro Re-Ed (04687) Intervention LSVT Standard Maximal Daily Exercises Parameters Dary lead the entire LSVT exercise program at 8 reps each except for 20 reps each on therock and reach. Demonstrated good form, full amplitude [...] w/ Mod I for at least 10 min.and large amplitude movement and proper postural alignment [...] and discharge measurements. NILES Balderas/Sulema State License, [id number] documented in this [id number] History of Present illness Narrative* Leandro James, PT - 05/10/2021 11:00 AM EDT [facility] OUTPATIENT REHABILITATION DAILY TREATMENT NOTE Today's Date [...] Patient states that she has purchased and startedto go through the [employer] the [employer] booklet. Objective Treatments: Physical Therapy Exercise Log - 05/10/21 1100 OTHER Precautions/Contraindications Parkinson's Disease-LSVT Notes Visit 8; 11:00 AM-12:00 PM Therapeutic Exercise (47341) Intervention sci fit x 6 min on L 5 Parameters LSVT BIG seated floor to ceiling x 8 with hand flicks/ elbow flexion/extension ( pt sitson [place] ball for floor to ceiling ex) Intervention [...] even floor, overhead reach upon standing up x10 each side Intervention single leg stance with spider on a mirror drill 5 x bilaterally Parameters alternating stepping with contralateral wall slide x 5 each side Intervention wall push ups x 10 Parameters wall angels x 10 Neuro Re-Ed (48266) Intervention Cube Sweeps with fine motor grasp x 15 bilaterally 5 sec hold each Parameters Spider on a mirror ball drill- x10 reps Intervention lateral weight shifts on BOSU (round part down) x 10 Parameters Swissball tosses (FWD, LAT (each direction))- x20 tosses with focus on amplutide Bilaterally Intervention Community fitness education and continual performance of PD based workout post DC x 10min Additional Exercises Add more exercises? Yes Gait Training (61644) Intervention -- PT Treatment Times Therex Total [...] Patient will be able to perform 30-second kez-ea-ktoky test with >20 repetitions to demonstrate improved [...] environment during gait over even and uneven terrainwith maintenance of adequate speed, and no path deviations or LOB in 4 weeks. Patient will demonstrate appropriate amplitude and timing of stepping reactions to recover from internal or external perturbations to prevent fall in 4 weeks. Patient will be able to perform and achieve distance on 6 minute walk test to >1500 feet to showimproved functional endurance and promote return to community [...] Visit: Discharge Leandro James PT STATE LICENSE, [id number] documented in this [id number] History of Present illness Narrative* Roro Galvez PTA - 05/07/2021 8:00 AM EDT [facility] OUTPATIENT REHABILITATION DAILY TREATMENT NOTE Today's Date 05/07/2021 Patient Name: Uma Mcgrath Date of : [...] Disease-LSVT Notes Visit 7; 8:05-9:05 Therapeutic Exercise (78086) Intervention sci fit x 5 min on L 5 (held 8-6) Parameters LSVT BIG seated floor to ceiling x 8 with hand flicks/ elbow flexion/extension ( pt sitson [place] ball for floor to ceiling ex) Intervention [...] even floor, overhead reach upon standing up x10 each side Intervention single leg stance on 1/2 foam roll (even side up) with contralateral november x10 Parameters alternating stepping with contralateral wall slide x 5 each side Intervention wall push ups x 10 Parameters wall angels x 10 Neuro Re-Ed (61410) Intervention Cube Sweeps with fine motor grasp x 10 bilaterally 5 sec hold each Parameters Spider on a mirror ball drill- x10 reps Intervention lateral weight shifts on BOSU (round part down) x 10 Additional Exercises Add more exercises? Yes Gait Training (45131) Intervention ambulation outside over various surfaces including [...] Patient will be able to perform 30-second bso-db-fdqcf test with >20 repetitions to demonstrate improved [...] environment during gait over even and uneven terrainwith maintenance of adequate speed, and no path deviations or LOB in 4 weeks. Patient will demonstrate appropriate amplitude and timing of stepping reactions to recover from internal or external perturbations to prevent fall in 4 weeks. Patient will be able to perform and achieve distance on 6 minute walk test to >1500 feet to showimproved functional endurance and promote return to community [...] next visit Roro Galvez PTA STATE LICENSE, [id number] documented in this [id number] History of Present illness Narrative* Van Dubon, OT - 05/06/2021 11:00 AM EDT [facility] OUTPATIENT REHABILITATION DAILY TREATMENT NOTE Today's Date 05/06/2021 Patient Name: Uma Mcgrath Date of : 1950 Current Visit #: 7 Authorized Visits: 199 Case Name: OT-PD History: Pre-Treatment Pain Scale: 0 Symptoms: stabilized Functional Diagnosis: 1. Parkinson's disease (HCC) Clinical Information: Subjective: Pt shared that she has become more aware of her posture through her participation in OPtherapy. Objective Treatments: Occupational Therapy Exercise Log - 05/06/21 1105 OTHER Precautions/Contraindications OT visit 7 Notes Total treatment time: 11:04-12:00. LTG 1-3 addressed during this sessionl with all goals ongoing. Functional Activity (68907) Intervention Seated/standing therapeutic exercises performing them in a circuit, keeping count, andincreasing reps for last 2 tasks to increase complexity of task to challenge higher-level attentionskills and generalize movement behavior strategies. Parameters Patient [...] inconsistencies. Add more exercises? Yes Self Care (53274) Intervention Basic ADL task (sit<>stand, reaching for beachball under table, brief sweeping task, handwriting, and removing lid form juice contaniner and pouring small amounts of water performed in circuit fashion) to generalize large amplitude movement strategies and proper postural alignment. Parameters Displaying improved ability for implementation of large amplitude movement strategies aswell as monitoring proper postural alignment with increased [...] w/ Mod I for at least 10 min.and large amplitude movement and proper postural alignment [...] seqeuntial tasks. Van Dubon OTR/L STATE LICENSE, [id number] documented in this [id number] History of Present illness Narrative* Van Dubon OT - 05/04/2021 11:00 AM EDT [facility] OUTPATIENT REHABILITATION DAILY TREATMENT NOTE Today's Date 05/04/2021 Patient Name: Uma Mcgrath Date of : 1950 Current Visit #: 6 Authorized Visits: 199 Case Name: OT-PD History: Pre-Treatment Pain Scale: 0 Symptoms: stabilized Functional Diagnosis: 1. Parkinson's disease (HCC) Clinical Information: Subjective: When the patient was asked how she felt she was doing with the LSVT BIG program she said, I am really enjoying this program. Patient shared that she talk to her children about the benefits that she is getting from this program, such as increased awareness of posture and large amplitude movement. Objective Treatments: Occupational Therapy Exercise Log - 05/04/21 0501 OTHER Precautions/Contraindications OT visit 6 Notes Total treatment time: 11:03 12:00. LTG 1-3 addressed during this sessionl with all goals ongoing. Functional Activity (22457) Intervention Seated/standing therapeutic exercises performing them in a circuit, keeping count, andincreasing reps for last 2 tasks to increase complexity of task to challenge higher-level attentionskills and generalize movement behavior strategies. Parameters Patient [...] inconsistencies. Add more exercises? Yes Functional Activity (35202) Intervention -- Self Care (74912) Intervention Basic ADL task (sit<>stand, reaching for beachball under table, brief sweeping task, handwriting, and removing lid form juice contaniner and pouring small amounts of water performed in circuit fashion) to generalize large amplitude movement strategies and proper postural alignment. Parameters Displaying improved ability for implementation of large amplitude movement strategies aswell as monitoring proper postural alignment with increased [...] w/ Mod I for at least 10 min.and large amplitude movement and proper postural alignment [...] and generalization. Van Dubon OTR/L STATE LICENSE, [id number] documented in this [id number] NoteHNO ID: [id number] Author: Monique Carrion, PhD Service: ? Author Type: Psychologist Type: Progress Notes Filed: 05/23/2021 11:03 PM Note Text: [facility] Clinical Health Psychology Evaluation Time of Service: 3:00 pm to 4:00 pm CPT Code: 2593482- Virtual Psychological Diagnostic Interview Billing Code: 0M9/Murali Due to the federal emergency declaration and the need for ongoing mental health services, the following visit was completed virtually and informed consent obtained orally to reduce the risk of COVID-19 exposure. Oral consent to services related to virtual visits was obtained after information was sent via [employer] or read to patient if Newsyhart not available. Identification and Presenting Problem: Ms. Mcgrath is a 71 year old female who was referred by Dr. Groves from [facility]. She presents with a 3-month [...] Social History: Ms. Mcgrath was raised in [place], [place] as the eldest of 3 children [...] after school care center, but not since [facility]. Medications: Current Outpatient Medications Medication Sig - [...] 5,000 Units by mouth once daily. - LHWGWDY-CTDHSGMHM-IEKY ORAL Take 1 tablet by mouth once [...] Ms. Mcgrath does not (more content not included)...[facility] 04-27-2021 History of Present illness Narrative* Van Dubon, OT - 04/27/2021 11:00 AM EDT [facility] OUTPATIENT REHABILITATION DAILY TREATMENT NOTE Today's Date [...] 2 addressed during this sessionl with both goalsongoing. Neuro Re-Ed (26793) Intervention -- Parameters -- Functional Activity (13723) Intervention Seated/standing therapeutic exercises with increased complexity of focusing on large amplitude movement strategies and proper postural alignment during performance, increasing amplitude of arm movement for both seated and standing exercises with flicks in both hands and patient to keepcount of repetitions for generalization of movement behavior strategies and addressing higher-levelattention skills to address divided attention task performance. Parameters Continue to benefit from max modeling and verbal cues for accuracy of implementation of strategies as well as attending to right side for symmetrical amplitude of movement. Patient also benefited from reassurance with increased animation during processing of performance. Patient displaying increased difficulty with maintaining symmetrical movement during stepping and seated therapeuticexercises. Patient did display improved rotation to right side during task performance. Would continue to benefit from structured repetition to support new motor learning. Add more exercises? Yes Functional Activity (48734) Intervention Handwriting activity performed in seated position while also trying to attend/maintainproper sitting postural aligment for generalization of movement [...] w/ Mod I for at least 10 min.and large amplitude movement and proper postural alignment [...] today's tasks for consistent mastery of skill. Van Dubon OTR/L STATE LICENSE, [id number] documented in this [id number] History of Present illness Narrative* Brettvaleriaestefani Roro, BLOOD DONOR RECRUITER SUPERVISOR - 04/26/2021 11:00 AM EDT [facility] OUTPATIENT REHABILITATION DAILY TREATMENT NOTE Today's Date [...] Disease-LSVT Notes Visit 4; 11:05-12:05 Therapeutic Exercise (90882) Intervention sci fit x 5 min on L 4.4 (held 04-26) Parameters LSVT BIG seated floor to ceiling x 8 with hand flicks/ elbow flexion/extension ( pt sitson pap[place] ball for floor to ceiling ex) Intervention Side to side x 8 reps with hand/ elbow flicks Parameters Fwd, lateral and bwds stepping x 8 each on even surface/trial on floor mat as well Intervention rock n reach x 10 each direction on floor mat Parameters sideways rock n reach x 10 each direction Intervention 10 STS from blue [place] ball Parameters 5 squats, transitioning to SLS and Eliceo UE abductions Intervention SLS x 3 each side, 10 sec holds with hand flicks Parameters alternating stepping with contralateral wall slide x 10 each side Intervention -- Additional Exercises Add more exercises? Yes Gait Training (35768) Intervention transitioning on /off floor mat while [...] Patient will be able to perform 30-second est-he-brqch test with >20 repetitions to demonstrate improved [...] environment during gait over even and uneven terrainwith maintenance of adequate speed, and no path deviations or LOB in 4 weeks. Patient will demonstrate appropriate amplitude and timing of stepping reactions to recover from internal or external perturbations to prevent fall in 4 weeks. Patient will be able to perform and achieve distance on 6 minute walk test to >1500 feet to showimproved functional endurance and promote return to community [...] LSVT exercise Roro Galvez PTA STATE LICENSE, [id number] documented in this [id number] History of Present illness Narrative* Roro Galvez, BLOOD DONOR RECRUITER SUPERVISOR - 04/23/2021 11:00 AM EDT [facility] OUTPATIENT REHABILITATION DAILY TREATMENT NOTE Today's Date [...] Disease-LSVT Notes Visit 3; 11:05-12:05 Therapeutic Exercise (45484) Intervention sci fit x 5 min on [...] support from chair/ 10 STS from blue [place] ball Parameters 5 squats, transitioning to SLS and Eliceo UE abductions Intervention SLS x 3 each side, 10 sec holds with hand flicks Parameters alternating marches x 10 each with hand to contralateral knee Intervention finger squeeze while holding playground ball x 5 reps, standing on rockerboard Additional Exercises Add more exercises? Yes Gait Training (45212) Intervention Amb with use of hockey sticks each UE and BLOOD DONOR RECRUITER SUPERVISOR walking behind to facilitate increased UE swing [...] Patient will be able to perform 30-second urt-gq-twdmv test with >20 repetitions to demonstrate improved [...] environment during gait over even and uneven terrainwith maintenance of adequate speed, and no path deviations or LOB in 4 weeks. Patient will demonstrate appropriate amplitude and timing of stepping reactions to recover from internal or external perturbations to prevent fall in 4 weeks. Patient will be able to perform and achieve distance on 6 minute walk test to >1500 feet to showimproved functional endurance and promote return to community ambulation in 4 weeks. Patient Education: Quality of movement, Written HEP and Verbal HEP with patient demonstrated understanding, verbalized understanding and written information provided . Post-Treatment Pain Scale: 0 Assessment: Patient had an expected response to treatment. Pt with narrower jarrett when stepping back with R LE and loses balance. Pt given vc for correction andwider jarrett in which she was able to adapt. Being on the floor mat was somewhat more challenging for pt. VC for higher steps when returning to neutral. Pt with decreased R UE swing and this was focus during ambulation. Increased tremors when not holding onto hockey sticks. Pt reports it felt more natural when BLOOD DONOR RECRUITER SUPERVISOR assisting with hockey sticks . Skilled Intervention demonstrated by modifications of treatment per exercise log including increased intensity, increased mobility and assessment of patient's response and safety interventions per exercise log. Progress towards goals as expected. Plan for Next Visit: Treatment Visit with focus on continue with LSVT protocol, incorporate uneven surfaces Roro Galvez PTA STATE LICENSE, [id number] documented in this [id number] History of Present illness Narrative* Van Dubon, OT - 04/22/2021 11:00 AM EDT [facility] OUTPATIENT REHABILITATION DAILY TREATMENT NOTE Today's Date [...] that there were different focuses for each session.Patient was encouraged to explore this particular exercise group as a transition after completing the LSVT BIG program. Patient voiced understanding of information and willingness to further explore this resource. Objective Treatments: Occupational Therapy Exercise Log - 04/22/211812 OTHER Precautions/Contraindications OT visit 3 Notes Total treatment time: 11:13 12:00. LTG 1 3 addressed during the session. All goals ongoing. Neuro Re-Ed (23579) Intervention Education on large amplitude movement strategies [...] LOB with repetative stepping/reaching activity with LLE dueto narrowing of stance when stepping in multiple planes. Patient also displaying difficulty with achieving symmetrical rotation during twist and reach therapeutic exercise with greater difficulty training to right side. Patient benefited from processing of performance with therapist to highlight opp ortunities to focus on in future sessions. Patient would benefit from structured repetition to support new learning. Functional Activity (10414) Intervention Handwriting activity performed in seated position for implementation of large amplitude movement strategy. Parameters Patient displaying improvement and FM coordination with implementation of strategy, but having difficulty with consistency in implementation. Would benefit from structured repetition. Add more exercises? Yes Functional Activity (47848) Intervention Functional mobility task performance for implementation [...] w/ Mod I for at least 10 min.and large amplitude movement and proper postural alignment [...] movement strategies Van Dubon OTR/L STATE LICENSE, [id number] documented in this [id number] History of Present illness Narrative* Van Dubon OT - 04/22/2021 11:00 AM EDT [facility] OUTPATIENT REHABILITATION DAILY TREATMENT NOTE Today's Date [...] that there were different focuses for each session.Patient was encouraged to explore this particular exercise group as a transition after completing the LSVT BIG program. Patient voiced understanding of information and willingness to further explore this resource. Objective Treatments: Occupational Therapy Exercise Log - 04/22/21 4095 OTHER Precautions/Contraindications OT visit 3 Notes Total treatment time: 11:13 12:00. LTG 1 3 addressed during the session. All goals ongoing. Neuro Re-Ed (22324) Intervention Education on large amplitude movement strategies [...] right side during task performance. Functional Activity (15617) Intervention Handwriting activity performed in seated position for implementation of large amplitude movement strategy. Parameters Displayed improved self-monitoring skills by implementing large amplitude movement strategies with handwriting. Had moderate difficulty with consistency of performance but improved from previous trial. Add more exercises? Yes Functional Activity (85627) Intervention Functional mobility task performance for implementation [...] w/ Mod I for at least 10 min.and large amplitude movement and proper postural alignment [...] movement strategies Van Dubon OTR/L STATE LICENSE, [id number] documented in this [id number] History of Present illness Narrative* Van Dubon OT - 04/20/2021 11:00 AM EDT [facility] OUTPATIENT REHABILITATION DAILY TREATMENT NOTE Today's Date [...] Treatments: Occupational Therapy Exercise Log - 04/20/21 6391 OTHER Precautions/Contraindications OT visit 2 Notes Total treatment time: 1108 1158. LTG 1 3 addressed during the session. All goals ongoing. Neuro Re-Ed (32740) Intervention Education on large amplitude movement strategies [...] LOB with repetative stepping/reaching activity with LLE dueto narrowing of stance when stepping in multiple planes. Patient also displaying difficulty with achieving symmetrical rotation during twist and reach therapeutic exercise with greater difficulty training to right side. Patient benefited from processing of performance with therapist to highlight opp ortunities to focus on in future sessions. Patient would benefit from structured repetition to support new learning. Functional Activity (52183) Intervention Handwriting activity performed in seated position for implementation of large amplitude movement strategy. Parameters Patient displaying improvement and FM coordination with implementation of strategy, but having difficulty with consistency in implementation. Would benefit from structured repetition. Add more exercises? Yes Functional Activity (16607) Intervention Functional mobility task performance for implementation [...] w/ Mod I for at least 10 min.and large amplitude movement and proper postural alignment [...] reaching activities. Van Dubon OTR/L STATE LICENSE, [id number] documented in this [id number] Instructions* Patient Instructions* Tom Ng MD - 04/08/2021 3:50 PM [...] July. Call with questions. documented in this [id number] History of Present illness Narrative* Tom Ng MD - 04/08/2021 3:32 PM EDT NEUROLOGY NOTE [facility], [place] [address] [address], [facility] second floor [place] [address] Fax: [phone] Service date: 04/08/2021 Admit date: (Not on [...] smell she reports that it is really bad. With regard to sleep issues she reports [...] need for combining therapy with medications. Since sheis worried about nausea, I have asked her to start Zofran 4 mg twice daily empirically to help withthe nausea that comes almost invariably with levodopa [...] loaded without a specified hospital service. TOM NG, MSc, MD. Staff Neurologist & Movement Disorder Specialist [facility] (Adj Asst: Professor, [employer] Dept of Neurology) ANG Ley Jared# [id number], [facility] [address] [facility] Fax: [phone] Attestation: Time Statement (OP Visits): A total [...] using a speech-recognition software. documented in this [id number] History of Present illness Narrative* Van Dubon OT - 04/06/2021 11:00 AM EDT [facility] Occupational Therapy Evaluation Today's Date [...] in her right for about a year. Sheremembered the incident occurred when she was leaving the water after swimming and attributed it tobeing cold. However, when it starting occurring more [...] side of a hill facing a cash. Yazdanism, social, or cultural considerations to be made [...] effort Mowing: increased time and effort Basic Mri Manager: increased time and effort Complex Mri Manager: increased time and effort Writing: increased time [...] fall in the last 12 months: No Yazdanism, social, or cultural considerations to be made aware of before starting treatment: No Gait/ Balance Weight Bearing Status Assistive device used: none Additional observational gait details: TU seconds w/ limited right arm swing. TUG(Manual): 7 seconds while carrying a cup of water in her right hand, and 7 when using left hand. TUG(Cognitive): 7seconds while carrying a cup of water in her right hand and counting backwards by 3's. Treatments: Occupational Therapy Exercise Log No documentation. Treatment Plan: Frequency of Visits: 2 4 times per week to meet standardized frequency of LSVT BIG program. Duration: 6 weeks Interventions: Therapeutic Exercise, Neuromuscular Re-Education, Therapeutic/ Functional Activitiesand Self Care Rehab Potential: good Occupational Therapy [...] w/ Mod I for at least 10 min.and large amplitude movement and proper postural alignment w/out vc's to help improve dynamic balance for ADL's performance. Patient Education provided: Discussed Plan of care frequency and duration, treatment plan, importance of attendance for recovery, team concept, and diagnosis/pathophysiology/prognosis. Pt is in agreement with plan, and [...] anxiety Clinical Impression: Uma Mcgrath presents to [facility] on 04/06/2021 for an [...] above number. Van Dubon OTR/L STATE LICENSE, [id number] documented in this [id number] History of Present illness Narrative* Van Dubon OT - 04/06/2021 11:00 AM EDT [facility] Occupational Therapy Evaluation Today's Date [...] in her right for about a year. Sheremembered the incident occurred when she was leaving the water after swimming and attributed it tobeing cold. However, when it starting occurring more frequently this past fall she decided to seek medical advise. Pt has noticed that it is [id number] Hand dominance: right Overall rating of health: [...] side of a hill facing a cash. Yazdanism, social, or cultural considerations to be made [...] effort Mowing: increased time and effort Basic Mri Manager: increased time and effort Complex Mri Manager: increased time and effort Writing: increased time [...] fall in the last 12 months: No Yazdanism, social, or cultural considerations to be made [...] Exercises Add more exercises? Yes Self Care (59224) Intervention Initial education on framework of movement [...] Interventions: Therapeutic Exercise, Neuromuscular Re-Education, Therapeutic/ Functional Activitiesand Self Care Rehab Potential: good Occupational Therapy [...] w/ Mod I for at least 10 min.and large amplitude movement and proper postural alignment w/out vc's to help improve dynamic balance for ADL's performance. Patient Education provided: Discussed Plan of care frequency and duration, treatment plan, importance of attendance for recovery, team concept, and diagnosis/pathophysiology/prognosis. Pt is in agreement with plan, and [...] anxiety Clinical Impression: Uma Mcgrath presents to [facility] on 04/06/2021 for an occupational therapy assessment with c/o right sided tremor. Upon assessment Patient also displayed deficits in right arm swing during functional mobility, step amplitude, deficits in fine/gross motor coordination, and self-monitoring skills.. These performance deficits impact Uma Mcgrath's ability to participate in the following performance in areas of ADLs/IADLs, functional mobility, carryingand reaching. Potential barriers to rehabilitation include chronicity [...] above number. Van Dubon OTR/L STATE LICENSE, [id number] documented in this [id number] History of Present illness Narrative* Leandro James PT - 04/06/2021 10:15 AM EDT [facility] Physical Therapy Evaluation Today's Date [...] in the right hand with increased activity, includingwalking. Patient denies any other issues or falls at this time. Patient wishes to learn appropriatestrategies and treatments for preventing worsening of symptoms [...] owned: No Social Support: Patient lives alone. Yazdanism, social, or cultural considerations to be made [...] fall in the last 12 months: No Yazdanism, social, or cultural considerations to be made aware of before starting treatment: No Objective General Observations: Functional Objective Testin-Second Wyp-sz-Nitbp: 16 repetitions with Mild UE assistance Timed [...] Disease-LSVT Notes Visit 1; 10:15-11:00 Therapeutic Exercise (58311) Intervention Patient education on LSVT program and protocol, education on PD specific Dx and prognosis. Educated on importance of physical activity and a HEP routine that is specific for PD. Also educated on formulation of the POC based on condition specific prognosis. HEP and attendance complianceand importance for improvement of symptoms x10 min [...] Patient will be able to perform 30-second oio-zy-nxxha test with >20 repetitions to demonstrate improved [...] environment during gait over even and uneven terrainwith maintenance of adequate speed, and no path deviations or LOB in 4 weeks. Patient will demonstrate appropriate amplitude and timing of stepping reactions to recover from internal or external perturbations to prevent fall in 4 weeks. Patient will be able to perform and achieve distance on 6 minute walk test to >1500 feet to showimproved functional endurance and promote return to community ambulation in 4 weeks. Patient Education provided: Discussed Plan of care frequency and duration, treatment plan, importance of attendance for recovery, team concept, and diagnosis/pathophysiology/prognosis. Pt is in agreement with plan, and all questions at this time were answered. CPT Code 37350 Low 83024 Moderate 92350 High History 0 1-2 3+ Comorbidities: chronic [...] Clinical Impression: . 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 Potential barriers to rehab include: Compliance with HEP, rigorous LSVT protocol, Attendance. The patient would benefit from skilled PT services focused on the above listed impairments andlimitations in order to safely progress patient to desired level of function. Plan of care to be revised as needed based on response to therapeutic intervention. Thank you for allowing me to participate in this patient's care. Please contact me with any questions at the above number. Leandro James PT STATE LICENSE, [id number] documented in this [id number] History of Present illness Narrative* Michelle Lawrence SLP - 04/06/2021 9:30 AM EDT [facility] Speech Therapy Evaluation Today's Date [...] referred to outpatient Speech therapy s/p new dxof Parkinson's Disease. Pt presents with minimal voice deficits. Relevant medical hx includes: GERD. Current diet is regular and thin liquids. No reports of s/s of aspiration or changes in swallow function at this time. Previous Treatment for this condition: No Pain Scale: Pain location: No pain reported Personal Goals: To maintain voice function. Social Support: Yazdanism, social, or cultural considerations to be made aware of before starting treatment: No Home Environment: Current Home Environment: unchanged Red Flags: None Comments: Barriers to Care: None Fall risk screening Fallen 2 or more times in the last 12 months: No Injured as a result of a fall in the last 12 months: No Yazdanism, social, or cultural considerations to be made [...] changes in voice associated with Parkinson's Disease. Weigher Operator pr ovided education regarding program. Signs and Symptoms of [...] patient will produce spontaneous conversation while using intentindependently in order to be heard and understood by familiar and unfamiliar listeners by 4-6 weeksfrom start of the program. ST. The patient will coordinate vocal and articulatory subsystems in hierarchial speech tasks by producing sounds with intention with no cues. 2. The patient will read phrases, sentences, and paragraphs with intention, yielding improved vocalquality, loudness, articulatory precision, and endurance while maintaining [...] SPEAK OUT! program. With stimulation to use intent, pt increased his vocal loudness during all [...] the above number. TRACY Argueta STATE LICENSE, [id number] documented in this [id number] History of Present illness Narrative* Michelle Lawrence, SR. STRATEGIC SOURCING MANAGER - 04/06/2021 9:30 AM EDT [facility] Speech Therapy Evaluation Today's Date [...] referred to outpatient Speech therapy s/p new dxof Parkinson's Disease. Pt presents with minimal voice deficits. Relevant medical hx includes: GERD. Current diet is regular and thin liquids. No reports of s/s of aspiration or changes in swallow function at this time. Previous Treatment for this condition: No Pain Scale: Pain location: No pain reported Personal Goals: To maintain voice function. Social Support: Yazdanism, social, or cultural considerations to be made aware of before starting treatment: No Home Environment: Current Home Environment: unchanged Red Flags: None Comments: Barriers to Care: None Fall risk screening Fallen 2 or more times in the last 12 months: No Injured as a result of a fall in the last 12 months: No Yazdanism, social, or cultural considerations to be made [...] changes in voice associated with Parkinson's Disease. Weigher Operator pr ovided education regarding program. Signs and Symptoms of [...] patient will produce spontaneous conversation while using intentindependently in order to be heard and understood by familiar and unfamiliar listeners by 4-6 weeksfrom start of the program. ST. The patient will coordinate vocal and articulatory subsystems in hierarchial speech tasks by producing sounds with intention with no cues. 2. The patient will read phrases, sentences, and paragraphs with intention, yielding improved vocalquality, loudness, articulatory precision, and endurance while maintaining [...] SPEAK OUT! program. With stimulation to use intent, pt increased his vocal loudness during all [...] the above number. TRACY Argueta STATE LICENSE, [id number] documented in this [id number] History of Present illness Narrative* Roro Mills AuD - 03/08/2021 9:33 AM EDT Images from the original note were not included. [facility] [address] [place] [address] Name: Uma Mcgrath : 1950 Date: 03/08/21 [...] batteries were discussed. She declined connecting her phoneto her hearing aids. Ms. Mcgrath is an experienced hearing aid user and would like to follow-up as needed. The above was explained to the patient and they expressed understanding and agreement. Electronically signed by: Porfirio Pavon, CCC-A 03/08/21 9:33 AM documented in this [id number] NoteHNO ID: [id number] Author: Jules Groves MD Service: ? Author Type: Physician Type: Progress Notes Filed: 03/08/2021 10:09 PM Note Text: [facility] - NEW PATIENT EVALUATION I had the pleasure of evaluating Ms. Mcgrath to our clinic today. As you know [...] She has one daughter who is a mumps developer and has her on a detox smoothie. [...] 5,000 Units by mouth once daily. - [id number]-[id number]-PRGG ORAL Take 1 tablet by mouth once [...] Objective Vital Signs: Ht 165.1 cm (5' 5) Wt 67.7 kg (149 lb 3.2 oz) SpO2 98% BMI 24.83 kg/m? General Physical Examination: General: Awake, alert, interactive, no acute distress, good nutritional status, normal development, well-kept General Neurological Examination: Neurological Exam Mental Status Awake, alert and oriented to person, place and time. Recent and remote memory are intact. Speech is sintia (more content not included)...[facility] summary Author Michelle Crenshaw [facility] October 12, 2023 9:19am Note Date/Time October 12, 2023 9 :17am [facility] Medical Records Department [address] [place] [address] Instructions for Home/Discharge Instructions 10/12/2317 MR#: [id number] Acct: [id number] Name: UMA MCGRATH Rep #:[id number] : 1950 73 From: Michelle Pete PCP: Dr. Nel Marcano MD Status[place] [facility] [place]charge Instructions Diet Discharge Diet: No restrictions Activity Discharge Activity: Return to Normal Activity Dressing / Incision Call your doctor if you observe: Fever of 101 or Higher, Inability to urinate and Inability to have a bowel movement Follow Up Care Please Follow Up With: Michelle Crenshaw MD When: the office will call her to make arrangements for follow up. Test Results: Test results from this visit will be discussed in further detail at your follow- up appointment, if applicable. Discharge Plan Admission Attending Provider: Michelle Crenshaw Primary Care Provider: Nel Marcano Discharge Orders/Prescriptions Prescriptions: New hydrocodone-acetaminophen [hydrocodone-acetaminophen] 5-325 mg tablet 1 tab PO Q8H PRN (Reason: Pain) 3 Days Qty: 9 0RF cephalexin [cephalexin] 500 mg capsule 500 mg PO Q12 3 Days Qty: 6 0RF phenazopyridine [Pyridium] 200 mg tablet 200 mg PO TID PRN PRN (Reason: Bladder Spasms) 7 Days Qty: 30 0RF Continued simvastatin 20 MG tablet 20 mg PO QHS Patient Comments: cholesterol lowering ascorbic acid (vitamin C) [Vitamin C] 500 MG tablet,chewable 500 mg PO DAILY Patient Comments: suppliment calcium carbonate 500 MG tablet,chewable 500 mg PO DAILY Patient Comments: suppliment cholecalciferol (vitamin D3) [Vitamin D3] 1,000 UNIT tablet 2,000 unit PO DAILY Patient Comments: suppliment Fish Oil 300 MG capsule 1,200 mg PO BID Patient Comments: suppliment aspirin 81 MG tablet 81 mg PO DAILY@0800 Patient Comments: STOPPED PRIOR TO PROCEDURE potassium citrate 10 MEQ tablet extended release 1 tab PO BID PRN (Reason: LOW POTASSIUM) Patient Comments: coenzyme Q10 50 MG tablet,chewable 50 - 100 mg PO DAILY Complex B-100 Tablet Extended Release 1 tab PO DAILY escitalopram oxalate [Lexapro] 10 mg tablet 10 mg PO DAILY carbidopa-levodopa 25-100 mg tablet 1 tab PO TID famotidine [Acid Controller] 20 mg tablet 20 mg PO DAILY PRN (Reason: GERD) omeprazole 10 mg capsule,delayed release(DR/EC) 10 mg PO DAILY Referrals / Follow Up: Nel Marcano MD [Primary Care Provider] - Disposition Disposition (needs filled in before D/C Order can be placed): Home, Self Care 10/12/23918<Electronically signed by Michelle Crenshaw MD>Michelle Crenshaw MD CC: Dr. Nel Marcano MD ~ Signed [facility] Work Phone: Evaluation note* Diagnosis Sensorineural hearing loss, bilateral- Primary [...] left [facility] information availableW[facility] Work Phone: Evaluation note* Diagnosis Senile osteoporosis- Primary documented in [...] vitamin D deficiency [facility] Diagnosis Screening for osteoporosis [Z13.820 (ICD-10-CM)]- Primary Special screening for osteoporosis Age-related osteoporosis without current pathological fracture [M81.0 (ICD-10-CM)] [facility]* Diagnosis Parkinson disease (HCC) Paralysis agitans [...] Anxiety state, unspecified [facility] Diagnosis UTI symptoms- Primary Dysuria [facility]* Diagnosis Age-related osteoporosis without current pathological fracture [M81.0 (ICD-10-CM)]- Primary Vitamin D deficiency Osteoarthritis of lumbar spine, unspecified spinal osteoarthritis complication status Osteoarthritis of thoracic spine, unspecified spinal osteoarthritis complication status Personal history of drug therapy Encounter for long-term current use of high risk medication [facility] Diagnosis Parkinson's disease without dyskinesia or fluctuating manifestations- Primary Anxiety Anxiety state, unspecified [facility] Diagnosis Onset Date Resolution Status Renal calculus, left acute [facility] Work Phone: Evaluation note* Diagnosis Generalized anxiety disorder- Primary Intermittent constipation Parkinson's disease without dyskinesia or fluctuating manifestations Hypercholesteremia Pure hypercholesterolemia documented [facility]* Diagnosis Age-related osteoporosis without current pathological fracture [M81.0 (ICD-10-CM)]- Primary Vitamin D deficiency Osteoarthritis of lumbar spine, unspecified spinal osteoarthritis complication status Osteoarthritis of thoracic spine, unspecified spinal osteoarthritis complication status Personal history of drug therapy Encounter for long-term current use of high risk medication [facility] Diagnosis Parkinson's disease without dyskinesia or fluctuating manifestations [facility]* Diagnosis Sensorineural hearing loss, bilateral- Primary [facility]* Diagnosis Parkinson's disease, unspecified whether dyskinesia present, unspecified whether manifestations fluctuate (HCC)- Primary Anxiety Anxiety state, unspecified [facility]* Diagnosis Sensorineural hearing loss, bilateral- Primary [facility]* Diagnosis Right elbow pain- Primary Pain in joint, upper arm [facility] Diagnosis Poison martha- Primary Contact dermatitis and other eczema due to plants (except food) [facility]* Diagnosis Age-related osteoporosis without current pathological fracture [M81.0 (ICD-10-CM)]- Primary Vitamin D deficiency Osteoarthritis of lumbar spine, unspecified spinal osteoarthritis complication status Osteoarthritis of thoracic spine, unspecified spinal osteoarthritis complication status Personal history of drug therapy Encounter for long-term current use of high risk medication [facility]* Diagnosis Bilateral lumbar radiculopathy- Primary Acute bilateral low back pain with bilateral sciatica Osteoarthritis of spine with radiculopathy, lumbar region [facility]* Diagnosis Anxiety- Primary Anxiety state, unspecified Parkinson's disease without dyskinesia or fluctuating manifestations (HCC) [facility]* Diagnosis Age-related osteoporosis without current pathological fracture [M81.0 (ICD-10-CM)]- Primary Vitamin D deficiency Osteoarthritis of lumbar spine, unspecified spinal osteoarthritis complication status Osteoarthritis of thoracic spine, unspecified spinal osteoarthritis complication status Personal history of drug therapy Encounter for long-term current use of high risk medication [facility]* Diagnosis Screening for osteoporosis [Z13.820]- Primary Special screening for osteoporosis Age-related osteoporosis without current pathological fracture [M81.0] [facility]* Diagnosis Sensorineural hearing loss, bilateral- Primary [facility]* Diagnosis Anxiety- Primary Anxiety state, unspecified Parkinson's disease without dyskinesia or fluctuating manifestations (HCC) Constipation, unspecified constipation type [facility]* Diagnosis Parkinson disease (HCC)- Primary Paralysis agitans [facility]* Diagnosis Contact dermatitis due to poison martha- Primary Contact dermatitis and other eczema due to plants (except food) [facility] Diagnosis Parkinson's disease (HCC)- Primary Paralysis agitans Parkinson's disease without dyskinesia or fluctuating manifestations (HCC) [facility]* Diagnosis Parkinson's disease without dyskinesia or fluctuating manifestations (HCC)- Primary [facility]* Diagnosis Parkinson's disease without dyskinesia or fluctuating manifestations (HCC)- Primary [facility]* Diagnosis Allergic contact dermatitis, unspecified trigger- Primary Vitamin D deficiency Unspecified vitamin D deficiency Hypercholesteremia Pure hypercholesterolemia Osteoarthritis of spine with radiculopathy, lumbar region Abnormal findings on diagnostic imaging of other specified body structures documented [facility]* Diagnosis Parkinson's disease without dyskinesia or fluctuating manifestations (HCC)- Primary [facility] Diagnosis Parkinson's disease (HCC)- Primary Paralysis agitans Parkinson's disease without dyskinesia or fluctuating manifestations (HCC) [facility] Diagnosis Parkinson's disease without dyskinesia or fluctuating manifestations (HCC)- Primary Constipation, unspecified constipation type [facility]* Diagnosis Age-related osteoporosis without current pathological fracture [M81.0 (ICD-10-CM)]- Primary Vitamin D deficiency Osteoarthritis of lumbar spine, unspecified spinal osteoarthritis complication status Osteoarthritis of thoracic spine, unspecified spinal osteoarthritis complication status Personal history of drug therapy Encounter for long-term current use of high risk medication documented in this encounter [facility] Discharge instructions Additional Instructions Implant Used?: YesWGrand [facility] Work Phone: Instructions* Attachments The following attachments cannot be sent through Care Everywhere. * Poison Martha - [place] - and [place] ([place]) documented in this encounterCos[facility] CenterReason for referral (narrative)No reason for referral information availableWGrand [facility] Work Phone: Assessments Diagnosis Olecranon bursitis of left e [...] FoundDocuments on File Type Date Recorded Patient Vibrating Screed Operator Expl anation Advance Directives and Living Will Documents on File Type Date Recorded Patient Vibrating Screed Operator Expl anation Advance Directives and Living Will Documents on File Type Date Recorded Patient Vibrating Screed Operator Expl anation Advance Directives and Livin g Will 01/14/2021 11:02 AM Documents on File Type Date Recorded Patient Vibrating Screed Operator Expl anation Advance Directives and Livin g Will 01/14/2021 11:02 AM Documents on File Type Date Recorded Patient Vibrating Screed Operator Expl anation Advance Directives and Livin g Will 04/06/2021 9:25 AM not in hx Documents on File Type Date Recorded Patient Vibrating Screed Operator Expl anation Advance Directives and Livin g Will 04/06/2021 9:25 AM not in hx Advance Directive Response Recorded Date/ Time Advance Directives Yes November 10:42am Living Will Yes August 07 3:16pm Power of Plaque Maker Yes August 07, 2018 3:16pm Advance Directive Response Recorded Date/ Time Name of Medical Power of Plaque Maker BLANE TILLMAN BRODIE October 11, 2023 3:23pm Advance Directives Yes November 9:42am Living Will Yes October 11 3:23pm Power of Plaque Maker Yes October 11, 2023 3:23pm Advance Directive Response Recorded Date/ Time Advance Directives Yes November 10:42am Instructions * Patient Instructions - SHIRLEY BECKETT [...] care. Nel Marcano DO in this encounter* Patient Instructions* Felipe Gavin MD - 01/05/2021 8:21 AM EDT We will schedule you for CT of the head. Continue balance exercises. Monitor for any trigger factors or precipitating factors. We will set up a follow-up visit with our movement disorder clinic. documented in this encounter History of Present Illness * Nel Marcano DO - 08/31/2018 9:15 AM EST Formatting [...] temperature source Oral, height 1.651 m (5' 5), weight 67.8 kg (149 lb 6.4 oz), [...] care. Nel Marcano, DO in this encounter* Rayray Lam MD - 10/05/2018 3:28 PM EST Formatting of this note may be different from the original. [facility] [address] (11) [facility] [address] [facility] [address] Uma Mcgrath is a 68 y.o. [...] Rayray Lam MD - 11/14/2018 11:07 AM [facility] PATIENT: Uma Mcgrath DATE / TIME: 11/14/18 [...] 03/20/2020 8:00 AM EDT 03/20/20 Patient: Uma Castanoied : 1950 Dear Nel Marcano, DO, [address] [place] [id number] Uma Castanoied was seen on 03/20/20. The [...] and 2 grandchildren. 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 Her Roe was a poker prop player for a while state and a professional poker prop player Review of Systems: Positive for: Loss of [...] Beta Crosslaps (Beta CTX) - Celiac Serology Galax Panel - PTH, Intact - Protein Electrophoresis, [...] have advisedher to change her insurance from [employer] and she will do so in the [...] expedite correspondence this note was generated by Connectipity voice recognition software. Somegrammatical or spelling errors may occur using the system. documented in this encounter* Joanne Lazo - 03/20/2020 11:41 AM EDT DEXA performed documented in this encounter* Roro Mills AuD - 03/27/2020 10:52 AM EDT [facility] [address] [place] [address] Name: Uma Mcgrath : 1950 Date: 03/27/20 [...] was subsequently fit with a pair of [employer] Q70-312 MAT hearing aids. Ms. Mcgrath states [...] expressed understanding. Electronically signed by: Porfirio Pavon, CCC-A 03/27/20 10:52 AM documented in this encounter* Roro Mills AuD - 05/11/2020 3:04 PM EDT [facility] [address] [place] [address] Name: Uma Mcgrath : 1950 Date: 05/11/20 [...] agreement. Electronically signed by: Porfirio Pavon, CCC-Felipe 05/11/20 3:04 PM documented in this encounter* Leidy Donald MD - 12/11/2020 9:54 AM EST 12/11/20 Uma Mcgrath [address] Nel Marcano, DO [address] [phone] Uma Mcgrath was seen on 12/11/20 for [...] and 2 grandchildren. 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 Osteoporosis Treatment to date has included: None [...] this nice patient. Sincerely Leidy Stevens M.D. [facility] CC: Note: To expedite correspondence this note was generated by Connectipity voice recognition software. Somegrammatical or spelling errors may occur using the system. documented in this encounter* Roro Mills, Marvin - 04/08/2020 10:57 AM EDT [facility] [address] [place] [address] Name: Uma Mcgrath : 1950 Date: 04/08/20 Hearing Aid Contact Note: Uma Mcgrath returned today for her hearing aid re-fitting. She was orginally fit with herpair of [employer] Q70-312 MAT hearing aids on 02/22/2013 with [...] and agreement. Electronically signed by: Porfirio Pavon, [facility]-Felipe 04/08/20 10:57 AM documented in this encounter* [...] Referred To Contact Authorized Neurology Diagnoses Tremor Nel Marcano DO [address] [place] [address] [facility] Neurology [address] [place] [address] Status Reason Specialty Diagnoses / Procedures Referred By Contact Referred To Contact New Request Radiology Diagnoses Tremor Procedures CT Head Or Brain Without Contrast Felipe Gavin MD [address] [place] [address] Status Reason Specialty Diagnoses / Procedures Referre d By Contact Referred To Contact Closed Radiology Diagnoses Tremor Procedures CT Head Or Brain Without Contrast Felipe Gavin MD [address] [facility] [id number] [place] [address] Status Reason Specialty Diagnoses / Procedures Referred By Contact Referred To Contact Authorized Rehabilitation Diagnoses Parkinson's disease (HCC) Jules Groves MD [address] [place] [address] Rehab Pt Neuro [address] [phone] Status Reason Specialty Diagnoses / Procedures Referred By Contact Referred To Contact Pending Review Rehabilitation Diagnoses Parkinson's disease (HCC) Jules Groves MD [address] [place] [address] Op Speech Therapy [address] [place] [address] Status Reason Specialty Diagnoses / Procedures Referred By Contact Referred To Contact Authorized Rehabilitation Diagnoses Parkinson's disease (HCC) Tom Ng MD [address] [facility] [place] [phone] Rehab Pt Neuro [address] [place] [address] Specialty Diagnoses / Procedures Referred By Contac t Referred To Contact Audiology Diagnoses Encounter for hearing examination, unspecified whether abnormal findings Nel Marcano DO [address] [place] [address] [facility] [place] [address] Medical Office Building, [address]th [place] [address] Referral ID Status Reason Start Date Expiration Date Visits Re quested Visits Authorized [id number] Closed 01/20/2022 01/20/2023 1 1 Specialty Diagnoses / Procedures Referred By Contac t Referred To Contact Radiology Diagnoses Primary osteoarthritis of left knee Procedures MR Knee Left Without Contrast Claire Rosario, PATIENT RELATIONS DIRECTOR [address] [place] [address] Referral ID Status Reason Start Date Expiration Date V isits Requested Visits Authorized [id number] Authorized 08/11/2022 08/11/2023 1 1 Specialty Diagnoses / Procedures Referred By Contac t Referred To Contact Rehabilitation Diagnoses Parkinson disease (HCC) Nicole Hayden, PATIENT RELATIONS DIRECTOR [address] [facility] [address] [place] [address] Rehab Pt Neuro [address] [place] [address] Referral ID Status Reason Start Date Expiration Date V isits Requested Visits Authorized [id number] Authorized 10/05/2022 10/05/2023 1 1 Specialty Diagnoses / Procedures Referred By Contac t Referred To Contact Physical Therapy Diagnoses Bilateral lumbar radiculopathy Acute bilateral low back pain with bilateral sciatica Osteoarthritis of spine with radiculopathy, lumbar region Nel Marcano P, DO [address] [place] [address] Omer Cardona, PT, DPT, ATC [address] [place] [address] Referral ID Status Reason Start Date Expiration Date V isits Requested Visits Authorized [id number] Authorized 05/20/2024 06/14/2025 21 21 Scheduling Instructions . Chief Complaint NPV in office today for constipation. Pt reports since April approx 1 BM daily with help of MiraLAX-M,W,F and Colace. Chief Complaint and Reason for Visit Chief Complaint UROGRAM HEMATURIA Chief Complaint UROGRAM HEMATURIA KUB Cysto,Ureteroscopy,Basket Ext,Stent DIL,Laser Reason for Visit Renal calculus, left Chief Complaint KUB Cysto,Ureteroscopy,Basket Ext,Stent DIL,Laser FLANK PAIN & KIDNEY STONE Reason for Visit Renal calculus, left Chief Complaint Admit Date RT FLANK GROSSHEMATURIA April 07, 2025 6 :37pm Additional Source Comments INFORMATION SOURCE (unrecogn ized section and content) DATE CREATED AUTHOR 04/05/2018 [facility] DATE CREATED AUTHOR AUTHOR'S ORGANIZ ATION 11/15/2018 [facility] DATE CREATED AUTHOR AUTHOR'S ORGANIZ ATION 11/12/2020 [facility] DATE CREATED AUTHOR AUTHOR'S ORGANIZ ATION 11/02/2021 [facility] DATE CREATED AUTHOR AUTHOR'S ORGANIZ ATION 06/24/2023 [facility] DATE CREATED AUTHOR AUTHOR'S ORGANIZ ATION 06/24/2023 [facility] DATE CREATED AUTHOR AUTHOR'S ORGANIZ ATION 07/20/2024 [facility] DATE CREATED AUTHOR AUTHOR'S ORGANIZ ATION 11/11/2024 [facility] DATE CREATED AUTHOR AUTHOR'S ORGANIZ ATION 02/27/2025 [facility] DATE CREATED AUTHOR AUTHOR'S ORGANIZ ATION 03/09/2025 [facility] DATE CREATED AUTHOR AUTHOR'S ORGANIZ ATION 04/03/2025 [facility] DATE CREATED AUTHOR AUTHOR'S ORGANIZ ATION 04/21/2025 [facility] DATE CREATED AUTHOR AUTHOR'S ORGANIZ ATION 05/16/2025 [facility] DATE CREATED AUTHOR AUTHOR'S ORGANIZ ATION 06/06/2025 [facility] Reason for Visit (unrecogniz ed section and content) Reason Comments Occupational Therapy Neuro Specialty Diagnoses / Procedures Referred By Dion ware Referred To Contact Rehabilitation Diagnoses Parkinson disease (HCC) Nicole Hayden, PATIENT RELATIONS DIRECTOR [address] [facility] [address] [place] [address] Op Occ Therapy [address] [place] [address] Referral ID Status Reason Start Date Expiration Date V isits Requested Visits Authorized [id number] Authorized 10/05/2022 10/05/2023 1 199 Reason Comments Neuro Occupational Therapy Reason Comments Physical Therapy Neuro Specialty Diagnoses / Procedures Referred By Contac t Referred To Contact Rehabilitation Diagnoses Parkinson disease ([facility]) Nicole Hayden, PATIENT RELATIONS DIRECTOR [address] [facility] [address] [place] [address] Rehab Pt Neuro [address] [place] [address] Referral ID Status Reason Start Date Expiration Date V isits Requested Visits Authorized [id number] Authorized 10/05/2022 10/05/2023 1 199 Reason Comments Speech Therapy Specialty Diagnoses / Procedures Referred By Contac t Referred To Contact Rehabilitation Diagnoses Parkinson's disease ([facility]) Jules Groves MD [address] [place] [address] Op Speech Therapy [address] [place] [address] Referral ID Status Reason Start Date Expiration Date V isits Requested Visits Authorized [id number] Authorized 03/24/2021 03/24/2022 1 199 Reason Comments Physical Therapy Status Reason Specialty Diagnoses / Procedures Referred By Contact Referred To Contact Authorized Rehabilitation Diagnoses Parkinson's disease ([facility]) Jules Groves MD [address] [place] [address] Rehab Pt Neuro [address] [place] [address] Reason Comments Esophageal Reflux PT has a [...] loss, unspecified laterality Nel Marcano, DO [address] [place] [address] [facility] [address] [facility] Medical Office Building, [address] [place] [address] Reason Comments Tremors SHe states she has t remors in her right hand. She thinks she has had them since September va 2019. Status Reason Specialty Diagnoses / Procedures Referre d By Contact Referred To Contact Closed Neurology Diagnoses Tremor Nel Marcano, DO [address] [place] [address] [facility] [address] [facility] Office [facility], [address] [place] [address] Status Reason Specialty Diagnoses / Procedures Referre d By Contact Referred To Contact Closed Radiology Diagnoses Tremor Procedures CT Head Or Brain Without Contrast Felipe Gavin MD [address] [address] [address] [place] [address] Status Reason Specialty Diagnoses / Procedures Referred By Contact Referred To Contact Authorized Rehabilitation Diagnoses Parkinson's disease (HCC) Jules Groves MD [address] [place] [address] Op Speech Therapy [address] [place] [address] Status Reason Specialty Diagnoses / Procedures Referred By Contact Referred To Contact Pending Review Rehabilitation Diagnoses Parkinson's disease (HCC) Jules Groves MD [address] [place], [place] [phone] Rehab Pt Neuro [address] [place] [phone] Reason Comments movement disorder Patient states she w as diagnosed parkinson in December 2020. She states she has had issues with her right hand tremors she noticed it in August 2020. Status Reason Specialty Diagnoses / Procedures Referred By Contact Referred To Contact Authorized Rehabilitation Diagnoses Parkinson's disease (HCC) Jules Groves MD [address] [place], [place] [phone] Op Occ Therapy [address] [place] [phone] Status Reason Specialty Diagnoses / Procedures Referred By Contact Referred To Contact Pending Review Rehabilitation Diagnoses Parkinson's disease (HCC) Jules Groves MD [address] [place] [address] Op Occ Therapy [address] [place] [phone] Referral ID Status Reason Start Date Expiration Date V isits Requested Visits Authorized [id number] Pending Review 03/24/2021 03/24/2022 1 199 Specialty Diagnoses / Procedures Referred By Contac t Referred To Contact Audiology Diagnoses Encounter for hearing examination, unspecified whether abnormal findings Nel Marcano DO [address] [place] [address] [facility] [address] [place] [address] [facility], 5[address] [place] [address] Referral ID Status Reason Start Date Expiration Date Visits Re quested Visits Authorized [id number] Closed 01/20/2022 01/20/2023 1 1 Reason Comments [...] disease ([facility]) Nicole Hayden, PATIENT RELATIONS DIRECTOR [address] [facility] [address] [place] [address] Op Speech Therapy [address] [place] [address] Referral ID Status Reason Start Date Expiration Date V isits Requested Visits Authorized [id number] Authorized 10/05/2022 10/05/2023 1 199 Referral ID Status Reason Start Date Expiration Date V isits Requested Visits Authorized [id number] Pending Review 10/05/2022 10/05/2023 1 199 Reason Comments Urinary Frequency x2days Reason Comments Anxiety Here for a follow up . States her anxiety started when she got diagnosed a few years ago with parkinsons. States she is doing fine now with taking the lexapro. Constipation States she gets cons tipation frequently and feels like this could be due to medication and Parkinson's disease. She will use Miralax Mon, Wed & Fri if needed and will use Colace other days if needed. Reason Onset Date Comments Medication Refill 11/25/2023 Reason Comments Poison Martha/Poison [place]/Poison [place] Expos ure All on chest, under armpits, down by groin Reason Comments Sciatica Here today with c/o having sciatica now going into mostly her gluteal area on both sides. It was running down her legs but isn't doing that as much now. She exercises 5 days a week and doesn't want to have stop that. Onset was 3-4 weeks ago. She would like to be referred to physical therapy. Pain increases after she has been active. She isn't aware of any positions that make it better. She has tried some online exercises and they have helped. She has taken Advil and it does help. Reason Comments Poison Martha/Poison [place]/Poison [place] Exposure Patient is here today to follow up on a visit to the [facility] clinic on 02/21 for a rash that was diagnosed as poison martha. Patient was given a steroid injection and oral prednisone for 3 days. Patient states that the rash is spreading and is now on her face and it wasn't before. Patient states that it is all over her body now. Patient states that the itching has calmed down considerably but it still itches. Specialty Diagnoses / Procedures Referred By Dion ware Referred To Contact Rehabilitation Diagnoses Parkinson disease (HCC) Matt Lopez MD [address] [facility] [address] [place] [address] Phone: tel: fax: [facility] Occupational Therapy [address] [place] [address] Phone: tel: fax: Referral ID Status Reason Start Date Expiration Date V isits Requested Visits Authorized [id number] Authorized 02/17/2025 02/17/2026 8 199 Reason Comments Rash She was told she had poison martha and was treated with prednisone. Says it was getting worse, not better so she went to a automation control integrator. Was told there it wasn't poison martha and a skin biopsy was done. After that her skin was covered all over her body. Daughter put some honey on her with gloves, then 5 days later her daughter has shingles. So she feels daughter caught shingles from her. Biopsy results were Dermal Hypersensitivity. Care Teams (unrecognized sec tion and content) Color Drum Worker Relationship Specialty Start Date End Date Nel Marcano DO [address] [place] [address] PCP - General Internal Medicine 01/16/18 Color Drum Worker Relationship Specialty Start Date End Date Nel Marcano DO [address] [place] [address] PCP - General Internal Medicine 01/16/18 Color Drum Worker Relationship Specialty Start Date End Date Nel Marcano, DO [address] [place] [address], [place] [address] PCP - General Internal Medicine 01/16/18 Color Drum Worker Relationship Specialty Start Date End Date Nel Marcano DO [address] [place] [address], [place] [address] PCP - General Internal Medicine 01/16/18 Color Drum Worker Relationship Specialty Start Date End Date Nel Marcano DO [address] [place] [address], [place] [address] PCP - General Internal Medicine 01/16/18 Color Drum Worker Relationship Specialty Start Date End Date Nel Marcano DO [address] [place] [address], [place] [address] PCP - General Internal Medicine 01/16/18 Color Drum Worker Relationship Specialty Start Date End Date Nel Marcano DO [address] [place] [address], [place] [address] PCP - General Internal Medicine 01/16/18 Color Drum Worker Relationship Specialty Start Date End Date Nel Marcano DO [address] [place] [address], [place] [address] PCP - General Internal Medicine 01/16/18 Color Drum Worker Relationship Specialty Start Date End Date Nel Marcano DO [address] [place] [address], [place] [address] PCP - General Internal Medicine 01/16/18 Color Drum Worker Relationship Specialty Start Date End Date Nel Marcano DO [address] [place] [address], [place] [address] PCP - General Internal Medicine 01/16/18 Color Drum Worker Relationship Specialty Start Date End Date Nel Marcano DO [address] [place] [address], [place] [address] PCP - General Internal Medicine 01/16/18 Color Drum Worker Relationship Specialty Start Date End Date Nel Marcano DO [address] [place] [address], [place] [address] PCP - General Internal Medicine 01/16/18 Color Drum Worker Relationship Specialty Start Date End Date Nel Marcano DO [address] [place] [address], [place] [address] PCP - General Internal Medicine 01/16/18 Color Drum Worker Relationship Specialty Start Date End Date Nel Marcano DO [address] [place] [address], [place] [address] PCP - General Internal Medicine 01/16/18 Color Drum Worker Relationship Specialty Start Date End Date Nel Marcano DO [address] [place] [address], [place] [address] PCP - General Internal Medicine 01/16/18 Color Drum Worker Relationship Specialty Start Date End Date Nel Marcano DO [address] [place] [address], [place] [address] PCP - General Internal Medicine 01/16/18 Color Drum Worker Relationship Specialty Start Date End Date Nel Marcano DO [address] [place] [address], [place] [address] PCP - General Internal Medicine 01/16/18 Color Drum Worker Relationship Specialty Start Date End Date Nel Marcano DO [address] [place] [address], [place] [address] PCP - General Internal Medicine 01/16/18 Color Drum Worker Relationship Specialty Start Date End Date Nel Marcano DO [address] [place] [address], [place] [address] PCP - General Internal Medicine 01/16/18 Color Drum Worker Relationship Specialty Start Date End Date Nel Marcano DO [address] [place] [address] PCP - General Internal Medicine 01/16/18 Color Drum Worker Relationship Specialty Start Date End Date Nel Marcano DO [address] [place] [address] PCP - General Internal Medicine 01/16/18 Color Drum Worker Relationship Specialty Start Date End Date Nel Marcano DO PCP - General Internal Medicine 12/09/17 Color Drum Worker Relationship Specialty [place] [address] [place] [address] PCP - General Internal Medicine 01/16/18 Color Drum Worker Relationship Specialty Start Date End Date Nel Marcano DO [address] [place] [address] PCP - General Internal Medicine 01/16/18 Color Drum Worker Relationship Specialty Start Date End Date Nel Marcano DO PCP - General Internal Medicine 12/09/17 Color Drum Worker Relationship Specialty Start Date End Date Nel Marcano DO [address] [place] [address] PCP - General Internal Medicine 01/16/18 Color Drum Worker Relationship Specialty Start Date End Date Nel Marcano DO [address] [place] [address] PCP - General Internal Medicine 01/16/18 Team Status: Active Member Role Status Dates Dr. Nel Marcano MD Family Provider Active Dr. Nel Marcano MD Primary Care Provider Active Team Status: Inactive Member Role Status Dates Dr. Nel Marcano MD Primary Care Provider Active Dr. Michelle Crenshaw MD Attending Provider Active Team Status: Inactive Member Role Status Dates Dr. Nel Marcano MD Primary Care Provider Active Dr. Michelle Crenshaw MD Attending Provider, [place] Active Color Drum Worker Relationship Specialty Start Date End Date Nel Marcano DO [address] [place] [address] PCP - General Internal Medicine 01/16/18 Color Drum Worker Relationship Specialty Start Date End Date Nel Marcano DO PCP - General Internal Medicine 12/09/17 Color Drum Worker Relationship Specialty Start Date End Date Nel Marcano DO [address] [place] [address] PCP - General Internal Medicine 01/16/18 Color Drum Worker Relationship Specialty Start Date End Date Nel Marcano DO [address] [place] [address] PCP - General Internal Medicine 01/16/18 Color Drum Worker Relationship Specialty Start Date End Date Nel Marcano DO PCP - General Internal Medicine 12/09/17 Color Drum Worker Relationship Specialty Start Date End Date Nel Marcano DO [address] [place] [address] PCP - General Internal Medicine 01/16/18 Color Drum Worker Relationship Specialty Start Date End Date Nel Marcano DO PCP - General Internal Medicine 12/09/17 Color Drum Worker Relationship Specialty Start Date End Date Nel Marcano DO [address] [place] [address] PCP - General Internal Medicine 01/16/18 Color Drum Worker Relationship Specialty Start Date End Date Nel Marcano Nael [address] [place] [address] PCP - General Internal Medicine 01/16/18 Color Drum Worker Relationship Specialty Start Date End Date Nel Marcano DO [address] [place] [address] PCP - General Internal Medicine 01/16/18 Color Drum Worker Relationship Specialty Start Date End Date Nel Marcano DO [address] [place] [address] PCP - General Internal Medicine 01/16/18 Color Drum Worker Relationship Specialty Start Date End Date Nel Marcano DO PCP - General Internal Medicine 12/09/17 Color Drum Worker Relationship Specialty Start Date End Date Nel Marcano DO [facility] [place] [address] PCP - General Internal Medicine 01/16/18 Color Drum Worker Relationship Specialty Start Date End Date Nel Marcano DO [address] [place] [address] PCP - General Internal Medicine 01/16/18 Color Drum Worker Relationship Specialty Start Date End Date Nel Marcano DO PCP - General Internal Medicine 12/09/17 Color Drum Worker Relationship Specialty Start Date End Date Jeet Nel DO Nael [address] [place] [address] PCP - General Internal Medicine 01/16/18 Color Drum Worker Relationship Specialty Start Date End Date Nel Marcano DO [address] [place] [address] PCP - General Internal Medicine 01/16/18 Team Status: Active Member Role/Relationship Status Dates Dr. Nel Marcano MD Primary Care Provider Active Team Status: Inactive Member Role/Relationship Status Dates Dr. Nel Marcano MD Primary Care Provider Active Start: April 07, 2025 End: April 07, 2025 Dr. Michelle Crenshaw MD Attending Provider Active Start: April 07, 2025 End: April 07, 2025 Dr. Michelle Crenshaw MD Referring Provider Active Start: April 07, 2025 End: April 07, 2025 Color Drum Worker Relationship Specialty Start Date End Date Nel Marcano DO [address] [place] [address] PCP - General Internal Medicine 01/16/18 Goals (unrecognized section and content) Goals may be documented in a n alternate sectionGoals may be documented in an alternate sectionGoals may be documented in an alternate sectionGoals may be documented in an alternate section FOR RECORDS PERTAINING TO PATIENTS WHO ARE [...] BE BASED ON THE PRIMARY CLINICAL RECORDS. [facility]. provides no warranty or guarantee of the accuracy or completeness of information in this document.
== END | disposition home or self-care (01) ==
LOC: US 11:26
PROVIDERS: Referring Provider Urology; Visit Provider Urology
DX: N20.1 Calculus of ureter (principal)
CPT/HCPCS: 76770

== ENCOUNTER → 2025-07-02 | Outpatient (CLI) | payer MEDICARE, OTHER, SELFPAY ==
[2025-07-02 18:03] LABS: Hematocrit 42.2 % (37-47); Hemoglobin 14.3 g/dL (12.0-15.0); Immature Granulocytes Count 0.010 X10^3/uL (0.0-0.0); Mean Corp Hgb Conc 33.9 g/dL (32-36); Mean Corpuscular Volume 89.6 fL (81-99); Mean Platelet Vol. 10.6 fl (6.2-12.0); NRBC Flagged by Analyzer 0 % (0-5); Platelet Count 215 K/mm3 (150-450); RBC Distribution Width CV 12.4 % (11.6-14.6); RBC Distribution Width SD 40.8 fl (35.1-43.9); Red Blood Count 4.71 M/mm3 (4.2-5.4); White Blood Count 6.2 K/mm3 (4.4-11.0)
[2025-07-02 18:20] LABS: Anion Gap 11 (5-15); BUN 13 mg/dL (4-19); BUN/Creat Ratio 19.4 RATIO (10-20); Calcium,Total 9.4 mg/dL (7.6-11.0); Carbon Dioxide 26.1 mmol/L (21.0-32.0); Chloride 101 mmol/L (98-108); Glucose 102 mg/dL (70-99); Potassium 4.1 mmol/L (3.3-5.1)
== END | disposition home or self-care (01) ==
LOC: MTLAB 15:20
PROVIDERS: Referring Provider Urology; Visit Provider Urology
DX: N13.2 Hydronephrosis with renal and ureteral calculous obstruction (principal)
CPT/HCPCS: 36415; 80048; 85025

== ENCOUNTER 2025-07-17 08:28 | Day surgery (SDC) | payer MEDICARE, OTHER, SELFPAY ==
--- NOTE | 2025-07-15 16:29 | PAT.ANESEVAL ---
Pre-Assessment Diagnosis/Proposed Procedure Planned Operative Procedure(s): CYSTO, BILATERAL UTEROSCOPY, LAER LITHOTRIPSY, STONE BASKET EXTRACTION Anesthesia History Anesthesia History - health workers: Anesthesia History - health workers Hx Hospitalization No 07/15/25 13:10 Any Problems With Anesthesia No 07/15/25 13:10 Cholinesterase deficiency No 07/15/25 13:10 You/Your Family Experience No 07/15/25 13:10 fever (hyperthermia) with Relationship Recent Exposure to Contagious No 10/12/23 06:37 Disease Does patient have nerve No 07/15/25 13:10 stimulator Patient instructed to have device shut off --Does patient have Pacemaker or ICD? When Was Last Pacemaker Check QUESTION #4 FULL TEXT: You/Your Family Experience fever (hyperthermia) with Anesthesia Last Oral Intake Last Oral intake: Last Oral Intake NPO since Meds taken in AM with sips of water? Meds patient instructed to take am of surgery PONV PONV - health workers: PONV - health workers Female Yes 07/15/25 13:10 HX of Motion Sickness No 07/15/25 13:10 HX of N/V After Surgery No 07/15/25 13:10 Non-Smoker Yes 07/15/25 13:10 Duration of Surgery greater Yes 07/15/25 13:10 than 60 minutes Number of Risk Factors 3 07/15/25 13:10 PONV Score Moderate Risk 07/15/25 13:10 Height & Weight Height & Weight: Anesthesia: Height & Weight Height 5 ft 5.5 in 07/02/25 14:48 Respiratory Assessment Respiratory Assessment - health workers: Respiratory Tract Infection Hx - health workers Hx Respiratory Tract Infection No 07/15/25 13:10 STOP Sleep Apnea STOP Sleep Apnea - health workers: STOP Sleep Apnea - health workers Hx Hypertension No 07/15/25 13:10 Hx Sleep Apnea No 07/15/25 13:10 CPAP No 10/12/23 08:57 BIPAP No 10/11/23 15:23 Do you snore loudly (louder No 07/15/25 13:10 than talking or can be heard Do you often feel tired/ No 07/15/25 13:10 fatigued/ sleepy during daytime? Has anyone observed you stop No 07/15/25 13:10 breathing during sleep? STOP Results Negative 07/15/25 13:10 QUESTION #5 FULL TEXT : Do you snore loudly (louder than talking or can be heard through closed doors)? 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 Specify any problems Hx of Preganancy in last 3 No 07/15/25 13:10 Months Nurse Filling Out Transfusion [email or web address] 07/15/25 13:10 & Questions: Date: 07/15/25 07/15/25 13:10 Time: 13:13 07/15/25 13:10 Patient unable to answer at this time (ie. confused, unrespo /Reproduction History /Reproductive History - health workers: /Reproductive Hx- health workers Hx Now No 07/15/25 13:10 Gestational Age (in weeks): EDC: Hx Hx Para Hx Section SAB No 07/15/25 13:10 PFSH Medical History (Updated 07/15/25 @ 13:17 by Lucas Rojas) Anxiety History of steroid therapy Hydronephrosis Bilateral renal stones Parkinson's disease Leg cramps Wears hearing aid Wears glasses Gastric reflux Non-smoker History of echocardiogram History of stress test Cardiology follow-up encounter History of kidney stones Home Medications ?Medication ?Instructions ?Recorded ?Last Taken ?Type ascorbic acid (vitamin C) 500 mg 500 mg PO DAILY 09/28/15 09/28/15 History chewable tablet (Vitamin C) cholecalciferol (vitamin D3) 25 2,000 unit PO DAILY 09/28/15 09/28/15 History mcg (1,000 unit) tablet (Vitamin D3) omega-3 fatty acids 300 mg capsule 1,200 mg PO BID 09/28/15 07/14/25 History (Fish Oil) simvastatin 20 mg tablet 20 mg PO QHS 09/28/15 10/11/23 History aspirin 81 mg tablet,delayed 81 mg PO DAILY@0800 11/13/15 07/14/25 History release coenzyme Q10 50 mg chewable tablet 50 - 100 mg PO DAILY 11/13/15 Unknown History carbidopa 25 mg-levodopa 100 mg 1 tab PO TID 09/07/23 10/11/23 History tablet escitalopram oxalate 10 mg tablet 10 mg PO DAILY 09/07/23 10/11/23 History (Lexapro) Lactobacillus acidophilus 10 100 mmu cells PO DAILY 07/15/25 Unknown History billion cell capsule (NewFlora) magnesium 250 mg tablet 500 mg PO DAILY 07/15/25 Unknown History multivitamin (Daily Multi-Vitamin 1 tab PO DAILY 07/15/25 Unknown History tablet) Allergy/AdvReac Type Severity Reaction Status Date / Time oxycodone HCl (From Percocet) AdvReac Nausea Verified 07/15/25 13:04 Surgical History History of tubal ligation History of lateral meniscus repair of left knee Social History Smoking Status: Never smoker Audit: Pertinent Findings Pertinent Findings EKG Perinent findings: 08/14/2018. Normal sinus rhythm. Consult pertinent findings: 12/12/2024. Dr. Nunez?cardiology. 1. Atypical chest pain-noncardiac. Stress test discussed but see how she does with physical activity the spring. 2. Blood pressure elevated today?normal GFR. Recommendation Anesthesia Recommendation Anesthesia recommendation: OPTIMIZED for anesthesia
--- NOTE | 2025-07-16 09:10 | EKG12_ITS ---
Test Reason : PRE OP Blood Pressure : */* mmHG Vent. Rate : 75 BPM Atrial Rate : 75 BPM P-R Int : 190 ms QRS Dur : 72 ms QT Int : 366 ms P-R-T Axes : 40 18 17 degrees QTcB Int : 408 ms Normal sinus rhythm Possible Left atrial enlargement Borderline ECG Confirmed by JUDE GILL, WILLAM ([id number]), news copy editor CHARITY KRAFT ([id number]) on 07/17/2025 9:57:58 AM Referred By: Michelle Crenshaw Confirmed By: WILLAM ROQUE MD
--- NOTE | 2025-07-16 14:51 | PAT.ANESEVAL ---
Pre-Assessment Diagnosis/Proposed Procedure Planned Operative Procedure(s): CYSTO, BILATERAL UTEROSCOPY, LAER LITHOTRIPSY, STONE BASKET EXTRACTION Anesthesia History Anesthesia History - surveyor rod helper: Anesthesia History - surveyor rod helper Hx Hospitalization No 07/15/25 13:10 Any Problems With Anesthesia No 07/15/25 13:10 Cholinesterase deficiency No 07/15/25 13:10 You/Your Family Experience No 07/15/25 13:10 fever (hyperthermia) with Relationship Recent Exposure to Contagious No 10/12/23 06:37 Disease Does patient have nerve No 07/15/25 13:10 stimulator Patient instructed to have device shut off --Does patient have Pacemaker or ICD? When Was Last Pacemaker Check QUESTION #4 FULL TEXT: You/Your Family Experience fever (hyperthermia) with Anesthesia Last Oral Intake Last Oral intake: Last Oral Intake NPO since Meds taken in AM with sips of water? Meds patient instructed to take am of surgery PONV PONV - surveyor rod helper: PONV - surveyor rod helper Female Yes 07/15/25 13:10 HX of Motion Sickness No 07/15/25 13:10 HX of N/V After Surgery No 07/15/25 13:10 Non-Smoker Yes 07/15/25 13:10 Duration of Surgery greater Yes 07/15/25 13:10 than 60 minutes Number of Risk Factors 3 07/15/25 13:10 PONV Score Moderate Risk 07/15/25 13:10 Height & Weight Height & Weight: Anesthesia: Height & Weight Height 5 ft 5.5 in 07/02/25 14:48 Respiratory Assessment Respiratory Assessment - surveyor rod helper: Respiratory Tract Infection Hx - surveyor rod helper Hx Respiratory Tract Infection No 07/15/25 13:10 STOP Sleep Apnea STOP Sleep Apnea - surveyor rod helper: STOP Sleep Apnea - surveyor rod helper Hx Hypertension No 07/15/25 13:10 Hx Sleep Apnea No 07/15/25 13:10 CPAP No 10/12/23 08:57 BIPAP No 10/11/23 15:23 Do you snore loudly (louder No 07/15/25 13:10 than talking or can be heard Do you often feel tired/ No 07/15/25 13:10 fatigued/ sleepy during daytime? Has anyone observed you stop No 07/15/25 13:10 breathing during sleep? STOP Results Negative 07/15/25 13:10 QUESTION #5 FULL TEXT : Do you snore loudly (louder than talking or can be heard through closed doors)? Tobacco Use History Tobacco Use History - surveyor rod helper: Tobacco Use History - surveyor rod helper Tobacco Use Smoking Status Never smoker 07/15/25 13:10 Hx Tobacco Use No 07/15/25 13:10 Years Smoking Packs Smoked per Day Smoking Cessation Date was within the last 15 years Hx Smoking Cessation Date Hx Smoking Cessation No 07/15/25 13:10 Counseling Hematologic Medial History Hematologic Hx - surveyor rod helper: Hematologic Medical Hx - account specialist Hx of Blood Transfusion No 07/15/25 13:10 Hx of Transfusion in last 3 No 07/15/25 13:10 Months Date of Last Transfusion (if within last 3 months) Ever experience any problems No 07/15/25 13:10 with transfusion(s)? Specify any problems Hx of Preganancy in last 3 No 07/15/25 13:10 Months Nurse Filling Out Transfusion [email or web address] 07/15/25 13:10 & Questions: Date: 07/15/25 07/15/25 13:10 Time: 13:13 07/15/25 13:10 Patient unable to answer at this time (ie. confused, unrespo /Reproduction History /Reproductive History - surveyor rod helper: /Reproductive Hx- surveyor rod helper Hx Now No 07/15/25 13:10 Gestational Age (in weeks): EDC: Hx Hx Para Hx Section SAB No 07/15/25 13:10 Active Medications Active Medications: Current Medications Generic Name Dose Route Start Last Admin Trade Name Freq PRN Reason Stop Dose Admin Cefazolin Sodium 2 gm/ Sodium 110 mls @ 200 mls/hr 07/17/25 10:30 Chloride IV 07/17/25 11:02 INTRAOP ONE [facility] Medical History Anxiety History of steroid therapy Hydronephrosis Bilateral renal stones Parkinson's disease Leg cramps Wears hearing aid Wears glasses Gastric reflux Non-smoker History of echocardiogram History of stress test Cardiology follow-up encounter History of kidney stones Home Medications ?Medication ?Instructions ?Recorded ?Last Taken ?Type ascorbic acid (vitamin C) 500 mg 500 mg PO DAILY 09/28/15 09/28/15 History chewable tablet (Vitamin C) cholecalciferol (vitamin D3) 25 2,000 unit PO DAILY 09/28/15 09/28/15 History mcg (1,000 unit) tablet (Vitamin D3) omega-3 fatty acids 300 mg capsule 1,200 mg PO BID 09/28/15 07/14/25 History (Fish Oil) simvastatin 20 mg tablet 20 mg PO QHS 09/28/15 10/11/23 History aspirin 81 mg tablet,delayed 81 mg PO DAILY@0800 11/13/15 07/14/25 History release coenzyme Q10 50 mg chewable tablet 50 - 100 mg PO DAILY 11/13/15 Unknown History carbidopa 25 mg-levodopa 100 mg 1 tab PO TID 09/07/23 10/11/23 History tablet escitalopram oxalate 10 mg tablet 10 mg PO DAILY 09/07/23 10/11/23 History (Lexapro) Lactobacillus acidophilus 10 100 mmu cells PO DAILY 07/15/25 Unknown History billion cell capsule (NewFlora) magnesium 250 mg tablet 500 mg PO DAILY 07/15/25 Unknown History multivitamin (Daily Multi-Vitamin 1 tab PO DAILY 07/15/25 Unknown History tablet) Allergy/AdvReac Type Severity Reaction Status Date / Time oxycodone HCl (From Percocet) AdvReac Nausea Verified 07/15/25 13:04 Surgical History History of tubal ligation History of lateral meniscus repair of left knee Social History Smoking Status: Never smoker Audit: Pertinent Findings HISTORY of Pertinent Findings History of Pertinent Findings: EKG Pertinent Findings EKG Perinent findings 08/14/2018. Normal sinus 07/15/25 16:32 rhythm. Consult Pertinent Findings Consult pertinent findings 12/12/2024. Dr. Nunez? 07/15/25 16:35 cardiology. 1. Atypical chest pain- noncardiac. Stress test discussed but see how she does with physical activity the spring. 2. Blood pressure elevated today?normal GFR. Pertinent Findings Consult pertinent findings: Cardiology note 12/12/2024. Blood pressure elevated today but normal GFR. Atypical chest pain is noncardiac to date. We did discuss stress testing but will delay to see how she does with physical activity the spring. Recommendation Anesthesia Recommendation Anesthesia recommendation: OPTIMIZED for anesthesia
[2025-07-17] VITALS (10 sets, daily range): BP systolic 121–152; BP diastolic 69–91; PULSE 73–90; RESP 16–17; TEMP 36.1–36.6; O2SAT 96–100; BMI 25.3
--- NOTE | 2025-07-17 08:25 | PCM.HP.BLA ---
History and Physical Date of Admission: 07/17/25 Date of Service: 07/02/25 MR#: [id number] Acct: [id number] Name: RAMÓN MCGRATH Rep #: [id number] : 1950 Provider: Dr. 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 Accompanied by: self Is patient in pain?: No Allergies oxycodone HCl (From Percocet) Adverse Reaction (Verified 07/15/25 13:04) Nausea Medications ?Medication ?Instructions ?Recorded ?Confirmed ?Type ascorbic acid (vitamin C) 500 mg 500 mg PO DAILY 09/28/15 07/15/25 History chewable tablet (Vitamin C) cholecalciferol (vitamin D3) 25 2,000 unit PO DAILY 09/28/15 07/15/25 History mcg (1,000 unit) tablet (Vitamin D3) omega-3 fatty acids 300 mg capsule 1,200 mg PO BID 09/28/15 07/15/25 History (Fish Oil) simvastatin 20 mg tablet 20 mg PO QHS 09/28/15 07/15/25 History aspirin 81 mg tablet,delayed 81 mg PO DAILY@0800 11/13/15 07/15/25 History release coenzyme Q10 50 mg chewable tablet 50 - 100 mg PO DAILY 11/13/15 07/15/25 History carbidopa 25 mg-levodopa 100 mg 1 tab PO TID 09/07/23 07/15/25 History tablet escitalopram oxalate 10 mg tablet 10 mg PO DAILY 09/07/23 07/15/25 History (Lexapro) Lactobacillus acidophilus 10 100 mmu cells PO DAILY 07/15/25 07/15/25 History billion cell capsule (NewFlora) magnesium 250 mg tablet 500 mg PO DAILY 07/15/25 07/15/25 History multivitamin (Daily Multi-Vitamin 1 tab PO DAILY 07/15/25 07/15/25 History tablet) Have you fallen in the past year?: No Nurse's Note: urine is bubbly daily for 2 weeks, denied signs and sx of infection. the last 3 days she has taken nothing but her vitamin c to rule out that this may be from her meds. [facility] Medical History Anxiety History of steroid therapy Hydronephrosis Bilateral renal stones Parkinson's disease Leg cramps Wears hearing aid Wears glasses Gastric reflux Non-smoker History of echocardiogram History of stress test Cardiology follow-up encounter History of kidney stones Surgical History History of tubal ligation History of lateral meniscus repair of left knee Social History Smoking Status: Never smoker [facility] Urology Chief Complaint: urine and kidney stone problems Details: RAMÓN MCGRATH, is a 75 F. She is here due to concern over bubbles in her urine. She looked up bubbles in the urine online. She stopped all of her over the counter medications. This has really decreased the amount of bubbles. We discussed her stones. She wants to move ahead with surgical intervention at this time. There is no acute sensation of urinary tract infection. No hematuria. Intermittent pain. No fever, chills, nausea or vomiting. ROS Const Constitutional: No chills, fatigue, fever(s), headache(s), night sweats, weakness, weight change, abnormal sleep pattern or change in appetite Eyes Eyes: No change in vision ENT ENT: No headache(s) or dry mouth Resp Respiratory: No cough, chest congestion, shortness of breath or wheezing Cardio Cardiology: Positive for other (No chest pain.); No shortness of breath, irregular heart rhythm or lightheadedness Gastro GI: Positive for other (No nausea.); No abdominal pain, change in bowel habits, constipation, diarrhea or vomiting Musc Musculoskeletal: No abnormal gait Skin Skin: No yellowing of the eye, lesions, itchy eyes, rash or skin ulcer Neuro Neurology: No abnormal gait, confusion, dizziness, weakness, headache(s) or memory loss Psych Psychiatric: No abnormal sleep pattern, No change in appetite, No confusion and No memory loss Endo Endocrine: No fatigue, increased thirst/drinking or weight change Aller/Imm Allergy/Immunologic: No itchy eyes or wheezing Hugo/Lymp Hematologic/Lymphatic: No easy bleeding, easy bruising or enlarged lymph nodes Exam Const General: cooperative, healthy appearing, comfortable and no acute distress [facility] Head: normocephalic and atraumatic Ears: hearing grossly normal bilaterally and external ears normal Nose: external nose normal Eyes General: appearance normal, both eyes and all related structures Neck Neck: normal visual inspection and trachea midline Chest Chest palpation & inspection: normal inspection of the chest Resp Effort & Inspection: normal respiratory effort, able to speak in complete sentences and symmetric chest movement Cardio Rate: regular rate GI Inspection: normal to inspection Palpation: soft and nontender General: No CVA tenderness Skin General: no rashes or lesions noted Neuro General: patient alert, patient awake, patient oriented x3 and CN's II-XI intact bilaterally Extrem General: normal to inspection Psych Appearance: grossly normal and well kempt Mental Status: mental status grossly normal Results POC UA Auto w/o Microscopy Office Urine Color ? Last Edit by Jessica Paz on 07/02/25 14:53 Office Urine Clarity ? Last Edit by Jessica Paz on 07/02/25 14:53 Office Urine Glucose Negative Last Edit by Jessica Paz on 07/02/25 14:53 Office Urine Ketones Negative Last Edit by Jessica Paz on 07/02/25 14:53 Office Urine Bilirubin Negative Last Edit by Jessica Paz on 07/02/25 14:53 Office Urine Urobilinogen 0.2 mg/dL Last Edit by Jessica Paz on 07/02/25 14:53 Off Ur Spec [place] 1.005 Last Edit by Jessica Paz on 07/02/25 14:53 Office Urine pH 6 Last Edit by Jessica Paz on 07/02/25 14:53 Office Urine Protein Negative Last Edit by Jessica Paz on 07/02/25 14:53 Office Urine Blood Small Last Edit by Jessica Paz on 07/02/25 14:53 Office Urine Blood Hemolyzed Negative Last Edit by Jessica Paz on 07/02/25 14:53 Office Urine Nitrate Negative Last Edit by Jessica Paz on 07/02/25 14:53 Off Ur Leukocytes Positive Last Edit by Jessica Paz on 07/02/25 14:53 leuks 70 Coding Level of Care Code Off vis,est,level 4 Diagnoses Bilateral renal stones N20.0 Hydronephrosis N13.30 Assessment and Plan Assessment and Plan (1) Bilateral renal stones: Status: Acute (2) Hydronephrosis: Status: Acute Orders: Orders POC UA Auto w/o Microscopy 07/02/25 N20.0 - Calculus of kidney Basic Metabolic Profile (BMP) 07/02/25 N13.30 - Unspecified hydronephrosis, N20.0 - Calculus of kidney CBC W/Diff, Automated 07/02/25 N20.0 - Calculus of kidney Plan schedule for cystoscopy, bilateral ureteroscopy, laser lithotripsy, stone basket extraction and ureteral stent insertions The procedure, recovery and expectations were explained. The risks, benefits and alternatives were discussed, including but not limited to, the risks of anesthesia, bleeding, infection, injury, pain and the need for further intervention. We have discussed the risk of exposure to and/or potential harm posed by the COVID-19 virus with having a surgery/procedure at this time. A joint decision was made at this time to proceed with the scheduled surgery/procedure as indicated on the consent form. Clinical Quality Measures Falls Risk Screening/Assistive Devices Have you fallen in the past year?: No 07/15/25 [id number] <Electronically signed by Michelle Crenshaw MD> Date Michelle Rendon MD
[2025-07-17] MEDS: Lactated Ringers 1,000 ML 15 ML IV (09:18)
--- NOTE | 2025-07-17 09:26 | PRE.ANES_ITS ---
ASA Classification* ASA Classification ASA Classification: 2 Assessment & Plan Anesthesia* Anesthesia Assessment Anesthesia Assessment: Discussed sedation and/or anesthesia options, risks, benefits, and alternatives with patient/parents/legal guardian/POA. Questions invited. The patient/parents/legal guardian/POA seems to understand and agrees to proceed with anesthesia plan. Reviewed the physical assessment, medical history, allergy history and patient home medications list prior to surgery/procedure/anesthetic and documented any changes. Performed airway and anesthesia risk assessments. Anesthesia Type Anesthesia Type: General History Source History Obtained from:: Patient and Chart Anesthesia Focused Assessment* Temperature: 98 F Pulse Rate: 73 Blood Pressure: 146/78 Respiratory Rate: 17 Pulse Ox: 98 Oxygen Delivery Method: Room Air Airway Assessment Mouth opens: >3 cm Mallampati Score: II Teeth Condition: Missing Neck Range of motion (ROM): Limited ROM Labs Anesthesia Preop lab: CBC WBC, (4.4-11.0) 6.2 K/mm3 07/02/25, 15: RBC, (4.2-5.4) 4.71 M/mm3 07/02/25, 15:25 Hgb, (12.0-15.0) 14.3 g/dL 07/02/25, 15:25 Hct, (37-47) 42.2 % 07/02/25, 15:25 Plt Count, (150-450) 215 K/mm3 07/02/25, 15:25 CHEMISTRY Potassium, (3.3-5.1) 4.1 mmol/L 07/02/25, 15:25 Sodium, (133-145) 139 mmol/L 07/02/25, 15:25 BUN, (4-19) 13 mg/dL 07/02/25, 15:25 Creatinine, (0.70-1.20) 0.67 mg/dL L 07/02/25, :25 Glucose, (70-99) 102 mg/dL H 07/02/25, 15:25 COAG Pre-Assessment Diagnosis/Proposed Procedure Planned Operative Procedure(s): CYSTO, BILATERAL UTEROSCOPY, LAER LITHOTRIPSY, STONE BASKET EXTRACTION Anesthesia History Anesthesia History - emergency medical tech: Anesthesia History - emergency medical tech Hx Hospitalization No 07/15/25 13:10 Any Problems With Anesthesia No 10/14/25 13:10 Cholinesterase deficiency No 07/15/25 13:10 You/Your Family Experience No 07/15/25 13:10 fever (hyperthermia) with Relationship Recent Exposure to Contagious No 07/17/25 09:14 Disease Does patient have nerve No 07/15/25 13:10 stimulator Patient instructed to have device shut off --Does patient have Pacemaker No 07/17/25 09:14 or ICD? When Was Last Pacemaker Check QUESTION #4 FULL TEXT: You/Your Family Experience fever (hyperthermia) with Anesthesia Last Oral Intake Last Oral intake: Last Oral Intake NPO since 07:00 07/17/25 09:14 Meds taken in AM with sips of Yes 07/17/25 09:14 water? Meds patient instructed to take am of surgery PONV PONV - emergency medical tech: PONV - emergency medical tech Female Yes 07/15/25 13:10 HX of Motion Sickness No 07/15/25 13:10 HX of N/V After Surgery No 07/15/25 13:10 Non-Smoker Yes 07/15/25 13:10 Duration of Surgery greater Yes 07/15/25 13:10 than 60 minutes Number of Risk Factors 3 07/15/25 13:10 PONV Score Moderate Risk 07/15/25 13:10 Height & Weight Height & Weight: Anesthesia: Height & Weight Height 5 ft 5 in 07/17/25 09:14 Weight: 69 kg 07/17/25 09:14 Body Mass Index (BMI) 25.3 07/17/25 09:14 Respiratory Assessment Respiratory Assessment - emergency medical tech: Respiratory Tract Infection Hx - emergency medical tech Hx Respiratory Tract Infection No 07/15/25 13:10 STOP Sleep Apnea STOP Sleep Apnea - emergency medical tech: STOP Sleep Apnea - emergency medical tech Hx Hypertension No 07/15/25 13:10 Hx Sleep Apnea No 07/15/25 13:10 CPAP No 10/12/23 08:57 BIPAP No 10/11/23 15:23 Do you snore loudly (louder No 07/15/25 13:10 than talking or can be heard Do you often feel tired/ No 07/15/25 13:10 fatigued/ sleepy during daytime? Has anyone observed you stop No 07/15/25 13:10 breathing during sleep? STOP Results Negative 07/15/25 13:10 QUESTION #5 FULL TEXT : Do you snore loudly (louder than talking or can be heard through closed doors)? Tobacco Use History Tobacco Use History - emergency medical tech: Tobacco Use History - emergency medical tech Tobacco Use Smoking Status Never smoker 07/15/25 13:10 Hx Tobacco Use No 07/15/25 13:10 Years Smoking Packs Smoked per Day Smoking Cessation Date was within the last 15 years Hx Smoking Cessation Date Hx Smoking Cessation No 07/15/25 13:10 Counseling Hematologic Medial History Hematologic Hx - emergency medical tech: Hematologic Medical Hx - national coverage specialist Hx of Blood Transfusion No 07/15/25 13:10 Hx of Transfusion in last 3 No 07/15/25 13:10 Months Date of Last Transfusion (if within last 3 months) Ever experience any problems No 07/15/25 13:10 with transfusion(s)? Specify any problems Hx of Preganancy in last 3 No 07/15/25 13:10 Months Nurse Filling Out Transfusion [email or web address] 07/15/25 13:10 & Questions: Date: 07/15/25 07/15/25 13:10 Time: 13:13 07/15/25 13:10 Patient unable to answer at this time (ie. confused, unrespo /Reproduction History /Reproductive History - emergency medical tech: /Reproductive Hx- emergency medical tech Hx Now No 07/15/25 13:10 Gestational Age (in weeks): EDC: Hx Hx Para Hx Section SAB No 07/15/25 13:10 Active Medications Active Medications: Current Medications Generic Name Dose Route Start Last Admin Trade Name Freq PRN Reason Stop Dose Admin Cefazolin Sodium 2 gm/ Sodium 110 mls @ 200 mls/hr 07/17/25 10:30 Chloride IV 07/17/25 11:02 INTRAOP ONE Lactated Ringer's 1,000 mls @ 15 mls/hr 07/17/25 08:45 07/17/25 09:18 IV 15 mls/hr .Q48H AJITH Administration PFSH Medical History Anxiety History of steroid therapy Hydronephrosis Bilateral renal stones Parkinson's disease Leg cramps Wears hearing aid Wears glasses Gastric reflux Non-smoker History of echocardiogram History of stress test Cardiology follow-up encounter History of kidney stones Home Medications ?Medication ?Instructions ?Recorded ?Last Taken ?Type ascorbic acid (vitamin C) 500 mg 500 mg PO DAILY 09/2807/16/25 History chewable tablet (Vitamin C) cholecalciferol (vitamin D3) 25 2,000 unit PO DAILY 07/16/25 History mcg (1,000 unit) tablet (Vitamin D3) omega-3 fatty acids 300 mg capsule 1,200 mg PO BID 07/14/25 History (Fish Oil) simvastatin 20 mg tablet 20 mg PO QHS 09/28/15 History aspirin 81 mg tablet,delayed 81 mg PO DAILY@0800 11/1307/14/25 History release coenzyme Q10 50 mg chewable tablet 50 - 100 mg PO LINDA Y 11/13/15 07/16/25 History carbidopa 25 mg-levodopa 100 mg 1 tab PO TID 09/07/23 07/17/25 History tablet escitalopram oxalate 10 mg tablet 10 mg PO DAILY 09/0707/16/25 History (Lexapro) Lactobacillus acidophilus 10 100 mmu cells PO DAILY 07/16/25 History billion cell capsule (NewFlora) magnesium 250 mg tablet 500 mg PO DAILY 07/15/25 History multivitamin (Daily Multi-Vitamin 1 tab PO DAILY 07/1507/16/25 History tablet) Allergy/AdvReac Type Severity Reaction Status Date / Time oxycodone HCl (From Percocet) AdvReac Nausea Verified 07/17/25 09:13 Surgical History History of tubal ligation History of lateral meniscus repair of left knee Social History Smoking Status: Never smoker Review of Systems (Anesthesia) ROS Narrative System reviewed and no additional complaints, except as documented.
[2025-07-17] MEDS: Lactated Ringers 1,000 ML 1000 ML IV (11:47)
--- NOTE | 2025-07-17 11:53 | PCM.OPRPT ---
Problems Associated Problem List Diagnoses (1) Bilateral renal stones: Multi Select Codes Urology Urology Charge Forwarding-multi code: Attention Steve Operative Report (Standard) Operative Information Date of Procedure: 07/17/25 Pre-Operative Diagnosis: Bilateral kidney stones Post-Operative Diagnosis: Same Surgery/Procedure Performed: Cystoscopy, bilateral ureteroscopy, bilateral laser lithotripsy, attempted stone basket extraction with bilateral ureteral stent insertion training technician: No Type of Anesthesia: General RN Documented Start/Stop Times: Operation Date: 07/17/25 10:30 Case Time Into Pre-Op 07/17/25 08:43 Out of Pre-Op 07/17/25 11:43 Anesthesia Start 07/17/25 11:47 Into Room 07/17/25 11:47 Procedure Start 07/17/25 12:03 Procedure End 07/17/25 12:56 Anesthesia End 07/17/25 13:07 Out of Room 07/17/25 13:07 Into Recovery 07/17/25 13:08 Out of Recovery 07/17/25 13:50 Into Phase II Recovery 07/17/25 13:52 Procedure Start Time: 12:03 Procedure Stop Time: 12:56 Select all DRAINS/GRAFTS/IMPLANTS that apply: Drains Drain details: 4.5 x 26 cm JJ stent x 2 Estimated Blood Loss: <5cc Specimen collected: No Description of surgery: The patient is a 75-year-old female with multiple kidney stones who presents for surgical intervention. Informed consent was obtained. She was taken to the operating room and placed on the operating room table. Anesthesia monitored the head, neck, airway, IV access and vital signs throughout the case. Once anesthesia was overtly administered, she was placed into dorsolithotomy position was prepped and draped in usual sterile fashion. The cystoscope was inserted through the urethra under direct visualization into the urinary bladder. The bladder mucosa was visualized in its entirety finding no evidence of mass, erythema, ulceration or foreign body. The left ureteral orifice was gently intubated with a 0.035 Glidewire which advanced to the renal pelvis without difficulty. A second Glidewire was passed alongside of it it to use as a safety wire. The flexible ureteroscope was passed over one of the Glidewire's which was then removed. The kidney was evaluated and 2 kidney stones were identified 1 was approximately 1 mm in size and the other approximately 3. There was difficulty in basket retrieving the stones due to their size and still being attached to the papilla. The decision was made to laser the stones and this was done without difficulty. The stones were broken into small fragments that were too small for basket retrieval. When this was completed, the entire length of the ureter was visualized finding no evidence of laceration or injury. a 4.5 Pashto by 26 cm JJ stent was placed over the wire with good positioning in the renal pelvis and the urinary bladder. This process was repeated on the patient's right side exactly. No fragments were obtained for specimen. The patient's bladder was then emptied and the case was terminated. She was awakened and taken to the recovery room in good condition. There were no complications during the procedure. Surgical Findings: Stones were fragmented with the laser, none were obtained for specimen evaluation 4.5 x 26 cm stents were placed without difficulty. Complications Complications: No Admit VTE Documentation VTE Present on Admission: Yes VTE Mechan Device Prophylaxis: SCD's VTE Pharm Prophylaxis ordered?: No Reason prophylaxis not ordered: Treatment Not Indicated
--- NOTE | 2025-07-17 11:54 | DCINST_ITS ---
Discharge Instructions Diet Discharge Diet: No restrictions Activity Discharge Activity: Return to Normal Activity Dressing / Incision Call your doctor if you observe: Fever of 101 or Higher, Inability to urinate and Inability to have a bowel movement Follow Up Care Please Follow Up With: Michelle Crenshaw MD Test Results: Test results from this visit will be discussed in further detail at your follow- up appointment, if applicable. Discharge Plan Admission Attending Provider: Michelle Crenshaw Primary Care Provider: Hi Marcano Instructions Print Language: Tamazight Discharge Orders/Prescriptions Prescriptions: New hydrocodone-acetaminophen 5-325 mg tablet 1 tab PO Q8H PRN (Reason: Pain) 7 Days Qty: 10 0RF phenazopyridine 100 mg tablet 100 mg PO TID PRN (Reason: pain) 30 Days Qty: 30 3RF cephalexin 500 mg capsule 500 mg PO Q12 3 Days Qty: 6 0RF ondansetron 4 mg tablet,disintegrating 4 mg PO Q8H PRN (Reason: nausea and vomiting) Qty: 10 0RF Continued simvastatin 20 MG tablet 20 mg PO QHS Patient Comments: cholesterol lowering ascorbic acid (vitamin C) [Vitamin C] 500 MG tablet,chewable 500 mg PO DAILY Patient Comments: suppliment cholecalciferol (vitamin D3) [Vitamin D3] 1,000 UNIT tablet 2,000 unit PO DAILY Patient Comments: suppliment Fish Oil 300 MG capsule 1,200 mg PO BID Patient Comments: suppliment aspirin 81 MG tablet 81 mg PO DAILY@0800 Patient Comments: STOPPED PRIOR TO PROCEDURE coenzyme Q10 50 MG tablet,chewable 50 - 100 mg PO DAILY Patient Comments: takes occasionally escitalopram oxalate [Lexapro] 10 mg tablet 10 mg PO DAILY carbidopa-levodopa 25-100 mg tablet 1 tab PO TID magnesium 250 mg tablet 500 mg PO DAILY multivitamin [Daily Multi-Vitamin] Tablet 1 tab PO DAILY NewFlora 10 billion cell capsule 100 mmu cells PO DAILY Referrals / Follow Up: Hi Marcano MD [Primary Care Provider, Medical] Disposition Disposition (needs filled in before D/C Order can be placed): Home, Self Care
[2025-07-17] MEDS: Cefazolin 1 GM/5 ML Vial 2 GM IV (11:55)
[2025-07-17] MEDS: Lidocaine 1% (5 ml sdv) 5 ML Vial IV (11:58)
[2025-07-17] MEDS: fentaNYL 100 MCG/2 ML Ampul IV (11:58)
--- NOTE | 2025-07-17 13:13 | PCM.POST.ANE ---
Anesthesia: Postop Eval I Current Vital Signs Temperature: 97.0 F Pulse Rate: 81 Blood Pressure: 147/79 Respiratory Rate: 16 Pulse Ox: 100 Oxygen Delivery Method: Room Air Assessment Airway patent: Yes Spontaneous unlabored respirations: Yes Mental status: Awake and Calm nausea: No Vomiting: No Anesthesia Complication: No Fluid Hydration Crystalloid volume administer (ml): 900 Total IV fluid infused: 900 Progress Note Anesthesia document: Postop Eval 1 completed: Yes
--- NOTE | 2025-07-17 14:11 | POSTOPAN2_ITS ---
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 Spontaneous unlabored Yes 07/17/25 13:13 CHEMICAL MACHINE TENDER.[email or web address] respirations Mental status Awake,Calm 07/17/25 13:13 CHEMICAL MACHINE TENDER.[email or web address] nausea No 07/17/25 13:13 CHEMICAL MACHINE TENDER.[email or web address] Vomiting No 07/17/25 13:13 CHEMICAL MACHINE TENDER.[email or web address] Anesthesia Postop Eval I: Fluid Summary Crystalloid volume administer 900 07/17/25 13:13 CHEMICAL MACHINE [email or web address].[email or web address] (ml) Colloids volume administered ( ml) Blood Product volume administered (ml) Total IV fluid infused 900 07/17/25 13:13 CHEMICAL MACHINE [email or web address].[email or web address] Anesthesia Postop Eval I: Summary Notes Anesthesia Complication No 07/17/25 13:13 CHEMICAL MACHINE [email or web address] Anesthesia Complication Comment: Post-operative progress note Anesthesia: Postop Eval II Evaluation Mental status: Awake and Calm Pain Level: 1 nausea: No Vomiting: No Complications Anesthesia Complication: No
--- NOTE | 2025-07-17 14:11 | PCM.POSTANE2 ---
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.[email or web address] Spontaneous unlabored Yes 07/17/25 13:13 INFECTION CONTROL PREVENTIONIST.[email or web address] respirations Mental status Awake,Calm 07/17/25 13:13 INFECTION CONTROL PREVENTIONIST.[email or web address] nausea No 07/17/25 13:13 INFECTION CONTROL PREVENTIONIST.[email or web address] Vomiting No 07/17/25 13:13 INFECTION CONTROL PREVENTIONIST.[email or web address] Anesthesia Postop Eval I: Fluid Summary Crystalloid volume administer 900 07/17/25 13:13 INFECTION CONTROL PREVENTIONIST.[email or web address] (ml) Colloids volume administered ( ml) Blood Product volume administered (ml) Total IV fluid infused 900 07/17/25 13:13 INFECTION CONTROL PREVENTIONIST.[email or web address] Anesthesia Postop Eval I: Summary Notes Anesthesia Complication No 07/17/25 13:13 INFECTION CONTROL PREVENTIONIST.[email or web address] Anesthesia Complication Comment: Post-operative progress note Anesthesia: Postop Eval II Evaluation Mental status: Awake and Calm Pain Level: 1 nausea: No Vomiting: No Complications Anesthesia Complication: No
[2025-07-17] MEDS: HYDROcodone Bitartrate/Apap 5/325 Tablet PO (14:40)
== END 2025-07-17 15:35 | disposition home or self-care (01) ==
LOC: SDC 08:29 → AC 08:30
PROVIDERS: Referring Provider Urology; Visit Provider Urology
PROC: 0TJ98ZZ Inspection of Ureter, Via Natural or Artificial Opening Endoscopic (ICD-10-PCS; CPT 52352; principal; 2025-07-17 10:15)
DX: N13.2 Hydronephrosis with renal and ureteral calculous obstruction (principal); Z79.82 Long term (current) use of aspirin; Z79.899 Other long term (current) drug therapy; K21.9 Gastro-esophageal reflux disease without esophagitis
CPT/HCPCS: 52356; 76000; 93005; C1769; C2617; J2405